=== PATIENT | male | born 1980 | race Caucasian/White ===

== ENCOUNTER 2017-05-31 12:15 | Observation (INO) | payer MEDICAID, SELFPAY ==
[2017-05-31] VITALS (11 sets, daily range): BP systolic 122–151; BP diastolic 74–100; PULSE 81–121; RESP 16–18; TEMP 36.4–37.7; O2SAT 95–100; BMI 31.6; BMI 29.9
--- NOTE | 2017-05-31 12:37 | ED.VISSUMM ---
- ER Visit Summary Date of Service: 05/31/17 Chief Complaint: Right long finger pain and swelling History of Present Illness: The patient is a 36 M right hand dominant. States about 2 weeks ago he dropped a metal on his right long finger injured it since it was better the next day. Has any fever. States since Monday he is right long finger has been swollen red and increasing pain. It hurts to extend the finger. No prior history. No prior surgery to the right hand. Physical Examination: Male no acute distress. Vital signs are stable afebrile. HEENT exam normal. Neck nontender. Lungs good auscultation bilaterally. Heart regular rhythm no murmur. Tachycardia 110-120. Abdomen soft nontender. Extremities he moves all 4. Neurovascularly intact. Specifically his right long finger is a sausage digit. It is warm to touch. Is extremely tender. He has it somewhat flexed for comfort. If you extend his right long finger he has severe pain. Consistent with a flexor tenosynovitis. The pulmonary hand is nontender. The wrist and forearm is unremarkable. There is no epitrochlear or axillary lymphadenopathy. There is no lymphangitic streaking. Right hand is neurovascularly intact. There is a small healed wound on the backside. There is no bony deformity. Test Results: Right hand x-ray right long finger shows soft tissue swelling but no acute abnormality. No fracture or foreign body. Read by the radiologist reviewed by me. CBC normal. White count of 9. BMP normal. Emergency Department Course and Treatment: Repeat exam unchanged at 1344. Patient has a right long finger flexor tenosynovitis. Treatment Plan: I spoke with Dr. ananya Sheppard he will come down to the ER to evaluate the patient for possible surgical intervention. Disposition: [] Impression: Acute right long finger pain secondary to a flexor tenosynovitis This note was generated with [employer] dictation software. It may contain incorrect words, spelling, and punctuation that were not noted in review of the chart prior to signing ED Disposition - Plan for ED Patient: Chief Complaint: Upper Extremity Injury Referrals: Sofia Armstrong MD [Primary Care Provider] -
--- NOTE | 2017-05-31 12:55 | RAD_ITS ---
STUDY: X-RAY - RIGHT HAND REASON FOR EXAM: Male, 36 years old. Swelling of the third digit. History of puncture. TECHNIQUE: 3 view(s) of the hand. COMPARISON: None. FINDINGS: Normal radiocarpal articulation. Normal distal radioulnar joint. Normal visualized carpal bones. Normal carpal articulations Normal carpometacarpal articulation of the thumb. Normal second through fifth carpometacarpal joints. Normal metacarpi. Normal metacarpophalangeal joint of the thumb. Normal interphalangeal joint of the thumb. Normal proximal and distal phalanges of the thumb. Normal metacarpophalangeal joints of the second through fifth fingers. Normal proximal and distal interphalangeal joints of the second through fifth fingers. Normal phalanges of the second through fifth fingers. Soft tissue swelling. No radiopaque foreign body is seen. RAD/Hand Min 3 Views IMPRESSION: Soft tissue swelling. Electronically Signed: Shai Berg MD at 13:30 EDT Tel [phone], Service support ,
[2017-05-31 13:00] LABS: Absolute Lymphocyte Count 2.77 X10^3/ul (0.83-4.51); Basophil# 0.02 X10^3/uL; Basophil% 0.2 % (0-1); Eosinophil# 0.24 X10^3/uL; Eosinophils% 2.4 % (0-5); Hematocrit 46.3 % (40-54); Hemoglobin 16.8 g/dl (13.0-16.5); Lymphocyte # 2.77 X10^3/ul (4.0); Lymphocyte % 27.9 % (19-41); Mean Corp Hgb Conc 36.3 g/gl (32-36); Mean Corpuscular Hgb 31.7 pg (27.0-32.0); Mean Corpuscular Volume 87.4 fL (80-94); Mean Platelet Vol. 10.7 fl (6.2-12.0); Monocyte# 0.95 X10^3/uL; Monocyte% 9.6 % (0-10); Neutrophil # 5.95 X10^3/uL (2.7-7.7); Neutrophil % 59.9 % (47-70); POSITIVE COUNT NO; POSITIVE DIFFERENTIAL NO; POSITIVE MORPHOLOGY NO; Platelet Count 219 K/mm3 (150-450); RBC Distribution Width CV 12.7 % (11.6-14.6); RBC Distribution Width SD 40.5 fl (35.1-43.9); White Blood Count 9.9 K/mm3 (4.4-11.0)
[2017-05-31 13:09] LABS: Anion Gap 7 (5-15); BUN 15 mg/dL (7-18); BUN/Creat Ratio 14.2 RATIO (10-20); Calcium,Total 8.8 mg/dL (8.5-10.1); Chloride 110 mmol/L (98-107); Creatinine, Serum 1.06 mg/dL (0.70-1.30); EST Glomerular Filtration Rate 84 mL/min (>60); Est Glom Filt Rate - Afr Amer 101 mL/min (>60); Estimated Creatinine Clearance 108.88 ml/min; Glucose 106 mg/dL (74-106); Potassium 4.3 mmol/L (3.5-5.1); Sodium Level 142 mmol/L (136-145)
--- NOTE | 2017-05-31 17:48 | PCM.HP.STD ---
History of Present Illness Date of Admission: 05/31/17 Chief Complaint: Painful right long finger with flexor tenosynovitis. The patient is a 36 year old M who is right hand dominant and presented to the ED today with a 2 week history of an injury to his right long finger. He states he dropped a piece of metal on his right long finger. He still continued to work over the ensuing days. However over the last couple of days, he noted increasing redness and pain and swelling. Denies any fever. He states it hurts to extend his right long finger. No prior surgery to the right hand. I saw the patient in the ED and his right long finger symptomatology is consistent with flexor tenosynovitis. It was recommended to the patient that urgent operative intervention was necessary. Vancomycin IV was started. His WBC was 9.9. Past Medical History Past Medical History (Chronic Problems): Chronic Problems (Last Updated 03/03/17 @ 13:55 by Licha Salazar) Hypertension (Chronic) Tobacco dependence (Chronic) Tachycardia (Chronic) Chronic radicular low back pain (Chronic) Allergies amoxicillin [Amoxicillin] Allergy (Verified 09/15/13 15:50) Rash Penicillins Allergy (Verified 09/15/13 15:50) Rash PAST MEDICAL HISTORY Hypertension. Low back pain. History of heroin abuse for which he has been clean for 8 years. Smoker. Home Medications: Ambulatory Orders Medication Instructions Recorded gabapentin 400 mg capsule 800 mg PO BID #120 cap 04/12/17 amlodipine 5 mg tablet 5 mg PO QDAY #30 tab 05/26/17 Surgical History: no surgical history Psychiatric History: No pertinent psych hx Lives: With Family Smoking Status: Current every day smoker Tobacco Use: Cigarettes Alcohol: None Drugs: Heroin - had history of heroin abuse. Has been clean for 8 years. He goes to [employer] meetings three times per week. - *Family History Maternal History Items: Diabetes, Hypertension, - - thyroid disease. Paternal History Items: Heart Disease, - - thyroid disease, alcoholism, anxiety. Review of Systems Constitutional: Denies: Fever, Weight Change, Fatigue Eyes: Denies: Cataracts, Pain HEENT: Denies: Nasal Congestion, Sore Throat Cardiovascular: Denies: Chest Pain Respiratory: Reports: - - patient is a smoker.. Denies: Cough, Shortness of Breath Gastrointestinal: Denies: Constipation, Diarrhea, Nausea, Vomiting Genitourinary: Denies: Frequency, Hematuria Musculoskeletal: Reports: Back Pain, Hand Pain - right long finger pain with clinical suspicion for flexor tenosynovitis.. Denies: Arm Pain, Leg Pain, Neck Pain, Shoulder Pain Skin: Reports: - - increased swelling right long finger. Neurological: Denies: Headaches Psychiatric: Denies: Anxiety, Depression Endocrine: Reports: Hx of Thyroiditis. Denies: Polydipsia, Polyuria Hematologic/ Lymphatic: Denies: Easy Bruising, Hx of blood clot VTE Information - Inpt Only VTE Present on Admission: No VTE Mechan Device Prophylaxis: SCD's VTE Pharm Prophylaxis ordered?: No Patient Problems: Active and Suspected Problems (Last Updated 03/03/17 @ 13:55 by Licha Salazar) Facial mass (Acute) 1.2 cm infected cystic lesion left supramedial cheek Cellulitis, face (Acute) 1.2 cm infected cystic lesion left supramedial cheek Heroin use disorder, moderate, in sustained remission (Acute) Suppurative tenosynovitis of flexor tendon of right hand (Acute) suppurative flexor tenosynovitis right long finger Abscess of right hand including fingers (Acute) right long finger at volar aspect DIP joint crease - Physical Exam General: Alert, Oriented x3 HEENT: PERRLA, EOMI Neck: Supple Lungs: Clear to auscultation Cardiovascular: Regular rate, Regular Rhythm Abdomen: Soft, Non-Distended Extremities: No clubbing, No cyanosis, Edema - there is edema in the right long finger., Peripheral Pulses Normal, Tenderness - tenderness to palpation right long finger. Finger is flexed with swelling. There is extreme tenderness with passive extension. Clinically consistent with flexor tenosynovitis., - - no axillary adenopathy. Fingers are warm with good capillary refill. Some decreased sensation right long finger tip probably from swelling. Skin: - - has painful swollen right long finger consistent with flexor tenosynovitis. On the volar aspect of the right long finger at the DIP joint crease is an area of fluctuance indicative of an abscess. Tender to palpation. No purulent drainage. Patient states this is where the metal entered his skin. On the left supramedial cheek is an infected cystic lesion that measures 1.2 cm. Raised in configuration. Some tenderness to palpation. No purulent drainage. No fluctuance. Lymphatic: - - no axillary adenopathy. Neurological: Cranial nerves II-XII grossly intact Psych/Mental Status: Normal Affect, Appropriate Vital Signs Temp Pulse Resp BP Pulse Ox 97.9 F 98 16 151/74 H 95 05/31/17 15:44 05/31/17 15:20 05/31/17 15:44 05/31/17 15:44 05/31/17 15:44 Oxygen Delivery Method Room Air Weight: 240 lb Body Mass Index (BMI) 29.9 Laboratory Tests Past 24 Hrs 05/31/17 05/31/17 12:47 12:47 WBC 9.9 RBC 5.30 Hgb 16.8 H Hct 46.3 MCV 87.4 MCH 31.7 MCHC 36.3 H RDW 12.7 RDW Differential 40.5 Plt Count 219 MPV 10.7 Immature Gran % (Auto) 0.000 Neut % (Auto) 59.9 Lymph % (Auto) 27.9 [place] % (Auto) 9.6 Eos % (Auto) 2.4 Baso % (Auto) 0.2 Absolute Neuts (auto) 6.0 Absolute Lymphs (auto) 2.77 Total Counted Not Reportable Sodium 142 Potassium 4.3 Chloride 110 H Carbon Dioxide 25.0 Anion Gap 7 BUN 15 Creatinine 1.06 Estim Creat Clear Calc 108.88 Est GFR (MDRD) Af Amer 101 Est GFR (MDRD) Non-Af 84 BUN/Creatinine Ratio 14.2 Glucose 106 Calcium 8.8 Diagnostic Data Hand X-Ray 05/31/17 12:55 IMPRESSION: Soft tissue swelling. Electronically Signed: Shai Berg MD at 13:30 EDT Tel [phone], Service support , Assessment/Plan Active and Suspected Problems (Last Updated 03/03/17 @ 13:55 by Licha Salazar) Facial mass (Acute) 1.2 cm infected cystic lesion left supramedial cheek Cellulitis, face (Acute) 1.2 cm infected cystic lesion left supramedial cheek Heroin use disorder, moderate, in sustained remission (Acute) Suppurative tenosynovitis of flexor tendon of right hand (Acute) suppurative flexor tenosynovitis right long finger Abscess of right hand including fingers (Acute) right long finger at volar aspect DIP joint crease 1. Flexor tenosynovitis right long finger. 2. Abscess right long finger at volar aspect DIP joint crease. 3. Smoker. 4. History of heroin abuse. 5. 1.2 cm infected cystic lesion left supramedial cheek. Xray reviewed. Swelling noted. No bony abnormalities seen. No foreign bodies seen. Patient has the classic signs of flexor tenosynovitis (finger is flexed, pain in the finger, swelling in finger, and pain with passive extension). He states he may have gotten a piece of metal in the skin. 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 IV antibiotics with Vancomycin will be started in preparation to going to the OR. He needs operative intervention for incision and drainage and excisional debridement of an abscess with probable incision tendon sheath for flexor tenosynovitis. Operative cultures will be obtained. A positive culture may necessitate antibiotic modification. Based on the severity of the infection, a PICC line may be necessary for IV antibiotics. With his history of heroin use in the past, I cannot discharge him with the PICC line. And the patient has no desire to go to an ECF for the IV antibiotics. I will take him to the OR today. Surgery will be under anesthesia with tourniquet control. The wounds will be left open and will begin daily dressing changes with Aquacel Silver. I will be able to send him home once he is tolerating the wound care with po analgesics. Will set up Home Health to assist with the Silver dressing changes after discharge. Also as an outpatient, patient will need OT for range of motion exercises, strengthening, and edema management. 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 I anticipate being off work for about 2 months (tentative). Patient was informed of the risks and complications of the procedure including alternatives to surgery. These were discussed with him personally. He voices understanding and wishes to proceed. Some of the risks that were discussed included but were not inclusive of failure to diagnose including symptom relief, pain, infection, numbness, stiffness, loss of digit, RSD, need for further surgery, contracture and wound healing problems. He voices understanding and wishes to proceed. Encouraged the patient to stop smoking as it may have deleterious effects on wound healing. Even though he thinks this happened at work, he states he is not going through [facility]. I told him if he did, he would need to be transferred since I don't take [facility] anymore. He voices understanding, and he states he will go through his regular medical insurance. He has an infected cystic lesion left supramedial cheek that will be addressed after his surgery on his right long finger. In the meantime, he will apply warm compresses to allow spontaneous drainage. He will already be on antibiotics for his finger. If I open it today, I will have to leave the wound open and proceed with daily dressing changes with Silver dressings. Ideally I would like to wait for the redness and swelling to subside in order to excise the cystic lesion electively with wound closure at the same time. Code Visit Charges CPT - 32849-12 ICD-10 - L02.511, M65.141, F11.21, L03.211, R22.0, F17.200
--- NOTE | 2017-05-31 17:51 | HP.PCM_ITS ---
History of Present Illness Date of Admission: 05/31/17 Chief Complaint: Painful right long finger with flexor tenosynovitis. The patient is a 36 year old M who is right hand dominant and presented to the ED today with a 2 week history of an injury to his right long finger. He states he dropped a piece of metal on his right long finger. He still continued to work over the ensuing days. However over the last couple of days, he noted increasing redness and pain and swelling. Denies any fever. He states it hurts to extend his right long finger. No prior surgery to the right hand. I saw the patient in the ED and his right long finger symptomatology is consistent with flexor tenosynovitis. It was recommended to the patient that urgent operative intervention was necessary. Vancomycin IV was started. His WBC was 9.9. Past Medical History Past Medical History (Chronic Problems): Chronic Problems (Last Updated 03/03/17 @ 13:55 by Licha Salazar) Hypertension (Chronic) Tobacco dependence (Chronic) Tachycardia (Chronic) Chronic radicular low back pain (Chronic) Allergies amoxicillin [Amoxicillin] Allergy (Verified 09/15/13 15:50) Rash Penicillins Allergy (Verified 09/15/13 15:50) Rash PAST MEDICAL HISTORY Hypertension. Low back pain. History of heroin abuse for which he has been clean for 8 years. Smoker. Home Medications: Ambulatory Orders Medication Instructions Recorded gabapentin 400 mg capsule 800 mg PO BID #120 cap 04/12/17 amlodipine 5 mg tablet 5 mg PO QDAY #30 tab 05/26/17 Surgical History: no surgical history Psychiatric History: No pertinent psych hx Lives: With Family Smoking Status: Current every day smoker Tobacco Use: Cigarettes Alcohol: None Drugs: Heroin - had history of heroin abuse. Has been clean for 8 years. He goes to [employer] meetings three times per week. - *Family History Maternal History Items: Diabetes, Hypertension, - - thyroid disease. Paternal History Items: Heart Disease, - - thyroid disease, alcoholism, anxiety. Review of Systems Constitutional: Denies: Fever, Weight Change, Fatigue Eyes: Denies: Cataracts, Pain HEENT: Denies: Nasal Congestion, Sore Throat Cardiovascular: Denies: Chest Pain Respiratory: Reports: - - patient is a smoker.. Denies: Cough, Shortness of Breath Gastrointestinal: Denies: Constipation, Diarrhea, Nausea, Vomiting Genitourinary: Denies: Frequency, Hematuria Musculoskeletal: Reports: Back Pain, Hand Pain - right long finger pain with clinical suspicion for flexor tenosynovitis.. Denies: Arm Pain, Leg Pain, Neck Pain, Shoulder Pain Skin: Reports: - - increased swelling right long finger. Neurological: Denies: Headaches Psychiatric: Denies: Anxiety, Depression Endocrine: Reports: Hx of Thyroiditis. Denies: Polydipsia, Polyuria Hematologic/ Lymphatic: Denies: Easy Bruising, Hx of blood clot VTE Information - Inpt Only VTE Present on Admission: No VTE Mechan Device Prophylaxis: SCD's VTE Pharm Prophylaxis ordered?: No Patient Problems: Active and Suspected Problems (Last Updated 03/03/17 @ 13:55 by Licha Salazar) Facial mass (Acute) 1.2 cm infected cystic lesion left supramedial cheek Cellulitis, face (Acute) 1.2 cm infected cystic lesion left supramedial cheek Heroin use disorder, moderate, in sustained remission (Acute) Suppurative tenosynovitis of flexor tendon of right hand (Acute) suppurative flexor tenosynovitis right long finger Abscess of right hand including fingers (Acute) right long finger at volar aspect DIP joint crease - Physical Exam General: Alert, Oriented x3 HEENT: PERRLA, EOMI Neck: Supple Lungs: Clear to auscultation Cardiovascular: Regular rate, Regular Rhythm Abdomen: Soft, Non-Distended Extremities: No clubbing, No cyanosis, Edema - there is edema in the right long finger., Peripheral Pulses Normal, Tenderness - tenderness to palpation right long finger. Finger is flexed with swelling. There is extreme tenderness with passive extension. Clinically consistent with flexor tenosynovitis., - - no axillary adenopathy. Fingers are warm with good capillary refill. Some decreased sensation right long finger tip probably from swelling. Skin: - - has painful swollen right long finger consistent with flexor tenosynovitis. On the volar aspect of the right long finger at the DIP joint crease is an area of fluctuance indicative of an abscess. Tender to palpation. No purulent drainage. Patient states this is where the metal entered his skin. On the left supramedial cheek is an infected cystic lesion that measures 1.2 cm. Raised in configuration. Some tenderness to palpation. No purulent drainage. No fluctuance. Lymphatic: - - no axillary adenopathy. Neurological: Cranial nerves II-XII grossly intact Psych/Mental Status: Normal Affect, Appropriate Vital Signs Temp Pulse Resp BP Pulse Ox 97.9 F 98 16 151/74 H 95 05/31/17 15:44 05/31/17 15:20 05/31/17 15:44 05/31/17 15:44 05/31/17 15:44 Oxygen Delivery Method Room Air Weight: 240 lb Body Mass Index (BMI) 29.9 Laboratory Tests Past 24 Hrs 05/31/17 05/31/17 12:47 12:47 WBC 9.9 RBC 5.30 Hgb 16.8 H Hct 46.3 MCV 87.4 MCH 31.7 MCHC 36.3 H RDW 12.7 RDW Differential 40.5 Plt Count 219 MPV 10.7 Immature Gran % (Auto) 0.000 Neut % (Auto) 59.9 Lymph % (Auto) 27.9 [place] % (Auto) 9.6 Eos % (Auto) 2.4 Baso % (Auto) 0.2 Absolute Neuts (auto) 6.0 Absolute Lymphs (auto) 2.77 Total Counted Not Reportable Sodium 142 Potassium 4.3 Chloride 110 H Carbon Dioxide 25.0 Anion Gap 7 BUN 15 Creatinine 1.06 Estim Creat Clear Calc 108.88 Est GFR (MDRD) Af Amer 101 Est GFR (MDRD) Non-Af 84 BUN/Creatinine Ratio 14.2 Glucose 106 Calcium 8.8 Diagnostic Data Hand X-Ray 05/31/17 12:55 IMPRESSION: Soft tissue swelling. Electronically Signed: Shai Berg MD at 13:30 EDT Tel [phone], Service support , Assessment/Plan Active and Suspected Problems (Last Updated 03/03/17 @ 13:55 by Licha Salazar) Facial mass (Acute) 1.2 cm infected cystic lesion left supramedial cheek Cellulitis, face (Acute) 1.2 cm infected cystic lesion left supramedial cheek Heroin use disorder, moderate, in sustained remission (Acute) Suppurative tenosynovitis of flexor tendon of right hand (Acute) suppurative flexor tenosynovitis right long finger Abscess of right hand including fingers (Acute) right long finger at volar aspect DIP joint crease 1. Flexor tenosynovitis right long finger. 2. Abscess right long finger at volar aspect DIP joint crease. 3. Smoker. 4. History of heroin abuse. 5. 1.2 cm infected cystic lesion left supramedial cheek. Xray reviewed. Swelling noted. No bony abnormalities seen. No foreign bodies seen. Patient has the classic signs of flexor tenosynovitis (finger is flexed, pain in the finger, swelling in finger, and pain with passive extension). He states he may have gotten a piece of metal in the skin. 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 IV antibiotics with Vancomycin will be started in preparation to going to the OR. He needs operative intervention for incision and drainage and excisional debridement of an abscess with probable incision tendon sheath for flexor tenosynovitis. Operative cultures will be obtained. A positive culture may necessitate antibiotic modification. Based on the severity of the infection, a PICC line may be necessary for IV antibiotics. With his history of heroin use in the past, I cannot discharge him with the PICC line. And the patient has no desire to go to an ECF for the IV antibiotics. I will take him to the OR today. Surgery will be under anesthesia with tourniquet control. The wounds will be left open and will begin daily dressing changes with Aquacel Silver. I will be able to send him home once he is tolerating the wound care with po analgesics. Will set up Home Health to assist with the Silver dressing changes after discharge. Also as an outpatient, patient will need OT for range of motion exercises, strengthening, and edema management. 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 I anticipate being off work for about 2 months (tentative). Patient was informed of the risks and complications of the procedure including alternatives to surgery. These were discussed with him personally. He voices understanding and wishes to proceed. Some of the risks that were discussed included but were not inclusive of failure to diagnose including symptom relief, pain, infection, numbness, stiffness, loss of digit, RSD, need for further surgery, contracture and wound healing problems. He voices understanding and wishes to proceed. Encouraged the patient to stop smoking as it may have deleterious effects on wound healing. Even though he thinks this happened at work, he states he is not going through [facility]. I told him if he did, he would need to be transferred since I don't take [facility] anymore. He voices understanding, and he states he will go through his regular medical insurance. He has an infected cystic lesion left supramedial cheek that will be addressed after his surgery on his right long finger. In the meantime, he will apply warm compresses to allow spontaneous drainage. He will already be on antibiotics for his finger. If I open it today, I will have to leave the wound open and proceed with daily dressing changes with Silver dressings. Ideally I would like to wait for the redness and swelling to subside in order to excise the cystic lesion electively with wound closure at the same time. Code Visit Charges CPT - 10237-91 ICD-10 - L02.511, M65.141, F11.21, L03.211, R22.0, F17.200
--- NOTE | 2017-05-31 18:05 | PCM.IMDPSTOP ---
Immediate Post-Op Note Date of Procedure: 05/31/17 Primary Surgeon/Physician: Anant Castro manager athletics: None Pre-Operative Diagnosis: 1. Flexor tenosynovitis right long finger. 2. Abscess right long finger at volar aspect DIP joint crease. 3. Smoker. 4. History of heroin abuse. Post-Operative Diagnosis: 1. Suppurative flexor tenosynovitis right long finger. 2. Abscess right long finger at volar aspect DIP joint crease. 3. Smoker. 4. History of heroin abuse. Surgery/Procedure Performed:: 1. Surgical preparation right long finger with incision and drainage and excisional debridement abscess at DIP joint crease. 2. Incision tendon sheath right long finger for suppurative flexor tenosynovitis. Description of Surgical Findings:: The patient is a 36 year old M who is right hand dominant and presented to the ED today with a 2 week history of an injury to his right long finger. He states he dropped a piece of metal on his right long finger. He still continued to work over the ensuing days. However over the last couple of days, he noted increasing redness and pain and swelling. Denies any fever. He states it hurts to extend his right long finger. No prior surgery to the right hand. I saw the patient in the ED and his right long finger symptomatology is consistent with flexor tenosynovitis. It was recommended to the patient that urgent operative intervention was necessary. Vancomycin IV was started. His WBC was 9.9. Today the patient underwent surgical preparation right long finger with incision and drainage and excisional debridement abscess at DIP joint crease and incision tendon sheath right long finger for suppurative flexor tenosynovitis. Total tourniquet time - 74 minutes. Length of zig zag wound right long finger - 13 cm. Estimated Blood Loss: 5 ml. Specimen's removed: 1. Flexor tenosynovitis tissue right long finger to Pathology and Microbiology. 2. MRSA by DNA PCR swab culture right long finger. Drains: None. Type of Anesthesia:: Block,[place] - Admit VTE Documentation VTE Present on Admission: No VTE Mechan Device Prophylaxis: SCD's VTE Pharm Prophylaxis ordered?: No
--- NOTE | 2017-05-31 18:09 | OP.PN_ITS ---
Immediate Post-Op Note Date of Procedure: 05/31/17 Primary Surgeon/Physician: Anant Castro latexer: None Pre-Operative Diagnosis: 1. Flexor tenosynovitis right long finger. 2. Abscess right long finger at volar aspect DIP joint crease. 3. Smoker. 4. History of heroin abuse. Post-Operative Diagnosis: 1. Suppurative flexor tenosynovitis right long finger. 2. Abscess right long finger at volar aspect DIP joint crease. 3. Smoker. 4. History of heroin abuse. Surgery/Procedure Performed:: 1. Surgical preparation right long finger with incision and drainage and excisional debridement abscess at DIP joint crease. 2. Incision tendon sheath right long finger for suppurative flexor tenosynovitis. Description of Surgical Findings:: The patient is a 36 year old M who is right hand dominant and presented to the ED today with a 2 week history of an injury to his right long finger. He states he dropped a piece of metal on his right long finger. He still continued to work over the ensuing days. However over the last couple of days, he noted increasing redness and pain and swelling. Denies any fever. He states it hurts to extend his right long finger. No prior surgery to the right hand. I saw the patient in the ED and his right long finger symptomatology is consistent with flexor tenosynovitis. It was recommended to the patient that urgent operative intervention was necessary. Vancomycin IV was started. His WBC was 9.9. Today the patient underwent surgical preparation right long finger with incision and drainage and excisional debridement abscess at DIP joint crease and incision tendon sheath right long finger for suppurative flexor tenosynovitis. Total tourniquet time - 74 minutes. Length of zig zag wound right long finger - 13 cm. Estimated Blood Loss: 5 ml. Specimen's removed: 1. Flexor tenosynovitis tissue right long finger to Pathology and Microbiology. 2. MRSA by DNA PCR swab culture right long finger. Drains: None. Type of Anesthesia:: Block,[place] - Admit VTE Documentation VTE Present on Admission: No VTE Mechan Device Prophylaxis: SCD's VTE Pharm Prophylaxis ordered?: No
[2017-05-31] MEDS: 0.9% NaCl Peripheral Flush Adult/Peds IV ×2 (19:36→23:29)
[2017-05-31] MEDS: HYDROmorphone 1 MG/ML Syringe IV ×3 (19:36→23:29)
[2017-05-31] MEDS: amLODIPine 5 MG Tablet PO (19:41)
[2017-05-31 20:08] LABS: M R Staph aureus DNA By PCR Negative (Negative); Probe Check PASS; Specimen Processing Control PASS; Staph aureus DNA By PCR NEGATIVE (Negative)
--- NOTE | 2017-05-31 20:20 | PCM.RX.CS ---
Consult Pharmacy has been consulted to manage selected antiobiotic: Vancomycin Type of Consult: New start Suspected Infection: Skin/Soft tissue Prior Doses of Antibiotics Received/Current Regimen: VANCOMYCIN 1G IV X1 (PRE-OP) 05/31 @1526 Labs: Sodium 142 mmol/L (136-145) 05/31/17 12:47 Potassium 4.3 mmol/L (3.5-5.1) 05/31/17 12:47 Chloride 110 mmol/L (98-107) H 05/31/17 12:47 Carbon Dioxide 25.0 mmol/L (21.0-32.0) 05/31/17 12:47 Anion Gap 7 (5-15) 05/31/17 12:47 BUN 15 mg/dL (7-18) 05/31/17 12:47 Creatinine 1.06 mg/dL (0.70-1.30) 05/31/17 12:47 Est GFR (MDRD) Af Amer 101 mL/min (>60) 05/31/17 12:47 Est GFR (MDRD) Non-Af 84 mL/min (>60) 05/31/17 12:47 BUN/Creatinine Ratio 14.2 RATIO (10-20) 05/31/17 12:47 Glucose 106 mg/dL (74-106) 05/31/17 12:47 Microbiology: COLLECTED, PENDING RESULTS Weight used for dosin.9 kg Estimated Creatinine Clearance: 109ML/MIN Goal Trough: 10-15 mcg/mL Pharmacy Plan for Drug Dosing: Pharmacy Service will continue to monitor and adjust dosing as required. Pharmacy to manage suspected skin/soft tissue infection per H/P and surgical note. The pt got a pre-op dose prior to dosing consult. Since pt is young, and has good renal function, will place on q8hr dosing and target a trough of 10-15 PLAN/RECOMMENDATIONS 1. Vancomycin 1250mg IV Q8hrs to start 05/31 @2300 (11.4mg/kg based on TBW of 108.9kg) 2. Trough scheduled 06/02 @0630 (Prior to 5th dose of regimen) 3. Pharmacy will continue to monitor micro data, renal function, and troughs. Will make changes as appropriate
[2017-05-31] MEDS: diazePAM 5 MG Tablet PO (20:35)
[2017-05-31] MEDS: oxyCODONE 5 MG Tablet 10 MG PO (21:32)
[2017-05-31] MEDS: Zolpidem Tartrate 5 MG Tablet PO (21:32)
[2017-05-31] MEDS: Docusate Sodium 100 MG Capsule PO (21:32)
--- NOTE | 2017-05-31 22:35 | PCM.OPRPT ---
Report of Operation Date of Procedure: 05/31/17 Pre-Operative Diagnosis: 1. Flexor tenosynovitis right long finger. 2. Abscess right long finger at volar aspect DIP joint crease. 3. Smoker. 4. History of heroin abuse. Post-Operative Diagnosis: 1. Suppurative flexor tenosynovitis right long finger. 2. Abscess right long finger at volar aspect DIP joint crease. 3. Smoker. 4. History of heroin abuse. Surgery/Procedure Performed:: 1. Surgical preparation right long finger with incision and drainage and excisional debridement abscess at DIP joint crease. 2. Incision tendon sheath right long finger for suppurative flexor tenosynovitis. Description of Surgical Findings:: The patient is a 36 year old M who is right hand dominant and presented to the ED today with a 2 week history of an injury to his right long finger. He states he dropped a piece of metal on his right long finger. He still continued to work over the ensuing days. However over the last couple of days, he noted increasing redness and pain and swelling. Denies any fever. He states it hurts to extend his right long finger. No prior surgery to the right hand. I saw the patient in the ED and his right long finger symptomatology is consistent with flexor tenosynovitis. It was recommended to the patient that urgent operative intervention was necessary. Vancomycin IV was started. His WBC was 9.9. Patient was informed of the risks and complications of the procedure including alternatives to surgery. These were discussed with him personally. He voices understanding and wishes to proceed. Some of the risks that were discussed included but were not inclusive of failure to diagnose including symptom relief, pain, infection, numbness, stiffness, loss of digit, RSD, need for further surgery, contracture and wound healing problems. He voices understanding and wishes to proceed. Encouraged the patient to stop smoking as it may have deleterious effects on wound healing. Total tourniquet time - 74 minutes. Length of zig zag wound right long finger - 13 cm. 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 Flexor tenosynovitis tissue right long finger to Pathology and Microbiology. 2. MRSA by DNA PCR swab culture right long finger. Drains: None. Estimated Blood Loss (mL): 5 ml. Description of Procedure: Patient was taken to OR in supine position and a [place] Block was administered by anesthesia. The tourniquet was elevated to 250 mmHg. After the medicine was delivered intravenously, the right arm was prepped and draped in the usual fashion. Using loupe magnification, the procedure started. I supplemented the block with xylocaine with epinephrine digital metacarpal block. SCD's were placed for DVT prophylaxis. Perioperative antibiotics were given intravenously. I made an incision in the DIP joint crease where the injury occurred. Some pus was expressed under pressure. There was surrounding fat necrosis. Pus extended to the tendon sheath distally. I then made zig zag incisions distally to expose the distal end of the tendon sheath and proximally to the distal palmar crease to expose the proximal end of the tendon sheath. Dissection was carried down to the tendon sheath. Both the radial and ulnar digital nerves were seen and dissected and preserved. I went ahead and made a longitudinal incision in the A1 theresa to minimize the worry of a triggering of the finger after healing has occurred. When I made the incision in the A1 theresa, more pus was seen in the tendon sheath. I then pressed the proximal mid palm and more pus was expressed around the proximal tendon. Further zig zag incisions were made proximally into the midpalmar space. The tendon in the sheath appeared tense and swollen. I placed an 18 gauge catheter into the proximal end of the tendon sheath and irrigated distally with saline and then placed the catheter into the distal end of the tendon sheath and irrigated proximally with saline, about 600 ml. There was syrupy pus initially seen in the soft tissue and the tendon sheath. After extensive irrigation, the fluid expressed from the tendon sheath was clear with no further evidence of pus. I swabbed the pus to check for MRSA by DNA PCR. The tissue that was debrided from the DIP joint crease as well as some of the fat necrosis that was debrided with a curette was sent to Pathology for analysis to rule out carcinoma and to Microbiology for culture. A positive culture may necessitate antibiotic modification. I anticipate the need for IV antibiotics for a few days. Will place a PICC line for that purpose. I anticipate that the culture will be sensitive to oral antibiotics. I don't want to send him home with the PICC line because of his history of heroin abuse for which he has been clean for about 8 years. I then closed the zigs and the zags with 5-0 Prolene simple interrupted sutures and vertical mattress interrupted sutures. The intervening lengths of the zigs and the zags measured about 13 cm. I then placed Aquacel Silver into the various lengths of the zigs and zags. The tourniquet was released after 74 minutes. Bleeding easily controlled with light electrocautery and gentle pressure and elevation. The right hand was then dressed with 2x2 gauze followed by 2 inch reuben wrap and a Kerlix gauze and a 4 inch plaster splint followed by a compression lalo wrap. The plastic splint put the hand in a position of function namely wrist dorsiflexed, the MP joints flexed and the IP joints extended. He tolerated the procedure well and was sent to PACU in satisfactory condition. He will be sent upstairs for continued postop care. He will be able to go home when tolerating minimal narcotics with the dressing change. He will keep his right arm elevated during the initial postop period. The Silver dressing changes will begin in the next 1-2 days. Home Health will be available to assist with the dressing changes. After discharge will make arrangements for him to be seen at OT for range of motion exercises, strengthening, and edema management as well as the formation of a silastic splint. Silver dressing changes will be daily. Sutures will be removed in 3-4 weeks. Due to the amount of pus that was found, will treat him with IV antibiotics for a little while and then po antibiotics for the next month. Grafts/Implants Used: None. - Complications None. - Admit VTE Documentation VTE Present on Admission: No VTE Mechan Device Prophylaxis: SCD's VTE Pharm Prophylaxis ordered?: No Code Visit Surgery Charges CPT - 27722 ICD-10 - M65.141, F11.21, F17.200 02130 L02.511, S61.401A, F11.21, F17.200
[2017-05-31] MEDS: Gabapentin 400 MG Capsule 800 MG PO (23:28)
--- NOTE | 2017-06-01 | TESH_PTH ---
PATIENT: SOBIA HENDRICKSON Jr. LOC: MS2 U#:[id number] AGE/SX: 36/M ROOM: [facility] [place] RE05/31/[address]: Dr. Anant Castro MD : [id number] BED: 1 DIS: 06/04/2017 SPEC #: [id number] RECD: 06/01/17 08:30 STATUS: AMANDEEP REGray #: [id number] TODD: 06/01/17 00:[address]: Anant Castro DEPT: SURGICAL PATHOLOGY RECD BY: Wilfredo Evans ENTERED: 06/01/17 09:09 SP TYPE: TENDON OTHR DR: Dr. Sofia Armstrong MD Tissues: Tendon and tendon sheath, NOS Procedures: Special Stain Group I Surgery Specimen Level IV AFB Stain (control) GMS Stain (control) HEADER OPERATION: Incision and drainage of right long finger PRE-OP DIAGNOSIS: Flexor tenosynovitis right long finger TISSUE SUBMITTED: Right long finger flexor tenosynovitis MICROSCOPIC DIAGNOSIS Skin and soft tissue of right long finger, excision: Focal cutaneous ulceration with fibrinopurulent material. Acanthosis, hyperkeratosis. Dermis with fibrinopurulent material, associated fibrosis and reactive change. Negative for acid-fast bacilli and fungal organisms. AM:camelia 06/02/17 COMMENT AFB and GMS stains with matched controls were used in the evaluation of this case. MICROSCOPIC DESCRIPTION Slides are reviewed. GROSS DESCRIPTION Received in fixative is one container labeled with the patient's name and designated right long finger flexor tenosynovitis. The specimen consists of a piece of [place]-white skin ellipse measuring 1.5 x 0.6 cm and up to 0.4 cm in thickness. The specimen is inked, bisected and submitted entirely in one cassette which will be serially sectioned at the time of embedding. / SJ:camelia 06/01/17 TC:2 CPT: 23416, 00794 x2
[2017-06-01 01:50] VITALS: BP 127/76; PULSE 99; RESP 16; TEMP 36.9; O2SAT 96
[2017-06-01] MEDS: oxyCODONE 5 MG Tablet 10 MG PO ×5 (01:59→20:32)
[2017-06-01 06:11] LABS: Hematocrit 44.3 % (40-54); Hemoglobin 15.1 g/dl (13.0-16.5); Mean Corp Hgb Conc 34.1 g/gl (32-36); Mean Corpuscular Hgb 30.8 pg (27.0-32.0); Mean Corpuscular Volume 90.4 fL (80-94); Mean Platelet Vol. 10.5 fl (6.2-12.0); Platelet Count 167 K/mm3 (150-450); RBC Distribution Width CV 12.7 % (11.6-14.6); RBC Distribution Width SD 41.9 fl (35.1-43.9); White Blood Count 8.8 K/mm3 (4.4-11.0)
[2017-06-01 06:26] LABS: Scan Indicated on CBC? Y/N NO
[2017-06-01] MEDS: HYDROmorphone 1 MG/ML Syringe IV ×5 (06:43→22:30)
[2017-06-01 06:47] LABS: Anion Gap 8 (5-15); BUN 13 mg/dL (7-18); BUN/Creat Ratio 12.9 RATIO (10-20); Calcium,Total 8.2 mg/dL (8.5-10.1); Chloride 109 mmol/L (98-107); Creatinine, Serum 1.01 mg/dL (0.70-1.30); EST Glomerular Filtration Rate 88 mL/min (>60); Est Glom Filt Rate - Afr Amer 107 mL/min (>60); Estimated Creatinine Clearance 120.85 ml/min; Glucose 103 mg/dL (74-106); Potassium 3.9 mmol/L (3.5-5.1); Sodium Level 140 mmol/L (136-145)
[2017-06-01] MEDS: Docusate Sodium 100 MG Capsule PO ×2 (09:20→21:46)
[2017-06-01] MEDS: amLODIPine 5 MG Tablet PO (09:20)
[2017-06-01] MEDS: Gabapentin 400 MG Capsule 800 MG PO ×2 (09:20→16:30)
[2017-06-01 09:45] VITALS: BP 131/99; PULSE 93; RESP 18; TEMP 36.8; O2SAT 97
--- NOTE | 2017-06-01 11:04 | CASEMGMT ---
See RN CM Assessment Link. Plan is to return home on discharge. Pt has PCP, prescription coverage. No needs identified. Omero VALENCIAN RN ACM
[2017-06-01] MEDS: Lactated Ringers 1,000 ML 60 ML IV (12:26)
[2017-06-01] MEDS: diazePAM 5 MG Tablet PO ×2 (15:15→21:46)
[2017-06-01 15:45] VITALS: BP 134/92; PULSE 94; RESP 18; TEMP 37; O2SAT 96
[2017-06-01 19:59] VITALS: BP 121/65; PULSE 82; RESP 16; TEMP 36.8; O2SAT 96
--- NOTE | 2017-06-01 20:56 | PCM.PN.SRG ---
Subjective: Postop #1 Patient had a lot of pain with the dressing change. Needed IV analgesia. - Physical Exam General: Alert HEENT: PERRLA, EOMI Neck: Supple Lungs: Clear to auscultation Cardiovascular: Regular rate, Regular Rhythm Abdomen: Soft, Non-Distended Skin: Ulcer/ Wound - right long finger wound is stable. Mild swelling present but finger little softer. Slight bleeding in the wounds with the Silver dressing change. Some surrounding skin maceration. Redressed the wounds with Silver which was painful. Needed IV analgesia. No further evidence of purulent drainage or infection., - - Infected cystic lesion left supramedial cheek is stable. Less red. Little softer. Continue warm compreses to promote drainage. Lymphatic: - - no axillary adenopathy. Neurological: Cranial nerves II-XII grossly intact Psych/Mental Status: Normal Affect, Appropriate Vital Signs Temp Pulse Resp BP Pulse Ox 98.2 F 82 16 121/65 H 96 06/01/17 19:59 06/01/17 19:59 06/01/17 19:59 06/01/17 19:59 06/01/17 19:59 Oxygen Delivery Method Room Air Weight: 240 lb 1.616 oz Body Mass Index (BMI) 29.9 Intake and Output for Last 24 Hours 05/30/17 05/31/17 06/01/17 23:59 23:59 23:59 Intake Total 2871 / 2871 1403 / 1403 Balance 2871 / 2871 1403 / 1403 Microbiology Past 72 Hours 05/31/17 18:00 Gram Stain - Final Tissue - Finger Wound Culture - Preliminary No growth-Final to follow Laboratory Tests Past 24 Hrs 06/01/17 06/01/17 05:54 05:54 WBC 8.8 RBC 4.90 Hgb 15.1 Hct 44.3 MCV 90.4 MCH 30.8 MCHC 34.1 RDW 12.7 RDW Differential 41.9 Plt Count 167 MPV 10.5 Sodium 140 Potassium 3.9 Chloride 109 H Carbon Dioxide 23.0 Anion Gap 8 BUN 13 Creatinine 1.01 Estim Creat Clear Calc 120.85 Est GFR (MDRD) Af Amer 107 Est GFR (MDRD) Non-Af 88 BUN/Creatinine Ratio 12.9 Glucose 103 Calcium 8.2 L Prealbumin 22.0 Medical Necessity - Tobacco Use Smoking Status: Current every day smoker Tobacco Use: Cigarettes Assessment/Plan 1. Suppurative flexor tenosynovitis right long finger. 2. Abscess right long finger at volar aspect DIP joint crease. 3. Smoker. 4. History of heroin abuse. 5. s/p surgical preparation right long finger with incision and drainage and excisional debridement abscess at DIP joint crease and incision tendon sheath right long finger for suppurative flexor tenosynovitis. 6. 1.2 cm infected cystic lesion left supramedial cheek. Because of the presence of pus in the tendon sheath, anticipate the need for IV antibiotics. Will place a PICC line today. A positive culture may necessitate antibiotic modification. However with his history of heroin use in the past, I cannot discharge him with the PICC line. And the patient has no desire to go to an ECF for the IV antibiotics. So when he is ready to go home, hopefully we can send him home on po antibiotics base on the cultures. Continue Vancomycin for now until the cultures are available. Silver dressing change was painful today. Needed IV analgesia. When tolerating po analgesia for the dressing change, will be able to send him home. Encourage range of motion exercises to minimize stiffness. Will need OT after discharge for range of motion exercises, strengthening, and edema management. His Prealbumin was 22.0. Encourage nutritional supplementation with protein to help the healing process. 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 I anticipate being off work for about 2 months (tentative). Encouraged the patient to stop smoking as it may have deleterious effects on wound healing. He has an infected cystic lesion left supramedial cheek that will be addressed after his surgery on his right long finger. In the meantime, he will apply warm compresses to allow spontaneous drainage. He is already on antibiotics for his finger. If I open it today, I will have to leave the wound open and proceed with daily dressing changes with Silver dressings. Ideally I would like to wait for the redness and swelling to subside in order to excise the cystic lesion electively with wound closure at the same time.
[2017-06-01] MEDS: Zolpidem Tartrate 5 MG Tablet PO (21:46)
[2017-06-02 02:40] VITALS: BP 122/74; PULSE 62; RESP 16; TEMP 36.8; O2SAT 96
[2017-06-02] MEDS: Lactated Ringers 1,000 ML 60 ML IV (06:43)
[2017-06-02] MEDS: HYDROmorphone 1 MG/ML Syringe IV ×6 (06:44→23:20)
[2017-06-02 07:06] LABS: Vancomycin, Trough Level 11.2 ug/mL (5.0-15.0)
[2017-06-02 08:40] VITALS: BP 150/106; PULSE 103; RESP 16; TEMP 36.1; O2SAT 95
[2017-06-02] MEDS: oxyCODONE 5 MG Tablet 10 MG PO ×3 (08:41→21:36)
[2017-06-02] MEDS: amLODIPine 5 MG Tablet PO (08:41)
[2017-06-02] MEDS: Docusate Sodium 100 MG Capsule PO ×2 (08:42→21:35)
[2017-06-02] MEDS: Gabapentin 400 MG Capsule 800 MG PO ×2 (08:42→16:19)
--- NOTE | 2017-06-02 09:13 | PCM.RX.CS ---
Consult Pharmacy has been consulted to manage selected antiobiotic: Vancomycin Type of Consult: Follow-up Suspected Infection: Skin/Soft tissue Prior Doses of Antibiotics Received/Current Regimen: Vancomycin 1250mg IV Q8h Labs: Sodium 140 mmol/L (136-145) 06/01/17 05:54 Potassium 3.9 mmol/L (3.5-5.1) 06/01/17 05:54 Chloride 109 mmol/L (98-107) H 06/01/17 05:54 Carbon Dioxide 23.0 mmol/L (21.0-32.0) 06/01/17 05:54 Anion Gap 8 (5-15) 06/01/17 05:54 BUN 13 mg/dL (7-18) 06/01/17 05:54 Creatinine 1.01 mg/dL (0.70-1.30) 06/01/17 05:54 Est GFR (MDRD) Af Amer 107 mL/min (>60) 06/01/17 05:54 Est GFR (MDRD) Non-Af 88 mL/min (>60) 06/01/17 05:54 BUN/Creatinine Ratio 12.9 RATIO (10-20) 06/01/17 05:54 Glucose 103 mg/dL (74-106) 06/01/17 05:54 Vancomycin Trough 11.2 ug/mL (5.0-15.0) 06/02/17 06:25 Microbiology: Microbiology 05/31/17 18:00 Tissue - Finger Gram Stain - Final 05/31/17 18:00 Tissue - Finger Wound Culture - Preliminary No growth-Final to follow 05/31/17 18:00 Tissue - Finger Anaerobic Culture - Preliminary No growth in 48 hours. Weight used for dosin.9 kg Estimated Creatinine Clearance: 109mL/min Goal Trough: 10-15 mcg/mL Pharmacy Plan for Drug Dosing: The patient had a trough drawn which resulted in a value of 11.2 (drawn 7hrs from last dose administered). Given that the target trough for this patient is 10-15, will continue current management. PLAN/RECOMMENDATIONS 1. Continue vancomycin 1250mg IV Q8hr 2. Will not schedule an additional trough at this time. If patient is still on vanco on 06/05/17, will schedule another level to assess patient 3. Pharmacy will continue to monitor renal function, culture data, and troughs. Will make changes as appropriate.
[2017-06-02] MEDS: diazePAM 5 MG Tablet PO ×2 (10:08→15:20)
--- NOTE | 2017-06-02 11:52 | PCM.PN.SRG ---
Subjective: Postop #2 Patient tolerated the dressing change a little easier today. Still needed IV analgesia. - Physical Exam General: Alert, Oriented x3 HEENT: PERRLA, EOMI Neck: Supple Lungs: Clear to auscultation Cardiovascular: Regular rate, Regular Rhythm Abdomen: Soft, Non-Distended Skin: Ulcer/ Wound - right long finger wound is stable. Mild swelling present but finger little softer. Slight bleeding in the wounds with the Silver dressing change. Some surrounding skin maceration. Redressed the wounds with Silver which was painful. Needed IV analgesia. No further evidence of purulent drainage or infection., - - Infected cystic lesion left supramedial cheek is stable. Less red. Little softer. Continue warm compresses to promote drainage. Lymphatic: - - no axillary adenopathy. Neurological: Cranial nerves II-XII grossly intact Psych/Mental Status: Normal Affect, Appropriate Vital Signs Temp Pulse Resp BP Pulse Ox 96.9 F L 103 H 16 150/106 H 95 06/02/17 08:40 06/02/17 08:40 06/02/17 08:40 06/02/17 08:40 06/02/17 08:40 Oxygen Delivery Method Room Air Weight: 240 lb 1.616 oz Body Mass Index (BMI) 29.9 Intake and Output for Last 24 Hours 05/31/17 06/01/17 06/02/17 23:59 23:59 23:59 Intake Total 2871 / 2871 1403 / 1403 Balance 2871 / 2871 1403 / 1403 Microbiology Past 72 Hours 05/31/17 18:00 Gram Stain - Final Tissue - Finger Wound Culture - Preliminary No growth-Final to follow Anaerobic Culture - Preliminary No growth in 48 hours. Laboratory Tests Past 24 Hrs 06/02/17 06:25 Vancomycin Trough 11.2 Medical Necessity - Tobacco Use Smoking Status: Current every day smoker Tobacco Use: Cigarettes Assessment/Plan 1. Suppurative flexor tenosynovitis right long finger. 2. Abscess right long finger at volar aspect DIP joint crease. 3. Smoker. 4. History of heroin abuse. 5. s/p surgical preparation right long finger with incision and drainage and excisional debridement abscess at DIP joint crease and incision tendon sheath right long finger for suppurative flexor tenosynovitis. 6. 1.2 cm infected cystic lesion left supramedial cheek. Because of the presence of pus in the tendon sheath, will continue IV antibiotics. PICC line in place. A positive culture may necessitate antibiotic modification. However with his history of heroin use in the past, I cannot discharge him with the PICC line. And the patient has no desire to go to an ECF for the IV antibiotics. So when he is ready to go home, hopefully we can send him home on po antibiotics base on the cultures. Continue Vancomycin for now until the cultures are available. Silver dressing change was painful today. Needed IV analgesia. When tolerating po analgesia for the dressing change, will be able to send him home. Encourage range of motion exercises to minimize stiffness. Will need OT after discharge for range of motion exercises, strengthening, and edema management. His Prealbumin was 22.0. Encourage nutritional supplementation with protein to help the healing process. 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 I anticipate being off work for about 2 months (tentative). Encouraged the patient to stop smoking as it may have deleterious effects on wound healing. He has an infected cystic lesion left supramedial cheek that will be addressed after his surgery on his right long finger. In the meantime, he will apply warm compresses to allow spontaneous drainage. He is already on antibiotics for his finger. If I open it today, I will have to leave the wound open and proceed with daily dressing changes with Silver dressings. Ideally I would like to wait for the redness and swelling to subside in order to excise the cystic lesion electively with wound closure at the same time.
[2017-06-02] MEDS: HYDROmorphone 0.5 MG/0.5 ML SYRINGE IV (12:24)
[2017-06-02 14:55] VITALS: BP 138/95; PULSE 93; RESP 18; TEMP 36.5; O2SAT 93
--- NOTE | 2017-06-02 15:12 | CASEMGMT ---
DC Plan is home on oral antibiotics when stable per Dr. castro. F/U with Dr. Castro on discharge. Omero VALENCIAN RN ACM
[2017-06-02] MEDS: 0.9% NaCl Peripheral Flush Adult/Peds IV (19:48)
[2017-06-02 19:50] VITALS: BP 151/110; PULSE 102; RESP 20; TEMP 36.8; O2SAT 98
[2017-06-02] MEDS: Zolpidem Tartrate 5 MG Tablet PO (21:35)
[2017-06-02 21:39] VITALS: BP 114/82; PULSE 110; RESP 18; TEMP 36.8; O2SAT 98
[2017-06-03] MEDS: oxyCODONE 5 MG Tablet 10 MG PO ×4 (05:10→20:19)
[2017-06-03 05:12] VITALS: BP 111/63; PULSE 76; RESP 16; TEMP 37.2; O2SAT 98
[2017-06-03] MEDS: 0.9% NaCl Peripheral Flush Adult/Peds IV ×4 (06:35→18:18)
[2017-06-03] MEDS: Lactated Ringers 1,000 ML 60 ML IV (06:35)
[2017-06-03 07:19] LABS: Anion Gap 7 (5-15); BUN 15 mg/dL (7-18); BUN/Creat Ratio 16.5 RATIO (10-20); Calcium,Total 8.5 mg/dL (8.5-10.1); Chloride 107 mmol/L (98-107); Creatinine, Serum 0.91 mg/dL (0.70-1.30); EST Glomerular Filtration Rate 100 mL/min (>60); Est Glom Filt Rate - Afr Amer 121 mL/min (>60); Estimated Creatinine Clearance 134.13 ml/min; Glucose 130 mg/dL (74-106); Potassium 3.9 mmol/L (3.5-5.1); Sodium Level 140 mmol/L (136-145)
[2017-06-03 09:40] VITALS: BP 136/89; PULSE 103; RESP 16; TEMP 36.6; O2SAT 99
[2017-06-03] MEDS: Docusate Sodium 100 MG Capsule PO ×2 (09:48→22:37)
[2017-06-03] MEDS: amLODIPine 5 MG Tablet PO (09:48)
[2017-06-03] MEDS: Gabapentin 400 MG Capsule 800 MG PO ×2 (09:49→16:14)
[2017-06-03] MEDS: HYDROmorphone 1 MG/ML Syringe IV ×4 (12:01→22:45)
--- NOTE | 2017-06-03 12:26 | PN.SURG_ITS ---
Subjective: Postop #3 The dressing change was more tolerable today. Didn't need any IV analgesia after the dressing change. - Physical Exam General: Alert, Oriented x3 HEENT: PERRLA, EOMI Neck: Supple Lungs: Clear to auscultation Cardiovascular: Regular rate, Regular Rhythm Abdomen: Soft, Non-Distended Skin: Ulcer/ Wound - right long finger wound is stable. Mild swelling present but finger little softer. Slight bleeding in the wounds with the Silver dressing change. Some surrounding skin maceration. Redressed the wounds with Silver which was less painful today and more tolerable. Did not need IV analgesia after his dressing change. No further evidence of purulent drainage or infection., - - Infected cystic lesion left supramedial cheek is stable. Less red. Little softer. Continue warm compresses to promote drainage. Patient states there was some spontaneous drainage this morning. Lymphatic: - - no axillary adenopathy. Neurological: Cranial nerves II-XII grossly intact Psych/Mental Status: Normal Affect, Appropriate Vital Signs Temp Pulse Resp BP Pulse Ox 98 F 103 H 16 136/89 H 99 06/03/17 09:40 06/03/17 09:40 06/03/17 09:40 06/03/17 09:40 06/03/17 09:40 Oxygen Delivery Method Room Air Weight: 240 lb 1.616 oz Body Mass Index (BMI) 29.9 Intake and Output for Last 24 Hours 06/01/17 06/02/17 06/03/17 23:59 23:59 23:59 Intake Total 1403 / 1403 3083 / 3083 1157 / 1157 Balance 1403 / 1403 3083 / 3083 1157 / 1157 Microbiology Past 72 Hours 05/31/17 18:00 Gram Stain - Final Tissue - Finger Wound Culture - Preliminary No growth-Final to follow Anaerobic Culture - Preliminary No growth in 48 hours. Laboratory Tests Past 24 Hrs 06/03/17 06:40 Sodium 140 Potassium 3.9 Chloride 107 Carbon Dioxide 26.0 Anion Gap 7 BUN 15 Creatinine 0.91 Estim Creat Clear Calc 134.13 Est GFR (MDRD) Af Amer 121 Est GFR (MDRD) Non-Af 100 BUN/Creatinine Ratio 16.5 Glucose 130 H Calcium 8.5 Medical Necessity - Tobacco Use Smoking Status: Current every day smoker Tobacco Use: Cigarettes Assessment/Plan 1. Suppurative flexor tenosynovitis right long finger. 2. Abscess right long finger at volar aspect DIP joint crease. 3. Smoker. 4. History of heroin abuse. 5. s/p surgical preparation right long finger with incision and drainage and excisional debridement abscess at DIP joint crease and incision tendon sheath right long finger for suppurative flexor tenosynovitis. 6. 1.2 cm infected cystic lesion left supramedial cheek. Because of the presence of pus in the tendon sheath, will continue IV antibiotics. PICC line in place. A positive culture may necessitate antibiotic modification. However with his history of heroin use in the past, I cannot discharge him with the PICC line. And the patient has no desire to go to an ECF for the IV antibiotics. So when he is ready to go home, hopefully we can send him home on po antibiotics base on the cultures. Continue Vancomycin for now until the cultures are available. They are negative thus far. Silver dressing change was less painful today. Didn't need IV analgesia after the dressing change. When tolerating po analgesia for the dressing change, will be able to send him home. Encourage range of motion exercises to minimize stiffness. Will need OT after discharge for range of motion exercises, strengthening, and edema management. His Prealbumin was 22.0. Encourage nutritional supplementation with protein to help the healing process. 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 I anticipate being off work for about 2 months (tentative). Encouraged the patient to stop smoking as it may have deleterious effects on wound healing. He has an infected cystic lesion left supramedial cheek that will be addressed after his surgery on his right long finger. In the meantime, he will apply warm compresses to allow spontaneous drainage. He is already on antibiotics for his finger. Ideally I would like to wait for the redness and swelling to subside in order to excise the cystic lesion electively with wound closure at the same time.
[2017-06-03] MEDS: diazePAM 5 MG Tablet PO ×2 (14:51→20:19)
[2017-06-03 15:40] VITALS: BP 151/89; PULSE 108; RESP 14; TEMP 36.9; O2SAT 98
[2017-06-03 20:01] VITALS: BP 120/84; PULSE 100; RESP 16; TEMP 37; O2SAT 100
[2017-06-03] MEDS: Zolpidem Tartrate 5 MG Tablet PO (22:39)
[2017-06-04] MEDS: oxyCODONE 5 MG Tablet 10 MG PO ×4 (00:38→12:53)
[2017-06-04] MEDS: Lactated Ringers 1,000 ML 60 ML IV (03:24)
[2017-06-04 04:48] VITALS: BP 109/69; PULSE 88; RESP 16; TEMP 36.8; O2SAT 95
[2017-06-04 06:57] LABS: Anion Gap 9 (5-15); BUN 16 mg/dL (7-18); BUN/Creat Ratio 17.1 RATIO (10-20); Calcium,Total 8.7 mg/dL (8.5-10.1); Chloride 107 mmol/L (98-107); Creatinine, Serum 0.93 mg/dL (0.70-1.30); EST Glomerular Filtration Rate 97 mL/min (>60); Est Glom Filt Rate - Afr Amer 117 mL/min (>60); Estimated Creatinine Clearance 131.24 ml/min; Glucose 117 mg/dL (74-106); Potassium 3.7 mmol/L (3.5-5.1); Sodium Level 142 mmol/L (136-145)
[2017-06-04 08:57] VITALS: BP 105/65; PULSE 98; RESP 14; TEMP 36.7; O2SAT 98
[2017-06-04] MEDS: Docusate Sodium 100 MG Capsule PO (09:03)
[2017-06-04] MEDS: Gabapentin 400 MG Capsule 800 MG PO (09:03)
[2017-06-04] MEDS: amLODIPine 5 MG Tablet PO (09:03)
[2017-06-04] MEDS: diazePAM 5 MG Tablet PO (09:06)
--- NOTE | 2017-06-04 11:47 | PCM.PN.SRG ---
Subjective: Postop #4 Patient is resting comfortably. He is anxious to go home. He states a lot of his pain is burning nerve pain. Will increase his Neurontin. - Physical Exam General: Alert, Oriented x3 HEENT: PERRLA, EOMI Neck: Supple Lungs: Clear to auscultation Cardiovascular: Regular rate, Regular Rhythm Abdomen: Soft, Non-Distended Skin: Ulcer/ Wound - right long finger wound is stable. Mild swelling present but finger little softer. Slight bleeding in the wounds with the Silver dressing change. Some surrounding skin maceration. Redressed the wounds with Silver which was less painful today and more tolerable. Tolerated the dressing change with po analgesia. No further evidence of purulent drainage or infection., - - Infected cystic lesion left supramedial cheek is stable. Less red. Little softer. Continue warm compresses to promote drainage. Neurological: Cranial nerves II-XII grossly intact Psych/Mental Status: Normal Affect, Appropriate Vital Signs Temp Pulse Resp BP Pulse Ox 98.1 F 98 14 105/65 98 06/04/17 08:57 06/04/17 08:57 06/04/17 08:57 06/04/17 08:57 06/04/17 08:57 Oxygen Delivery Method Room Air Weight: 240 lb 1.616 oz Body Mass Index (BMI) 29.9 Intake and Output for Last 24 Hours 06/02/17 06/03/17 06/04/17 23:59 23:59 23:59 Intake Total 3083 / 3083 3623 / 3623 1403 / 1403 Balance 3083 / 3083 3623 / 3623 1403 / 1403 Microbiology Past 72 Hours 05/31/17 18:00 Gram Stain - Final Tissue - Finger Wound Culture - Final No growth aerobically. Anaerobic Culture - Preliminary No growth in 48 hours. Laboratory Tests Past 24 Hrs 06/04/17 05:20 Sodium 142 Potassium 3.7 Chloride 107 Carbon Dioxide 26.0 Anion Gap 9 BUN 16 Creatinine 0.93 Estim Creat Clear Calc 131.24 Est GFR (MDRD) Af Amer 117 Est GFR (MDRD) Non-Af 97 BUN/Creatinine Ratio 17.1 Glucose 117 H Calcium 8.7 Medical Necessity - Tobacco Use Smoking Status: Current every day smoker Tobacco Use: Cigarettes Assessment/Plan 1. Suppurative flexor tenosynovitis right long finger. 2. Abscess right long finger at volar aspect DIP joint crease. 3. Smoker. 4. History of heroin abuse. 5. s/p surgical preparation right long finger with incision and drainage and excisional debridement abscess at DIP joint crease and incision tendon sheath right long finger for suppurative flexor tenosynovitis. 6. 1.2 cm infected cystic lesion left supramedial cheek. He is tolerating the dressing changes with po analgesia. Silver dressing change was less painful today. He states the increased Neurontin is helpful. Operative culture was negative. Will stop the Vancomycin and pull the PICC line. Will send home on Doxycycline. Encourage range of motion exercises to minimize stiffness. Will need OT after discharge for range of motion exercises, strengthening, and edema management. His Prealbumin was 22.0. Encourage nutritional supplementation with protein to help the healing process. 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 I anticipate being off work for about 2 months (tentative). Encouraged the patient to stop smoking as it may have deleterious effects on wound healing. He has an infected cystic lesion left supramedial cheek that will be addressed after his surgery on his right long finger. In the meantime, he will apply warm compresses to allow spontaneous drainage. He is already on antibiotics for his finger. Ideally I would like to wait for the redness and swelling to subside in order to excise the cystic lesion electively with wound closure at the same time. Discharge home today. Followup office tomorrow for a Silver dressing change. Will schedule OT for next week. Wrote script for Doxycycline (28 tabs) and 2 refills. Wrote scripts for Percocet for pain, one tab (30 tabs) and for Neurontin, 800mg tid, (90 tabs) and a refill. Wrote scripts for Phenergan for nausea (30 tabs) and a refill and for Colace for constipation (60 tabs). Wrote script for Ambien for sleep (15 tabs).
[2017-06-04] MEDS: Gabapentin 800 MG Tablet PO (12:00)
--- NOTE | 2017-06-04 12:27 | DCINST_ITS ---
- Discharge Diagnoses Current Active Problems: Current Active and Chronic Problems (Last Updated 03/03/17 @ 13:55 by Licha Salazar) Facial mass (Acute) 1.2 cm infected cystic lesion left supramedial cheek Cellulitis, face (Acute) 1.2 cm infected cystic lesion left supramedial cheek Heroin use disorder, moderate, in sustained remission (Acute) Suppurative tenosynovitis of flexor tendon of right hand (Acute) suppurative flexor tenosynovitis right long finger Abscess of right hand including fingers (Acute) right long finger at volar aspect DIP joint crease You will use the following diet at home:: No restrictions, Other - encourage nutritional supplementation with protein to help the healing process. Discharge Activity: May not drive while taking narcotic pain medications. May shower in (days): 1 - wear plastic bag over right hand when showering. May resume sexual activity in: No Restrictions Weight Bearing Status: Weight bearing as tolerated Lifting Restrictions: no lifting with right hand. Keep extremity elevated above heart level: Right Arm Additional Activity Instructions:: encourage range of motion exercises to minimize stiffness. Mostly flexing the MP joints. Can do actively or passively. Call your doctor if your incision/area has: Continuous Slow Oozing, Sudden Increased Bleeding, Increased Pain/ Swelling, Increased Redness, Foul Smelling Discharge, Swelling at the incision site Call your doctor if you observe: Fever of 101 or Higher, Coldness, Increased Pain, Shortness of breath, Chest pain, Calf discomfort, Uncontrolled pain Suture Line Care: - - daily dressing changes with Aquacel Silver. Change Dressing in (Days):: 1 - will change dressing in office tomorrow 06/05/17. Cleanse incision/area with: - - wear plastic bag over right hand when showering. Additional Instructions: Patient will continue to apply warm compresses to left supramedial cheek infected cystic lesion to promote drainage. Will evaluate in office for surgical timing for excision. Allergies/Adverse Reactions: Allergies amoxicillin [Amoxicillin] Allergy (Verified 09/15/13 15:50) Rash Penicillins Allergy (Verified 09/15/13 15:50) Rash Medications to take at Discharge amlodipine 5 mg tablet 5 mg PO QDAY #30 tab 05/26/17 Docusate Sodium [Colace] 100 mg PO BID #60 cap 06/04/17 Doxycycline [Vibramycin] 100 mg PO BID #28 cap 06/04/17 Gabapentin [Neurontin] 800 mg PO TIDCM #90 tab 06/04/17 Oxycodone HCl/Acetaminophen [Percocet 5/325] 1 tab PO 4X/DAY PRN PRN 7 Days #30 tab 06/04/17 Zolpidem Tartrate [Ambien] 5 mg PO QHS PRN PRN #15 tab 06/04/17 proMETHazine tablet [Phenergan tablet] 25 mg PO 4X/DAY PRN PRN #30 tab 06/04/17 The following prescriptions were given: Oxycodone HCl/Acetaminophen [Percocet 5/325] 1 tab PO 4X/DAY PRN PRN 7 Days #30 tab PRN Reason: Pain proMETHazine tablet [Phenergan tablet] 25 mg PO 4X/DAY PRN PRN #30 tab PRN Reason: NAUSEA/VOMITING Zolpidem Tartrate [Ambien] 5 mg PO QHS PRN PRN #15 tab PRN Reason: SLEEP Docusate Sodium [Colace] 100 mg PO BID #60 cap Doxycycline [Vibramycin] 100 mg PO BID #28 cap Gabapentin [Neurontin] 800 mg PO TIDCM #90 tab Orders to be completed after discharge: Occupational Therapy Eval Time Frame: 1 Week, Facility: [facility], Location: [facility], [facility] Primary Care Physician: Sofia Armstrong MD [Primary Care Provider] - Please Follow Up With: Anant Castro MD When: Monday06/05/17. Call [phone] for appt. Please Follow Up With: occupational therapy When: one week. Will call to make appt at [facility]. Proposed Discharge Date: 06/04/17
--- NOTE | 2017-06-04 12:28 | DS.PCM_ITS ---
Discharge Date and Diagnosis Date of Admission: 05/31/17 Date of Discharge: 06/04/17 - Primary Discharge Diagnosis suppurative flexor tenosynovitis right long finger Abscess right long finger at volar aspect DIP joint crease infected cystic lesion left supramedial cheek with cellulitis - Secondary Discharge Diagnosis Hypertension. Low back pain. History of heroin abuse for which he has been clean for 8 years. Smoker. Hospital Course and Treatment Imaging Results: Diagnostic Data Hand X-Ray 05/31/17 12:55 IMPRESSION: Soft tissue swelling. Electronically Signed: Shai Berg MD at 13:30 EDT Tel [phone], Service support , CONSULTATIONS None. Operations: - - 05/31/17 - 1. Surgical preparation right long finger with incision and drainage and excisional debridement abscess at DIP joint crease. 2. Incision tendon sheath right long finger for suppurative flexor tenosynovitis. Procedures: PICC line placement - removed at discharge. Summary of Care Provided: The patient is a 36 year old M who is right hand dominant and presented to the ED on 05/31/17 with a 2 week history of an injury to his right long finger. He states he dropped a piece of metal on his right long finger. He still continued to work over the ensuing days. However over the last couple of days, he noted increasing redness and pain and swelling. Denies any fever. He states it hurts to extend his right long finger. No prior surgery to the right hand. I saw the patient in the ED and his right long finger symptomatology is consistent with flexor tenosynovitis. It was recommended to the patient that urgent operative intervention was necessary. Vancomycin IV was started. His WBC was 9.9. Today on 05/31/17 the patient underwent surgical preparation right long finger with incision and drainage and excisional debridement abscess at DIP joint crease and incision tendon sheath right long finger for suppurative flexor tenosynovitis. Patient tolerated the procedure well. Pus was found in the tendon sheath and IV Vancomycin was continued postop. A PICC line was placed. The Silver dressing changes were painful and the patient needed IV analgesia. By the fourth postop day, he was able to tolerate the Silver dressing change with po analgesia as well as increasing his Neurontin and was discharged home in satisfactory condition. The operative culture was negative and the PICC line was pulled at discharge. He was sent home on Doxycycline. Wrote scripts for Percocet for pain, one tab (30 tabs) and for Neurontin for burning nerve pain, 800mg tid, (90 tabs) and a refill. He will need OT evaluation after discharge for range of motion exercises and strengthening and edema management. 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 He will keep his right hand elevated and range of motion exercises were encouraged to minimize stiffness. He will followup in my office tomorrow 06/05/17 for a Silver dressing change and will continue them in my office three times per week. His condition upon discharge was good. Encouraged the patient to stop smoking as it may have deleterious effects on wound healing. He has an infected cystic lesion left supramedial cheek that will be addressed after his surgery on his right long finger. In the meantime, he will apply warm compresses to allow spontaneous drainage. He is already on antibiotics for his finger. Ideally I would like to wait for the redness and swelling to subside in order to excise the cystic lesion electively with wound closure at the same time. Will reassess in the office and decide surgical timing at that point. Discharge Diet: No Restrictions, - - encourage nutritional supplementation with protein to help the healing process. Discharge Activity: May not drive while taking narcotic pain medications. May shower in (days): 1 - wear plastic bag over right hand when showering. May resume sexual activity in: No Restrictions Weight Bearing Status: Weight bearing as tolerated Keep extremity elevated above heart level: Right Arm Additional Activity Instructions:: encourage range of motion exercises to minimize stiffness. Mostly flexing the MP joints. Can do actively or passively. Call your doctor if your incision/area has: Continuous Slow Oozing, Sudden Increased Bleeding, Increased Pain/ Swelling, Increased Redness, Foul Smelling Discharge, Swelling at the incision site Call your doctor if you observe: Fever of 101 or Higher, Coldness, Increased Pain, Shortness of breath, Chest pain, Calf discomfort, Uncontrolled pain Suture Line Care: - - daily dressing changes with Aquacel Silver. Change Dressing in (Days):: 1 - will change dressing in office tomorrow 06/05/17. Cleanse incision/area with: - - wear plastic bag over right hand when showering. Home Medications: Medications to take at Discharge amlodipine 5 mg tablet 5 mg PO QDAY #30 tab 05/26/17 Docusate Sodium [Colace] 100 mg PO BID #60 cap 06/04/17 Doxycycline [Vibramycin] 100 mg PO BID #28 cap 06/04/17 Gabapentin [Neurontin] 800 mg PO TIDCM #90 tab 06/04/17 Oxycodone HCl/Acetaminophen [Percocet 5/325] 1 tab PO 4X/DAY PRN PRN 7 Days #30 tab 06/04/17 Zolpidem Tartrate [Ambien] 5 mg PO QHS PRN PRN #15 tab 06/04/17 proMETHazine tablet [Phenergan tablet] 25 mg PO 4X/DAY PRN PRN #30 tab 06/04/17 Following Prescrptions Were Given to Patient: Oxycodone HCl/Acetaminophen [Percocet 5/325] 1 tab PO 4X/DAY PRN PRN 7 Days #30 tab PRN Reason: Pain proMETHazine tablet [Phenergan tablet] 25 mg PO 4X/DAY PRN PRN #30 tab PRN Reason: NAUSEA/VOMITING Zolpidem Tartrate [Ambien] 5 mg PO QHS PRN PRN #15 tab PRN Reason: SLEEP Docusate Sodium [Colace] 100 mg PO BID #60 cap Doxycycline [Vibramycin] 100 mg PO BID #28 cap Gabapentin [Neurontin] 800 mg PO TIDCM #90 tab Other Amb Orders: Occupational Therapy Eval Time Frame: 1 Week, Facility: [facility], Location: [facility], [facility] Primary Care Physician: Sofia Armstrong MD [Primary Care Provider] - Please Follow Up With: Anant Castro MD When: Monday06/05/17. Call [phone] for appt. Please Follow Up With: occupational therapy When: one week. Will call to make appt at [facility]. Disposition: Home Minutes spent on discharge:: 35 Patient Condition:: Stable Medical Necessity - Tobacco Use Smoking Status: Current every day smoker Tobacco Use: Cigarettes Meaningful Use Info Meaningful Use Diagnoses (Choose all that apply): None applicable
--- NOTE | 2017-06-04 13:00 | NURSING ---
This nurse took PICC line out. Mask worn by this nurse and Mr. Dennis did not but had his face facing the right side (opposite side of PICC line). This nurse then pulled PICC out while pt layed flat on the bed and coughed while this nurse pulled. Mr. Dennis is aware that he needs to stay flat in bed for 30min. Female Vistor is aware as well.
== END 2017-06-04 13:30 | disposition home or self-care (01) | DRG 228 ==
LOC: ED 15:16 → SDC 15:28 → AC 15:29 → SDC 18:10 → MS2 06-01 07:27
PROVIDERS: Admitting Provider Surgery; Emergency Provider Emergency Medicine; Family Provider Internal Medicine; PCP Internal Medicine; Visit Provider Surgery
PROC: (CPT 26455; principal; 2017-05-31 15:25)
DX: M65.841 Other synovitis and tenosynovitis, right hand (principal); L03.211 Cellulitis of face; F11.11 Opioid abuse, in remission; L02.511 Cutaneous abscess of right hand; F17.210 Nicotine dependence, cigarettes, uncomplicated; I10 Essential (primary) hypertension; M54.5 Low back pain; T14.90XA Injury, unspecified, initial encounter; W22.8XXA Striking against or struck by other objects, initial encounter; L98.8 Other specified disorders of the skin and subcutaneous tissue; K21.9 Gastro-esophageal reflux disease without esophagitis
CPT/HCPCS: 26455; 36569; 36415; 73130; 80048; 80202; 84134; 85025; 85027; 87070; 87075; 87102; 87205; 87206; 87640; 88304; 88305; 88312; 97802; 99218; 99282; J7050; J7120; A4216; G0378; J2405

== ENCOUNTER 2017-06-29 01:57 | Inpatient (IN) | payer MEDICAID, SELFPAY ==
[2017-06-29] VITALS (14 sets, daily range): BP systolic 107–159; BP diastolic 60–107; PULSE 87–105; RESP 16–20; TEMP 36.3–37.5; O2SAT 93–98; BMI 29.3; BMI 28.2
--- NOTE | 2017-06-29 02:27 | RAD_ITS ---
STUDY: X-RAY - LEFT HAND REASON FOR EXAM: Male, 37 years old. Pain and swelling of the left middle finger. TECHNIQUE: 3 view(s) of the hand. COMPARISON: None. FINDINGS: Normal radiocarpal articulation. Normal distal radioulnar joint. Normal visualized carpal bones. Normal carpal articulations Normal carpometacarpal articulation of the thumb. Normal second through fifth carpometacarpal joints. There is deformity of the first and fifth metacarpophalangeal consistent with old fractures. There is no demonstrated acute fracture. Normal metacarpophalangeal joint of the thumb. Normal interphalangeal joint of the thumb. Normal proximal and distal phalanges of the thumb. Normal metacarpophalangeal joints of the second through fifth fingers. Normal proximal and distal interphalangeal joints of the second through fifth fingers. Normal phalanges of the second through fifth fingers. Soft tissue swelling of the third finger. RAD/Hand Min 3 Views IMPRESSION: Soft tissue swelling. No demonstrated acute osseous changes. Electronically Signed: Wallace Greer MD at 3:19 EDT Tel , Service support ,
[2017-06-29] MEDS: Ondansetron 4 MG/2 ML Vial IV ×2 (02:41→06:07)
[2017-06-29] MEDS: Morphine 4 MG/ML Syringe IV (02:41)
[2017-06-29 03:06] LABS: Erythrocyte Sedimentation Rate 5 mm/hr (0-15)
[2017-06-29 03:09] LABS: Absolute Lymphocyte Count 3.43 X10^3/ul (0.83-4.51); Absolute Neutrophil Count 6.4 X10^3/uL (2.0-7.7); Basophil# 0.03 X10^3/uL; Basophil% 0.3 % (0-1); Eosinophil# 0.33 X10^3/uL; Eosinophils% 2.9 % (0-5); Hematocrit 45.1 % (40-54); Hemoglobin 15.6 g/dl (13.0-16.5); Lymphocyte # 3.43 X10^3/ul (4.0); Lymphocyte % 30.4 % (19-41); Mean Corp Hgb Conc 34.6 g/gl (32-36); Mean Corpuscular Volume 89.7 fL (80-94); Mean Platelet Vol. 10.4 fl (6.2-12.0); Monocyte# 1.12 X10^3/uL; Monocyte% 9.9 % (0-10); Neutrophil # 6.36 X10^3/uL (2.7-7.7); Neutrophil % 56.4 % (47-70); Platelet Count 187 K/mm3 (150-450); RBC Distribution Width CV 13.2 % (11.6-14.6); RBC Distribution Width SD 42.6 fl (35.1-43.9); Red Blood Count 5.03 M/mm3 (4.6-6.2); White Blood Count 11.3 K/mm3 (4.4-11.0)
[2017-06-29 03:11] LABS: POSITIVE COUNT NO; POSITIVE DIFFERENTIAL NO; POSITIVE MORPHOLOGY NO
[2017-06-29] MEDS: Ketorolac 30 MG/ML Syringe IV (03:12)
[2017-06-29 03:25] LABS: Anion Gap 9 (5-15); BUN 14 mg/dL (7-18); BUN/Creat Ratio 13.9 RATIO (10-20); CRP < 2.90 mg/L (0.0-3.0); Calcium,Total 8.6 mg/dL (8.5-10.1); Chloride 111 mmol/L (98-107); Creatinine, Serum 1.01 mg/dL (0.70-1.30); EST Glomerular Filtration Rate 88 mL/min (>60); Est Glom Filt Rate - Afr Amer 107 mL/min (>60); Estimated Creatinine Clearance 119.69 ml/min; Glucose 94 mg/dL (74-106); Potassium 4.1 mmol/L (3.5-5.1); Sodium Level 143 mmol/L (136-145)
--- NOTE | 2017-06-29 04:28 | ED.DCSUM_ITS ---
- ER Visit Summary Date of Service: 06/29/17 Chief Complaint: Right hand long finger pain History of Present Illness: The patient is a 37 M with recent flexor tenosynovitis he underwent surgery 3 weeks ago. He was noncompliant with his antibiotics. Today he has developed increased pain redness warmth and swelling of the right long finger. He states this feels very similar to when he initially presented before surgery but that his pain is much worse. Physical Examination: Afebrile hypertensive vitals otherwise unremarkable Moist mucous membranes Heart regular Lungs clear Abdomen soft There is fusiform swelling of the right long finger is held in slight flexion he has tenderness along the flexor tendon and pain with passive extension he does have sensation intact to light touch and brisk capillary refill Test Results: Laboratory studies notable for white blood cell count 11.3. Hand x-ray shows soft tissue swelling third digit. Emergency Department Course and Treatment: Patient does have signs of recurrent flexor tenosynovitis. He was treated with morphine and Zofran here and continued to complain of pain and was given Toradol. He was treated with IV vancomycin and discussed with plastic surgery and will be admitted. Treatment Plan: [] Disposition: Admit Impression: Flexor tenosynovitis This note was generated with [employer] dictation software. It may contain incorrect words, spelling, and punctuation that were not noted in review of the chart prior to signing ED Disposition - Plan for ED Patient: Chief Complaint: Upper Extremity Injury Referrals: Sofia Armstrong MD [Primary Care Provider] -
[2017-06-29] MEDS: HYDROmorphone 1 MG/ML Syringe IV ×8 (04:54→23:26)
--- NOTE | 2017-06-29 05:35 | CT_ITS ---
STUDY: CT SCAN OF HAND RIGHT REASON FOR EXAM: Male, 37 years old. Soft tissue swelling and elevated white blood cells. History of recent surgery involving the flexor tendon of the third digit. RADIATION DOSAGE (If Supplied By Facility): CTDIvol = ( 19.67 ) mGy, DLP = ( 578.22 ) mGycm. Individualized dose optimization techniques were used for this CT.? TECHNIQUE: Multiple axial tomographic images were obtained without intravenous contrast administration. Coronal and sagittal reconstructions were obtained as well. COMPARISON: Comparison is made with prior radiograph of the right hand done earlier in the day. FINDINGS: Soft tissue swelling worse along the palmar surface. There is evidence of fluid surrounding the flexor tendon along the palmar aspect of the third digit. There is evidence of overlying soft tissue swelling and skin thickening. This is suggestive of tendinitis. No definite abscess is seen. CT/Extremity Upper without Contra IMPRESSION: Findings suggestive of a tenosynovitis of the flexor tendon of the third digit with overlying soft tissue swelling and skin thickening. No radiopaque foreign body is seen. Electronically Signed: Shai Berg MD at 9:28 EDT Tel [phone], Service support ,
--- NOTE | 2017-06-29 05:56 | PCM.RX.CS ---
Consult Pharmacy has been consulted to manage selected antiobiotic: Vancomycin Type of Consult: New start Suspected Infection: Skin/Soft tissue Prior Doses of Antibiotics Received/Current Regimen: Medications Vancomycin HCl (Vancomycin) 1,000 mg in 200 mls @ 200 mls/hr IV Q8H LAURA Discontinued Medications Vancomycin HCl 1,500 mg/ (Dextrose) 530 mls @ 250 mls/hr IV X1 THEN RX TO DOSE ONE Stop: 06/29/17 04:37 Last Admin: 06/29/17 03:12 Dose: 250 mls/hr Labs: Sodium 143 mmol/L (136-145) 06/29/17 02:45 Potassium 4.1 mmol/L (3.5-5.1) 06/29/17 02:45 Chloride 111 mmol/L (98-107) H 06/29/17 02:45 Carbon Dioxide 23.0 mmol/L (21.0-32.0) 06/29/17 02:45 Anion Gap 9 (5-15) 06/29/17 02:45 BUN 14 mg/dL (7-18) 06/29/17 02:45 Creatinine 1.01 mg/dL (0.70-1.30) 06/29/17 02:45 Est GFR (MDRD) Af Amer 107 mL/min (>60) 06/29/17 02:45 Est GFR (MDRD) Non-Af 88 mL/min (>60) 06/29/17 02:45 BUN/Creatinine Ratio 13.9 RATIO (10-20) 06/29/17 02:45 Glucose 94 mg/dL (74-106) 06/29/17 02:45 Weight used for dosin.1 kg Estimated Creatinine Clearance: 147 Goal Trough: 10-15 mcg/mL Pharmacy Plan for Drug Dosing: Pharmacy Service will continue to monitor and adjust dosing as required. Follow-Up Labs: Trough Vancomycin Labs to be done on [date and time ordered]: 06/30/17 @1030
[2017-06-29] MEDS: oxyCODONE 5 MG Tablet 10 MG PO ×3 (06:06→22:38)
[2017-06-29] MEDS: levoFLOXacin IV 500 MG/100 ML BAG 100 MG IV (06:17)
[2017-06-29] MEDS: Lactated Ringers 1,000 ML 60 ML IV ×2 (06:17→21:22)
[2017-06-29] MEDS: 0.9% NaCl Peripheral Flush Adult/Peds IV ×3 (06:29→18:54)
--- NOTE | 2017-06-29 08:29 | PCM.PN.BLA ---
Progress Note DATE OF PREVIOUS HISTORY AND PHYSICAL - May 31, 2017. DATE OF PREVIOUS SURGERY - May 31, 2017. Patient had surgery on 05/31/17 where she underwent surgical preparation right long finger with incision and drainage and excisional debridement abscess at DIP joint crease and incision tendon sheath right long finger for suppurative flexor tenosynovitis. Perioperatively he was treated with Vancomycin. The operative culture was negative. I initially wanted to treat him with IV antibiotics for 6 weeks. However I could not send him home with a PICC line because of his history of IV drug use. He states he has been clean for several years. He did not want to go to a half-way, and he couldn't come to the hospital every day for the antibiotics because the Vancomycin was more than once per day. Because the operative culture was negative and because the wounds were left open after surgical debridement and drainage, I decided to treat him with po antibiotics with Doxycycline for the remaining time course up to 6 weeks of antibiotics. He was doing great at home for the first 3 weeks. The wounds healed and he had very good range of motion at his last appointment on 06/19/17. He states since then he stopped taking his antibiotics. Yesterday he started noticing increasing redness and swelling and pain in his right long finger. When it continued to worsen he came to the ED for evaluation. His WBC was 11.3. He was started on Vancomycin and admitted. On exam, he has increased swelling and tenderness in his distal right palm by the long finger and extending onto the proximal aspect of the long finger. The finger is flexed and swollen with pain with passive extension. Clinically he has recurrent flexor tenosynovitis and he states the pain is worse this time than when he was hospitalized back in May before his initial surgery on 05/31/17. Will order a CT scan preop. Operative intervention was recommended to the patient. Will open up the previous incision and drain the tendon sheath again and look for additional areas of pus. If present, then extending the incision more proximally will be done. Tissue will be sent to Pathology and Microbiology. Once again will leave the wound open and proceed with wound care with Silver dressing changes daily. Because of the amount of scarring present, he is at increased risk for nerve injury during the surgery and possible skin vascularity issues. Also additional operative dissection from scarring can weaken the tendon and lead to possible tendon rupture in the future that would necessitate a two stage complex tendon reconstruction process. Patient is amenable to the possibility of coming to the hospital every day for IV antibiotics if it is done once a day. Will see what the culture shows for that decision. Because of the recurrent nature of his suppurative flexor tenosynovitis, will consult Infectious Diseases to assist with antibiotic management especially with recommendations for after discharge that can be done at the hospital daily. Also after discharge, the patient will need OT for range of motion exercises, strengthening, and edema management because there is increased risk of stiffness in his right hand from the severity of the infection and its quick recurrence. Patient was informed of the risks and complications of the procedure including alternatives to surgery. These were discussed with him personally. He voices understanding and wishes to proceed. Some of the risks that were discussed included but were not inclusive of failure to diagnose including symptom relief, pain, infection, numbness, stiffness, loss of digit, RSD, need for further surgery, contracture and wound healing problems. He voices understanding and wishes to proceed. Encouraged the patient to stop smoking as it may have deleterious effects on wound healing. Surgery will be done urgently today because of his worsening symptomatology and because pus was found in the tendon sheath at his last operation on 05/31/17. Surgery will be done under general anesthesia and tourniquet control.
--- NOTE | 2017-06-29 09:35 | ABS_PTH ---
PATIENT: SOBIA HENDRICKSON Jr. LOC: MS2 U#:[id number] AGE/SX: 37/M ROOM: [facility] [id number] RE06/29/[address]: Dr. Anant Castro MD : 1980 BED: 1 DIS: 07/03/2017 SPEC #: [id number] RECD: 06/29/17 18:02 STATUS: AMANDEEP DAVIDSON #: [id number] TODD: 06/29/17 09:[address]: Anant Castro DEPT: SURGICAL PATHOLOGY RECD BY: Wilfredo Evans ENTERED: 06/30/17 12:41 SP TYPE: Abscess OTHR DR: MD Dr. Manjinder Hart MD Tissues: Finger, NOS Procedures: Special Stain Group I Surgery Specimen Level IV AFB Stain (control) GMS Stain (control) HEADER OPERATION: Incision and drainage abscess, hand PRE-OP DIAGNOSIS: Right long finger tenosynovitis and infected right palm TISSUE SUBMITTED: Right long finger and palm tissue MICROSCOPIC DIAGNOSIS Right long finger and palm tissue: Fibrous tissue with chronic inflammation and focal acute inflammation. Focal foreign body giant cell reaction to nonpolarizable maternal. Negative for acid-fast bacilli and fungal organisms. AM:camelia 07/03/17 COMMENT AFB and GMS stains with matched controls were used in the evaluation of this case. MICROSCOPIC DESCRIPTION Slides are reviewed. GROSS DESCRIPTION Received in fixative is one container labeled with the patient's name and designated left finger and palm tissue. The specimen consists of three irregular fragments of tomlinson tissue that in aggregate measure 1.5 x 1 x 0.2 cm. The specimen is totally submitted in one cassette. / AM:camelia 06/30/17 TC:2 CPT: 51255, 57703 x2
--- NOTE | 2017-06-29 14:33 | PCM.IMDPSTOP ---
Immediate Post-Op Note Date of Procedure: 06/29/17 Primary Surgeon/Physician: Anant Castro corn husker: None Pre-Operative Diagnosis: 1. 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 2. Smoker. 3. History of heroin abuse. Post-Operative Diagnosis: 1. 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 2. Smoker. 3. History of heroin abuse. 4. Radial digital nerve laceration right long finger. Surgery/Procedure Performed:: 1. Drainage tendon sheath right long finger for recurrent suppurative flexor tenosynovitis. 2. Radical tenosynovectomy tendon sheath FDS tendon right palm by long finger. 3. Radical tenosynovectomy tendon sheath FDP tendon right palm by long finger. 4. Epineural repair radial digital nerve laceration right long finger. Description of Surgical Findings:: Patient had surgery on 05/31/17 where she underwent surgical preparation right long finger with incision and drainage and excisional debridement abscess at DIP joint crease and incision tendon sheath right long finger for suppurative flexor tenosynovitis. Perioperatively he was treated with Vancomycin. The operative culture was negative. I initially wanted to treat him with IV antibiotics for 6 weeks. However I could not send him home with a PICC line because of his history of IV drug use. He states he has been clean for several years. He did not want to go to a senior living, and he couldn't come to the hospital every day for the antibiotics because the Vancomycin was more than once per day. Because the operative culture was negative and because the wounds were left open after surgical debridement and drainage, I decided to treat him with po antibiotics with Doxycycline for the remaining time course up to 6 weeks of antibiotics. He was doing great at home for the first 3 weeks. The wounds healed and he had very good range of motion at his last appointment on 06/19/17. He states since then he stopped taking his antibiotics. Yesterday he started noticing increasing redness and swelling and pain in his right long finger. When it continued to worsen he came to the ED for evaluation. His WBC was 11.3. He was started on Vancomycin and admitted. CT scan was done which showed soft tissue swelling worse along the palmar surface and evidence of fluid surrounding the flexor tendon along the palmar aspect of the third digit suggestive of a tenosynovitis of the flexor tendon of the third digit with overlying soft tissue swelling and skin thickening. No radiopaque foreign body is seen. No definite abscess is seen. Surgery was recommended to be done urgently today because of his worsening symptomatology and because pus was found in the tendon sheath at his last operation on 05/31/17. Today the patient underwent drainage tendon sheath right long finger for recurrent suppurative flexor tenosynovitis and radical tenosynovectomy tendon sheath FDS tendon right palm by long finger and radical tenosynovectomy tendon sheath FDP tendon right palm by long finger and epineural repair radial digital nerve laceration right long finger. Total tourniquet time - 73 minutes. Length of zig zag wound right long finger and distal palm - 14.5 cm. Estimated Blood Loss: 20 ml. Specimen's removed: 1. Flexor tenosynovitis tissue right palm and long finger to Pathology and Microbiology. 2. Flexor tenosynovitis right palm and long finger MRSA DNA PCR swab. Drains: None. Type of Anesthesia:: General - Admit VTE Documentation VTE Present on Admission: No VTE Mechan Device Prophylaxis: SCD's VTE Pharm Prophylaxis ordered?: No
--- NOTE | 2017-06-29 16:39 | CHAPLAIN ---
Type of Pastoral Visit _x__ Initial Visit ___ Follow-up Visit ___ On-call Visit ___ General Patient Visit ___ Spiritual Assessment ___ Family Conference ___ Bereavement ___ Rapid Response ___ Code Blue ___ Other (describe below) Pastoral Care Referral From _x__ Patient ___ Family ___ Nurse ___ Physician ___ Brim Shaper ___ Videotape Operator _x__ Other (describe below) Sacrament/Intervention _x__ Active listening ___ Anointing ___ Mandaen ___ Bereavement ___ Communion ___ Wendie exploration ___ ___ Life review _x__ Prayer ___ Reconciliation ___ Sacrament of Sick _x__ Supportive presence ___ Wedding ___ Other (describe below) Pastoral Comments patient describes himself as very spiritual and tells me that prayer is his main resource for life; pt admits to past addiction issues but participates in AA; pt is post surgery and very hungry; pt is open to future visits and prayer
[2017-06-29] MEDS: Gabapentin 300 MG Capsule PO (17:09)
[2017-06-29] MEDS: diazePAM 5 MG Tablet PO ×2 (17:09→21:09)
[2017-06-29 17:33] LABS: M R Staph aureus DNA By PCR Negative (Negative); Probe Check PASS; Staph aureus DNA By PCR NEGATIVE (Negative)
[2017-06-29] MEDS: Gabapentin 800 MG Tablet PO (19:48)
[2017-06-29] MEDS: proMETHazine 25 MG Tablet PO (21:09)
[2017-06-30] MEDS: HYDROmorphone 1 MG/ML Syringe IV ×7 (02:49→15:23)
[2017-06-30 02:53] VITALS: BP 135/88; PULSE 98; RESP 18; TEMP 37.4; O2SAT 98
[2017-06-30] MEDS: diazePAM 5 MG Tablet PO ×2 (03:06→08:06)
[2017-06-30] MEDS: oxyCODONE 5 MG Tablet 10 MG PO ×4 (03:48→21:39)
[2017-06-30] MEDS: Gabapentin 800 MG Tablet PO ×3 (07:55→17:50)
[2017-06-30 08:50] VITALS: BP 148/104; PULSE 91; RESP 16; TEMP 37.1; O2SAT 97
[2017-06-30] MEDS: levoFLOXacin IV 500 MG/100 ML BAG 100 MG IV (09:25)
[2017-06-30 10:20] LABS: Hemoglobin 14.7 g/dl (13.0-16.5); Mean Corpuscular Hgb 31.9 pg (27.0-32.0); Mean Corpuscular Volume 91.1 fL (80-94); Mean Platelet Vol. 10.5 fl (6.2-12.0); Platelet Count 153 K/mm3 (150-450); RBC Distribution Width CV 13.1 % (11.6-14.6); RBC Distribution Width SD 43.2 fl (35.1-43.9); Red Blood Count 4.61 M/mm3 (4.6-6.2); White Blood Count 8.1 K/mm3 (4.4-11.0)
[2017-06-30 10:23] LABS: Scan Indicated on CBC? Y/N NO
[2017-06-30 10:57] LABS: Vancomycin, Trough Level 10.8 ug/mL (5.0-15.0)
[2017-06-30 11:05] LABS: Anion Gap 10 (5-15); BUN 11 mg/dL (7-18); Calcium,Total 8.3 mg/dL (8.5-10.1); Chloride 111 mmol/L (98-107); EST Glomerular Filtration Rate 80 mL/min (>60); Est Glom Filt Rate - Afr Amer 97 mL/min (>60); Estimated Creatinine Clearance 109.89 ml/min; Glucose 153 mg/dL (74-106); Potassium 4.3 mmol/L (3.5-5.1); Prealbumin 27.5 mg/dL (20.0-40.0); Sodium Level 143 mmol/L (136-145)
--- NOTE | 2017-06-30 12:51 | PCM.HP.ID ---
Problem List (1) Suppurative tenosynovitis of flexor tendon of right hand Status: Acute Comment: suppurative flexor tenosynovitis right long finger Reason for Consult: finger abscess Consulted by: Dr. 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 No drainage, no fever, no redness going up arm. Sx started almost 2 months ago when some metal went into his finger. Had progressive sx, admitted to [facility], taken to OR 05/[address] Castro. No prior abx before admission. Pus drained, cxs neg, sent home on po doxy. Finger was doing well but he stopped his doxy early about a week ago. After a few days, sx returned. Now back to OR 06/29, c/o severe pain. On vanc, levaquin, flagyl. Reports neg testing for hiv and hep C when he was in skilled nursing a year ago. No h/o MRSA. He is right handed. Reports rash/throat swelling with amox and PCN in past, but tolerated keflex for strep throat about 1.5 years ago with no issue. Full ROS Performed and neg except as noted above. - Medical History Past Medical History (Chronic Problems): Chronic Problems (Last Updated 03/03/17 @ 13:55 by Licha Salazar) Hypertension (Chronic) Tobacco dependence (Chronic) Tachycardia (Chronic) Chronic radicular low back pain (Chronic) Allergies/Adverse Reactions: Allergies amoxicillin [Amoxicillin] Allergy (Verified 06/29/17 01:58) Rash Penicillins Allergy (Verified 06/29/17 01:58) Rash Home Medications: Ambulatory Orders Medication Instructions Recorded Gabapentin [Neurontin] 800 mg PO TIDCM #90 tab 06/04/17 Tramadol HCl [Ultram] 50 mg PO PRN PRN 06/29/17 - Social History Tobacco Use: cigarettes Drug Use: heroin Vital Signs Temp Pulse Resp BP Pulse Ox 98.8 F 91 16 148/104 H 97 06/30/17 08:50 06/30/17 08:50 06/30/17 08:50 06/30/17 08:50 06/30/17 08:50 Oxygen Delivery Method Room Air Weight: 104.1 kg Body Mass Index (BMI) 28.2 Microbiology Past 72 Hours 06/29/17 13:28 Gram Stain - Final Biopsy - Hand Laboratory Tests Past 24 Hrs 06/29/17 06/30/17 06/30/17 13:28 10:04 10:04 WBC 8.1 RBC 4.61 Hgb 14.7 Hct 42.0 MCV 91.1 MCH 31.9 MCHC 35.0 RDW 13.1 RDW Differential 43.2 Plt Count 153 MPV 10.5 Sodium Potassium Chloride Carbon Dioxide Anion Gap BUN Creatinine Estim Creat Clear Calc Est GFR (MDRD) Af Amer Est GFR (MDRD) Non-Af BUN/Creatinine Ratio Glucose Calcium Prealbumin Vancomycin Trough 10.8 S.aureus Protein A PCR NEGATIVE MRSA (PCR) Negative 06/30/17 10:04 WBC RBC Hgb Hct MCV MCH MCHC RDW RDW Differential Plt Count MPV Sodium 143 Potassium 4.3 Chloride 111 H Carbon Dioxide 22.0 Anion Gap 10 BUN 11 Creatinine 1.10 Estim Creat Clear Calc 109.89 Est GFR (MDRD) Af Amer 97 Est GFR (MDRD) Non-Af 80 BUN/Creatinine Ratio 10.0 Glucose 153 H Calcium 8.3 L Prealbumin 27.5 Vancomycin Trough S.aureus Protein A PCR MRSA (PCR) - Other Studies Radiology: [] reviewed Other Studies: [] Route of nutrition/ use of supplements: [] Nutritional Intake: [] IV Site: [] Martinez Catheter: [] - Physical Exam General: Alert, Oriented x3, Cooperative, No apparent distress HEENT: Atraumatic, PERRLA, EOMI Neck: Supple, No Nodes Lungs: Clear to auscultation, Normal air movement Cardiovascular: Regular rate, Regular Rhythm, No murmurs Abdomen: Bowel Sounds Present, Soft, Non Tender, Non-Distended Extremities: No edema Skin: Incision - R hand wrapped IV Site: Peripheral, without redness Musculoskeletal: No Muscle Wasting Neurological: Cranial nerves II-XII grossly intact - Assessment/Plan Antibiotics: [] Assessment/Plan: [] R 3rd finger recurrent abscess and synovitis - Taken to OR 05/31 and 06/[address] Castro. Cxs neg from original surgery but seemed to be improving on po doxy. At risk for nosocomial infection this time around, surg cx pending. He reports throat swelling with PCN but has tolerated keflex in past. Antibiotic plan at discharge will depend on further cx results. He is resistant to idea of fci placement for iv abx. Has h/o iv heroin abuse, now in remission. Oral abx could be an option. Would like to avoid home picc placement. If he is discharged this weekend on po abx, please call me so I can help pick regimen; otherwise will make final plan on 07/03 based on cxs. Cont vanc/levaquin/flagyl for now. Thank you, will follow, d/w casework manager.
--- NOTE | 2017-06-30 13:01 | CON.PCM_ITS ---
Problem List (1) Suppurative tenosynovitis of flexor tendon of right hand Status: Acute Comment: suppurative flexor tenosynovitis right long finger Reason for Consult: finger abscess Consulted by: Dr. 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 No drainage, no fever, no redness going up arm. Sx started almost 2 months ago when some metal went into his finger. Had progressive sx, admitted to [facility], taken to OR 05/[address] Castro. No prior abx before admission. Pus drained, cxs neg, sent home on po doxy. Finger was doing well but he stopped his doxy early about a week ago. After a few days, sx returned. Now back to OR 06/29, c/ o severe pain. On vanc, levaquin, flagyl. Reports neg testing for hiv and hep C when he was in group home a year ago. No h/o MRSA. He is right handed. Reports rash/throat swelling with amox and PCN in past, but tolerated keflex for strep throat about 1.5 years ago with no issue. Full ROS Performed and neg except as noted above. - Medical History Past Medical History (Chronic Problems): Chronic Problems (Last Updated 03/03/17 @ 13:55 by Licha Salazar) Hypertension (Chronic) Tobacco dependence (Chronic) Tachycardia (Chronic) Chronic radicular low back pain (Chronic) Allergies/Adverse Reactions: Allergies amoxicillin [Amoxicillin] Allergy (Verified 06/29/17 01:58) Rash Penicillins Allergy (Verified 06/29/17 01:58) Rash Home Medications: Ambulatory Orders Medication Instructions Recorded Gabapentin [Neurontin] 800 mg PO TIDCM #90 tab 06/04/17 Tramadol HCl [Ultram] 50 mg PO PRN PRN 06/29/17 - Social History Tobacco Use: cigarettes Drug Use: heroin Vital Signs Temp Pulse Resp BP Pulse Ox 98.8 F 91 16 148/104 H 97 06/30/17 08:50 06/30/17 08:50 06/30/17 08:50 06/30/17 08:50 06/30/17 08:50 Oxygen Delivery Method Room Air Weight: 104.1 kg Body Mass Index (BMI) 28.2 Microbiology Past 72 Hours 06/29/17 13:28 Gram Stain - Final Biopsy - Hand Laboratory Tests Past 24 Hrs 06/29/17 06/30/17 06/30/17 13:28 10:04 10:04 WBC 8.1 RBC 4.61 Hgb 14.7 Hct 42.0 MCV 91.1 MCH 31.9 MCHC 35.0 RDW 13.1 RDW Differential 43.2 Plt Count 153 MPV 10.5 Sodium Potassium Chloride Carbon Dioxide Anion Gap BUN Creatinine Estim Creat Clear Calc Est GFR (MDRD) Af Amer Est GFR (MDRD) Non-Af BUN/Creatinine Ratio Glucose Calcium Prealbumin Vancomycin Trough 10.8 S.aureus Protein A PCR NEGATIVE MRSA (PCR) Negative 06/30/17 10:04 WBC RBC Hgb Hct MCV MCH MCHC RDW RDW Differential Plt Count MPV Sodium 143 Potassium 4.3 Chloride 111 H Carbon Dioxide 22.0 Anion Gap 10 BUN 11 Creatinine 1.10 Estim Creat Clear Calc 109.89 Est GFR (MDRD) Af Amer 97 Est GFR (MDRD) Non-Af 80 BUN/Creatinine Ratio 10.0 Glucose 153 H Calcium 8.3 L Prealbumin 27.5 Vancomycin Trough S.aureus Protein A PCR MRSA (PCR) - Other Studies Radiology: [] reviewed Other Studies: [] Route of nutrition/ use of supplements: [] Nutritional Intake: [] IV Site: [] Martinez Catheter: [] - Physical Exam General: Alert, Oriented x3, Cooperative, No apparent distress HEENT: Atraumatic, PERRLA, EOMI Neck: Supple, No Nodes Lungs: Clear to auscultation, Normal air movement Cardiovascular: Regular rate, Regular Rhythm, No murmurs Abdomen: Bowel Sounds Present, Soft, Non Tender, Non-Distended Extremities: No edema Skin: Incision - R hand wrapped IV Site: Peripheral, without redness Musculoskeletal: No Muscle Wasting Neurological: Cranial nerves II-XII grossly intact - Assessment/Plan Antibiotics: [] Assessment/Plan: [] R 3rd finger recurrent abscess and synovitis - Taken to OR 05/31 and 06/[address] Castro. Cxs neg from original surgery but seemed to be improving on po doxy. At risk for nosocomial infection this time around, surg cx pending. He reports throat swelling with PCN but has tolerated keflex in past. Antibiotic plan at discharge will depend on further cx results. He is resistant to idea of retirement placement for iv abx. Has h/o iv heroin abuse, now in remission. Oral abx could be an option. Would like to avoid home picc placement. If he is discharged this weekend on po abx, please call me so I can help pick regimen ; otherwise will make final plan on 07/03 based on cxs. Cont vanc/levaquin/ flagyl for now. Thank you, will follow, d/w correctional casework specialist.
--- NOTE | 2017-06-30 13:30 | CASEMGMT ---
See RN CM Assessment. DC PLAN: Home. ID consultation- cultures pending. Will need to await determination of po vs IV antibiotic therapy on dc. Spoke with pt who is open to either therapy. If IV therapy is suggested, pt will need to remain in hospital until Monday for Home Health and IV therapy set up. Joey JHONSON RN ACM
--- NOTE | 2017-06-30 14:34 | NURSING ---
wound photo: right hand
[2017-06-30 14:50] VITALS: BP 145/79; PULSE 103; RESP 16; TEMP 36.9; O2SAT 99
--- NOTE | 2017-06-30 14:53 | PCM.RX.CS ---
Consult Pharmacy has been consulted to manage selected antiobiotic: Vancomycin Type of Consult: Follow-up Suspected Infection: Skin/Soft tissue Prior Doses of Antibiotics Received/Current Regimen: Vancomycin 1500mg IV x1 given in ER on 06/29/17 at 0312, then pt was started on Vancomycin 1000mg IV q8h on 06/29/17 at 1100. Labs: Sodium 143 mmol/L (136-145) 06/30/17 10:04 Potassium 4.3 mmol/L (3.5-5.1) 06/30/17 10:04 Chloride 111 mmol/L (98-107) H 06/30/17 10:04 Carbon Dioxide 22.0 mmol/L (21.0-32.0) 06/30/17 10:04 Anion Gap 10 (5-15) 06/30/17 10:04 BUN 11 mg/dL (7-18) 06/30/17 10:04 Creatinine 1.10 mg/dL (0.70-1.30) 06/30/17 10:04 Est GFR (MDRD) Af Amer 97 mL/min (>60) 06/30/17 10:04 Est GFR (MDRD) Non-Af 80 mL/min (>60) 06/30/17 10:04 BUN/Creatinine Ratio 10.0 RATIO (10-20) 06/30/17 10:04 Glucose 153 mg/dL (74-106) H 06/30/17 10:04 Vancomycin Trough 10.8 ug/mL (5.0-15.0) 06/30/17 10:04 Microbiology: Microbiology 06/29/17 13:28 Biopsy - Hand Gram Stain - Final 06/29/17 13:28 Biopsy - Hand Wound Culture - Preliminary Gram Positive Cocci Weight used for dosin.6 kg Estimated Creatinine Clearance: 1.1mg/dl Goal Trough: 10-15 mcg/mL Pharmacy Plan for Drug Dosing: Pt's goal trough is 10-15. Pt's initial trough level came back 10.8 on 06/30/17. Continue current dose of 1000mg q8h and get another trough level on 07/02/17 at 1030. Pharmacy Service will continue to monitor and adjust dosing as required. Follow-Up Labs: Trough Vancomycin Labs to be done on [date and time ordered]: 07/02/17 at 1030
--- NOTE | 2017-06-30 14:59 | PHA.PHARE_ITS ---
Consult Pharmacy has been consulted to manage selected antiobiotic: Vancomycin Type of Consult: Follow-up Suspected Infection: Skin/Soft tissue Prior Doses of Antibiotics Received/Current Regimen: Vancomycin 1500mg IV x1 given in ER on 06/29/17 at 0312, then pt was started on Vancomycin 1000mg IV q8h on 06/29/17 at 1100. Labs: Sodium 143 mmol/L (136-145) 06/30/17 10:04 Potassium 4.3 mmol/L (3.5-5.1) 06/30/17 10:04 Chloride 111 mmol/L (98-107) H 06/30/17 10:04 Carbon Dioxide 22.0 mmol/L (21.0-32.0) 06/30/17 10:04 Anion Gap 10 (5-15) 06/30/17 10:04 BUN 11 mg/dL (7-18) 06/30/17 10:04 Creatinine 1.10 mg/dL (0.70-1.30) 06/30/17 10:04 Est GFR (MDRD) Af Amer 97 mL/min (>60) 06/30/17 10:04 Est GFR (MDRD) Non-Af 80 mL/min (>60) 06/30/17 10:04 BUN/Creatinine Ratio 10.0 RATIO (10-20) 06/30/17 10:04 Glucose 153 mg/dL (74-106) H 06/30/17 10:04 Vancomycin Trough 10.8 ug/mL (5.0-15.0) 06/30/17 10:04 Microbiology: Microbiology 06/29/17 13:28 Biopsy - Hand Gram Stain - Final 06/29/17 13:28 Biopsy - Hand Wound Culture - Preliminary Gram Positive Cocci Weight used for dosin.6 kg Estimated Creatinine Clearance: 1.1mg/dl Goal Trough: 10-15 mcg/mL Pharmacy Plan for Drug Dosing: Pt's goal trough is 10-15. Pt's initial trough level came back 10.8 on . Continue current dose of 1000mg q8h and get another trough level on at 1030. Pharmacy Service will continue to monitor and adjust dosing as required. Follow-Up Labs: Trough Vancomycin Labs to be done on [date and time ordered]: 07/02/17 at 1030
--- NOTE | 2017-06-30 18:28 | OP.PCM_ITS ---
Report of Operation Date of Procedure: 06/29/17 Pre-Operative Diagnosis: 1. 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 2. Smoker. 3. History of heroin abuse. Post-Operative Diagnosis: 1. 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 2. Smoker. 3. History of heroin abuse. 4. Radial digital nerve laceration right long finger. Surgery/Procedure Performed:: 1. Drainage tendon sheath right long finger for recurrent suppurative flexor tenosynovitis. 2. Radical tenosynovectomy tendon sheath FDS tendon right palm by long finger. 3. Radical tenosynovectomy tendon sheath FDP tendon right palm by long finger. 4. Epineural repair radial digital nerve laceration right long finger. Description of Surgical Findings:: Patient had surgery on 05/31/17 where she underwent surgical preparation right long finger with incision and drainage and excisional debridement abscess at DIP joint crease and incision tendon sheath right long finger for suppurative flexor tenosynovitis. Perioperatively he was treated with Vancomycin. The operative culture was negative. I initially wanted to treat him with IV antibiotics for 6 weeks. However I could not send him home with a PICC line because of his history of IV drug use. He states he has been clean for several years. He did not want to go to a senior living, and he couldn't come to the hospital every day for the antibiotics because the Vancomycin was more than once per day. Because the operative culture was negative and because the wounds were left open after surgical debridement and drainage, I decided to treat him with po antibiotics with Doxycycline for the remaining time course up to 6 weeks of antibiotics. He was doing great at home for the first 3 weeks. The wounds healed and he had very good range of motion at his last appointment on 06/19/17. He states since then he stopped taking his antibiotics. Yesterday he started noticing increasing redness and swelling and pain in his right long finger. When it continued to worsen he came to the ED for evaluation. His WBC was 11.3. He was started on Vancomycin and admitted. CT scan was done which showed soft tissue swelling worse along the palmar surface and evidence of fluid surrounding the flexor tendon along the palmar aspect of the third digit suggestive of a tenosynovitis of the flexor tendon of the third digit with overlying soft tissue swelling and skin thickening. No radiopaque foreign body is seen. No definite abscess is seen. Surgery was recommended to be done urgently today because of his worsening symptomatology and because pus was found in the tendon sheath at his last operation on 05/31/17. Patient was informed of the risks and complications of the procedure including alternatives to surgery. These were discussed with him personally. He voices understanding and wishes to proceed. Some of the risks that were discussed included but were not inclusive of failure to diagnose including symptom relief, pain, infection, numbness, stiffness, loss of digit, RSD, need for further surgery, contracture and wound healing problems. He voices understanding and wishes to proceed. Encouraged the patient to stop smoking as it may have deleterious effects on wound healing. Total tourniquet time - 73 minutes. Length of zig zag wound right long finger and distal palm - 14.5 cm. insurance operations rep: None Type of Anesthesia:: General Specimen's removed: 1. Flexor tenosynovitis tissue right palm and long finger to Pathology and Microbiology. 2. Flexor tenosynovitis right palm and long finger MRSA DNA PCR swab. Drains: None. Estimated Blood Loss (mL): 20 ml. Description of Procedure: Patient was taken to OR in supine position and he was placed under general anesthesia. mmHg. The right arm was prepped and draped in the usual fashion. I elevated the right arm and squeezed the hand as the tourniquet was elevated to 250 mmHg. I did not want to use the Esmarch bandage because of the infection. Using loupe magnification, the procedure started. I supplemented the block with xylocaine with epinephrine digital metacarpal block for postop pain relief. SCD's were placed for DVT prophylaxis. Perioperative antibiotics were given intravenously. I went through the previous zig zag incisions. Dissection was carried down to the tendon sheath. Some pus was seen in the distal palm. Extensive synovitis was seen involving both the FDS and FDP tendons in the palm. I extended the incision a couple of mm proximally in the palm. No other pus was seen proximally. I pressed on the carpal tunnel area and squeezed from a proximal to distal direction and no further pus was seen in the proximal palm. In addition to the pus, there was surrounding fat necrosis. Pus was also seen in the tendon sheath distally. The scar tissue from the previous surgery and infection was thick and dense. During the dissection which was tedious, laceration was seen in the radial digital nerve. The ulnar digital nerve was seen during the tedious dissection and was preserved. The extensive synovitis was secondary to the purulent infection, and radical tenosynovectomy was performed of the tendon sheath of the FDS and FDP tendons right palm. I placed an 18 gauge catheter into the proximal end of the tendon sheath and irrigated distally with saline and then placed the catheter into the distal end of the tendon sheath and irrigated proximally with saline, about 300 ml. There was syrupy pus initially seen in the soft tissue and the tendon sheath. After extensive irrigation, the fluid expressed from the tendon sheath was clear with no further evidence of pus. I swabbed the pus to check for MRSA by DNA PCR. The tissue that was debrided from the tenosynovectomies and from the fat necrosis was sent to Pathology for analysis to rule out carcinoma and to Microbiology for culture. A positive culture may necessitate antibiotic modification. Will obtain Infectious Diseases consult after surgery to help with antibiotic management since this is a recurrent infection. I then repaired the radial digital nerve laceration with 8-0 Nylon simple interrupted sutures as an epineural repair. I used 6 sutures for the repair. I then closed the zigs and the zags with 3-0 Nylon simple interrupted sutures and vertical mattress interrupted sutures. The intervening lengths of the zigs and the zags measured about 14.5 cm. I then placed Aquacel Silver into the various lengths of the zigs and zags. The tourniquet was released after 73 minutes. Bleeding easily controlled with light electrocautery and gentle pressure and elevation. The right hand was then dressed with 2x2 gauze followed by 2 inch reuben wrap followed by a compression lalo wrap. He tolerated the procedure well and was sent to PACU in satisfactory condition. He will be sent upstairs for continued postop care. He will be able to go home when tolerating po analgesia with the dressing change. He will keep his right arm elevated during the initial postop period. The Silver dressing changes will be done daily. Home Health will be available to assist with the dressing changes. After discharge will make arrangements for him to be seen at OT for range of motion exercises, strengthening, and edema management as well as the formation of a silastic splint. Silver dressing changes will be daily. Sutures will be removed in 3-4 weeks. Grafts/Implants Used: None. - Complications None. - Admit VTE Documentation VTE Present on Admission: No VTE Mechan Device Prophylaxis: SCD's VTE Pharm Prophylaxis ordered?: No Code Visit Surgery Charges CPT - 76902-63 ICD-10 - M65.141, S61.401A, F11.21, F17.200 97437 M65.141, S61.401A, F11.21, F17.200 52627 M65.141, S61.401A, F11.21, F17.200 [id number] S64.492A, M65.141, F11.21, F17.200
--- NOTE | 2017-06-30 18:29 | PCM.PN.SRG ---
Subjective: Postop #1 Patient had a painful Silver dressing change. - Physical Exam General: Alert, Oriented x3 HEENT: PERRLA, EOMI Neck: Supple Lungs: Clear to auscultation Cardiovascular: Regular rate, Regular Rhythm Abdomen: Soft, Non-Distended Skin: Ulcer/ Wound - wounds look clean. Some bleeding noted. No further evidence of infection or purulent drainage. Mild swelling noted. Silver dressing change done which was painful. Neurological: Cranial nerves II-XII grossly intact Psych/Mental Status: Normal Affect, Appropriate Vital Signs Temp Pulse Resp BP Pulse Ox 98.5 F 103 H 16 145/79 H 99 06/30/17 14:50 06/30/17 14:50 06/30/17 14:50 06/30/17 14:50 06/30/17 14:50 Oxygen Delivery Method Room Air Weight: 229 lb 8.019 oz Body Mass Index (BMI) 28.2 Intake and Output for Last 24 Hours 06/28/17 06/29/17 06/30/17 23:59 23:59 23:59 Intake Total 1867.5 / 1867.5 977 / 977 Balance 1867.5 / 1867.5 977 / 977 Microbiology Past 72 Hours 06/29/17 13:28 Gram Stain - Final Biopsy - Hand Wound Culture - Preliminary Gram Positive Cocci Laboratory Tests Past 24 Hrs 06/30/17 06/30/17 06/30/17 10:04 10:04 10:04 WBC 8.1 RBC 4.61 Hgb 14.7 Hct 42.0 MCV 91.1 MCH 31.9 MCHC 35.0 RDW 13.1 RDW Differential 43.2 Plt Count 153 MPV 10.5 Sodium 143 Potassium 4.3 Chloride 111 H Carbon Dioxide 22.0 Anion Gap 10 BUN 11 Creatinine 1.10 Estim Creat Clear Calc 109.89 Est GFR (MDRD) Af Amer 97 Est GFR (MDRD) Non-Af 80 BUN/Creatinine Ratio 10.0 Glucose 153 H Calcium 8.3 L Prealbumin 27.5 Vancomycin Trough 10.8 Medical Necessity - Tobacco Use Smoking Status: Current every day smoker Assessment/Plan 1. 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 2. Smoker. 3. History of heroin abuse. 4. Radial digital nerve laceration right long finger. 5. s/p drainage tendon sheath right long finger for recurrent suppurative flexor tenosynovitis and radical tenosynovectomy tendon sheath FDS tendon right palm by long finger and radical tenosynovectomy tendon sheath FDP tendon right palm by long finger and epineural repair radial digital nerve laceration right long finger. Wounds look clean. No further evidence of infection. No more purulent drainage seen. Surrounding skin is viable. Silver dressing change done today and was painful. Needed IV analgesia. Continue IV Vancomycin, Levaquin, and Flagyl. Operative culture shows Gram positive cocci. Appreciate Infectious Diseases input. Prealbumin was 27.5. Encourage nutritional supplementation with protein to help the healing process.
[2017-06-30] MEDS: Lactated Ringers 1,000 ML 60 ML IV (19:48)
[2017-06-30] MEDS: HYDROmorphone 1 MG/ML Syringe 2 MG IV ×2 (19:49→22:54)
[2017-06-30] MEDS: 0.9% NaCl Peripheral Flush Adult/Peds IV ×2 (19:50→22:54)
[2017-06-30 20:00] VITALS: O2SAT 97
[2017-06-30 20:03] VITALS: BP 154/98; PULSE 73; RESP 14; TEMP 37.6; O2SAT 97
[2017-07-01] MEDS: 0.9% NaCl Peripheral Flush Adult/Peds IV ×6 (01:02→16:12)
[2017-07-01] MEDS: HYDROmorphone 1 MG/ML Syringe 2 MG IV ×7 (01:02→23:06)
[2017-07-01] MEDS: diazePAM 5 MG Tablet PO ×2 (01:36→21:15)
[2017-07-01] MEDS: oxyCODONE 5 MG Tablet 10 MG PO ×4 (02:20→20:01)
[2017-07-01 02:27] VITALS: BP 144/80; PULSE 94; RESP 12; TEMP 37.6; O2SAT 97
[2017-07-01 07:26] VITALS: BP 124/81; PULSE 81; RESP 16; TEMP 36.7; O2SAT 95
[2017-07-01] MEDS: Gabapentin 800 MG Tablet PO ×3 (07:45→16:13)
[2017-07-01] MEDS: levoFLOXacin IV 500 MG/100 ML BAG 100 MG IV (09:19)
[2017-07-01 13:37] VITALS: BP 139/95; PULSE 96; RESP 16; TEMP 36.7; O2SAT 97
[2017-07-01] MEDS: Ondansetron 4 MG/2 ML Vial IV (13:50)
--- NOTE | 2017-07-01 18:39 | PCM.PN.SRG ---
Subjective: Postop #2 Patient is having intermittent wound pain. The Silver dressing change was painful. Will increase the Dilaudid for the dressing changes. - Physical Exam General: Alert, Oriented x3 HEENT: PERRLA, EOMI Neck: Supple Lungs: Clear to auscultation Cardiovascular: Regular rate, Regular Rhythm Abdomen: Soft, Non-Distended Skin: Ulcer/ Wound - wounds are clean. Mild swelling seen. No evidence further infection. Silver dressing change was painful. Neurological: Cranial nerves II-XII grossly intact Psych/Mental Status: Normal Affect, Appropriate Vital Signs Temp Pulse Resp BP Pulse Ox 98.1 F 96 16 139/95 H 97 07/01/17 13:37 07/01/17 13:37 07/01/17 13:37 07/01/17 13:37 07/01/17 13:37 Oxygen Delivery Method Room Air Weight: 229 lb 8.019 oz Body Mass Index (BMI) 28.2 Intake and Output for Last 24 Hours 06/29/17 06/30/17 07/01/17 23:59 23:59 23:59 Intake Total 1867.5 / 1867.5 977 / 977 1857 / 1857 Balance 1867.5 / 1867.5 977 / 977 1857 / 1857 Microbiology Past 72 Hours 06/29/17 13:28 Gram Stain - Final Biopsy - Hand Wound Culture - Final Staphylococcus epidermidis Anaerobic Culture - Preliminary Checking for anaerobes, further studies to follow. Medical Necessity - Tobacco Use Smoking Status: Current every day smoker Assessment/Plan 1. 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 2. Smoker. 3. History of heroin abuse. 4. Radial digital nerve laceration right long finger. 5. s/p drainage tendon sheath right long finger for recurrent suppurative flexor tenosynovitis and radical tenosynovectomy tendon sheath FDS tendon right palm by long finger and radical tenosynovectomy tendon sheath FDP tendon right palm by long finger and epineural repair radial digital nerve laceration right long finger. Wounds look clean. No further evidence of infection. No more purulent drainage seen. Surrounding skin is viable. Silver dressing change done today and was painful. Needed IV analgesia. Will increase the Dilaudid for the dressing changes. Continue IV Vancomycin, Levaquin, and Flagyl. Operative culture shows MRSE. Resistant to the Doxycycline. Appreciate Infectious Diseases input. Prealbumin was 27.5. Encourage nutritional supplementation with protein to help the healing process. Encourage the patient to stop smoking as it may have deleterious effects on wound healing.
[2017-07-01 20:03] VITALS: BP 145/102; PULSE 99; RESP 16; TEMP 36.8; O2SAT 97
--- NOTE | 2017-07-01 20:25 | NURSING ---
mult staff have attempted to restart iv, unable nursing supv notified
[2017-07-02] MEDS: oxyCODONE 5 MG Tablet 10 MG PO ×4 (00:15→22:11)
[2017-07-02] MEDS: 0.9% NaCl Peripheral Flush Adult/Peds IV ×4 (02:00→13:21)
[2017-07-02] MEDS: Lactated Ringers 1,000 ML 60 ML IV (02:00)
[2017-07-02] MEDS: HYDROmorphone 1 MG/ML Syringe 2 MG IV ×8 (02:00→23:23)
[2017-07-02 02:08] VITALS: BP 117/69; PULSE 100; RESP 16; TEMP 36.2; O2SAT 100
[2017-07-02 06:13] LABS: Hematocrit 44.1 % (40-54); Mean Corpuscular Hgb 30.9 pg (27.0-32.0); Mean Corpuscular Volume 90.7 fL (80-94); Mean Platelet Vol. 10.2 fl (6.2-12.0); Platelet Count 169 K/mm3 (150-450); RBC Distribution Width CV 12.8 % (11.6-14.6); RBC Distribution Width SD 42.1 fl (35.1-43.9); Red Blood Count 4.86 M/mm3 (4.6-6.2)
[2017-07-02 06:15] LABS: Scan Indicated on CBC? Y/N NO
[2017-07-02 06:42] LABS: Anion Gap 7 (5-15); BUN 15 mg/dL (7-18); BUN/Creat Ratio 15.5 RATIO (10-20); Calcium,Total 8.6 mg/dL (8.5-10.1); Chloride 107 mmol/L (98-107); Creatinine, Serum 0.97 mg/dL (0.70-1.30); EST Glomerular Filtration Rate 93 mL/min (>60); Est Glom Filt Rate - Afr Amer 113 mL/min (>60); Estimated Creatinine Clearance 124.62 ml/min; Glucose 98 mg/dL (74-106); Potassium 4.2 mmol/L (3.5-5.1); Sodium Level 141 mmol/L (136-145)
[2017-07-02 08:34] VITALS: BP 104/62; PULSE 83; RESP 16; TEMP 36.6; O2SAT 98
[2017-07-02] MEDS: Gabapentin 800 MG Tablet PO ×3 (08:42→17:03)
[2017-07-02] MEDS: levoFLOXacin IV 500 MG/100 ML BAG 100 MG IV (10:25)
[2017-07-02 11:02] LABS: Vancomycin, Trough Level 12.3 ug/mL (5.0-15.0)
--- NOTE | 2017-07-02 11:58 | PCM.RX.CS ---
Consult Pharmacy has been consulted to manage selected antiobiotic: Vancomycin Type of Consult: Follow-up Suspected Infection: Skin/Soft tissue Prior Doses of Antibiotics Received/Current Regimen: 11 Labs: Sodium 141 mmol/L (136-145) 07/02/17 05:47 Potassium 4.2 mmol/L (3.5-5.1) 07/02/17 05:47 Chloride 107 mmol/L (98-107) 07/02/17 05:47 Carbon Dioxide 27.0 mmol/L (21.0-32.0) 07/02/17 05:47 Anion Gap 7 (5-15) 07/02/17 05:47 BUN 15 mg/dL (7-18) 07/02/17 05:47 Creatinine 0.97 mg/dL (0.70-1.30) 07/02/17 05:47 Est GFR (MDRD) Af Amer 113 mL/min (>60) 07/02/17 05:47 Est GFR (MDRD) Non-Af 93 mL/min (>60) 07/02/17 05:47 BUN/Creatinine Ratio 15.5 RATIO (10-20) 07/02/17 05:47 Glucose 98 mg/dL (74-106) 07/02/17 05:47 Vancomycin Trough 12.3 ug/mL (5.0-15.0) 07/02/17 10:30 Microbiology: Microbiology 06/29/17 13:28 Biopsy - Hand Gram Stain - Final 06/29/17 13:28 Biopsy - Hand Wound Culture - Final Staphylococcus epidermidis 06/29/17 13:28 Biopsy - Hand Anaerobic Culture - Preliminary Checking for anaerobes, further studies to follow. Weight used for dosin.1 kg Estimated Creatinine Clearance: 147 Goal Trough: 10-15 mcg/mL Pharmacy Plan for Drug Dosing: Pharmacy Service will continue to monitor and adjust dosing as required. INCREASE DOSE TO 1250MG Q8H FOR TRUE TROUGH OF 8 Follow-Up Labs: Trough Vancomycin - PRIOR TO 4TH NEW DOSE Labs to be done on [date and time ordered]: 07/03/17 @ 1930
[2017-07-02 13:53] VITALS: BP 130/84; PULSE 96; RESP 16; TEMP 36.6; O2SAT 97
[2017-07-02] MEDS: diazePAM 5 MG Tablet PO ×2 (14:02→21:17)
[2017-07-02 19:24] VITALS: BP 134/86; PULSE 100; RESP 16; TEMP 36.5; O2SAT 98
[2017-07-02] MEDS: Ondansetron 4 MG/2 ML Vial IV (19:44)
--- NOTE | 2017-07-02 21:52 | PCM.PN.SRG ---
Subjective: Postop #3 Patient states his pain is better controlled with the increased Dilaudid, but still has difficulty with pain during the dressing change. - Physical Exam General: Alert, Oriented x3 HEENT: PERRLA, EOMI Neck: Supple Lungs: Clear to auscultation Cardiovascular: Regular rate, Regular Rhythm Abdomen: Soft, Non-Distended Skin: Ulcer/ Wound - wounds are clean. Mild swelling seen. No evidence further infection. Silver dressing change was painful. Neurological: Cranial nerves II-XII grossly intact Psych/Mental Status: Normal Affect, Appropriate Vital Signs Temp Pulse Resp BP Pulse Ox 97.7 F L 100 16 134/86 H 98 07/02/17 19:24 07/02/17 19:24 07/02/17 19:24 07/02/17 19:24 07/02/17 19:24 Oxygen Delivery Method Room Air Weight: 229 lb 8.019 oz Body Mass Index (BMI) 28.2 Intake and Output for Last 24 Hours 06/30/17 07/01/17 07/02/17 23:59 23:59 23:59 Intake Total 977 / 977 1857 / 1857 2424 / 2424 Balance 977 / 977 1857 / 1857 2424 / 2424 Microbiology Past 72 Hours 06/29/17 13:28 Gram Stain - Final Biopsy - Hand Wound Culture - Final Staphylococcus epidermidis Anaerobic Culture - Preliminary Checking for anaerobes, further studies to follow. Laboratory Tests Past 24 Hrs 07/02/17 07/02/17 07/02/17 05:47 05:47 10:30 WBC 7.0 RBC 4.86 Hgb 15.0 Hct 44.1 MCV 90.7 MCH 30.9 MCHC 34.0 RDW 12.8 RDW Differential 42.1 Plt Count 169 MPV 10.2 Sodium 141 Potassium 4.2 Chloride 107 Carbon Dioxide 27.0 Anion Gap 7 BUN 15 Creatinine 0.97 Estim Creat Clear Calc 124.62 Est GFR (MDRD) Af Amer 113 Est GFR (MDRD) Non-Af 93 BUN/Creatinine Ratio 15.5 Glucose 98 Calcium 8.6 Vancomycin Trough 12.3 Medical Necessity - Tobacco Use Smoking Status: Current every day smoker Assessment/Plan 1. 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 2. Smoker. 3. History of heroin abuse. 4. Radial digital nerve laceration right long finger. 5. s/p drainage tendon sheath right long finger for recurrent suppurative flexor tenosynovitis and radical tenosynovectomy tendon sheath FDS tendon right palm by long finger and radical tenosynovectomy tendon sheath FDP tendon right palm by long finger and epineural repair radial digital nerve laceration right long finger. Wounds look clean. No further evidence of infection. No more purulent drainage seen. Surrounding skin is viable. Silver dressing change done today and was less painful with the additional Dilaudid. Continue IV Vancomycin, Levaquin, and Flagyl. Operative culture shows MRSE. Resistant to the Doxycycline. Appreciate Infectious Diseases input. Prealbumin was 27.5. Encourage nutritional supplementation with protein to help the healing process. Encourage the patient to stop smoking as it may have deleterious effects on wound healing.
[2017-07-03] MEDS: Lactated Ringers 1,000 ML 60 ML IV (00:44)
[2017-07-03 01:26] VITALS: BP 115/74; PULSE 82; RESP 18; TEMP 36.5; O2SAT 98
[2017-07-03] MEDS: HYDROmorphone 1 MG/ML Syringe 2 MG IV ×3 (01:34→09:21)
[2017-07-03] MEDS: oxyCODONE 5 MG Tablet 10 MG PO ×3 (05:53→15:05)
[2017-07-03 09:00] VITALS: BP 131/77; PULSE 64; RESP 16; TEMP 36.5; O2SAT 94
[2017-07-03] MEDS: Gabapentin 800 MG Tablet PO ×2 (09:12→11:41)
[2017-07-03] MEDS: levoFLOXacin IV 500 MG/100 ML BAG 100 MG IV (09:12)
[2017-07-03] MEDS: HYDROmorphone 1 MG/ML Syringe IV ×2 (11:38→13:48)
--- NOTE | 2017-07-03 12:26 | PN.ID_ITS ---
Subjective: Still hand pain, but swelling improved. No fever, no n/v/d. - Physical Exam General: Alert, Cooperative Lungs: Clear to auscultation, Normal air movement Cardiovascular: Regular rate, Regular Rhythm Abdomen: Soft, Non Tender, Non-Distended Skin: Incision - R hand incision with less redness and swelling, no drainage Vital Signs Temp Pulse Resp BP Pulse Ox 97.7 F L 64 16 131/77 H 94 07/03/17 09:00 07/03/17 09:00 07/03/17 09:00 07/03/17 09:00 07/03/17 09:00 Oxygen Delivery Method Room Air Weight: 104.1 kg Body Mass Index (BMI) 28.2 Intake and Output for Last 24 Hours 07/01/17 07/02/17 07/03/17 23:59 23:59 23:59 Intake Total 1856 / 1856 3864 / 3864 1013 / 1013 Balance 185 / 1856 3864 / 3864 1013 / 1013 Microbiology Past 72 Hours 06/29/17 13:28 Gram Stain - Final Biopsy - Hand Wound Culture - Final Staphylococcus epidermidis Anaerobic Culture - Final No anaerobic bacteria isolated. Medical Necessity - Tobacco Use Smoking Status: Current every day smoker Route of nutrition/ use of supplements: [] Nutritional Intake: [] IV Site: [] Martinez Catheter: [] - Assessment/Plan Antibiotics: [] Assessment/Plan: [] R 3rd finger recurrent abscess and synovitis - Taken to OR 05/31 and 06/[address] Castro. Cxs neg from original surgery but now growing MRSE which is R to doxycycline. Spoke with micro lab and released bactrim susceptibilities. Ok for him to go home on 24 more days of po bactrim DS bid. CBC, bmp, and esr in one week. Rx written for labs and abx. will follow, d/w immigration case worker and Dr. Castro.
--- NOTE | 2017-07-03 12:31 | NURSING ---
wound photo: right hand
[2017-07-03] MEDS: diazePAM 5 MG Tablet PO (13:47)
[2017-07-03] MEDS: Smz/Tmp Ds Tablet 1 TABLET PO (13:48)
--- NOTE | 2017-07-03 14:19 | PN.SURG_ITS ---
Subjective: Postop #4 Patient states his pain is better controlled with the increased Dilaudid. Will decrease to po analgesia in preparation for discharge. - Physical Exam General: Alert, Oriented x3 HEENT: PERRLA, EOMI Neck: Supple Lungs: Clear to auscultation Cardiovascular: Regular rate, Regular Rhythm Abdomen: Soft, Non-Distended Skin: Ulcer/ Wound - wounds are clean. Mild swelling seen. No evidence further infection. Silver dressing change was painful. Neurological: Cranial nerves II-XII grossly intact Psych/Mental Status: Normal Affect, Appropriate Vital Signs Temp Pulse Resp BP Pulse Ox 97.7 F L 64 16 131/77 H 94 07/03/17 09:00 07/03/17 09:00 07/03/17 09:00 07/03/17 09:00 07/03/17 09:00 Oxygen Delivery Method Room Air Weight: 229 lb 8.019 oz Body Mass Index (BMI) 28.2 Intake and Output for Last 24 Hours 07/01/17 07/02/17 07/03/17 23:59 23:59 23:59 Intake Total 1856 / 1856 3864 / 3864 1013 / 1013 Balance 1856 / 1856 3864 / 3864 1013 / 1013 Microbiology Past 72 Hours 06/29/17 13:28 Gram Stain - Final Biopsy - Hand Wound Culture - Final Staphylococcus epidermidis Anaerobic Culture - Final No anaerobic bacteria isolated. Medical Necessity - Tobacco Use Smoking Status: Current every day smoker Assessment/Plan 1. 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 2. Smoker. 3. History of heroin abuse. 4. Radial digital nerve laceration right long finger. 5. s/p drainage tendon sheath right long finger for recurrent suppurative flexor tenosynovitis and radical tenosynovectomy tendon sheath FDS tendon right palm by long finger and radical tenosynovectomy tendon sheath FDP tendon right palm by long finger and epineural repair radial digital nerve laceration right long finger. Wounds look clean. No further evidence of infection. No more purulent drainage seen. Surrounding skin is viable. Silver dressing change done today and was tolerated with po analgesia. Continue IV Vancomycin, Levaquin, and Flagyl. Operative culture shows MRSE. Resistant to the Doxycycline. One option was to have the patient come to the hospital every day for IV antibiotics with placement of a regular IV. After the antibiotics are given, remove the IV and repeat the process daily for 6 weeks. The other option is po antibiotics. Infectious Diseases felt that po antibiotics could be given after discharge since it is felt the recurrence was due to the Doxycycline that the patient had been on became resistant. The wounds look clean with no further evidence of infection so will send home on Bactrim DS. Prealbumin was 27.5. Encourage nutritional supplementation with protein to help the healing process. Encourage the patient to stop smoking as it may have deleterious effects on wound healing. Patient states he has a friend that will do the daily Silver dressing changes. Discharge home today. Followup one week. Will have him followup with OT in 1-2 weeks. Wrote script for Bactrim DS for 24 days. Will reassess in the office to determine if additional antibiotics are needed. Wrote scripts for Dilaudid for pain (60 tabs) and for Valium for spasm (30 tabs) . Wrote script for Phenergan for nausea (30 tabs) and a refill. Wrote script for Neurontin 800mg three times per day (90 tabs) and a refill.
--- NOTE | 2017-07-03 14:28 | PCM.DC ---
You will use the following diet at home:: No restrictions, Other - encourage nutritional supplementation with protein to help the healing process. Discharge Activity: May Not Drive, - - elevate right hand. Return to work on:: 08/11/17 - tentative May shower in (days): 1 - wear plastic bag over right hand when shwoering. May resume sexual activity in: No Restrictions Weight Bearing Status: Weight bearing as tolerated Lifting Restrictions: no lifting with right hand. Keep extremity elevated above heart level: Right Arm Call your doctor if your incision/area has: Continuous Slow Oozing, Sudden Increased Bleeding, Increased Pain/ Swelling, Increased Redness, Foul Smelling Discharge, Swelling at the incision site Call your doctor if you observe: Fever of 101 or Higher, Coldness, Increased Pain, Shortness of breath, Chest pain, Calf discomfort, Uncontrolled pain Suture Line Care: - - daily dressing changes with aquacel silver. Change Dressing in (Days):: 1 - silver dressing changes daily. Cleanse incision/area with: - - wear plastic bag over right hand when showering. Allergies/Adverse Reactions: Allergies amoxicillin [Amoxicillin] Allergy (Verified 06/29/17 01:58) Rash Penicillins Allergy (Verified 06/29/17 01:58) Rash Medications to take at Discharge Gabapentin [Neurontin] 800 mg PO TIDCM #90 tab 06/04/17 Tramadol HCl [Ultram] 50 mg PO PRN PRN 06/29/17 Diazepam [Valium] 5 mg PO 4X/DAY PRN PRN #30 tab 07/03/17 Gabapentin [Neurontin] 800 mg PO TIDCM #90 tab 07/03/17 HYDROmorphone tablet [Dilaudid] 2 - 4 mg PO 4X/DAY PRN PRN 7 Days #60 tab 07/03/17 Smz/Tmp Ds [Bactrim Ds] 1 tab PO BID 24 Days #48 tab 07/03/17 proMETHazine tablet [Phenergan tablet] 25 mg PO 4X/DAY PRN PRN #30 tab 07/03/17 The following prescriptions were given: Diazepam [Valium] 5 mg PO 4X/DAY PRN PRN #30 tab PRN Reason: Spasms HYDROmorphone tablet [Dilaudid] 2 - 4 mg PO 4X/DAY PRN PRN 7 Days #60 tab PRN Reason: Severe Pain (6-12/20) proMETHazine tablet [Phenergan tablet] 25 mg PO 4X/DAY PRN PRN #30 tab PRN Reason: NAUSEA/VOMITING Smz/Tmp Ds [Bactrim Ds] 1 tab PO BID 24 Days #48 tab Gabapentin [Neurontin] 800 mg PO TIDCM #90 tab Primary Care Physician: Sofia Armstrong MD [Primary Care Provider] - Please Follow Up With: Anant Castro MD When: one week. call [phone] for appt. Please Follow Up With: occupational therapy When: 1-2 weeks. will make appt. Proposed Discharge Date: 07/03/17
--- NOTE | 2017-07-03 14:32 | DCINST_ITS ---
You will use the following diet at home:: No restrictions, Other - encourage nutritional supplementation with protein to help the healing process. Discharge Activity: May Not Drive, - - elevate right hand. Return to work on:: 08/11/17 - tentative May shower in (days): 1 - wear plastic bag over right hand when shwoering. May resume sexual activity in: No Restrictions Weight Bearing Status: Weight bearing as tolerated Lifting Restrictions: no lifting with right hand. Keep extremity elevated above heart level: Right Arm Call your doctor if your incision/area has: Continuous Slow Oozing, Sudden Increased Bleeding, Increased Pain/ Swelling, Increased Redness, Foul Smelling Discharge, Swelling at the incision site Call your doctor if you observe: Fever of 101 or Higher, Coldness, Increased Pain, Shortness of breath, Chest pain, Calf discomfort, Uncontrolled pain Suture Line Care: - - daily dressing changes with aquacel silver. Change Dressing in (Days):: 1 - silver dressing changes daily. Cleanse incision/area with: - - wear plastic bag over right hand when showering. Allergies/Adverse Reactions: Allergies amoxicillin [Amoxicillin] Allergy (Verified 06/29/17 01:58) Rash Penicillins Allergy (Verified 06/29/17 01:58) Rash Medications to take at Discharge Gabapentin [Neurontin] 800 mg PO TIDCM #90 tab 06/04/17 Tramadol HCl [Ultram] 50 mg PO PRN PRN 06/29/17 Diazepam [Valium] 5 mg PO 4X/DAY PRN PRN #30 tab 07/03/17 Gabapentin [Neurontin] 800 mg PO TIDCM #90 tab 07/03/17 HYDROmorphone tablet [Dilaudid] 2 - 4 mg PO 4X/DAY PRN PRN 7 Days #60 tab Smz/Tmp Ds [Bactrim Ds] 1 tab PO BID 24 Days #48 tab 07/03/17 proMETHazine tablet [Phenergan tablet] 25 mg PO 4X/DAY PRN PRN #30 tab 07/03/17 The following prescriptions were given: Diazepam [Valium] 5 mg PO 4X/DAY PRN PRN #30 tab PRN Reason: Spasms HYDROmorphone tablet [Dilaudid] 2 - 4 mg PO 4X/DAY PRN PRN 7 Days #60 tab PRN Reason: Severe Pain (6-12/20) proMETHazine tablet [Phenergan tablet] 25 mg PO 4X/DAY PRN PRN #30 tab PRN Reason: NAUSEA/VOMITING Smz/Tmp Ds [Bactrim Ds] 1 tab PO BID 24 Days #48 tab Gabapentin [Neurontin] 800 mg PO TIDCM #90 tab Primary Care Physician: Sofia Armstrong MD [Primary Care Provider] - Please Follow Up With: Anant Castro MD When: one week. call [phone] for appt. Please Follow Up With: occupational therapy When: 1-2 weeks. will make appt. Proposed Discharge Date: 07/03/17
--- NOTE | 2017-07-03 14:32 | PCM.DC.SUM ---
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 Radial digital nerve laceration right long finger. - Secondary Discharge Diagnosis Hypertension. Low back pain. History of heroin abuse for which he has been clean for 8 years. Smoker. Hospital Course and Treatment Imaging Results: Hand X-Ray 06/29/17 02:27 IMPRESSION: Soft tissue swelling. No demonstrated acute osseous changes. Electronically Signed: Wallace Greer MD at 3:19 EDT Tel , Service support , ADDENDUM: 06/29/[address] 06/29/17 05:35 IMPRESSION: Findings suggestive of a tenosynovitis of the flexor tendon of the third digit with overlying soft tissue swelling and skin thickening. No radiopaque foreign body is seen. Electronically Signed: Shai Berg MD at 9:28 EDT Tel [phone], Service support , CONSULTATIONS Wound Care/Ostomy Nurse. Infectious Diseases - Dr. Keys. Operations: - - 06/29/17 - 1. Drainage tendon sheath right long finger for recurrent suppurative flexor tenosynovitis. 2. Radical tenosynovectomy tendon sheath FDS tendon right palm by long finger. 3. Radical tenosynovectomy tendon sheath FDP tendon right palm by long finger. 4. Epineural repair radial digital nerve laceration right long finger. Procedures: None Summary of Care Provided: The patient is a 37 year old M who had surgery on 05/31/17 where he underwent surgical preparation right long finger with incision and drainage and excisional debridement abscess at DIP joint crease and incision tendon sheath right long finger for suppurative flexor tenosynovitis. Perioperatively he was treated with Vancomycin. The operative culture was negative. I initially wanted to treat him with IV antibiotics for 6 weeks. However I could not send him home with a PICC line because of his history of IV drug use. He states he has been clean for several years. He did not want to go to a detention, and he couldn't come to the hospital every day for the antibiotics because the Vancomycin was more than once per day. Because the operative culture was negative and because the wounds were left open after surgical debridement and drainage, I decided to treat him with po antibiotics with Doxycycline for the remaining time course up to 6 weeks of antibiotics. He was doing great at home for the first 3 weeks. The wounds healed and he had very good range of motion at his last appointment on 06/19/17. He states since then he stopped taking his antibiotics. On 06/28/17, he started noticing increasing redness and swelling and pain in his right long finger. When it continued to worsen he came to the ED for evaluation. His WBC was 11.3. He was started on Vancomycin and admitted. CT scan was done which showed soft tissue swelling worse along the palmar surface and evidence of fluid surrounding the flexor tendon along the palmar aspect of the third digit suggestive of a tenosynovitis of the flexor tendon of the third digit with overlying soft tissue swelling and skin thickening. No radiopaque foreign body is seen. No definite abscess is seen. Surgery was recommended to be done urgently today because of his worsening symptomatology and because pus was found in the tendon sheath at his last operation on 05/31/17. Later in the day on 06/29/17, the patient underwent drainage tendon sheath right long finger for recurrent suppurative flexor tenosynovitis and radical tenosynovectomy tendon sheath FDS tendon right palm by long finger and radical tenosynovectomy tendon sheath FDP tendon right palm by long finger and epineural repair radial digital nerve laceration right long finger. He tolerated the procedure well and was sent to PACU in satisfactory condition. His wounds were stable during the postop period. Swelling improved slowly. No further evidence of infection was noted. He was treated perioperatively with Vancomycin, Levaquin, and Flagyl. Infectious Diseases consultation was obtained to help with antibiotic management. The pain with the dressing changes was more severe as compared to his previous surgery in May. He needed additional Dilaudid with some relief with the dressing changes. The operative culture showed MRSE that was resistant to Doxycycline which could explain his recurrence of the infection. One option was to have the patient come to the hospital every day for IV antibiotics with placement of a regular IV. After the antibiotics are given, remove the IV and repeat the process daily for 6 weeks. The other option is po antibiotics. Infectious Diseases felt that po antibiotics could be given after discharge since it is felt the recurrence was due to the Doxycycline that the patient had been on became resistant. The wounds look clean with no further evidence of infection so will send home on Bactrim DS. Prealbumin was 27.5. Encourage nutritional supplementation with protein to help the healing process. Encourage the patient to stop smoking as it may have deleterious effects on wound healing. Patient states he has a friend that will do the daily Silver dressing changes. On the fourth postop day, he was tolerating the dressing change with po antibiotics and was discharged home. He will followup in one week. Will have him followup with OT in 1-2 weeks. Wrote script for Bactrim DS for 24 days. Will reassess in the office to determine if additional antibiotics are needed. Wrote scripts for Dilaudid for pain (60 tabs) and for Valium for spasm (30 tabs). Wrote script for Phenergan for nausea (30 tabs) and a refill. Wrote script for Neurontin 800mg three times per day (90 tabs) and a refill. Condition upon discharge was stable. Discharge Diet: No Restrictions, - - encourage nutritional supplementation with protein to help the healing process. Discharge Activity: May Not Drive, - - elevate right hand. Return to work on:: 08/11/17 - tentative May shower in (days): 1 - wear plastic bag over right hand when shwoering. May resume sexual activity in: No Restrictions Weight Bearing Status: Weight bearing as tolerated Keep extremity elevated above heart level: Right Arm Additional Activity Instructions:: Encourage range of motion exercises to minimize stiffness. Mostly flex MP joints. Call your doctor if your incision/area has: Continuous Slow Oozing, Sudden Increased Bleeding, Increased Pain/ Swelling, Increased Redness, Foul Smelling Discharge, Swelling at the incision site Call your doctor if you observe: Fever of 101 or Higher, Coldness, Increased Pain, Shortness of breath, Chest pain, Calf discomfort, Uncontrolled pain Suture Line Care: - - daily dressing changes with aquacel silver. Change Dressing in (Days):: 1 - silver dressing changes daily. Cleanse incision/area with: - - wear plastic bag over right hand when showering. Home Medications: Medications to take at Discharge Gabapentin [Neurontin] 800 mg PO TIDCM #90 tab 06/04/17 Tramadol HCl [Ultram] 50 mg PO PRN PRN 06/29/17 Diazepam [Valium] 5 mg PO 4X/DAY PRN PRN #30 tab 07/03/17 Gabapentin [Neurontin] 800 mg PO TIDCM #90 tab 07/03/17 HYDROmorphone tablet [Dilaudid] 2 - 4 mg PO 4X/DAY PRN PRN 7 Days #60 tab 07/03/17 Smz/Tmp Ds [Bactrim Ds] 1 tab PO BID 24 Days #48 tab 07/03/17 proMETHazine tablet [Phenergan tablet] 25 mg PO 4X/DAY PRN PRN #30 tab 07/03/17 Following Prescrptions Were Given to Patient: Diazepam [Valium] 5 mg PO 4X/DAY PRN PRN #30 tab PRN Reason: Spasms HYDROmorphone tablet [Dilaudid] 2 - 4 mg PO 4X/DAY PRN PRN 7 Days #60 tab PRN Reason: Severe Pain (6-10) proMETHazine tablet [Phenergan tablet] 25 mg PO 4X/DAY PRN PRN #30 tab PRN Reason: NAUSEA/VOMITING Smz/Tmp Ds [Bactrim Ds] 1 tab PO BID 24 Days #48 tab Gabapentin [Neurontin] 800 mg PO TIDCM #90 tab Primary Care Physician: Sofia Armstrong MD [Primary Care Provider] - Please Follow Up With: Anant Castro MD When: one week. call [phone] for appt. Please Follow Up With: occupational therapy When: 1-2 weeks. will make appt. Disposition: Home Minutes spent on discharge:: 35 Patient Condition:: Stable Medical Necessity - Tobacco Use Smoking Status: Current every day smoker Meaningful Use Info Meaningful Use Diagnoses (Choose all that apply): None applicable
[2017-07-03 15:15] VITALS: BP 136/82; PULSE 93; RESP 16; TEMP 36.7; O2SAT 100
== END 2017-07-03 15:40 | disposition home or self-care (01) | DRG 229 ==
LOC: ED 03:12 → ICU 04:52 → MS2 13:25
PROVIDERS: Admitting Provider Surgery; Emergency Provider Emergency Medicine; Family Provider Internal Medicine; PCP Internal Medicine; Visit Provider Surgery
PROC: 0LB70ZZ Excision of Right Hand Tendon, Open Approach (ICD-10-PCS; principal; 2017-06-29 09:25)
DX: M65.141 Other infective (teno)synovitis, right hand (principal); L02.511 Cutaneous abscess of right hand; S64.492A Injury of digital nerve of right middle finger, initial encounter; I10 Essential (primary) hypertension; M54.5 Low back pain; G89.29 Other chronic pain; F41.9 Anxiety disorder, unspecified; F11.11 Opioid abuse, in remission; F17.210 Nicotine dependence, cigarettes, uncomplicated; Z91.14 Patient's other noncompliance with medication regimen; Z79.899 Other long term (current) drug therapy
CPT/HCPCS: 36415; 73130; 73200; 80048; 80202; 84134; 85025; 85027; 85652; 86140; 87015; 87040; 87070; 87075; 87077; 87102; 87116; 87186; 87205; 87206; 87640; 88304; 88305; 88312; 99285; 99406; J7030; J7050; J7120; A4216; J2405

== ENCOUNTER 2017-10-12 20:34 | Emergency (ER) | payer MEDICAID, SELFPAY ==
[2017-10-12 20:35] VITALS: BP 139/87; PULSE 108; RESP 17; TEMP 37.1; O2SAT 97; BMI 25.8
--- NOTE | 2017-10-12 21:17 | ED.DCSUM_ITS ---
- ER Visit Summary Date of Service: 10/12/17 Chief Complaint: Sore throat History of Present Illness: The patient is a 37 M presents to the emergency department sore throat for the past 5 days. Patient states symptoms began on Monday. He states he had a mild pain in his throat. Since then, he feels like he has had fever and chills. He denies any trouble speaking or swallowing. He does admit to pain with swallowing but is still able to drink. He does not think he has ever had strep before. He has tried ibuprofen with little relief Physical Examination: Exam is relatively unremarkable. Posterior oropharynx is widely patent. There is exudate on both tonsils. Uvula midline. No trismus. No evidence of retropharyngeal peritonsillar abscess. There is anterior adenopathy. Heart regular. Lungs clear. Test Results: [] Emergency Department Course and Treatment: Patient has evidence of exudative pharyngitis. He will be treated for strep. Is given Decadron here. Given drug allergy, he will be started on azithromycin. He is also given his first dose here. The patient will be discharged home, counseled on concerning symptoms and reasons to return. He has no evidence of abscess. Treatment Plan: [] Disposition: Discharge Impression: Strep pharyngitis This note was generated with [employer] dictation software. It may contain incorrect words, spelling, and punctuation that were not noted in review of the chart prior to signing ED Disposition - Plan for ED Patient: Chief Complaint: Sore Throat Instructions: ED Strep Pharyngitis Conf Prescriptions: Azithromycin [Zithromax] 250 mg PO DAILY #4 tab Naproxen [Naprosyn] 500 mg PO BID #14 tab Referrals: Sofia Armstrong MD [Primary Care Provider] -
[2017-10-12] MEDS: Azithromycin 250 MG Tablet 500 MG PO (21:19)
[2017-10-12] MEDS: HYDROcodone Bitartrate/Apap 5/325 Tablet PO (21:19)
[2017-10-12 21:34] VITALS: BP 143/93; PULSE 99; RESP 18; O2SAT 99
== END 2017-10-12 21:34 | disposition home or self-care (01) ==
LOC: ED 21:25
PROVIDERS: Emergency Provider Emergency Medicine; Family Provider Internal Medicine; PCP Internal Medicine
DX: J02.0 Streptococcal pharyngitis (principal)
CPT/HCPCS: 99283

== ENCOUNTER → 2018-06-08 11:48 | Outpatient (CLI) | payer MEDICAID, SELFPAY ==
[2018-06-08 11:21] VITALS: BMI 25.8
[2018-06-08 13:14] LABS: T4 Free Direct 1.56 ng/dL (0.76-1.46); Thyroid Stim Hormone (TSH) 0.99 uIU/mL (0.358-3.74)
== END ==
PROVIDERS: Family Provider Internal Medicine; PCP Internal Medicine; Visit Provider Internal Medicine
DX: I10 Essential (primary) hypertension (principal); R00.0 Tachycardia, unspecified
CPT/HCPCS: 36415; 84439; 84443

== ENCOUNTER 2018-08-28 21:42 | Inpatient (IN) | payer MEDICAID, SELFPAY ==
[2018-06-08 11:21] VITALS: BMI 25.8
[2018-08-28 21:43] VITALS: BP 100/74; PULSE 131; RESP 20; TEMP 37.1; O2SAT 98; BMI 24.1
--- NOTE | 2018-08-28 22:09 | RAD_ITS ---
STUDY: X-RAY - RIGHT KNEE REASON FOR EXAM: Male, 38 years old. Redness and swelling. Pain. TECHNIQUE: 2 view(s) of the knee. COMPARISON: None. FINDINGS: Normal visualized distal femur. Normal visualized proximal tibia and fibula. Normal proximal tibiofibular articulation. There is no demonstrated fracture. Normal medial femorotibial compartment. Normal lateral femorotibial compartment. Normal patellofemoral articulation. There is anterior soft tissue swelling. RAD/Knee 1 or 2 Views IMPRESSION: Soft tissue swelling. Electronically Signed: Robert Morgan MD at 23:33 EDT , Service support ,
[2018-08-28] MEDS: Morphine 4 MG/ML Syringe IV (22:49)
[2018-08-28 22:52] VITALS: PULSE 121
[2018-08-28 22:55] LABS: Absolute Lymphocyte Count 2.25 X10^3/ul (0.83-4.51); Absolute Neutrophil Count 10.4 X10^3/uL (2.0-7.7); Basophil# 0.04 X10^3/uL; Basophil% 0.3 % (0-1); Eosinophil# 0.05 X10^3/uL; Eosinophils% 0.4 % (0-5); Erythrocyte Sedimentation Rate 30 mm/hr (0-15); Hematocrit 39.5 % (40-54); Lymphocyte # 2.25 X10^3/ul (4.0); Lymphocyte % 16.1 % (19-41); Mean Corp Hgb Conc 35.4 g/gl (32-36); Mean Corpuscular Volume 87.4 fL (80-94); Mean Platelet Vol. 9.5 fl (6.2-12.0); Monocyte# 1.24 X10^3/uL; Monocyte% 8.9 % (0-10); Neutrophil # 10.38 X10^3/uL (2.7-7.7); Neutrophil % 74.1 % (47-70); POSITIVE COUNT NO; POSITIVE DIFFERENTIAL NO; POSITIVE MORPHOLOGY NO; Platelet Count 319 K/mm3 (150-450); Red Blood Count 4.52 M/mm3 (4.6-6.2)
--- NOTE | 2018-08-28 22:58 | ED.VISSUMM ---
- ER Visit Summary Date of Service: 08/28/18 Chief Complaint: Redness and swelling to the right knee History of Present Illness: The patient is a 38 M who presents with pain, redness, and swelling to his right knee that has gotten worse since yesterday. Patient describes the pain as throbbing and burning. Patient states the pain is worse with any movement. Patient admits to some numbness and tingling down his right lower leg past his knee. Patient denies any weakness. Patient thinks he was bitten by something on his knee a couple weeks ago. Patient denies any fevers or chills. Patient denies any discharge or drainage. Patient denies any nausea or vomiting. Patient denies any chest pain or shortness of breath. Physical Examination: Vital signs are stable except for tachycardia of 131. Patient is afebrile. Patient is in no acute distress. Muscular skeletal exam reveals edema, erythema, warmth, and tenderness over the prepatellar bursa. There is also some erythema and warmth around the knee itself and over the lateral aspect of the right distal thigh. There is some fluctuance over the prepatellar bursa. Range of motion was limited all motions of the right knee secondary to pain. Sensation was intact to light touch bilaterally in the lower extremities. Pedal pulses are equal bilaterally. Test Results: CBC shows a leukocytosis of 14.0. Basic metabolic profile was normal. Sed rate was elevated at 30. CRP was elevated at 81.8. Lactate was elevated at 3.0. X-rays of the right knee were obtained. There is soft tissue swelling. Emergency Department Course and Treatment: Patient was given a dose of morphine initially. And had minimal improvement of his pain with this. Patient was given a dose of Dilaudid prior to aspiration of the knee and prepatellar bursa. The right knee and prepatellar bursa were cleaned with Betadine. 1% plain lidocaine was injected at the aspiration sites. The right knee joint and prepatellar bursa were attempted to be aspirated with 18-gauge needle under sterile conditions. Bloody drainage was aspirated. Patient was unable to tolerate the procedure any further. Cultures were sent. Patient was started on clindamycin. Case was discussed with Franklin from Dr. Orourke's office he agreed with attempted aspiration and antibiotics. He recommended that the patient be admitted to the hospitalist. Case was discussed with the hospitalist. He recommended ceftriaxone and vancomycin instead of clindamycin. This was changed. Patient will be admitted to the hospital. Disposition: Admit to hospital Impression: 1. Septic bursitis right knee 2. Septic arthritis right knee This note was generated with [employer] dictation software. It may contain incorrect words, spelling, and punctuation that were not noted in review of the chart prior to signing ED Disposition - Plan for ED Patient: Disposition: Acute Care Hospital [facility] Diagnosis: Septic prepatellar bursitis of right knee, Septic arthritis of knee, right Referrals: Sofia Armstrong MD [Primary Care Provider] -
[2018-08-28 23:08] VITALS: BP 120/87; PULSE 113; RESP 19; O2SAT 98
[2018-08-28 23:18] LABS: Anion Gap 9 (5-15); BUN 10 mg/dL (7-18); BUN/Creat Ratio 8.1 RATIO (10-20); Calcium,Total 8.5 mg/dL (8.5-10.1); Chloride 104 mmol/L (98-107); Creatinine, Serum 1.24 mg/dL (0.70-1.30); EST Glomerular Filtration Rate 69 mL/min (>60); Est Glom Filt Rate - Afr Amer 84 mL/min (>60); Estimated Creatinine Clearance 96.54 ml/min; Glucose 121 mg/dL (74-106); Potassium 3.5 mmol/L (3.5-5.1); Sodium Level 138 mmol/L (136-145)
--- NOTE | 2018-08-28 23:32 | ED.RN ---
LACTIC 3.0, NOTIFIED
[2018-08-28] MEDS: 0.9% Normal Saline 1,000 ML 1000 ML IV (23:55)
[2018-08-28] MEDS: HYDROmorphone 0.5 MG/0.5 ML SYRINGE IV (23:55)
[2018-08-29] VITALS (19 sets, daily range): BP systolic 99–149; BP diastolic 74–88; PULSE 90–125; RESP 16–20; TEMP 36.6–37; O2SAT 95–100; BMI 23.9
--- NOTE | 2018-08-29 00:22 | HP.PCM_ITS ---
Problem List (1) Septic prepatellar bursitis of right knee Status: Acute (2) Septic arthritis of knee, right Status: Acute (3) Smoker Status: Chronic History of Present Illness Date of Admission: 08/29/18 Chief Complaint: right knee pain. The patient is a 38 year old M with a significant history of hypertension; hypothyroidism; and neuropathy who presented with 3-week history of right knee pain. His symptoms started as a red spot on his anterior knee after cleaning [place]. Thereafter, he developed pain; swelling and erythema of the right knee that waxed and waned with Benadryl and Tylenol. However his symptoms got progressively worse and unbearable in the last 2 days. He denied actually seeing a bite from any organism. At the ED aspiration of his right knee and his pre-patellar bursa showed blood. The bloody specimen was sent to lab for culture. He had elevated lactic acid; tachycardia and tachypnea. His ESR and CRP was elevated. Emergency Department doctor talked to Dr. Orourke, Past Medical History Past Medical History (Chronic Problems): Chronic Problems (Last Reviewed 08/29/18 @ 02:25 by Sergei Thibodeaux MD) Right hand pain (Chronic) Smoker (Chronic) Hypertension (Chronic) Tobacco dependence (Chronic) Tachycardia (Chronic) Chronic radicular low back pain (Chronic) Medical History: Medical History (Last Reviewed 08/29/18 @ 02:25 by Sergei Thibodeaux MD) Tobacco dependence (Chronic) F17.200 Back pain M54.9 Seasonal allergies J30.2 Allergies amoxicillin [Amoxicillin] Allergy (Verified 06/08/18 11:19) Rash Penicillins Allergy (Verified 06/08/18 11:19) Rash Home Medications: Ambulatory Orders Medication Instructions Recorded gabapentin 800 mg tablet 800 mg PO .QID #120 tab 08/14/18 Surgical History: Surgical History (Last Reviewed 08/29/18 @ 02:25 by Sergei Thibodeaux MD) none Surgical History: - - Hand surgery Psychiatric History: No pertinent psych hx Smoking Status: Current every day smoker Tobacco Use: Cigarettes Alcohol: Rare - *Family History Maternal Family History: Family History (Last Reviewed 08/29/18 @ 01:28 by Sergei Thibodeaux MD) Brother Cystic fibrosis Sister Thyroid disorder Mother Hypertension Thyroid disorder Diabetes Father Anxiety Thyroid disorder Heart disease Alcoholism Grandmother Breast cancer Heart disease Grandfather Cancer History Items: Diabetes, Hypertension, - - thyroid disease. Paternal Family History: Family History (Last Reviewed 08/29/18 @ 01:28 by Sergei Thibodeaux MD) Brother Cystic fibrosis Sister Thyroid disorder Mother Hypertension Thyroid disorder Diabetes Father Anxiety Thyroid disorder Heart disease Alcoholism Grandmother Breast cancer Heart disease Grandfather Cancer History Items: Heart Disease, - - thyroid disease, alcoholism, anxiety. Review of Systems Constitutional: Denies: Chills, Fever, Weight Change HEENT: Denies: Head Aches, Sinus Congestion, Sinus Drainage Cardiovascular: Denies: Chest Pain, Palpitations Respiratory: Denies: Cough, Shortness of breath at rest, Sputum production Gastrointestinal: Denies: Abdominal Pain, Nausea, Vomiting Genitourinary: Denies: Dysuria Musculoskeletal: Reports: Joint Pain - Right knee, Joint Tenderness - Right knee Skin: Reports: - - Erythema and swelling of the right knee Neurological: Denies: Numbness, Tingling, Focal weakness Psychiatric: Denies: Anxiety, Depression, Homicidal Ideations, Suicidal Ideations Hematologic/ Lymphatic: Denies: Easy Bruising, Easy Bleeding VTE Information - Inpt Only VTE Present on Admission: No VTE Mechan Device Prophylaxis: SCD's, None VTE Pharm Prophylaxis ordered?: No Patient Problems: Active and Suspected Problems (Last Reviewed 08/29/18 @ 02:25 by Sergei Thibodeaux MD) Septic prepatellar bursitis of right knee (Acute) Septic arthritis of knee, right (Acute) - Physical Exam General: Alert, Oriented x3, Cooperative HEENT: Atraumatic, PERRLA, EOMI, Normocephalic Neck: Supple, No JVD, Negative Carotid Bruits Lungs: Clear to auscultation, Normal air movement, Tachypneic Cardiovascular: Normal S1, Normal S2, No murmurs, Tachycardic Abdomen: Bowel Sounds Present, Soft, Non Tender Extremities: Capillary Refill Less than 3 Seconds, Tenderness - Severe right knee tenderness Skin: - - Right knee swelling; erythema and increased warmth. Musculoskeletal: No Tenderness to Palpation of Joints or Extremities Neurological: Neuro grossly intact Psych/Mental Status: Normal Affect, Appropriate Vital Signs Temp Pulse Resp BP Pulse Ox 98.7 F 113 H 19 H 120/87 H 98 08/28/18 21:43 08/28/18 23:08 08/28/18 23:08 08/28/18 23:08 08/28/18 23:08 Oxygen Delivery Method Room Air Weight: 87.6 kg Body Mass Index (BMI) 24.1 Laboratory Tests Past 24 Hrs 08/28/18 08/28/18 08/28/18 20:45 20:45 20:45 WBC 14.0 H RBC 4.52 L Hgb 14.0 Hct 39.5 L MCV 87.4 MCH 31.0 MCHC 35.4 RDW 13.0 RDW Differential 42.0 Plt Count 319 MPV 9.5 Immature Gran % (Auto) 0.200 Neut % (Auto) 74.1 H Lymph % (Auto) 16.1 L [place] % (Auto) 8.9 Eos % (Auto) 0.4 Baso % (Auto) 0.3 Absolute Neuts (auto) 10.4 H Absolute Lymphs (auto) 2.25 Total Counted Not Reportable ESR 30 H Sodium 138 Potassium 3.5 Chloride 104 Carbon Dioxide 25.0 Anion Gap 9 BUN 10 Creatinine 1.24 Estim Creat Clear Calc 96.54 Est GFR (MDRD) Af Amer 84 Est GFR (MDRD) Non-Af 69 BUN/Creatinine Ratio 8.1 L Glucose 121 H Lactic Acid 3.0 H Calcium 8.5 C-React Prot Ext Range 81.80 H Assessment/Plan All Active Problems (Last Reviewed 08/29/18 @ 02:25 by Sergei Thibodeaux MD) Septic prepatellar bursitis of right knee (Acute) Septic arthritis of knee, right (Acute) Paresthesias in right hand (Acute) Injury of digital nerve of right middle finger (Acute) Open wound of right hand with tendon involvement (Acute) Facial mass (Acute) Cellulitis, face (Acute) Heroin use disorder, moderate, in sustained remission (Acute) Suppurative tenosynovitis of flexor tendon of right hand (Acute) Abscess of right hand including fingers (Acute) Tendinitis of right rotator cuff (Acute) The patient is a 38 year old M with a significant history of hypertension; hyp othyroidism; and neuropathy who presented with 3-week history of right knee pain; swelling; erythema and tenderness as well as with cardiac; tachypnea elevated ESR and elevated CRP consistent with severe sepsis secondary to septic arthritis of the right knee. Severe sepsis second septic arthritis of the right knee SIRS criteria: Tachycardia with consistent and highest heart rate of 131; tachypnea with respiratory rate of 20; neutrophilic leukocytosis of white count of 14. Source of infection: Right knee Severe sepsis because of lactic acid of more than 2. X-ray of the right knee showed soft tissue swelling. X-ray was independently reviewed. I agree with radiologist interpretation. Patient was originally started on clindamycin. Discussed with emergency department doctor and made recommendation of vancomycin and ceftriaxone. Clindamycin was subsequently stopped at the ED. Vancomycin and ceftriaxone was started. Continue vancomycin and ceftriaxone for now. ceftriaxone 1 g was ordered emergency department. We will give additional 1 g and then 2 g daily. Of note patient has allergic reaction to penicillins; rash. We will add Doxycycline p.o. We will consult infectious disease Pain control with PRN oxycodone p.o. and PRN IV morphine. Antiemetics and bowel protocol in the setting of initiating narcotics. We will get lyme studies. Trend CBC and BMP Trend lactic acid Blood cultures are pending; follow. Gram stain and fluid culture from right knee and prepatellar bursa. Consult orthopedic surgeon for consideration of right knee washout. Hypertension Reportedly he is on some home medication that he has not refilled. Trend blood pressure for now. Neuropathy Gabapentin continued Tobacco abuse Counseled Nicotine patch ordered. DVT prophylaxis SCD Code Visit Inpatient E&M: 39776 Init Hosp L3
[2018-08-29] MEDS: Ceftriaxone 1 GM/50 ML BAG IV ×2 (00:43→02:23)
[2018-08-29] MEDS: 0.9% NaCl Peripheral Flush Adult/Peds IV ×3 (01:46→06:40)
[2018-08-29] MEDS: Morphine 2 MG/ML Syringe IV ×3 (01:46→11:14)
[2018-08-29] MEDS: Gabapentin 800 MG Tablet PO ×3 (02:23→20:28)
[2018-08-29] MEDS: Doxycycline 100 MG CAPSULE PO ×2 (02:23→22:18)
[2018-08-29] MEDS: 0.9% NaCl IVPB Med Flush (250 mL) 15 ML IV (02:23)
--- NOTE | 2018-08-29 02:40 | PCM.RX.CS ---
Consult Pharmacy has been consulted to manage selected antiobiotic: Vancomycin Type of Consult: New start Suspected Infection: Sepsis Prior Doses of Antibiotics Received/Current Regimen: Medications Vancomycin HCl 1,750 mg/ (Sodium Chloride) 535 mls @ 250 mls/hr IV Q12H LAURA Discontinued Medications Vancomycin HCl 1,250 mg/ (Sodium Chloride) 275 mls @ 167 mls/hr IV X1 ONE Stop: 08/29/18 02:06 Last Admin: 08/29/18 01:30 Dose: 167 mls/hr Documented by: Labs: Sodium 138 mmol/L (136-145) 08/28/18 20:45 Potassium 3.5 mmol/L (3.5-5.1) 08/28/18 20:45 Chloride 104 mmol/L (98-107) 08/28/18 20:45 Carbon Dioxide 25.0 mmol/L (21.0-32.0) 08/28/18 20:45 9 (5-15) 08/28/18 20:45 BUN 10 mg/dL (7-18) 08/28/18 20:45 1.24 mg/dL (0.70-1.30) 08/28/18 20:45 Est GFR (MDRD) Af Amer 84 mL/min (>60) 08/28/18 20:45 Est GFR (MDRD) Non-Af 69 mL/min (>60) 08/28/18 20:45 8.1 RATIO (10-20) L 08/28/18 20:45 Glucose 121 mg/dL (74-106) H 08/28/18 20:45 Weight used for dosin.8 kg Estimated Creatinine Clearance: 96.5 Goal Trough: 15-20 mcg/mL Pharmacy Plan for Drug Dosing: Pharmacy Service will continue to monitor and adjust dosing as required. Follow-Up Labs: Trough Vancomycin Labs to be done on [date and time ordered]: 08/30/18 @1300
[2018-08-29 02:49] LABS: Reflex Lactate? Y
[2018-08-29 03:40] LABS: Absolute Lymphocyte Count 3.28 X10^3/ul (0.83-4.51); Absolute Neutrophil Count 7.3 X10^3/uL (2.0-7.7); Basophil# 0.03 X10^3/uL; Basophil% 0.2 % (0-1); Eosinophils% 0.8 % (0-5); Hematocrit 35.5 % (40-54); Hemoglobin 12.4 g/dl (13.0-16.5); Lymphocyte # 3.28 X10^3/ul (4.0); Lymphocyte % 27.2 % (19-41); Mean Corp Hgb Conc 34.9 g/gl (32-36); Mean Corpuscular Hgb 30.7 pg (27.0-32.0); Mean Corpuscular Volume 87.9 fL (80-94); Mean Platelet Vol. 9.3 fl (6.2-12.0); Monocyte# 1.35 X10^3/uL; Monocyte% 11.2 % (0-10); Neutrophil # 7.25 X10^3/uL (2.7-7.7); Neutrophil % 60.4 % (47-70); POSITIVE COUNT NO; POSITIVE DIFFERENTIAL NO; POSITIVE MORPHOLOGY NO; Platelet Count 279 K/mm3 (150-450); RBC Distribution Width CV 13.1 % (11.6-14.6); RBC Distribution Width SD 42.4 fl (35.1-43.9); Red Blood Count 4.04 M/mm3 (4.6-6.2)
[2018-08-29 03:44] LABS: Anion Gap 10 (5-15); BUN 10 mg/dL (7-18); Calcium,Total 7.9 mg/dL (8.5-10.1); Chloride 107 mmol/L (98-107); EST Glomerular Filtration Rate 89 mL/min (>60); Est Glom Filt Rate - Afr Amer 108 mL/min (>60); Estimated Creatinine Clearance 119.71 ml/min; Glucose 139 mg/dL (74-106); Potassium 3.7 mmol/L (3.5-5.1); Sodium Level 141 mmol/L (136-145)
[2018-08-29 03:48] LABS: Lactic Acid 1.5 mmol/L (0.4-2.0)
[2018-08-29] MEDS: oxyCODONE 5 MG Tablet PO ×2 (04:00→08:17)
[2018-08-29] MEDS: 0.9% Normal Saline 1,000 ML 100 ML IV (06:25)
--- NOTE | 2018-08-29 09:17 | CCHN_ITS ---
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 This is started with right small pimple-like spot in the anterior knee which got worse. Patient is not able to move his knee joint. Right leg is painful and tender from groin to calf. On exam Erythema, tenderness and swelling of right knee mainly anteriorly. No movement is possible at knee joint. There was some bloody aspiration into the knee. Assessment and plan Labs reviewed. Significant for leukocytosis with left shift, elevated CRP, ESR and lactic acid 3.0. Patient asking for pain and pain medications addressed with oxycodone, Dilaudid and Toradol Orthopedic surgery consult. On IV antibiotics ceftriaxone and vancomycin. On p.o. doxycycline. ID consult. Patient also has history of substance abuse mainly opioids but has quit in 2014. States he feels feeling off similar drug withdrawal with morphine and does not want to take it. Laboratory Results 08/28/18 20:45: WBC 14.0 H, RBC 4.52 L, Hgb 14.0, Hct 39.5 L, MCV 87.4, MCH 31.0, MCHC 35.4, RDW 13.0, RDW Differential 42.0, Plt Count 319, MPV 9.5, Immature Gran % (Auto) 0.200, Neut % (Auto) 74.1 H, Lymph % (Auto) 16.1 L, [place] % (Auto) 8.9, Eos % (Auto) 0.4, Baso % (Auto) 0.3, Absolute Neuts (auto) 10.4 H, Absolute Lymphs (auto) 2.25, Total Counted Not Reportable, ESR 30 H 08/28/18 20:45: Sodium 138, Potassium 3.5, Chloride 104, Carbon Dioxide 25.0, Anion Gap 9, BUN 10, Creatinine 1.24, Estim Creat Clear Calc 96.54, Est GFR (MDRD) Af Amer 84, Est GFR (MDRD) Non-Af 69, BUN/Creatinine Ratio 8.1 L, Glucose 121 H, Calcium 8.5, C-React Prot Ext Range 81.80 H 08/28/18 20:45: Lactic Acid 3.0 H 08/29/18 03:16: WBC 12.0 H, RBC 4.04 L, Hgb 12.4 L, Hct 35.5 L, MCV 87.9, MCH 30.7, MCHC 34.9, RDW 13.1, RDW Differential 42.4, Plt Count 279, MPV 9.3, Immature Gran % (Auto) 0.200, Neut % (Auto) 60.4, Lymph % (Auto) 27.2, [place] % (Auto) 11.2 H, Eos % (Auto) 0.8, Baso % (Auto) 0.2, Absolute Neuts (auto) 7.3, Absolute Lymphs (auto) 3.28, Total Counted Not Reportable 08/29/18 03:16: Sodium 141, Potassium 3.7, Chloride 107, Carbon Dioxide 24.0, Anion Gap 10, BUN 10, Creatinine 1.00, Estim Creat Clear Calc 119.71, Est GFR (MDRD) Af Amer 108, Est GFR (MDRD) Non-Af 89, BUN/Creatinine Ratio 10.0, Glucose 139 H, Calcium 7.9 L 08/29/18 03:16: Lactic Acid 1.5 Clinical Impression(s) from Imaging Studies Knee X-Ray 08/28/18 22:09 IMPRESSION: Soft tissue swelling. Active Medications Acetaminophen (Tylenol) 650 mg PO Q6H PRN PRN PRN Reason: Mild Pain (1-3)/Temp > 100.7 F Doxycycline Monohydrate (Doxycycline) 100 mg PO DAILY@2200 [facility] Last Admin: 08/29/18 02:23 Dose: 100 mg Documented by: Gabapentin (Neurontin) 800 mg PO Q6 [facility] Last Admin: 08/29/18 06:25 Dose: 800 mg Documented by: Glucagon () 1 mg IM .X1 PRN PRN Reason: Hypoglycemia Hydromorphone HCl (Dilaudid Inj) 1 mg IV Q3H PRN PRN PRN Reason: SEVERE PAIN (6-10/10) Sodium Chloride () 1,000 mls @ 100 mls/hr IV .Q10H [facility] Stop: 08/29/18 11:21 Last Admin: 08/29/18 06:25 Dose: 100 mls/hr Documented by: Vancomycin IV Pharmacy to Dose (1,250 ea/ Sodium Chloride) 500 mls @ 250 mls/hr IV PRN PRN; Protocol Ceftriaxone Sodium 2 gm/ (Sodium Chloride) 50 mls @ 100 mls/hr IV Q24@2200 [facility] Sodium Chloride () 250 mls @ 15 mls/hr IV .[id number] PRN PRN Reason: SALINE FLUSH Last Admin: 08/29/18 02:23 Dose: 15 mls/hr Documented by: Vancomycin HCl 1,750 mg/ (Sodium Chloride) 535 mls @ 250 mls/hr IV Q12H [facility] Ketorolac Tromethamine (Toradol) 30 mg IV Q8 [facility] Stop: 08/31/18 09:16 Morphine Sulfate () 2 mg IV Q3H PRN PRN PRN Reason: Severe pain (7-10/10) Last Admin: 08/29/18 06:40 Dose: 2 mg Documented by: Nicotine (Nicoderm Cq (Pbkc)) 21 mg TRANSDERM. DAILY [facility] Last Admin: 08/29/18 08:23 Dose: 21 mg Documented by: Nutritional Formula (Lactose Free) (Ensure Enlive) 120 ml PO 4X/DAY [facility] Last Admin: 08/29/18 08:23 Dose: 120 ml Documented by: Ondansetron HCl (Zofran) 4 mg IV Q8H PRN PRN PRN Reason: NAUSEA/VOMITING Oxycodone HCl (Oxyir) 10 mg PO Q4H PRN PRN PRN Reason: Moderate Pain (4-6/10) Senna/Docusate Sodium (Senokot-S, Britney-Colace) 1 tablet PO BID [facility] Last Admin: 08/29/18 08:22 Dose: Not Given Documented by: Sodium Chloride () 5 - 15 ml IV UD PRN PRN Reason: SALINE FLUSH Last Admin: 08/29/18 06:40 Dose: 10 ml Documented by:
[2018-08-29] MEDS: Ketorolac 30 MG/ML Syringe IV (10:12)
[2018-08-29 10:19] LABS: Lyme Ab Screen Interpretation REF LAB
--- NOTE | 2018-08-29 11:13 | PCM.CONS.GEN ---
Reason for Consult Date of Consultation: 08/29/18 Reason for Consultation: right knee septic bursitis History of Present Illness: The patient is a 38 year old M with increased swelling left knee after questionable spider bite, got better than bumped knee on table and worsened, with increasing erythema, and more painful on top of the knee. can bend knee with pain but localized to front of knee not inside.[] Past Medical History Past Medical History (Chronic Problems): Chronic Problems (Last Reviewed 08/29/18 @ 02:25 by Sergei Thibodeaux MD) Right hand pain (Chronic) Smoker (Chronic) Hypertension (Chronic) Tobacco dependence (Chronic) Tachycardia (Chronic) Chronic radicular low back pain (Chronic) Medical History: Medical History (Last Reviewed 08/29/18 @ 02:25 by Sergei Thibodeaux MD) Tobacco dependence (Chronic) F17.200 Back pain M54.9 Seasonal allergies J30.2 Allergies amoxicillin [Amoxicillin] Allergy (Verified 06/08/18 11:19) Rash Penicillins Allergy (Verified 06/08/18 11:19) Rash Home Medications: Ambulatory Orders Medication Instructions Recorded gabapentin 800 mg tablet 800 mg PO .QID #120 tab 08/14/18 DiphenhydrAMINE [Benadryl] 50 mg PO QHS PRN PRN 08/29/18 Surgical History: Surgical History (Last Reviewed 08/29/18 @ 02:25 by Sergei Thibodeaux MD) none Surgical History: - - Hand surgery Psychiatric History: No pertinent psych hx Smoking Status: Current every day smoker Tobacco Use: Cigarettes Alcohol: Rare - *Family History Maternal Family History: Family History (Last Reviewed 08/29/18 @ 01:28 by Sergei Thibodeaux MD) Brother Cystic fibrosis Sister Thyroid disorder Mother Hypertension Thyroid disorder Diabetes Father Anxiety Thyroid disorder Heart disease Alcoholism Grandmother Breast cancer Heart disease Grandfather Cancer History Items: Diabetes, Hypertension, - - thyroid disease. Paternal Family History: Family History (Last Reviewed 08/29/18 @ 01:28 by Sergei Thibodeaux MD) Brother Cystic fibrosis Sister Thyroid disorder Mother Hypertension Thyroid disorder Diabetes Father Anxiety Thyroid disorder Heart disease Alcoholism Grandmother Breast cancer Heart disease Grandfather Cancer History Items: Heart Disease, - - thyroid disease, alcoholism, anxiety. Review of Systems Constitutional: Denies: Chills, Fever, Weight Change HEENT: Denies: Head Aches, Sinus Congestion, Sinus Drainage Cardiovascular: Denies: Chest Pain, Palpitations Respiratory: Denies: Cough, Shortness of breath at rest, Sputum production Gastrointestinal: Denies: Abdominal Pain, Nausea, Vomiting Genitourinary: Denies: Dysuria Musculoskeletal: Reports: Leg Pain. Denies: Joint Pain, Joint Tenderness Skin: Denies: Rash, Wounds Neurological: Denies: Numbness, Tingling, Focal weakness Psychiatric: Denies: Anxiety, Depression, Homicidal Ideations, Suicidal Ideations Hematologic/ Lymphatic: Denies: Easy Bruising, Easy Bleeding Patient Problems: Active and Suspected Problems (Last Reviewed 08/29/18 @ 02:25 by Sergei Thibodeaux MD) Septic prepatellar bursitis of right knee (Acute) Septic arthritis of knee, right (Acute) - Physical Exam General: Alert, Oriented x3, Cooperative HEENT: Atraumatic, PERRLA, EOMI, Normocephalic Neck: Supple, No JVD, Negative Carotid Bruits Lungs: Clear to auscultation, Normal air movement Cardiovascular: Regular rate, No murmurs Abdomen: Bowel Sounds Present, Soft, Non Tender Extremities: No edema, Capillary Refill Less than 3 Seconds Skin: No rashes, No breakdown Musculoskeletal: Tenderness - to right anterior knee, fluctuant, erythema around prepatella bursae, no effusion of intraarticular knee, pain localized to knee only, arom prom ankle intact, compts soft, sgi b/l le Neurological: Cranial nerves II-XII grossly intact Psych/Mental Status: Normal Affect, Appropriate Vital Signs Temp Pulse Resp BP Pulse Ox 98.3 F 99 16 137/81 H 100 08/29/18 08:15 08/29/18 08:15 08/29/18 08:15 08/29/18 08:15 08/29/18 08:15 Oxygen Delivery Method Room Air Weight: 191 lb 5.78 oz Body Mass Index (BMI) 23.9 Intake and Output for Last 24 Hours 08/27/18 08/28/18 08/29/18 23:59 23:59 23:59 Intake Total 1649 / 1649 Balance 1649 / 1649 Laboratory Tests Past 24 Hrs 08/28/18 08/28/18 08/28/18 20:45 20:45 20:45 WBC 14.0 H RBC 4.52 L Hgb 14.0 Hct 39.5 L MCV 87.4 MCH 31.0 MCHC 35.4 RDW 13.0 RDW Differential 42.0 Plt Count 319 MPV 9.5 Immature Gran % (Auto) 0.200 Neut % (Auto) 74.1 H Lymph % (Auto) 16.1 L [place] % (Auto) 8.9 Eos % (Auto) 0.4 Baso % (Auto) 0.3 Absolute Neuts (auto) 10.4 H Absolute Lymphs (auto) 2.25 Total Counted Not Reportable ESR 30 H Sodium 138 Potassium 3.5 Chloride 104 Carbon Dioxide 25.0 Anion Gap 9 BUN 10 Creatinine 1.24 Estim Creat Clear Calc 96.54 Est GFR (MDRD) Af Amer 84 Est GFR (MDRD) Non-Af 69 BUN/Creatinine Ratio 8.1 L Glucose 121 H Lactic Acid 3.0 H Calcium 8.5 C-React Prot Ext Range 81.80 H Lyme Total Antibody Lyme Disease Interpret 08/29/18 08/29/18 08/29/18 03:16 03:16 03:16 WBC 12.0 H RBC 4.04 L Hgb 12.4 L Hct 35.5 L MCV 87.9 MCH 30.7 MCHC 34.9 RDW 13.1 RDW Differential 42.4 Plt Count 279 MPV 9.3 Immature Gran % (Auto) 0.200 Neut % (Auto) 60.4 Lymph % (Auto) 27.2 [place] % (Auto) 11.2 H Eos % (Auto) 0.8 Baso % (Auto) 0.2 Absolute Neuts (auto) 7.3 Absolute Lymphs (auto) 3.28 Total Counted Not Reportable ESR Sodium 141 Potassium 3.7 Chloride 107 Carbon Dioxide 24.0 Anion Gap 10 BUN 10 Creatinine 1.00 Estim Creat Clear Calc 119.71 Est GFR (MDRD) Af Amer 108 Est GFR (MDRD) Non-Af 89 BUN/Creatinine Ratio 10.0 Glucose 139 H Lactic Acid 1.5 Calcium 7.9 L C-React Prot Ext Range Lyme Total Antibody Lyme Disease Interpret 08/29/18 10:10 WBC RBC Hgb Hct MCV MCH MCHC RDW RDW Differential Plt Count MPV Immature Gran % (Auto) Neut % (Auto) Lymph % (Auto) [place] % (Auto) Eos % (Auto) Baso % (Auto) Absolute Neuts (auto) Absolute Lymphs (auto) Total Counted ESR Sodium Potassium Chloride Carbon Dioxide Anion Gap BUN Creatinine Estim Creat Clear Calc Est GFR (MDRD) Af Amer Est GFR (MDRD) Non-Af BUN/Creatinine Ratio Glucose Lactic Acid Calcium C-React Prot Ext Range Lyme Total Antibody Pending Lyme Disease Interpret Pending Assessment/Plan All Active Problems (Last Reviewed 08/29/18 @ 02:25 by Sergei Thibodeaux MD) Septic prepatellar bursitis of right knee (Acute) Septic arthritis of knee, right (Acute) Paresthesias in right hand (Acute) Injury of digital nerve of right middle finger (Acute) Open wound of right hand with tendon involvement (Acute) Facial mass (Acute) Cellulitis, face (Acute) Heroin use disorder, moderate, in sustained remission (Acute) Suppurative tenosynovitis of flexor tendon of right hand (Acute) Abscess of right hand including fingers (Acute) Tendinitis of right rotator cuff (Acute) right knee prepatella septic bursitis antibiotics-vanc, cef, doxy questionable lyme, following labs fluctuent right prepatella knee with potential to seed joint decision to take patient to OR urgently now Reviewed the pre-operative plans with the patient. Risks and benefits of the procedure were fully explained, including but not limited to infection, neurovascular injury, continued pain, arthritis, stiffness, need for further surgery, re-injury, DVT, PE, general risks of anesthesia, and loss of limb or life. The patient understands all the risks and does wish to proceed with written consent for I&D right prepatella bursae hospitalist and nurse aware
[2018-08-29 12:01] LABS: Thyroid Stim Hormone (TSH) 0.24 uIU/mL (0.358-3.74)
[2018-08-29] MEDS: HYDROmorphone 1 MG/ML Syringe IV ×2 (12:33→22:16)
--- NOTE | 2018-08-29 12:49 | CON.PCM_ITS ---
Problem List (1) Septic prepatellar bursitis of right knee Status: Acute Reason for Consult: R knee infection Consulted by: Dr. Rodriguez History of Present Illness: The patient is a 38 year old M who presented with 3 weeks of R knee pain, swelling, redness. Mild night sweats and fatigue. Sx started when he was cleaning out his camper. Noticed central spot on his R knee, thought it was a spider bite. Had bullseye rash around that knee with waxing/waning pain, redness, and swelling since then. No drainage. No vision changes, no other joint pain. Had aspiration done, plan for OR today. On vanc/ceftriaxone/doxy. Pain is stabbing/throbbing, worse with movement. Full ROS performed and neg except as noted above. - Medical History Past Medical History (Chronic Problems): Chronic Problems (Last Reviewed 08/29/18 @ 02:25 by Sergei Thibodeaux MD) Right hand pain (Chronic) Smoker (Chronic) Hypertension (Chronic) Tobacco dependence (Chronic) Tachycardia (Chronic) Chronic radicular low back pain (Chronic) Allergies/Adverse Reactions: Allergies amoxicillin [Amoxicillin] Allergy (Verified 06/08/18 11:19) Rash Penicillins Allergy (Verified 06/08/18 11:19) Rash Home Medications: Ambulatory Orders Medication Instructions Recorded gabapentin 800 mg tablet 800 mg PO .QID #120 tab 08/14/18 DiphenhydrAMINE [Benadryl] 50 mg PO QHS PRN PRN 08/29/18 - Social History Tobacco Use: cigarettes Vital Signs Temp Pulse Resp BP Pulse Ox 97.8 F 104 H 16 130/88 H 100 08/29/18 11:18 08/29/18 11:18 08/29/18 11:18 08/29/18 11:18 08/29/18 11:18 Oxygen Delivery Method Room Air Weight: 86.8 kg Body Mass Index (BMI) 23.9 Microbiology Past 72 Hours 08/29/18 00:10 Gram Stain - Final Fluid - Synovial (joint) 08/29/18 00:10 Gram Stain - Final Fluid - Bursa Laboratory Tests Past 24 Hrs 08/28/18 08/28/18 08/28/18 20:45 20:45 20:45 WBC 14.0 H RBC 4.52 L Hgb 14.0 Hct 39.5 L MCV 87.4 MCH 31.0 MCHC 35.4 RDW 13.0 RDW Differential 42.0 Plt Count 319 MPV 9.5 Immature Gran % (Auto) 0.200 Neut % (Auto) 74.1 H Lymph % (Auto) 16.1 L Gooding % (Auto) 8.9 Eos % (Auto) 0.4 Baso % (Auto) 0.3 Absolute Neuts (auto) 10.4 H Absolute Lymphs (auto) 2.25 Total Counted Not Reportable ESR 30 H Sodium 138 Potassium 3.5 Chloride 104 Carbon Dioxide 25.0 Anion Gap 9 BUN 10 Creatinine 1.24 Estim Creat Clear Calc 96.54 Est GFR (MDRD) Af Amer 84 Est GFR (MDRD) Non-Af 69 BUN/Creatinine Ratio 8.1 L Glucose 121 H Lactic Acid 3.0 H Calcium 8.5 C-React Prot Ext Range 81.80 H TSH Lyme Total Antibody Lyme Disease Interpret 08/29/18 08/29/18 08/29/18 03:16 03:16 03:16 WBC 12.0 H RBC 4.04 L Hgb 12.4 L Hct 35.5 L MCV 87.9 MCH 30.7 MCHC 34.9 RDW 13.1 RDW Differential 42.4 Plt Count 279 MPV 9.3 Immature Gran % (Auto) 0.200 Neut % (Auto) 60.4 Lymph % (Auto) 27.2 Gooding % (Auto) 11.2 H Eos % (Auto) 0.8 Baso % (Auto) 0.2 Absolute Neuts (auto) 7.3 Absolute Lymphs (auto) 3.28 Total Counted Not Reportable ESR Sodium 141 Potassium 3.7 Chloride 107 Carbon Dioxide 24.0 Anion Gap 10 BUN 10 Creatinine 1.00 Estim Creat Clear Calc 119.71 Est GFR (MDRD) Af Amer 108 Est GFR (MDRD) Non-Af 89 BUN/Creatinine Ratio 10.0 Glucose 139 H Lactic Acid 1.5 Calcium 7.9 L C-React Prot Ext Range TSH Lyme Total Antibody Lyme Disease Interpret 08/29/18 08/29/18 10:10 10:10 WBC RBC Hgb Hct MCV MCH MCHC RDW RDW Differential Plt Count MPV Immature Gran % (Auto) Neut % (Auto) Lymph % (Auto) Gooding % (Auto) Eos % (Auto) Baso % (Auto) Absolute Neuts (auto) Absolute Lymphs (auto) Total Counted ESR Sodium Potassium Chloride Carbon Dioxide Anion Gap BUN Creatinine Estim Creat Clear Calc Est GFR (MDRD) Af Amer Est GFR (MDRD) Non-Af BUN/Creatinine Ratio Glucose Lactic Acid Calcium C-React Prot Ext Range TSH 0.24 L Lyme Total Antibody Pending Lyme Disease Interpret Pending - Other Studies Radiology: [] reviewed Other Studies: [] Route of nutrition/ use of supplements: [] Nutritional Intake: [] IV Site: [] Martinez Catheter: [] - Physical Exam General: Alert, Oriented x3, Cooperative, No apparent distress HEENT: Atraumatic, PERRLA, EOMI Neck: Supple, No Nodes Lungs: Clear to auscultation, Normal air movement Cardiovascular: Regular rate, Regular Rhythm Abdomen: Soft, Non Tender, Non-Distended Extremities: No edema, - - R inguinal lymphadenopathy Skin: - - R knee with pain, swelling, redness, tenderness IV Site: Peripheral, without redness Musculoskeletal: No Tenderness to Palpation of Joints or Extremities - no other joint involvement Neurological: Cranial nerves II-XII grossly intact - Assessment/Plan Antibiotics: [] Assessment/Plan: [] Active and Suspected Problems (Last Reviewed 08/29/18 @ 02:25 by Sergei Thibodeaux MD) Septic prepatellar bursitis of right knee (Acute) Septic arthritis of knee, right (Acute) OR today with Dr. Orourke. Pt's photos show bulls-eye rash around his knee. Lyme pending. Cont vanc, ceftriaxone, doxy. Will follow, thank you.
--- NOTE | 2018-08-29 13:07 | NURSING ---
report called to Ayah in AC. pt to be transported off unit via bed at 1315 with Vancomycin running
--- NOTE | 2018-08-29 14:15 | BUR_PTH ---
PATIENT: SOBIA HENDRICKSON Jr. LOC: MS2 U#:[id number] AGE/SX: 38/M ROOM: MS211 RE08/29/[address]: Dr. Mauricio Rodriguez MD : 1980 BED: 1 DIS: 08/31/2018 SPEC #: [id number] RECD: 08/30/18 08:09 STATUS: AMANDEEP REGray #: [id number] TODD: 08/29/18 14:[address]: Lacy Orourke DEPT: SURGICAL PATHOLOGY RECD BY: Lucas Dubose ENTERED: 08/30/18 09:46 SP TYPE: BURSA OTHR DR: MD Dr. Sergei Hart MD Dr. Prakash Chand, MD Dr. Robert Leininger, MD Tissues: Bursa, NOS Procedures: Surgery Specimen Level III HEADER OPERATION: Incision, drainage and wash out of prepatellar bursa PRE-OP DIAGNOSIS: Septic bursitis of right knee TISSUE SUBMITTED: Right knee bursa MICROSCOPIC DIAGNOSIS Right knee bursa, excision: Fibroadipose tissue with marked chronic inflammation, scattered eosinophils, reactive synovial changes and fibroplasia. CE:camelia 08/31/18 MICROSCOPIC DESCRIPTION Slides are reviewed. GROSS DESCRIPTION Received in fixative is one container labeled with the patient's name and designated right knee bursa. The specimen consists of several tomlinson-brown irregularly shaped fragments of moderately firm tissue that in aggregate measure 5 x 5 x 2 cm. Vending Machine Technician sections are submitted in one cassette. / CE:camelia 08/30/18 TC:3 CPT: 38537
--- NOTE | 2018-08-29 17:09 | PCM.OPRPT ---
Report of Operation Date of Procedure: 08/29/18 Pre-Operative Diagnosis: right knee prepatella septic bursitis Post-Operative Diagnosis: same Surgery/Procedure Performed:: right knee parapatella bursectomy/irrigation/debridement/incision/drainage pharmacy informatics manager: Alex Boudreaux Type of Anesthesia:: General Anesthesiologist: Quinton Carrero Drains: riky drain superolateral Estimated Blood Loss (mL): 30cc Fluids Replaced: 500cc Description of Procedure: Preop note 38-year-old male who states 3 weeks ago he claims he got bit by a spider he believes increasing pain however resolved then he bumped his knee again on the table and then had worsening redness and pain went to the emergency room noted to have a questionable prepatellar versus septic joint ER attempted to tap bursa sent for evaluation. Ortho consulted. Patient was seen on the floors with increasing pain and fluctuance and despite being on IV antibiotics overnight. Decision was made to taken emergently to the emergency to the OR as the risk for tracking intensity in the joint due to the extent of the infection was concerning. Wrist benefits and alternatives were discussed with patient. Risks include but not limited to blood loss, blood clot, infection, neurovascular, failure procedure, loss of life and loss of limb. Patient is aware and would like proceed with right knee parapatellar bursectomy repair is indicated. Operative note Patient seen and examined preoperative holding area. Right knee was marked. Patient brought to the operating placed supine on the operating table. Sign, anesthesia, antibiotics were administered on the floor did not need to be given Intra-Op. The right leg was prepped and draped usual sterile fashion with a tourniquet around his upper thigh. We marked out our incision over the middle of the patella timeout was performed. We then elevated the leg tourniquet was raised her pressure to 50 torr. We then used a 15 blade to cut through the skin dissected down to the second bursa out the second that we were able to enter the bursa nishant gross pus came out of the bursa. We then debrided the thickened bursa this appeared to be acute on chronic bursitis as the bursa was quite thickened. 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 There did not appear to be tracking into the knee joint and patient did not have knee effusion so decision was made not to tap the knee as to possibly seed the joint from extensive cellulitis from prepatella septic bursitis. We again sent cultures and bursa for further evaluation it debrided back is much versus we could reasonably coagulated and let the tourniquet down coagulated all bleeders and we did irrigate the knee with about 3 L. Tourniquet was deflated for total working time 35 minutes. Sterile dressings were applied. Patient subcuticular layer was closed with Prolene and the skin was closed with rah and a drain was placed. patient tolerated procedure well no comp occasions transferred recovery room in stable condition. Postoperative note Next Weight-bear as tolerated right leg next Continue all antibiotics until final cultures Elevate ice ankle pumps Leave dressing on postop day 1 possible drain pulled versus postop day 2 Call with increased pain numbness tingling further issues arise Dragon disclaimer this note was generated with Panna dictation software. It may contain incorrect words, spelling, and punctuation that were not noted in checking the note before signing.
[2018-08-29] MEDS: Mupirocin Ointment 22gm Tube 1 APPLIC (17:14)
[2018-08-29] MEDS: oxyCODONE 5 MG Tablet 10 MG PO (18:43)
[2018-08-29] MEDS: Ketorolac 15 MG/ML Vial 30 MG IV (18:49)
[2018-08-29 19:05] LABS: Probe Check PASS; Staph aureus DNA By PCR POSITIVE (Negative)
[2018-08-29 19:06] LABS: M R Staph aureus DNA By PCR POSITIVE (Negative)
[2018-08-29] MEDS: Acetaminophen 325 MG Tablet 650 MG PO (22:16)
[2018-08-29] MEDS: Senna/Docusate Sodium 1 Tablet PO (22:18)
[2018-08-30 00:51] VITALS: BP 126/74; PULSE 89; RESP 16; TEMP 37.1; O2SAT 99
[2018-08-30] MEDS: Gabapentin 800 MG Tablet PO ×5 (01:09→22:59)
[2018-08-30] MEDS: Ketorolac 15 MG/ML Vial 30 MG IV ×3 (01:10→18:36)
[2018-08-30 02:51] VITALS: BP 120/56; PULSE 68; RESP 16; TEMP 36.7; O2SAT 99
[2018-08-30 10:00] VITALS: BP 131/80; PULSE 87; RESP 18; TEMP 36.7; O2SAT 100
--- NOTE | 2018-08-30 10:03 | PCM.PN.ID ---
Patient Problems: Active and Suspected Problems (Last Reviewed 08/29/18 @ 02:25 by Sergei Thibodeaux MD) Septic prepatellar bursitis of right knee (Acute) Septic arthritis of knee, right (Acute) Subjective: R knee pain this AM, no fever, no n/v/d - Physical Exam General: Alert, Cooperative, No apparent distress Lungs: Clear to auscultation, Normal air movement Cardiovascular: Regular rate, Regular Rhythm Abdomen: Soft, Non Tender, Non-Distended Skin: Incision - R knee wrapped Vital Signs Temp Pulse Resp BP Pulse Ox 98.1 F 68 16 120/56 L 99 08/30/18 02:51 08/30/18 02:51 08/30/18 02:51 08/30/18 02:51 08/30/18 02:51 Oxygen Delivery Method Room Air Weight: 86.8 kg Body Mass Index (BMI) 23.9 Intake and Output for Last 24 Hours 08/28/18 08/29/18 08/30/18 23:59 23:59 23:59 Intake Total 3337 / 3875 888 / 888 Output Total 815 / 815 Balance 2522 / 3060 888 / 888 Microbiology Past 72 Hours 08/29/18 00:10 Gram Stain - Final Fluid - Synovial (joint) 08/29/18 00:10 Gram Stain - Final Fluid - Bursa Laboratory Tests Past 24 Hrs 08/29/18 08/29/18 08/29/18 10:10 10:10 Unknown TSH 0.24 L Lyme Total Antibody Pending Lyme Disease Interpret Pending S.aureus Protein A PCR POSITIVE H MRSA (PCR) POSITIVE H Medical Necessity - Tobacco Use Smoking Status: Current every day smoker Tobacco Use: Cigarettes Route of nutrition/ use of supplements: [] Nutritional Intake: [] IV Site: [] Martinez Catheter: [] - Assessment/Plan Antibiotics: [] Assessment/Plan: [] Active and Suspected Problems (Last Reviewed 08/29/18 @ 02:25 by Sergei Thibodeaux MD) Septic prepatellar bursitis of right knee (Acute) Septic arthritis of knee, right (Acute) OR 08/[address] Orourke. Pt's photos show bulls-eye rash around his knee. Lyme pending. Surg cx pending; pcr (+) MRSA. Cont vanc, ceftriaxone, doxy. Will follow
--- NOTE | 2018-08-30 10:05 | PCM.PN.HOSP ---
Patient Problems: Active and Suspected Problems (Last Reviewed 08/29/18 @ 02:25 by Sergei Thibodeaux MD) Septic prepatellar bursitis of right knee (Acute) Septic arthritis of knee, right (Acute) Vitals/I&O's: Vital Signs Temp Pulse Resp BP Pulse Ox 98.1 F 68 16 120/56 L 99 08/30/18 02:51 08/30/18 02:51 08/30/18 02:51 08/30/18 02:51 08/30/18 02:51 Oxygen Delivery Method Room Air Weight: 191 lb 5.78 oz Body Mass Index (BMI) 23.9 Intake and Output for Last 24 Hours 08/28/18 08/29/18 08/30/18 23:59 23:59 23:59 Intake Total 3337 / 3875 888 / 888 Output Total 815 / 815 Balance 2522 / 3060 888 / 888 General: Alert, Oriented x3, Cooperative HEENT: Atraumatic, PERRLA, EOMI, Normocephalic Neck: Supple, No JVD, Negative Carotid Bruits Lungs: Clear to auscultation, Normal air movement, No rhonchi, No wheeze Cardiovascular: Regular rate, Regular Rhythm, Normal S1, Normal S2, No murmurs Abdomen: Bowel Sounds Present, Soft, Non Tender Extremities: Capillary Refill Less than 3 Seconds, Tenderness - Right knee is tender. Under Girma wrap bandage. Knee movement oil process stillman, - Skin: No rashes, No breakdown Musculoskeletal: No Tenderness to Palpation of Joints or Extremities Neurological: Cranial nerves II-XII grossly intact Psych/Mental Status: Normal Affect, Appropriate Microbiology Past 72 Hours 08/29/18 00:10 Fluid - Synovial (joint) Gram Stain - Final 08/29/18 00:10 Fluid - Bursa Gram Stain - Final Laboratory Results 08/29/18 10:10: Lyme Total Antibody Pending, Lyme Disease Interpret Pending 08/29/18 10:10: TSH 0.24 L 08/29/18 : S.aureus Protein A PCR POSITIVE H, MRSA (PCR) POSITIVE H Current Medications Acetaminophen (Tylenol) 650 mg PO Q6H PRN PRN PRN Reason: Mild Pain (1-3)/Temp > 100.7 F Last Admin: 08/29/18 22:16 Dose: 650 mg Documented by: Doxycycline Monohydrate (Doxycycline) 100 mg PO DAILY@2200 [facility] Last Admin: 08/29/18 22:18 Dose: 100 mg Documented by: Gabapentin (Neurontin) 800 mg PO Q6 [facility] Last Admin: 08/30/18 06:03 Dose: 800 mg Documented by: Glucagon () 1 mg IM .X1 PRN PRN Reason: Hypoglycemia Hydromorphone HCl (Dilaudid Inj) 1 mg IV Q3H PRN PRN PRN Reason: SEVERE PAIN (7-10/10) Last Admin: 08/29/18 22:16 Dose: 1 mg Documented by: Vancomycin IV Pharmacy to Dose (1,250 ea/ Sodium Chloride) 500 mls @ 250 mls/hr IV PRN PRN; Protocol Ceftriaxone Sodium 2 gm/ (Sodium Chloride) 50 mls @ 100 mls/hr IV Q24@2200 [facility] Last Admin: 08/29/18 22:16 Dose: 100 mls/hr Documented by: Sodium Chloride () 250 mls @ 15 mls/hr IV .[id number] PRN PRN Reason: SALINE FLUSH Last Admin: 08/29/18 02:23 Dose: 15 mls/hr Documented by: Vancomycin HCl 1,750 mg/ (Sodium Chloride) 535 mls @ 250 mls/hr IV Q12H [facility] Last Admin: 08/30/18 01:09 Dose: 250 mls/hr Documented by: Ketorolac Tromethamine (Toradol) 30 mg IV Q8H [facility] Stop: 08/31/18 09:16 Last Admin: 08/30/18 01:10 Dose: 30 mg Documented by: Nicotine (Nicoderm Cq (Pbkc)) 21 mg TRANSDERM. DAILY [facility] Last Admin: 08/29/18 08:23 Dose: 21 mg Documented by: Nutritional Formula (Lactose Free) (Ensure Enlive) 120 ml PO 4X/DAY [facility] Last Admin: 08/29/18 22:21 Dose: 120 ml Documented by: Ondansetron HCl (Zofran) 4 mg IV Q8H PRN PRN PRN Reason: NAUSEA/VOMITING Oxycodone HCl (Oxyir) 10 mg PO Q4H PRN PRN PRN Reason: Moderate Pain (4-6/10) Last Admin: 08/29/18 18:43 Dose: 10 mg Documented by: Senna/Docusate Sodium (Senokot-S, Britney-Colace) 1 tablet PO BID [facility] Last Admin: 08/29/18 22:18 Dose: 1 tablet Documented by: Sodium Chloride () 5 - 15 ml IV UD PRN PRN Reason: SALINE FLUSH Last Admin: 08/29/18 06:40 Dose: 10 ml Documented by: Medical Necessity - Tobacco Use Smoking Status: Current every day smoker Tobacco Use: Cigarettes Assessment/Plan All Active Problems (Last Reviewed 08/29/18 @ 02:25 by Sergei Thibodeaux MD) Septic prepatellar bursitis of right knee (Acute) Septic arthritis of knee, right (Acute) Paresthesias in right hand (Acute) Injury of digital nerve of right middle finger (Acute) Open wound of right hand with tendon involvement (Acute) Facial mass (Acute) Cellulitis, face (Acute) Heroin use disorder, moderate, in sustained remission (Acute) Suppurative tenosynovitis of flexor tendon of right hand (Acute) Abscess of right hand including fingers (Acute) Tendinitis of right rotator cuff (Acute) The patient is a 38 year old M with a significant history of hypertension; hypothyroidism; and neuropathy was admitted generalist today for 3-week history of progressively worsening right knee pain. This is started with right small pimple-like spot in the anterior knee which got worse. Patient is not able to move his knee joint. Right leg is painful and tender from groin to calf. 1. Sepsis secondary to right knee prepatellar septic bursitis: Labs Significant for leukocytosis with left shift, elevated CRP, ESR and lactic acid 3.0. pain medications addressed with oxycodone, Dilaudid and Toradol Orthopedic surgery consult appreciated. Patient had right knee parapatellar bursectomy with debridement/incision and drainage on 05/29. Continue ceftriaxone and vancomycin. On p.o. doxycycline. Preliminary wound culture is showing staph aureus and PCR is positive of MRSA. 2. Hypertension: Blood pressure is controlled 3. Peripheral neuropathy: On gabapentin 4. Cigarette smoking/tobacco abuse with history of substance abuse mainly opioids but quit in 2014. States he feels feeling off similar drug withdrawal with morphine and does not want to take it. DVT prophylaxis: Heparin 5000 units subcutaneous twice daily Microbiology Past 72 Hours 08/29/18 Unknown Wound Abcess - Knee Gram Stain - Final 08/29/18 Unknown Wound Abcess - Knee Wound Culture - Preliminary Staphylococcus aureus 08/29/18 00:10 Fluid - Synovial (joint) Gram Stain - Final 08/29/18 00:10 Fluid - Synovial (joint) Body Fluid Culture - Preliminary No growth-Final to follow 08/29/18 00:10 Fluid - Bursa Gram Stain - Final 08/29/18 00:10 Fluid - Bursa Body Fluid Culture - Preliminary Staphylococcus aureus Laboratory Results 08/29/18 : S.aureus Protein A PCR POSITIVE H, MRSA (PCR) POSITIVE H 08/30/18 13:01: Vancomycin Trough 8.5 Active Medications Acetaminophen (Tylenol) 650 mg PO Q6H PRN PRN PRN Reason: Mild Pain (1-3)/Temp > 100.7 F Last Admin: 08/29/18 22:16 Dose: 650 mg Documented by: Doxycycline Monohydrate (Doxycycline) 100 mg PO DAILY@2200 [facility] Last Admin: 08/29/18 22:18 Dose: 100 mg Documented by: Gabapentin (Neurontin) 800 mg PO Q6 [facility] Last Admin: 08/30/18 11:57 Dose: 800 mg Documented by: Glucagon () 1 mg IM .X1 PRN PRN Reason: Hypoglycemia Heparin Sodium (Porcine) (Heparin Na) 5,000 unit SC BID [facility] Hydromorphone HCl (Dilaudid Inj) 1 mg IV Q3H PRN PRN PRN Reason: SEVERE PAIN (7-10/10) Last Admin: 08/30/18 10:57 Dose: 1 mg Documented by: Vancomycin IV Pharmacy to Dose (1,250 ea/ Sodium Chloride) 500 mls @ 250 mls/hr IV PRN PRN; Protocol Ceftriaxone Sodium 2 gm/ (Sodium Chloride) 50 mls @ 100 mls/hr IV Q24@2200 [facility] Last Admin: 08/29/18 22:16 Dose: 100 mls/hr Documented by: Sodium Chloride () 250 mls @ 15 mls/hr IV .[id number] PRN PRN Reason: SALINE FLUSH Last Admin: 08/29/18 02:23 Dose: 15 mls/hr Documented by: Vancomycin HCl 1,250 mg/ (Sodium Chloride) 275 mls @ 167 mls/hr IV Q8H [facility] Ketorolac Tromethamine (Toradol) 30 mg IV Q8H [facility] Stop: 08/31/18 09:16 Last Admin: 08/30/18 10:05 Dose: 30 mg Documented by: Nicotine (Nicoderm Cq (Pbkc)) 21 mg TRANSDERM. DAILY [facility] Last Admin: 08/30/18 10:14 Dose: 21 mg Documented by: Nutritional Formula (Lactose Free) (Ensure Enlive) 120 ml PO 4X/DAY [facility] Last Admin: 08/30/18 13:05 Dose: 120 ml Documented by: Ondansetron HCl (Zofran) 4 mg IV Q8H PRN PRN PRN Reason: NAUSEA/VOMITING Oxycodone HCl (Oxyir) 10 mg PO Q4H PRN PRN PRN Reason: Moderate Pain (4-6/10) Last Admin: 08/30/18 10:20 Dose: 10 mg Documented by: Senna/Docusate Sodium (Senokot-S, Britney-Colace) 1 tablet PO BID [facility] Last Admin: 08/30/18 10:17 Dose: Not Given Documented by: Sodium Chloride () 5 - 15 ml IV UD PRN PRN Reason: SALINE FLUSH Last Admin: 08/30/18 13:06 Dose: 10 ml Documented by: Code Visit Inpatient E&M: [id number] Subs Hosp L3
[2018-08-30] MEDS: oxyCODONE 5 MG Tablet 10 MG PO ×3 (10:20→22:59)
[2018-08-30] MEDS: HYDROmorphone 1 MG/ML Syringe IV ×3 (10:57→21:21)
--- NOTE | 2018-08-30 11:00 | CASEMGMT ---
RN CM Assessment Presentation: Septic prepatellar bursitis of R knee Intro role of CM and purpose of RN CM assessment to patient. Pt is awake, alert and able to participate in assessment. Pt voiced frustration with severity of the infection. Demographics, PCP and Pharmacy verified. Pt states if he needs assistance at home, his mother would be able to assist.. Pt has Mother's address listed, but says he only uses this for mailing address. Pt lives in [facility] in [place]. States it's a nice camper and has everything I need. -if dressing changes or IV antibiotics would be needed on dc, no preference for infusion company or Home Health. Pt states his mother would be able to assist. InNetwork providers for infusion: [facility] [phone], [facility] [phone] Home Health: [facility] [place] [phone], ([facility] listed, but they do not have nurse that services area) PCP: Dr. Armstrong Specialists: Preferred Pharmacy: [facility] Insurance: [employer] [facility] Prescription Benefit: yes LNOK: MotherYuki Living Arrangements: Lives independently in [facility]. No care assistance needed prior to admission. Transportation: States he drives, but his truck is not useable @ this time. Discussed with patient he may have driving restrictions due to R knee being affected. Pt states he has family, friends who can assist with driving. DME: none. May need crutches on dc.PT/OT evaluations pending. HHC: none Patient DC goals: Home DC PLAN: Home. DC needs undetermined- possible need for dressing changes, antibiotic therapy.
[2018-08-30] MEDS: 0.9% NaCl Peripheral Flush Adult/Peds IV ×5 (11:01→21:21)
[2018-08-30 13:24] LABS: Vancomycin, Trough Level 8.5 ug/mL (5.0-15.0)
--- NOTE | 2018-08-30 14:15 | PCM.RX.CS ---
Consult Pharmacy has been consulted to manage selected antiobiotic: Vancomycin Type of Consult: Follow-up Suspected Infection: Sepsis Prior Doses of Antibiotics Received/Current Regimen: Vancomycin 1250mg IV x1 on 08/29/18, then Vancomycin 1750mg IV q12h x3 doses Labs: Sodium 141 mmol/L (136-145) 08/29/18 03:16 Potassium 3.7 mmol/L (3.5-5.1) 08/29/18 03:16 Chloride 107 mmol/L (98-107) 08/29/18 03:16 Carbon Dioxide 24.0 mmol/L (21.0-32.0) 08/29/18 03:16 10 (5-15) 08/29/18 03:16 BUN 10 mg/dL (7-18) 08/29/18 03:16 1.00 mg/dL (0.70-1.30) 08/29/18 03:16 Est GFR (MDRD) Af Amer 108 mL/min (>60) 08/29/18 03:16 Est GFR (MDRD) Non-Af 89 mL/min (>60) 08/29/18 03:16 10.0 RATIO (10-20) 08/29/18 03:16 Glucose 139 mg/dL (74-106) H 08/29/18 03:16 Vancomycin Trough 8.5 ug/mL (5.0-15.0) 08/30/18 13:01 Microbiology: Microbiology 08/29/18 Unknown Wound Abcess - Knee Gram Stain - Final 08/29/18 Unknown Wound Abcess - Knee Wound Culture - Preliminary Staphylococcus aureus 08/29/18 00:10 Fluid - Synovial (joint) Gram Stain - Final 08/29/18 00:10 Fluid - Synovial (joint) Body Fluid Culture - Preliminary No growth-Final to follow 08/29/18 00:10 Fluid - Bursa Gram Stain - Final 08/29/18 00:10 Fluid - Bursa Body Fluid Culture - Preliminary Staphylococcus aureus Weight used for dosin kg Estimated Creatinine Clearance: 119ml/min Goal Trough: 15-20 mcg/mL Pharmacy Plan for Drug Dosin38 year old male admitted for septic arthritis. Ordered goal trough of 15-20. Pts trough results were 8.5. Recommend changing to Vancomycin 1250mg IV q8h (est trough of 17). Will re check trough before the 4th dose Pharmacy Service will continue to monitor and adjust dosing as required. Follow-Up Labs: Trough Vancomycin - 08/31/18 at 2100
[2018-08-30 15:54] VITALS: BP 149/101; PULSE 115; RESP 18; TEMP 37.1; O2SAT 100
[2018-08-30] MEDS: Heparin Injection (Vial) 5,000 UNIT/ML VIAL 5000 UNIT SC (16:06)
--- NOTE | 2018-08-30 16:08 | PCM.PN.ORT ---
Subjective: Patient seen and examined at bedside with his friend present. Patient no issues overnight. Patient awaiting discharge when cultures are finalized. Patient states no numbness tingling fevers chills shortness of breath constipation. He is tolerating p.o.'s and is advancing his diet without issue. - Physical Exam General: Alert - neg homans sign, no calf pain, sgi, arom/prom knee with minimal pain, compts soft, Oriented x3, Cooperative HEENT: Atraumatic, PERRLA, EOMI, Normocephalic Neck: Supple, No JVD, Negative Carotid Bruits Lungs: Clear to auscultation, Normal air movement Cardiovascular: Regular rate, No murmurs Abdomen: Bowel Sounds Present, Soft, Non Tender Extremities: No edema, Capillary Refill Less than 3 Seconds Skin: No rashes, No breakdown Musculoskeletal: No Tenderness to Palpation of Joints or Extremities Neurological: Cranial nerves II-XII grossly intact Psych/Mental Status: Normal Affect, Appropriate Vital Signs Temp Pulse Resp BP Pulse Ox 98.8 F 115 H 18 149/101 H 100 08/30/18 15:54 08/30/18 15:54 08/30/18 15:54 08/30/18 15:54 08/30/18 15:54 Oxygen Delivery Method Room Air Weight: 191 lb 5.78 oz Body Mass Index (BMI) 23.9 Intake and Output for Last 24 Hours 08/28/18 08/29/18 08/30/18 23:59 23:59 23:59 Intake Total 3337 / 3875 1188 / 1188 Output Total 815 / 815 Balance 2522 / 3060 1173 / 1173 Microbiology Past 72 Hours 08/29/18 Unknown Gram Stain - Final Wound Abcess - Knee Wound Culture - Preliminary Staphylococcus aureus 08/29/18 00:10 Gram Stain - Final Fluid - Synovial (joint) Body Fluid Culture - Preliminary No growth-Final to follow 08/29/18 00:10 Gram Stain - Final Fluid - Bursa Body Fluid Culture - Preliminary Staphylococcus aureus Laboratory Tests Past 24 Hrs 08/29/18 08/30/18 Unknown 13:01 Vancomycin Trough 8.5 S.aureus Protein A PCR POSITIVE H MRSA (PCR) POSITIVE H Medical Necessity - Tobacco Use Smoking Status: Current every day smoker Tobacco Use: Cigarettes Assessment/Plan All Active Problems (Last Reviewed 08/29/18 @ 02:25 by Sergei Thibodeaux MD) Septic prepatellar bursitis of right knee (Acute) Septic arthritis of knee, right (Acute) Paresthesias in right hand (Acute) Injury of digital nerve of right middle finger (Acute) Open wound of right hand with tendon involvement (Acute) Facial mass (Acute) Cellulitis, face (Acute) Heroin use disorder, moderate, in sustained remission (Acute) Suppurative tenosynovitis of flexor tendon of right hand (Acute) Abscess of right hand including fingers (Acute) Tendinitis of right rotator cuff (Acute) right knee prepatella septic bursitis, does not affect joint antibiotics-vanc, cef, doxy pod 1 s/p right parapatella bursectomy/irrigation/debridement/incision/drainage questionable lyme, following labs wbat/PT/PT MRSA
[2018-08-30 16:35] LABS: Lyme Scn Total Ab w/Rflx <0.91 ISR (0.00-0.90)
[2018-08-30 21:15] VITALS: BP 143/92; PULSE 99; RESP 16; TEMP 36.8; O2SAT 99
[2018-08-30] MEDS: Doxycycline 100 MG CAPSULE PO (21:21)
[2018-08-30] MEDS: Acetaminophen 325 MG Tablet 650 MG PO (22:59)
--- NOTE | 2018-08-30 23:02 | NURSING ---
At this time patient rated pain as a 9, stated it was burning and throbbing. Patient seems to be resting comfortably in bed on cell phone, no other symptoms present. PRN pain medication given at this time. See EMAR. IV dilaudid given earlier in shift.
[2018-08-31] MEDS: Ketorolac 15 MG/ML Vial 30 MG IV (00:44)
[2018-08-31] MEDS: HYDROmorphone 1 MG/ML Syringe IV ×3 (00:45→09:09)
[2018-08-31] MEDS: 0.9% NaCl Peripheral Flush Adult/Peds IV ×3 (00:45→09:09)
[2018-08-31] MEDS: oxyCODONE 5 MG Tablet 10 MG PO ×2 (03:32→11:35)
[2018-08-31 03:36] VITALS: BP 145/100; PULSE 80; RESP 16; TEMP 37.1; O2SAT 100
[2018-08-31 05:45] LABS: Absolute Lymphocyte Count 2.62 X10^3/ul (0.83-4.51); Absolute Neutrophil Count 3.5 X10^3/uL (2.0-7.7); Basophil# 0.02 X10^3/uL; Basophil% 0.3 % (0-1); Eosinophil# 0.17 X10^3/uL; Eosinophils% 2.5 % (0-5); Hematocrit 34.3 % (40-54); Hemoglobin 11.5 g/dl (13.0-16.5); Lymphocyte # 2.62 X10^3/ul (4.0); Lymphocyte % 38.4 % (19-41); Mean Corp Hgb Conc 33.5 g/gl (32-36); Mean Corpuscular Hgb 29.7 pg (27.0-32.0); Mean Corpuscular Volume 88.6 fL (80-94); Mean Platelet Vol. 9.6 fl (6.2-12.0); Monocyte# 0.53 X10^3/uL; Monocyte% 7.8 % (0-10); Neutrophil # 3.47 X10^3/uL (2.7-7.7); Neutrophil % 50.9 % (47-70); Platelet Count 268 K/mm3 (150-450); RBC Distribution Width CV 12.9 % (11.6-14.6); RBC Distribution Width SD 41.3 fl (35.1-43.9); Red Blood Count 3.87 M/mm3 (4.6-6.2); White Blood Count 6.8 K/mm3 (4.4-11.0)
[2018-08-31 05:51] LABS: POSITIVE COUNT NO; POSITIVE DIFFERENTIAL NO; POSITIVE MORPHOLOGY NO
[2018-08-31] MEDS: Gabapentin 800 MG Tablet PO ×2 (05:53→11:36)
[2018-08-31 05:56] LABS: Anion Gap 8 (5-15); BUN 16 mg/dL (7-18); Calcium,Total 8.3 mg/dL (8.5-10.1); Chloride 111 mmol/L (98-107); Creatinine, Serum 0.94 mg/dL (0.70-1.30); EST Glomerular Filtration Rate 95 mL/min (>60); Est Glom Filt Rate - Afr Amer 115 mL/min (>60); Estimated Creatinine Clearance 127.35 ml/min; Glucose 156 mg/dL (74-106); Potassium 3.5 mmol/L (3.5-5.1); Sodium Level 145 mmol/L (136-145)
[2018-08-31 09:26] VITALS: BP 149/98; PULSE 77; RESP 18; TEMP 36.8; O2SAT 100
--- NOTE | 2018-08-31 09:29 | CASEMGMT ---
RN CM Note: attempted to see pt for assessment. Working with therapy. Omero VALENCIAN RN ACM
--- NOTE | 2018-08-31 09:40 | PCM.DC ---
- Discharge Diagnoses Current Active Problems: Current Active and Chronic Problems (Last Reviewed 08/29/18 @ 02:25 by Sergei Thibodeaux MD) Septic prepatellar bursitis of right knee (Acute) Septic arthritis of knee, right (Acute) You will use the following diet at home:: Regular Your food should be the consistency of: Regular Discharge Activity: May Not Drive Call your doctor if you observe: Fever of 101 or Higher, Numbness or Tingling, Inability to urinate, Inability to have a bowel movement, Shortness of breath, Dizziness, Fainting spells, Swelling in the ankles, Chest pain, Increased palpitations (irregular heartbeat), Calf discomfort, Uncontrolled pain Allergies/Adverse Reactions: Allergies amoxicillin [Amoxicillin] Allergy (Verified 06/08/18 11:19) Rash Penicillins Allergy (Verified 06/08/18 11:) Rash Medications to take at Discharge gabapentin 800 mg tablet 800 mg PO .QID #120 tab 08/14/18 Amlodipine [Norvasc] 5 mg PO DAILY 08/31/18 DiphenhydrAMINE [Benadryl] 25 mg PO QHS PRN PRN #0 08/31/18 Doxycycline 100 mg PO DAILY@2200 #28 cap 08/31/18 Oxycodone [Oxyir] 5 mg PO Q4H PRN PRN 3 Days #10 tablet 08/31/18 The following prescriptions were given: Doxycycline 100 mg PO DAILY@2200 #28 cap Transmission Status: Received by [email or web address] #[email or web address] Oxycodone [Oxyir] 5 mg PO Q4H PRN PRN 3 Days #10 tablet PRN Reason: Severe Pain (-12/20) Transmission Status: Sent to [facility] Primary Care Physician: Sofia Armstrong MD [Primary Care Provider] - Please follow up with your Primary Care Physician in: in 2 week Test Results: Test results from this visit will be discussed in further detail at your follow-up appointment, if applicable. Please Follow Up With: Manjinder Keys MD When: in 2 week Please Follow Up With: Lacy Orourke DO When: in 1-2 week
--- NOTE | 2018-08-31 10:24 | CASEMGMT ---
RN HARDY Note: Pt will need wheeled walker on dc. Script faxed to [facility]. Call to Wendie @ [employer] to update. Pt updated. -RN HARDY spoke with Rhett, wound nurse- pt will be able to return home with DSD changes he can do. -Home Health not ordered, pt is not homebound, was taught to do dressing changes, and can f/u with physician on dc. Omero VALENCIAN RN ACM
--- NOTE | 2018-08-31 10:37 | NURSING ---
wound photo: right knee
--- NOTE | 2018-08-31 13:04 | PN.ID_ITS ---
Patient Problems: Active and Suspected Problems (Last Reviewed 08/29/18 @ 02:25 by Sergei Thibodeaux MD) Septic prepatellar bursitis of right knee (Acute) Septic arthritis of knee, right (Acute) Subjective: Feeling ok, knee sore, no fever - Physical Exam General: Alert, Cooperative, No apparent distress Lungs: Clear to auscultation, Normal air movement Cardiovascular: Regular rate, Regular Rhythm Abdomen: Soft, Non Tender, Non-Distended Skin: Ulcer/ Wound - L knee wrapped Vital Signs Temp Pulse Resp BP Pulse Ox 98.3 F 77 18 149/98 H 100 08/31/18 09:26 08/31/18 09:26 08/31/18 09:26 08/31/18 09:26 08/31/18 09:26 Oxygen Delivery Method Room Air Weight: 86.8 kg Body Mass Index (BMI) 23.9 Intake and Output for Last 24 Hours 08/29/18 08/30/18 08/31/18 23:59 23:59 23:59 Intake Total 3337 / 3875 2028 1200 / 1200 Output Total 815 / 815 25 Balance 2522 / 3060 2003 1200 / 1200 Microbiology Past 72 Hours 08/28/18 23:15 Blood Culture - Preliminary Blood Culture (Wb) - Right Wrist No growth in 48 hours. 08/28/18 20:45 Blood Culture - Preliminary Blood Culture (Wb) - Anticubital Left No growth in 48 hours. 08/29/18 00:10 Gram Stain - Final Fluid - Synovial (joint) Body Fluid Culture - Preliminary No growth-Final to follow Anaerobic Culture - Preliminary No growth in 48 hours. 08/29/18 00:10 Gram Stain - Final Fluid - Bursa Body Fluid Culture - Final Meth. resistant Staph. aureus Anaerobic Culture - Final No anaerobic bacteria isolated. 08/29/18 Unknown Gram Stain - Final Wound Abcess - Knee Wound Culture - Final Meth. resistant Staph. aureus Laboratory Tests Past 24 Hrs 08/29/18 08/30/18 08/31/18 10:10 13:01 05:15 WBC 6.8 RBC 3.87 L Hgb 11.5 L Hct 34.3 L MCV 88.6 MCH 29.7 MCHC 33.5 RDW 12.9 RDW Differential 41.3 Plt Count 268 MPV 9.6 Immature Gran % (Auto) 0.100 Neut % (Auto) 50.9 Lymph % (Auto) 38.4 [place] % (Auto) 7.8 Eos % (Auto) 2.5 Baso % (Auto) 0.3 Absolute Neuts (auto) 3.5 Absolute Lymphs (auto) 2.62 Total Counted Not Reportable Sodium Potassium Chloride Carbon Dioxide Anion Gap BUN Creatinine Estim Creat Clear Calc Est GFR (MDRD) Af Amer Est GFR (MDRD) Non-Af BUN/Creatinine Ratio Glucose Calcium Vancomycin Trough 8.5 Lyme Total Antibody <0.91 Lyme Disease Interpret REF LAB 08/31/18 05:15 WBC RBC Hgb Hct MCV MCH MCHC RDW RDW Differential Plt Count MPV Immature Gran % (Auto) Neut % (Auto) Lymph % (Auto) [place] % (Auto) Eos % (Auto) Baso % (Auto) Absolute Neuts (auto) Absolute Lymphs (auto) Total Counted Sodium 145 Potassium 3.5 Chloride 111 H Carbon Dioxide 26.0 Anion Gap 8 BUN 16 Creatinine 0.94 Estim Creat Clear Calc 127.35 Est GFR (MDRD) Af Amer 115 Est GFR (MDRD) Non-Af 95 BUN/Creatinine Ratio 17.0 Glucose 156 H Calcium 8.3 L Vancomycin Trough Lyme Total Antibody Lyme Disease Interpret Medical Necessity - Tobacco Use Smoking Status: Current every day smoker Tobacco Use: Cigarettes Route of nutrition/ use of supplements: [] Nutritional Intake: [] IV Site: [] Martinez Catheter: [] - Assessment/Plan Antibiotics: [] Assessment/Plan: [] Active and Suspected Problems (Last Reviewed 08/29/18 @ 02:25 by Sergei Thibodeaux MD) Septic prepatellar bursitis of right knee (Acute) Septic arthritis of knee, right (Acute) OR 08/[address] Orourke. Pt's photos show bulls-eye rash around his knee. Lyme neg. Surg cx with MRSA pcr (+) MRSA. Has been on vanc, ceftriaxone, doxy. With no joint involvement and good surgical source control, ok for d/c home on 2 weeks po doxy. Wrote rx. Will follow
--- NOTE | 2018-08-31 13:15 | DS.PCM_ITS ---
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 Drainage tendon sheath right long finger for recurrent suppurative flexor tenosynovitis. 2. Radical tenosynovectomy tendon sheath FDS tendon right palm by long finger. 3. Radical tenosynovectomy tendon sheath FDP tendon right palm by long finger. 4. Epineural repair radial digital nerve laceration right long finger. 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 This is started with right small pimple-like spot in the anterior knee which got worse. Patient is not able to move his knee joint. Right leg is painful and tender from groin to calf. 1. Sepsis secondary to right knee prepatellar/ septic bursitis: Labs Significant for leukocytosis with left shift, elevated CRP, ESR and lactic acid 3.0. pain medications addressed with oxycodone, Dilaudid and Toradol Orthopedic surgery consult appreciated. Patient had right knee parapatellar bursectomy with debridement/incision and drainage on 05/29. Continue ceftriaxone and vancomycin. On p.o. doxycycline. Right knee fluid bursa and wound abscess culture shows MRSA. Blood culture was negative for more than 48 hours. Patient discharged on doxycycline p.o.; prescription given by ID. 2. Hypertension: Blood pressure is controlled 3. Peripheral neuropathy: On gabapentin 4. Cigarette smoking/tobacco abuse with history of substance abuse mainly opioids but quit in 2015. States he feels feeling off similar drug withdrawal with morphine and does not want to take it. DVT prophylaxis: Heparin 5000 units subcutaneous twice daily Discharge medication reconciliation done. Discharge follow-up instructions completed. Discharge process discussed with the patient and all questions were answered to patient's satisfaction. Prescription given for oxycodone 5 mg every 4 hourly as needed for severe pain total 10 tablets. Follow with PCP and orthopedic surgeon. Follow-up ID in 1 to 2 weeks. Total time spent, exact 35 minutes on discharge meds reconciliation, examination, review of imaging and blood test and discussion with the patient on follow-up instructions. Subjective: Seen and examined. The patient right knee pain is much better. Swelling has improved. nO Fever or chills. Objective: General: Alert, Oriented x3, Cooperative HEENT: Atraumatic, PERRLA, EOMI, Normocephalic Neck: Supple, No JVD, Negative Carotid Bruits Lungs: Clear to auscultation, Normal air movement, No rhonchi, No wheeze Cardiovascular: Regular rate, Regular Rhythm, Normal S1, Normal S2, No murmurs Abdomen: Bowel Sounds Present, Soft, Non Tender Extremities: Capillary Refill Less than 3 Seconds, Under Girma wrap bandage. Tenderness of the knees has much improved. OPAL drain was removed. Patient was walked with assistance of physical therapy Skin: No rashes, No breakdown Musculoskeletal: No Tenderness to Palpation of Joints or Extremities Neurological: Cranial nerves II-XII grossly intact Psych/Mental Status: Normal Affect, Appropriate - Physical Exam Vital Signs Temp Pulse Resp BP Pulse Ox 98.7 F 80 16 145/100 H 100 08/31/18 03:36 08/31/18 03:36 08/31/18 03:36 08/31/18 03:36 08/31/18 03:36 Oxygen Delivery Method Room Air Weight: 191 lb 5.78 oz Body Mass Index (BMI) 23.9 Intake and Output for Last 24 Hours 08/29/18 08/30/18 08/31/18 23:59 23:59 23:59 Intake Total 3337 / 3875 2028 250 / 250 Output Total 815 / 815 25 / 25 Balance 2522 / 3060 2003 250 / 250 Microbiology Past 72 Hours 08/29/18 00:10 Gram Stain - Final Fluid - Synovial (joint) Body Fluid Culture - Preliminary No growth-Final to follow Anaerobic Culture - Preliminary No growth in 48 hours. 08/29/18 00:10 Gram Stain - Final Fluid - Bursa Body Fluid Culture - Final Meth. resistant Staph. aureus Anaerobic Culture - Final No anaerobic bacteria isolated. 08/29/18 Unknown Gram Stain - Final Wound Abcess - Knee Wound Culture - Final Meth. resistant Staph. aureus Laboratory Tests Past 24 Hrs 08/29/18 08/30/18 08/31/18 10:10 13:01 05:15 WBC 6.8 RBC 3.87 L Hgb 11.5 L Hct 34.3 L MCV 88.6 MCH 29.7 MCHC 33.5 RDW 12.9 RDW Differential 41.3 Plt Count 268 MPV 9.6 Immature Gran % (Auto) 0.100 Neut % (Auto) 50.9 Lymph % (Auto) 38.4 [place] % (Auto) 7.8 Eos % (Auto) 2.5 Baso % (Auto) 0.3 Absolute Neuts (auto) 3.5 Absolute Lymphs (auto) 2.62 Total Counted Not Reportable Sodium Potassium Chloride Carbon Dioxide Anion Gap BUN Creatinine Estim Creat Clear Calc Est GFR (MDRD) Af Amer Est GFR (MDRD) Non-Af BUN/Creatinine Ratio Glucose Calcium Vancomycin Trough 8.5 Lyme Total Antibody <0.91 Lyme Disease Interpret REF LAB 08/31/18 05:15 WBC RBC Hgb Hct MCV MCH MCHC RDW RDW Differential Plt Count MPV Immature Gran % (Auto) Neut % (Auto) Lymph % (Auto) [place] % (Auto) Eos % (Auto) Baso % (Auto) Absolute Neuts (auto) Absolute Lymphs (auto) Total Counted Sodium 145 Potassium 3.5 Chloride 111 H Carbon Dioxide 26.0 Anion Gap 8 BUN 16 Creatinine 0.94 Estim Creat Clear Calc 127.35 Est GFR (MDRD) Af Amer 115 Est GFR (MDRD) Non-Af 95 BUN/Creatinine Ratio 17.0 Glucose 156 H Calcium 8.3 L Vancomycin Trough Lyme Total Antibody Lyme Disease Interpret Discharge Activity: May Not Drive Call your doctor if you observe: Fever of 101 or Higher, Numbness or Tingling, Inability to urinate, Inability to have a bowel movement, Shortness of breath, Dizziness, Fainting spells, Swelling in the ankles, Chest pain, Increased palpitations (irregular heartbeat), Calf discomfort, Uncontrolled pain Home Medications: Medications to take at Discharge gabapentin 800 mg tablet 800 mg PO .QID #120 tab 08/14/18 Amlodipine [Norvasc] 5 mg PO DAILY 08/31/18 DiphenhydrAMINE [Benadryl] 25 mg PO QHS PRN PRN #0 08/31/18 Doxycycline 100 mg PO DAILY@2200 #28 cap 08/31/18 Oxycodone [Oxyir] 5 mg PO Q4H PRN PRN 3 Days #10 tab 08/31/18 Following Prescrptions Were Given to Patient: Doxycycline 100 mg PO DAILY@2200 #28 cap Transmission Status: Received by [facility] #69 Oxycodone [Oxyir] 5 mg PO Q4H PRN PRN 3 Days #10 tab PRN Reason: Severe Pain (-12/20) Transmission Status: Received by [facility] Primary Care Physician: Sofia Armstrong MD [Primary Care Provider] - Please follow up with your Primary Care Physician in: in 2 week Medical Necessity - Tobacco Use Smoking Status: Current every day smoker Tobacco Use: Cigarettes Meaningful Use Info Meaningful Use Diagnoses (Choose all that apply): None applicable Code Visit Inpatient E&M: 81494 Disch Hosp
[2018-08-31 13:41] VITALS: BP 154/83; PULSE 64; RESP 18; TEMP 36.9; O2SAT 97
== END 2018-08-31 13:41 | disposition home or self-care (01) | DRG 710 ==
LOC: ED 08-29 00:30 → MS2 08-29 00:54
PROVIDERS: Anesthesiology; Orthopaedic Surgery; Admitting Provider Hospitalist; Emergency Provider Emergency Medicine; Family Provider Internal Medicine; PCP Internal Medicine; Visit Provider Internal Medicine
PROC: 0MBN0ZZ Excision of Right Knee Bursa and Ligament, Open Approach (ICD-10-PCS; principal; 2018-08-29 14:05)
DX: A41.9 Sepsis, unspecified organism (principal); M71.161 Other infective bursitis, right knee; I10 Essential (primary) hypertension; E03.9 Hypothyroidism, unspecified; F17.210 Nicotine dependence, cigarettes, uncomplicated; G62.9 Polyneuropathy, unspecified; B95.62 Methicillin resistant Staphylococcus aureus infection as the cause of diseases classified elsewhere
CPT/HCPCS: 36415; 73560; 80048; 80202; 83605; 84443; 85025; 85652; 86140; 86618; 87015; 87040; 87070; 87075; 87077; 87102; 87116; 87186; 87205; 87206; 87640; 88304; 93005; 97161; 97166; 97530; 97802; 99285; 99406; J7030; J7040; J7050; J7120; A4216; J0696; J2405

== ENCOUNTER 2018-10-21 18:10 | Inpatient (IN) | payer MEDICAID, SELFPAY ==
[2018-08-29 13:46] VITALS: BMI 23.9
[2018-10-21] VITALS (7 sets, daily range): BP systolic 104–130; BP diastolic 60–78; PULSE 101–151; RESP 16–18; TEMP 36.6–37.2; O2SAT 95–99; BMI 25.0; BMI 22.9; BMI 23.0
--- NOTE | 2018-10-21 18:29 | ED.VISSUMM ---
- ER Visit Summary Date of Service: 10/21/18 Chief Complaint: Right lower leg cellulitis History of Present Illness: The patient is a 38 M history of prior right knee septic arthritis. Patient states gradual onset today of worsening right lower leg cellulitis. With now pain in his groin. Subjective fever.. He denies any nausea vomiting diarrhea. He denies any IV drug abuse. He is not diabetic. Physical Examination: Male vital signs are stable he is tachycardic to 151. Afebrile currently. HEENT exam unremarkable. Neck nontender no lymphadenopathy. Lungs clear to auscultation bilaterally. Heart tachycardic no murmur. Abdomen soft nontender normal bowel sounds no peritoneal signs. Extremities he is moving all 4. Neurovascular intact. Dorsi plantarflexion intact. Right foot normal DP pulse. Normal strength and sensation. His right lateral leg calf area there is an obvious cellulitis is tender to touch. He also has right inguinal lymphadenopathy and tenderness. He has well-healed abrasions and sores on his right knee but the knee is not infected at this time. He has no septic joint. Left lower extremity both upper extremities are unremarkable. Back is nontender. Neurologically is awake and alert. Test Results: CBC shows BMP shows Blood cultures x2. Lactic acid Emergency Department Course and Treatment: Patient will be treated with IV fluids and IV clindamycin. He has a penicillin allergy and his last cellulitis was MRSA that was sensitive to clindamycin. 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 He is going to take a leave of absence from the emergency department runny those to the shop and then return to be admitted. Treatment Plan: [] Disposition: admission Impression: Right lower extremity cellulitis mitis with lymphangitic streaking This note was generated with [employer] dictation software. It may contain incorrect words, spelling, and punctuation that were not noted in review of the chart prior to signing ED Disposition - Plan for ED Patient: Referrals: Sofia Armstrong MD [Primary Care Provider] -
--- NOTE | 2018-10-21 18:52 | ED.RN ---
PER DR ANDREWS RN TO DRAW LABS ON PATIENT AND THEN PATIENT WAS GOING TO LEAVE ER TO RETURN KEYS TO EMPLOYER. PT INSTRUCTED TO RETURN TO ED FOR CONTINUED PLAN ON CARE.
[2018-10-21 19:02] LABS: Absolute Lymphocyte Count 2.77 X10^3/uL (0.83-4.51); Absolute Neutrophil Count 8.1 X10^3/uL (2.0-7.7); Basophil# 0.04 X10^3/uL; Basophil% 0.3 % (0-1); Eosinophil# 0.02 X10^3/uL; Eosinophils% 0.2 % (0-5); Hematocrit 45.8 % (40-54); Hemoglobin 15.6 g/dL (13.0-16.5); Lymphocyte # 2.77 X10^3/ul (4.0); Lymphocyte % 22.8 % (19-41); Mean Corp Hgb Conc 34.1 g/dL (32-36); Mean Corpuscular Hgb 30.3 pg (27.0-32.0); Mean Corpuscular Volume 88.9 fL (80-94); Mean Platelet Vol. 9.5 fl (6.2-12.0); Monocyte# 1.17 X10^3/uL; Monocyte% 9.6 % (0-10); NRBC Flagged by Analyzer 0 % (0-5); Neutrophil # 8.13 X10^3/uL (2.7-7.7); Neutrophil % 66.8 % (47-70); Platelet Count 198 K/mm3 (150-450); RBC Distribution Width CV 12.5 % (11.6-14.6); RBC Distribution Width SD 40.7 fl (35.1-43.9); Red Blood Count 5.15 M/mm3 (4.6-6.2); White Blood Count 12.2 K/mm3 (4.4-11.0)
[2018-10-21 19:13] LABS: Anion Gap 7 (5-15); BUN 16 mg/dL (7-18); BUN/Creat Ratio 9.8 RATIO (10-20); Chloride 103 mmol/L (98-107); Creatinine, Serum 1.64 mg/dL (0.70-1.30); EST Glomerular Filtration Rate 50 mL/min (>60); Est Glom Filt Rate - Afr Amer 61 mL/min (>60); Estimated Creatinine Clearance 72.99 ml/min; Glucose 108 mg/dL (74-106); Potassium 3.6 mmol/L (3.5-5.1); Sodium Level 135 mmol/L (136-145)
[2018-10-21 19:28] LABS: Lactic Acid 1.2 mmol/L (0.4-2.0)
--- NOTE | 2018-10-21 21:36 | HP.PCM_ITS ---
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 Comment: radial digital nerve (8) Open wound of right hand with tendon involvement Status: Inactive (9) Facial mass Status: Inactive Comment: 1.2 cm infected cystic lesion left supramedial cheek (10) Cellulitis, face Status: Inactive Comment: 1.2 cm infected cystic lesion left supramedial cheek (11) Heroin use disorder, moderate, in sustained remission Status: Resolved (12) Suppurative tenosynovitis of flexor tendon of right hand Status: Chronic Comment: suppurative flexor tenosynovitis right long finger (13) Abscess of right hand including fingers Status: Inactive Comment: right long finger at volar aspect DIP joint crease (14) Hypertension Status: Chronic (15) Tendinitis of right rotator cuff Status: Inactive (16) Tobacco dependence Status: Chronic (17) Tachycardia Status: Inactive (18) Chronic radicular low back pain Status: Chronic History of Present Illness Date of Admission: 10/21/18 Chief Complaint: right leg pain The patient is a 38 year old M with a significant history of septic prepatellar bursitis of the right knee and septic arthritis of the knee; heroin use; hypertension and tobacco abuse who presented to emergency department with excruciating pain and swelling of his right leg. Associated with his symptoms is swelling of the right inguinal lymph nodes. Further he has nausea; subjective chills fever and mild chills. At the emergency department patient had leukocytosis of white count 12.2; and tachycardia. Blood cultures were obtained and patient was started on antibiotics. His lactic acid was unremarkable. In the past patient had knee surgery and is followed up with Dr. Orourke for septic prepatellar bursitis of the right knee and septic arthritis of the knee. Also he follows up with Dr. Keys infectious disease for septic prepatellar bursitis of the right knee and septic arthritis of the knee. On his previous admission on 08/29/2018 his wound culture and body fluid culture from his right bursa grew MRSA that was sensitive to clindamycin. Patient was last admitted on 08/29/2018 and discharged on 08/31/2018 for septic prepatellar bursitis of the right knee and septic arthritis of the knee as stated above. Reportedly he had rah placed in the same knee about 3 weeks ago. Past Medical History Past Medical History (Chronic Problems): Chronic Problems (Last Reviewed 10/21/18 @ 22:34 by Sergei Thibodeaux MD) Right hand pain (Chronic) Paresthesias in right hand (Chronic) radial aspect right long finger in area of digital nerve repair Smoker (Chronic) Injury of digital nerve of right middle finger (Chronic) radial digital nerve Suppurative tenosynovitis of flexor tendon of right hand (Chronic) suppurative flexor tenosynovitis right long finger Hypertension (Chronic) Tobacco dependence (Chronic) Chronic radicular low back pain (Chronic) Medical History: Medical History (Last Reviewed 10/21/18 @ 22:34 by Sergei Thibodeaux MD) Tobacco dependence (Chronic) F17.200 Back pain M54.9 Seasonal allergies J30.2 Allergies amoxicillin [Amoxicillin] Allergy (Verified 06/08/18 11:19) Rash Penicillins Allergy (Verified 06/08/18 11:19) Rash Home Medications: Ambulatory Orders Medication Instructions Recorded Gabapentin 800 mg PO TID 10/21/18 Surgical History: Surgical History (Last Reviewed 10/22/18 @ 00:01 by Sergei Thibodeaux MD) none Surgical History: - - Hand surgery Psychiatric History: No pertinent psych hx Lives: Spouse/ Significant Other Smoking Status: Current every day smoker Tobacco Use: Cigarettes Drugs: Marijuana - *Family History Maternal Family History: Family History (Last Reviewed 10/22/18 @ 00:01 by Sergei Thibodeaux MD) Brother Cystic fibrosis Sister Thyroid disorder Mother Hypertension Thyroid disorder Diabetes Father Anxiety Thyroid disorder Heart disease Alcoholism Grandmother Breast cancer Heart disease Grandfather Cancer History Items: Diabetes, Hypertension, - - thyroid disease. Paternal Family History: Family History (Last Reviewed 10/22/18 @ 00:01 by Sergei Thibodeaux MD) Brother Cystic fibrosis Sister Thyroid disorder Mother Hypertension Thyroid disorder Diabetes Father Anxiety Thyroid disorder Heart disease Alcoholism Grandmother Breast cancer Heart disease Grandfather Cancer History Items: Heart Disease, - - thyroid disease, alcoholism, anxiety. Review of Systems Constitutional: Reports: Chills, Fever - Subjective. Denies: Weight Change HEENT: Denies: Head Aches, Sinus Congestion, Sinus Drainage Cardiovascular: Denies: Chest Pain, Palpitations Respiratory: Denies: Cough, Shortness of breath at rest, Sputum production Gastrointestinal: Reports: Nausea. Denies: Abdominal Pain, Vomiting Genitourinary: Denies: Dysuria Musculoskeletal: Reports: Joint swelling - Right, Joint Tenderness - Right, Leg Pain - Right. Denies: Joint Pain Skin: Denies: Rash, Wounds Neurological: Denies: Numbness, Tingling, Focal weakness Psychiatric: Denies: Anxiety, Depression, Homicidal Ideations, Suicidal Ideations Hematologic/ Lymphatic: Denies: Easy Bruising, Easy Bleeding VTE Information - Inpt Only VTE Present on Admission: No VTE Mechan Device Prophylaxis: SCD's VTE Pharm Prophylaxis ordered?: No Patient Problems: Active and Suspected Problems (Last Reviewed 10/21/18 @ 22:34 by Sergei Thibodeaux MD) KAYLIN (acute kidney injury) (Acute) - Physical Exam General: Alert, Oriented x3, Cooperative HEENT: Atraumatic, PERRLA, EOMI, Normocephalic Neck: Supple, No JVD, Negative Carotid Bruits Lungs: Clear to auscultation, Normal air movement Cardiovascular: No murmurs, Tachycardic Abdomen: Bowel Sounds Present, Soft, Non Tender Extremities: No edema, Capillary Refill Less than 3 Seconds, Tenderness - Right knee Skin: - - Erythema of the right knee; rah in the right knee. Musculoskeletal: Tenderness - Right knee Lymphatic: Inguinal Adenopathy - Right Neurological: Cranial nerves II-XII grossly intact Psych/Mental Status: Normal Affect, Appropriate Vital Signs Temp Pulse Resp BP Pulse Ox 98 F 151 H 18 126/74 H 99 10/21/18 18:11 10/21/18 18:11 10/21/18 18:11 10/21/18 18:11 10/21/18 18:11 Oxygen Delivery Method Room Air Weight: 90.718 kg Body Mass Index (BMI) 25.0 Laboratory Tests Past 24 Hrs 10/21/18 10/21/18 10/21/18 18:40 18:40 18:40 WBC 12.2 H RBC 5.15 Hgb 15.6 Hct 45.8 MCV 88.9 MCH 30.3 MCHC 34.1 RDW Std Deviation 40.7 RDW Coeff of Toshia 12.5 Plt Count 198 MPV 9.5 Immature Gran % (Auto) 0.300 Neut % (Auto) 66.8 Lymph % (Auto) 22.8 [place] % (Auto) 9.6 Eos % (Auto) 0.2 Baso % (Auto) 0.3 Absolute Neuts (auto) 8.1 H Absolute Lymphs (auto) 2.77 Nucleated RBC % 0 Sodium 135 L Potassium 3.6 Chloride 103 Carbon Dioxide 25.0 Anion Gap 7 BUN 16 Creatinine 1.64 H Estim Creat Clear Calc 72.99 Est GFR (MDRD) Af Amer 61 Est GFR (MDRD) Non-Af 50 L BUN/Creatinine Ratio 9.8 L Glucose 108 H Lactic Acid 1.2 Calcium 9.0 Assessment/Plan All Active Problems (Last Reviewed 10/21/18 @ 22:34 by Sergei Thibodeaux MD) Septic prepatellar bursitis of right knee (Acute) Septic arthritis of knee, right (Acute) KAYLIN (acute kidney injury) (Acute) Heroin use disorder, moderate, in sustained remission (Resolved) The patient is a 38 year old M with a significant history of septic prepatellar bursitis of the right knee and septic arthritis of the knee; hypertension and tobacco abuse who presented to emergency department with excruciating pain and swelling of his right leg; subjective fever; chills; nausea; tachycardia and leukocytosis consistent with sepsis secondary to probable recurrence of septic prepatellar bursitis of the right knee and septic arthritis of the knee. Sepsis secondary to probable recurrence of septic prepatellar bursitis of the right knee and septic arthritis of the knee. Patient meets sirs criteria with tachycardia of 12.2; and tachycardia with heart rate from 113-140. His lactic acid was unremarkable. His last tissue culture and fluid culture of his right knee grew MRSA sensitive to clindamycin among other antibiotics. At the emergency department patient was started on clindam ycin IV. We will continue clindamycin IV. Follow blood cultures obtained at the emergency department. We will keep patient n.p.o. after midnight and will consult orthopedic surgery. We will consult infectious disease. Pain control with oxycodone for moderate pain and morphine IV for severe pain. Antiemetics and bowel protocol in place. Tylenol for mild pain and for fever. Trend CBC and BMP. KAYLIN on CKD On presentation his creatinine was 1.64. Review of old records shows creatinine baseline of about 1. BUN is 16. BUN over creatinine is 9.8 which is actually low. Likely ATN from toxic effect of sepsis. However, rule out prerenal. IV hydration. Avoid nephrotoxic's. Trend BMP. Would hold gabapentin that the patient takes at home. Now placed on other pain medicine as above. Hypertension On previous admission patient was placed on blood pressure medication. However patient stated that his PCP did not continue his blood pressure medications. On presentation his blood pressure was mildly outside goal. Trend blood pressure for now. Tobacco abuse Counseled Nicotine patch prescribed Marijuana abuse Counselled History of heroin use. Patient denies any illicit drug except marijuana. . DVT prophylaxis SCD ordered. Code Visit Inpatient E&M: 93814 Init Hosp L3 Multi Select Codes - Visit Charges Visit Charges: 88872 Init Hosp L3
[2018-10-21] MEDS: 0.9% Normal Saline 1,000 ML 1000 ML IV (21:39)
--- NOTE | 2018-10-21 21:48 | ED.RN ---
THIS NURSE WAS UNABLE TO DRAW LABS OFF OF IV LINE TO RIGHT HAND, LAB CALLED AND ASKED TO OBTAIN 2ND SET OF BLOOD CULTURES. TECH WILL BE UP TO E.D.TO OBTAIN CULTURES, THEN CLINDAMYCIN WILL BE ADMINISTERED.
[2018-10-21] MEDS: Ketorolac 30 MG/ML Syringe IV (22:11)
[2018-10-21] MEDS: 0.9% Normal Saline 1,000 ML 100 ML IV (23:55)
[2018-10-21] MEDS: Morphine 2 MG/ML Syringe IV (23:55)
[2018-10-22 00:40] VITALS: PULSE 101; RESP 16; O2SAT 99
[2018-10-22] MEDS: oxyCODONE 5 MG Tablet PO ×5 (00:41→20:10)
[2018-10-22] MEDS: Acetaminophen 325 MG Tablet 650 MG PO (00:42)
[2018-10-22 04:51] VITALS: BP 96/47; PULSE 80; RESP 16; TEMP 36.4; O2SAT 99
[2018-10-22 05:48] LABS: Absolute Lymphocyte Count 2.49 X10^3/uL (0.83-4.51); Absolute Neutrophil Count 5.4 X10^3/uL (2.0-7.7); Basophil# 0.04 X10^3/uL; Basophil% 0.4 % (0-1); Eosinophil# 0.16 X10^3/uL; Eosinophils% 1.7 % (0-5); Hematocrit 37.9 % (40-54); Hemoglobin 12.9 g/dL (13.0-16.5); Lymphocyte # 2.49 X10^3/ul (4.0); Lymphocyte % 26.9 % (19-41); Mean Corpuscular Volume 88.1 fL (80-94); Mean Platelet Vol. 9.9 fl (6.2-12.0); Monocyte# 1.14 X10^3/uL; Monocyte% 12.3 % (0-10); NRBC Flagged by Analyzer 0 % (0-5); Neutrophil # 5.42 X10^3/uL (2.7-7.7); Neutrophil % 58.5 % (47-70); Platelet Count 164 K/mm3 (150-450); White Blood Count 9.3 K/mm3 (4.4-11.0)
[2018-10-22 06:08] LABS: Anion Gap 9 (5-15); BUN 24 mg/dL (7-18); BUN/Creat Ratio 22.9 RATIO (10-20); Chloride 108 mmol/L (98-107); Creatinine, Serum 1.05 mg/dL (0.70-1.30); EST Glomerular Filtration Rate 84 mL/min (>60); Est Glom Filt Rate - Afr Amer 102 mL/min (>60); Estimated Creatinine Clearance 115.49 ml/min; Glucose 125 mg/dL (74-106); Potassium 3.4 mmol/L (3.5-5.1); Sodium Level 139 mmol/L (136-145)
[2018-10-22 07:13] VITALS: O2SAT 95
--- NOTE | 2018-10-22 08:49 | VDLE_ITS ---
Reason For Study: Swelling RIGHT GSV is normal. CFV is compressible, spontaneous, phasic, competent and demonstrates normal augmentation. FV is compressible, spontaneous, phasic, competent and demonstrates normal augmentation. POP V is compressible, spontaneous, phasic, competent and demonstrates normal augmentation. T/P Trunk is compressible. PTV is compressible. RT PerV is compressible. Procedure Exam performed portable in patient room. A preliminary report was called and/or faxed to [facility] Nurse. Interpretation Summary Deep veins of the right lower extremity are patent and compressible segmentally. There is no evidence of right lower extremity deep vein thrombosis. Valvular competence appears intact within the proximal deep venous system on the right . The right greater saphenous vein appears patent and compressible segmentally. Ordering Physician: Sergei Grossman Referring Physician: Sofia Armstrong Performed By: Serenity Gurrola RVT
--- NOTE | 2018-10-22 08:59 | PCM.CONS.GEN ---
Reason for Consult Date of Consultation: 10/22/18 Reason for Consultation: Right knee septic arthritis History of Present Illness: The patient is a 38 year old M patient of Dr. Enamorado's in the past for septic arthritis septic prepatellar bursitis of right knee. Need of surgery 08/29/2018 did have cultures positive for MRSA sensitive to clindamycin after washout was placed on doxycycline 100 mg daily for 30 days patient has failed to follow-up for staple removal and still has them in. He denies any knee pain today however beginning October 20 and worsening October 21 started having pain and erythema on the lateral side of the leg and calf pain. He denies any other recent infection denies using IV drug use since 2015. He was feeling feverish yesterday. He does not have any increased pain with knee range of motion or ankle range of motion in the ankle. Past Medical History Past Medical History (Chronic Problems): Chronic Problems (Last Reviewed 10/21/18 @ 22:34 by Sergei Thibodeaux MD) Chronic radicular low back pain (Chronic) Hypertension (Chronic) Suppurative tenosynovitis of flexor tendon of right hand (Chronic) suppurative flexor tenosynovitis right long finger Injury of digital nerve of right middle finger (Chronic) radial digital nerve Smoker (Chronic) Paresthesias in right hand (Chronic) radial aspect right long finger in area of digital nerve repair Right hand pain (Chronic) Tobacco dependence (Chronic) Medical History: Medical History (Last Reviewed 10/22/18 @ 09:25 by Sergei Grossman DO) Tobacco dependence (Chronic) F17.200 Back pain M54.9 Seasonal allergies J30.2 Allergies amoxicillin [Amoxicillin] Allergy (Verified 06/08/18 11:19) Rash Penicillins Allergy (Verified 06/08/18 11:) Rash morphine Adverse Reaction (Verified 10/22/18 00:50) Other Home Medications: Ambulatory Orders Medication Instructions Recorded Gabapentin 800 mg PO TID 10/21/18 Surgical History: Surgical History (Last Updated 10/22/18 @ 09:25 by Sergei Grossman DO) H/O right knee surgery (Acute) Z98.890 I&D for septic bursitis/arthritis 08/29/18 Surgical History: - - Hand surgery I&D right knee 08/29/18 septic arthritis/bursitis MRSA + Psychiatric History: No pertinent psych hx Lives: Spouse/ Significant Other Smoking Status: Current every day smoker Tobacco Use: Cigarettes - 1 ppd Alcohol: None Drugs: Marijuana, - - history of IV drug use 2016 - *Family History Maternal Family History: Family History (Last Reviewed 10/22/18 @ 00:01 by Sergei Thibodeaux MD) Brother Cystic fibrosis Sister Thyroid disorder Mother Hypertension Thyroid disorder Diabetes Father Anxiety Thyroid disorder Heart disease Alcoholism Grandmother Breast cancer Heart disease Grandfather Cancer History Items: Diabetes, Hypertension, - - thyroid disease. Paternal Family History: Family History (Last Reviewed 10/22/18 @ 00:01 by Sergei Thibodeaux MD) Brother Cystic fibrosis Sister Thyroid disorder Mother Hypertension Thyroid disorder Diabetes Father Anxiety Thyroid disorder Heart disease Alcoholism Grandmother Breast cancer Heart disease Grandfather Cancer History Items: Heart Disease, - - thyroid disease, alcoholism, anxiety. Patient Problems: Active and Suspected Problems (Last Reviewed 10/21/18 @ 22:34 by Sergei Thibodeaux MD) KAYLIN (acute kidney injury) (Acute) - Physical Exam General: Alert, Oriented x3, Cooperative, No apparent distress Extremities: - - No joint effusion around knee no erythema around knee. No pain with knee range of motion in the knee. There is scabbing from anterior knee prior surgery with 4 rah still present that were never removed as patient failed to follow-up. There is no sign of septic arthritis or septic bursitis. He does have pain in his calf and a rash on the lateral side of the right leg ankle range of motion does cause pain in the calf but not the ankle there is no fluctuance is no weeping and the compartments are soft. He is neurovascularly intact. Vital Signs Temp Pulse Resp BP Pulse Ox 97.5 F L 80 16 96/47 L 99 10/22/18 04:51 10/22/18 04:51 10/22/18 04:51 10/22/18 04:51 10/22/18 04:51 Oxygen Delivery Method Room Air Weight: 188 lb 11.451 oz Body Mass Index (BMI) 22.9 Intake and Output for Last 24 Hours 10/20/18 10/21/18 10/22/18 23:59 23:59 23:59 Intake Total 833 / 833 Balance 833 / 833 Laboratory Tests Past 24 Hrs 10/21/18 10/21/18 10/21/18 18:40 18:40 18:40 WBC 12.2 H RBC 5.15 Hgb 15.6 Hct 45.8 MCV 88.9 MCH 30.3 MCHC 34.1 RDW Std Deviation 40.7 RDW Coeff of Toshia 12.5 Plt Count 198 MPV 9.5 Immature Gran % (Auto) 0.300 Neut % (Auto) 66.8 Lymph % (Auto) 22.8 [place] % (Auto) 9.6 Eos % (Auto) 0.2 Baso % (Auto) 0.3 Absolute Neuts (auto) 8.1 H Absolute Lymphs (auto) 2.77 Nucleated RBC % 0 Sodium 135 L Potassium 3.6 Chloride 103 Carbon Dioxide 25.0 Anion Gap 7 BUN 16 Creatinine 1.64 H Estim Creat Clear Calc 72.99 Est GFR (MDRD) Af Amer 61 Est GFR (MDRD) Non-Af 50 L BUN/Creatinine Ratio 9.8 L Glucose 108 H Lactic Acid 1.2 Calcium 9.0 10/22/18 10/22/18 05:26 05:26 WBC 9.3 RBC 4.30 L Hgb 12.9 L Hct 37.9 L MCV 88.1 MCH 30.0 MCHC 34.0 RDW Std Deviation 42.0 RDW Coeff of Toshia 13.0 Plt Count 164 MPV 9.9 Immature Gran % (Auto) 0.200 Neut % (Auto) 58.5 Lymph % (Auto) 26.9 [place] % (Auto) 12.3 H Eos % (Auto) 1.7 Baso % (Auto) 0.4 Absolute Neuts (auto) 5.4 Absolute Lymphs (auto) 2.49 Nucleated RBC % 0 Sodium 139 Potassium 3.4 L Chloride 108 H Carbon Dioxide 22.0 Anion Gap 9 BUN 24 H Creatinine 1.05 Estim Creat Clear Calc 115.49 Est GFR (MDRD) Af Amer 102 Est GFR (MDRD) Non-Af 84 BUN/Creatinine Ratio 22.9 H Glucose 125 H Lactic Acid Calcium 8.0 L Assessment/Plan All Active Problems (Last Reviewed 10/22/18 @ 00:25 by Sergei Thibodeaux MD) Heroin use disorder, moderate, in sustained remission (Resolved) Septic prepatellar bursitis of right knee (Acute) Septic arthritis of knee, right (Acute) KAYLIN (acute kidney injury) (Acute) none (Acute) No sign of recurrent septic arthritis or bursitis Cellulitis right lower extremity Due to significant calf pain postoperatively we will check Doppler ultrasound right lower extremity Antibiotics per infectious disease for cellulitis Follow-up as read regularly scheduled with Dr. Orourke
--- NOTE | 2018-10-22 09:47 | PN_ITS ---
Patient Problems: Active and Suspected Problems (Last Reviewed 10/22/18 @ 09:25 by Sergei Grossman DO) Cellulitis of right leg without foot (Acute) Subjective: Denies any right knee pain. States the pain is in his left calf. Developed a rash on the lateral aspect of his left Foot and lower leg but denies any injury, abrasions, accidents of any kind. Vitals/I&O's: Vital Signs Temp Pulse Resp BP Pulse Ox 36.4 C L 80 16 96/47 L 99 10/22/18 04:51 10/22/18 04:51 10/22/18 04:51 10/22/18 04:51 10/22/18 04:51 Oxygen Delivery Method Room Air Weight: 85.6 kg Body Mass Index (BMI) 22.9 Intake and Output for Last 24 Hours 10/20/18 10/21/18 10/22/18 23:59 23:59 23:59 Intake Total 833 / 833 Balance 833 / 833 General: Alert, No apparent distress HEENT: Atraumatic, Normocephalic Oral: Moist Mucosa, No Gingival or Mucosal Lesions/ Ulcerations Neck: No Nodes, Thyroid Normal Size and Texture Lungs: Clear to auscultation, Normal air movement, No rhonchi, No wheeze, No rales Cardiovascular: Regular rate, Regular Rhythm, Normal S1, Normal S2, No murmurs Abdomen: Bowel Sounds Present, Soft, Non Tender, Non-Distended, No Hepato- splenomegaly Extremities: No edema, - - Posterior right calf tenderness Skin: - - Maroon-colored rash on the lateral aspect of the right calf that is not completely confluent Musculoskeletal: - - No right knee pain nor effusion. Psych/Mental Status: Normal Affect, Appropriate Laboratory Results 10/21/18 18:40: WBC 12.2 H, RBC 5.15, Hgb 15.6, Hct 45.8, MCV 88.9, MCH 30.3, MCHC 34.1, RDW Std Deviation 40.7, RDW Coeff of Tsohia 12.5, Plt Count 198, MPV 9.5, Immature Gran % (Auto) 0.300, Neut % (Auto) 66.8, Lymph % (Auto) 22.8, [place] % (Auto) 9.6, Eos % (Auto) 0.2, Baso % (Auto) 0.3, Absolute Neuts (auto) 8.1 H, Absolute Lymphs (auto) 2.77, Nucleated RBC % 0 10/21/18 18:40: Sodium 135 L, Potassium 3.6, Chloride 103, Carbon Dioxide 25.0, Anion Gap 7, BUN 16, Creatinine 1.64 H, Estim Creat Clear Calc 72.99, Est GFR (MDRD) Af Amer 61, Est GFR (MDRD) Non-Af 50 L, BUN/Creatinine Ratio 9.8 L, Glucose 108 H, Calcium 9.0 10/21/18 18:40: Lactic Acid 1.2 10/22/18 05:26: WBC 9.3, RBC 4.30 L, Hgb 12.9 L, Hct 37.9 L, MCV 88.1, MCH 30.0, MCHC 34.0, RDW Std Deviation 42.0, RDW Coeff of Toshia 13.0, Plt Count 164, MPV 9.9, Immature Gran % (Auto) 0.200, Neut % (Auto) 58.5, Lymph % (Auto) 26.9, [place] % (Auto) 12.3 H, Eos % (Auto) 1.7, Baso % (Auto) 0.4, Absolute Neuts (auto) 5.4, Absolute Lymphs (auto) 2.49, Nucleated RBC % 0 10/22/18 05:26: Sodium 139, Potassium 3.4 L, Chloride 108 H, Carbon Dioxide 22.0, Anion Gap 9, BUN 24 H, Creatinine 1.05, Estim Creat Clear Calc 115.49, Est GFR (MDRD) Af Amer 102, Est GFR (MDRD) Non-Af 84, BUN/Creatinine Ratio 22.9 H, Glucose 125 H, Calcium 8.0 L Current Medications Acetaminophen (Tylenol) 650 mg PO Q6H PRN PRN PRN Reason: Mild Pain (1-3)/Temp > 100.7 F Last Admin: 10/22/18 00:42 Dose: 650 mg Documented by: Dextrose (D50w Syringe) 0 gm IV X1 PRN; Protocol PRN Reason: Hypoglycemia Gabapentin (Neurontin) 800 mg PO TIDCM LAURA Glucagon () 1 mg IM .X1 PRN PRN Reason: Hypoglycemia Sodium Chloride () 1,000 mls @ 100 mls/hr IV .Q10H LAURA Stop: 10/22/18 19:04 Last Admin: 10/21/18 23:55 Dose: 100 mls/hr Documented by: Clindamycin Phosphate 600 mg/ (Dextrose) 54 mls @ 100 mls/hr IV Q8 LAURA Last Admin: 10/22/18 05:31 Dose: 100 mls/hr Documented by: Sodium Chloride () 250 mls @ 15 mls/hr IV .[id number] PRN PRN Reason: SALINE FLUSH Nutritional Formula (Lactose Free) (Ensure Enlive) 120 ml PO 4X/DAY LAURA Ondansetron HCl (Zofran) 4 mg IV Q8H PRN PRN PRN Reason: NAUSEA/VOMITING Oxycodone HCl (Oxyir) 5 mg PO Q4H PRN PRN PRN Reason: Moderate Pain (4-6/10) Last Admin: 10/22/18 04:59 Dose: 5 mg Documented by: Senna/Docusate Sodium (Senokot-S, Britney-Colace) 1 tablet PO BID LAURA Sodium Chloride () 10 - 40 ml IV UD PRN PRN Reason: SALINE FLUSH Medical Necessity - Tobacco Use Smoking Status: Current every day smoker Tobacco Use: Cigarettes - 1 ppd Assessment/Plan All Active Problems (Last Reviewed 10/22/18 @ 09:25 by Sergei Grossman DO) Heroin use disorder, moderate, in sustained remission (Resolved) KAYLIN (acute kidney injury) (Resolved) Cellulitis of right leg without foot (Acute) Septic arthritis of knee, right (Resolved) Septic prepatellar bursitis of right knee (Resolved) 1. Right lower extremity cellulitis * Continue with clindamycin as it appears to be improving at this time * Would have a low threshold to escalate therapy if symptoms do worsen. * Patient does have some calf pain is well and will be undergoing a duplex of the right leg to evaluate for DVT 2. Sepsis * Present on admission * currently resolved 3. History of septic arthritis * Not active at this time so an acute pitcher is ruled out 4. VTE prophylaxis: Moderate risk. SCDs have been ordered Code Visit Inpatient E&M: 78710 Subs Hosp L2
[2018-10-22 09:52] VITALS: BP 115/63; PULSE 87; RESP 16; TEMP 36.9; O2SAT 99
[2018-10-22] MEDS: Senna/Docusate Sodium 1 Tablet PO (10:12)
--- NOTE | 2018-10-22 11:05 | CASEMGMT ---
RN HARDY Face to Face with patient for initial transition planning/care coordination assessment. RN CM introduced self and role at [facility]. Patient lying in bed, alert and oriented. Patient willing to participate in assessment and is able to answer all questions appropriately. Care providers, pharmacy, and demographics verified. Patient wishes to discharge home, denies need for home health at this time. Patient states he has no further needs or concerns at this time. CM to follow for discharge planning needs that may arise. PCP: Patti Specialists: none [facility]acy[facility] Insurance: [place] Prescription Benefit: yes Living Will/HPOA: Patient states he has a Living will, no HPOA LNOK: Mother Living Arrangements: Patient lives with roommates in house, patient states he is independent at home. Transportation: self DME/HHC: Patient denies any DME or previous HHC. Disposition Plan: Patient to discharge home with family support and follow-up plans in place. Serenity JOHNSON, RN, CM
[2018-10-22] MEDS: 0.9% Normal Saline 1,000 ML 100 ML IV (11:13)
[2018-10-22] MEDS: Gabapentin 800 MG Tablet PO ×2 (11:14→18:06)
--- NOTE | 2018-10-22 13:15 | PCM.HP.ID ---
Reason for Consult: Right leg infection Consulted by: Dr. Thibodeaux History of Present Illness: The patient is a 38 year old M [] This is a 38-year-old white male with a history of IV drug use in the remote past as per patient who was recently hospitalized in August and had a septic prepatellar bursitis with community-acquired MRSA at that time, patient was treated with prolonged course of oral antibiotics. Patient is presented with acute right leg erythema and pain. States a subjective fever at home. His symptomatology started roughly 24 hours prior to his presentation. Denies any trauma to his right leg. Patient is able to move his right knee without any pain. Patient was placed on parenteral clindamycin upon admission. Laboratory studies reviewed. Patient tolerating parenteral clindamycin well. 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 Smoker (Chronic) Paresthesias in right hand (Chronic) radial aspect right long finger in area of digital nerve repair Right hand pain (Chronic) H/O right knee surgery (Chronic) I&D for septic bursitis/arthritis 08/29/18 Tobacco dependence (Chronic) Allergies/Adverse Reactions: Allergies amoxicillin [Amoxicillin] Allergy (Verified 06/08/18 11:19) Rash Penicillins Allergy (Verified 06/08/18 11:19) Rash morphine Adverse Reaction (Verified 10/22/18 00:50) Other Home Medications: Ambulatory Orders Medication Instructions Recorded Gabapentin 800 mg PO TID 10/21/18 Vital Signs Temp Pulse Resp BP Pulse Ox 98.5 F 87 16 115/63 99 10/22/18 09:52 10/22/18 09:52 10/22/18 09:52 10/22/18 09:52 10/22/18 09:52 Oxygen Delivery Method Room Air Weight: 85.6 kg Body Mass Index (BMI) 22.9 Patient is alert and conversive in no acute distress head and neck exams unremarkable lungs are clear heart exam S1-S2 no murmurs appreciated abdomen soft nontender right leg there is nonsuppurative erythema along the right leg. No signs of deep infection Laboratory Tests Past 24 Hrs 10/21/18 10/21/18 10/21/18 18:40 18:40 18:40 WBC 12.2 H RBC 5.15 Hgb 15.6 Hct 45.8 MCV 88.9 MCH 30.3 MCHC 34.1 RDW Std Deviation 40.7 RDW Coeff of Toshia 12.5 Plt Count 198 MPV 9.5 Immature Gran % (Auto) 0.300 Neut % (Auto) 66.8 Lymph % (Auto) 22.8 [place] % (Auto) 9.6 Eos % (Auto) 0.2 Baso % (Auto) 0.3 Absolute Neuts (auto) 8.1 H Absolute Lymphs (auto) 2.77 Nucleated RBC % 0 Sodium 135 L Potassium 3.6 Chloride 103 Carbon Dioxide 25.0 Anion Gap 7 BUN 16 Creatinine 1.64 H Estim Creat Clear Calc 72.99 Est GFR (MDRD) Af Amer 61 Est GFR (MDRD) Non-Af 50 L BUN/Creatinine Ratio 9.8 L Glucose 108 H Lactic Acid 1.2 Calcium 9.0 10/22/18 10/22/18 05:26 05:26 WBC 9.3 RBC 4.30 L Hgb 12.9 L Hct 37.9 L MCV 88.1 MCH 30.0 MCHC 34.0 RDW Std Deviation 42.0 RDW Coeff of Toshia 13.0 Plt Count 164 MPV 9.9 Immature Gran % (Auto) 0.200 Neut % (Auto) 58.5 Lymph % (Auto) 26.9 [place] % (Auto) 12.3 H Eos % (Auto) 1.7 Baso % (Auto) 0.4 Absolute Neuts (auto) 5.4 Absolute Lymphs (auto) 2.49 Nucleated RBC % 0 Sodium 139 Potassium 3.4 L Chloride 108 H Carbon Dioxide 22.0 Anion Gap 9 BUN 24 H Creatinine 1.05 Estim Creat Clear Calc 115.49 Est GFR (MDRD) Af Amer 102 Est GFR (MDRD) Non-Af 84 BUN/Creatinine Ratio 22.9 H Glucose 125 H Lactic Acid Calcium 8.0 L - Other Studies Radiology: [] Other Studies: [] Route of nutrition/ use of supplements: [] Nutritional Intake: [] IV Site: [] Martinez Catheter: [] - Assessment/Plan Antibiotics: [] Assessment/Plan: [] Active and Suspected Problems (Last Reviewed 10/22/18 @ 09:25 by Sergei Grossman DO) Cellulitis of right leg without foot (Acute) Acute right leg cellulitis at this point we will continue clindamycin parenterally. No signs of infection in the prepatellar space or knee.
[2018-10-22] MEDS: Acetaminophen 500 MG Tablet 1000 MG PO ×2 (14:38→23:05)
[2018-10-22] MEDS: 0.9% NaCl Peripheral Flush Adult/Peds IV ×2 (20:10→23:05)
[2018-10-22 20:14] VITALS: BP 113/73; PULSE 82; RESP 18; TEMP 36.2; O2SAT 100
[2018-10-22] MEDS: MELATONIN 3 MG TABLET PO (23:05)
[2018-10-22] MEDS: Ketorolac 30 MG/ML Syringe IV (23:05)
[2018-10-23 05:18] VITALS: BP 115/82; PULSE 79; RESP 18; TEMP 36.4; O2SAT 100
[2018-10-23] MEDS: Acetaminophen 500 MG Tablet 1000 MG PO (05:23)
[2018-10-23] MEDS: oxyCODONE 5 MG Tablet PO (05:23)
[2018-10-23 06:28] LABS: Anion Gap 8 (5-15); BUN 22 mg/dL (7-18); BUN/Creat Ratio 24.4 RATIO (10-20); Calcium,Total 8.4 mg/dL (8.5-10.1); Chloride 113 mmol/L (98-107); EST Glomerular Filtration Rate 100 mL/min (>60); Est Glom Filt Rate - Afr Amer 121 mL/min (>60); Estimated Creatinine Clearance 134.74 ml/min; Glucose 122 mg/dL (74-106); Magnesium 2.2 mg/dL (1.6-2.6); Potassium 4.1 mmol/L (3.5-5.1); Sodium Level 142 mmol/L (136-145)
[2018-10-23 06:44] VITALS: O2SAT 96
--- NOTE | 2018-10-23 09:34 | DCINST_ITS ---
- Discharge Diagnoses Current Active Problems: Current Active and Chronic Problems (Last Updated 10/22/18 @ 09:52 by Payam Caba DO) Cellulitis of right leg without foot (Acute) H/O right knee surgery (Chronic) I&D for septic bursitis/arthritis 08/29/18 You will use the following diet at home:: No restrictions Your food should be the consistency of: Regular Your liquids should be the consistency of: Regular/Thin Discharge Activity: Return to Normal Activity Return to work on:: 10/24/18 Weight Bearing Status: Weight bearing as tolerated Keep extremity elevated above heart level: Right Leg Call your doctor if your incision/area has: Continuous Slow Oozing, Sudden Increased Bleeding, Increased Pain/ Swelling, Increased Redness Call your doctor if you observe: Fever of 101 or Higher, Shortness of breath, Calf discomfort Allergies/Adverse Reactions: Allergies amoxicillin [Amoxicillin] Allergy (Verified 06/08/18 11:19) Rash Penicillins Allergy (Verified 06/08/18 11:19) Rash morphine Adverse Reaction (Verified 10/22/18 00:50) Other Medications to take at Discharge Gabapentin 800 mg PO TID 10/21/18 Acetaminophen [Tylenol] 1,000 mg PO Q8 tablet 10/23/18 Ibuprofen 800 mg PO TID PRN #15 tab 10/23/18 Omeprazole 20 mg PO DAILY #5 tab 10/23/18 Smz/Tmp Ds [Bactrim Ds] 1 tab PO BID #12 tab 10/23/18 The following prescriptions were given: Smz/Tmp Ds [Bactrim Ds] 1 tab PO BID #12 tab Transmission Status: Pending to [facility] Ibuprofen 800 mg PO TID PRN #15 tab PRN Reason: Pain Transmission Status: Pending to [facility] Omeprazole 20 mg PO DAILY #5 tab Transmission Status: Pending to [facility] Primary Care Physician: Sofia Armstrong MD [Primary Care Provider] - Within 2 Weeks Test Results: Test results from this visit will be discussed in further detail at your follow- up appointment, if applicable. Proposed Discharge Date: 10/23/18
--- NOTE | 2018-10-23 09:36 | DS.PCM_ITS ---
Discharge Date and Diagnosis - Problem List Patient Problems: Active and Suspected Problems (Last Reviewed 10/22/18 @ 09:25 by Sergei Grossman DO) Cellulitis of right leg without foot (Acute) Date of Admission: 10/21/18 Date of Discharge: 10/23/18 - Primary Discharge Diagnosis Active and Suspected Problems (Last Reviewed 10/22/18 @ 09:25 by Sergei Grossman DO) Cellulitis of right leg without foot (Acute) 1. Right lower extremity cellulitis * improved with clindamycin * previously had MRSA, that was sensitive to clindamycin, but with inducible resistance. Will change to Bactrim * Duplex negative for DVT. 2. Sepsis * Present on admission * 2/2 above * currently resolved 3. 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 Operations: None, - - 06/29/17 - 1. Drainage tendon sheath right long finger for recurrent suppurative flexor tenosynovitis. 2. Radical tenosynovectomy tendon sheath FDS tendon right palm by long finger. 3. Radical tenosynovectomy tendon sheath FDP tendon right palm by long finger. 4. Epineural repair radial digital nerve laceration right long finger. Procedures: None Summary of Care Provided: The patient is a 38 year old M resents with right leg pain. Patient was septic upon arrival and concern was for septic arthritis as patient has had that in the right knee previously requiring surgery. Patient's right knee was unremarkable other than the anterior as sure that he had. Patient was started on clindamycin and has had some subtle improvements. Patient appears to have MRSA septic arthritis and did have inducible clindamycin resistance. Unclear if patient had MRSA at this time antibiotics would be changed over to Bactrim to be completed f or 6 more days complete 7-day course of antibiotics. Patient was having some pain in his calf and he did undergo duplex which was negative for DVT. Patient did inquire about some medications for his pain. Explained to utilize acetaminophen as well as ibuprofen. He did request a prescription be sent for the ibuprofen to the pharmacy. I told him that I am not sure that that would actually covered but we can certainly send that but it is [id number]. I did advise omeprazole while taking high-dose of ibuprofen. Patient does wear work boots that do extend up approximately up his leg. 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 I did recommend that he loosen him up at the tops of the notes of tight and possibly causing abrasions to his leg. [] Patient Problems: Active and Suspected Problems (Last Reviewed 10/22/18 @ 09:25 by Sergei Grossman DO) Cellulitis of right leg without foot (Acute) - Physical Exam General: Alert, No apparent distress HEENT: Atraumatic, Normocephalic Oral: Moist Mucosa, No Gingival or Mucosal Lesions/ Ulcerations Skin: - - Decreased intensity of the rubor of the lateral left calf. Minimal tenderness. No fluctuance, no induration, no purulence. Musculoskeletal: No Muscle Wasting Psych/Mental Status: Normal Affect, Appropriate Vital Signs Temp Pulse Resp BP Pulse Ox 36.4 C L 79 18 115/82 H 96 10/23/18 05:18 10/23/18 05:18 10/23/18 05:18 10/23/18 05:18 10/23/18 06:44 Oxygen Delivery Method Room Air Weight: 85.6 kg Body Mass Index (BMI) 22.9 Intake and Output for Last 24 Hours 10/21/18 10/22/18 10/23/18 23:59 23:59 23:59 Intake Total 1600 / 1600 481 / 481 Balance 1600 / 1600 481 / 481 Laboratory Tests Past 24 Hrs 10/23/18 05:32 Sodium 142 Potassium 4.1 Chloride 113 H Carbon Dioxide 21.0 Anion Gap 8 BUN 22 H Creatinine 0.90 Estim Creat Clear Calc 134.74 Est GFR (MDRD) Af Amer 121 Est GFR (MDRD) Non-Af 100 BUN/Creatinine Ratio 24.4 H Glucose 122 H Calcium 8.4 L Magnesium 2.2 Discharge Diet: No Restrictions Discharge Activity: Return to Normal Activity Return to work on:: 10/24/18 Weight Bearing Status: Weight bearing as tolerated Keep extremity elevated above heart level: Right Leg Call your doctor if your incision/area has: Continuous Slow Oozing, Sudden Increased Bleeding, Increased Pain/ Swelling, Increased Redness Call your doctor if you observe: Fever of 101 or Higher, Shortness of breath, Calf discomfort Home Medications: Medications to take at Discharge Gabapentin 800 mg PO TID 10/21/18 Acetaminophen [Tylenol] 1,000 mg PO Q8 tablet 10/23/18 Ibuprofen 800 mg PO TID PRN #15 tab 10/23/18 Omeprazole 20 mg PO DAILY #5 tab. 10/23/18 Smz/Tmp Ds [Bactrim Ds] 1 tab PO BID #12 tab 10/23/18 Following Prescrptions Were Given to Patient: Smz/Tmp Ds [Bactrim Ds] 1 tab PO BID #12 tab Transmission Status: Pending to [facility] Ibuprofen 800 mg PO TID PRN #15 tab PRN Reason: Pain Transmission Status: Pending to [facility] Omeprazole 20 mg PO DAILY #5 tab. Transmission Status: Pending to [facility] Primary Care Physician: Sofia Armstrong MD [Primary Care Provider] - Within 2 Weeks Disposition: Home Minutes spent on discharge:: 32 Patient Condition:: Good Medical Necessity - Tobacco Use Smoking Status: Current every day smoker Tobacco Use: Cigarettes - 1 ppd Meaningful Use Info Meaningful Use Diagnoses (Choose all that apply): None applicable Code Visit Inpatient E&M: 48753 Disch Hosp
[2018-10-23] MEDS: Gabapentin 800 MG Tablet PO (10:08)
[2018-10-23 10:15] VITALS: PULSE 80
--- NOTE | 2018-10-23 10:32 | PCM.PN.ID ---
Patient Problems: Active and Suspected Problems (Last Reviewed 10/22/18 @ 09:25 by Sergei Grossman DO) Cellulitis of right leg without foot (Acute) Subjective: Patient had a uneventful night states a feeling better. No fevers. Tolerating parenteral clindamycin well. Objective: Alert does not appear toxic right leg erythema markedly improved compared to yesterday - Physical Exam Vital Signs Temp Pulse Resp BP Pulse Ox 97.5 F L 79 18 115/82 H 96 10/23/18 05:18 10/23/18 05:18 10/23/18 05:18 10/23/18 05:18 10/23/18 06:44 Oxygen Delivery Method Room Air Weight: 85.6 kg Body Mass Index (BMI) 22.9 Intake and Output for Last 24 Hours 10/21/18 10/22/18 10/23/18 23:59 23:59 23:59 Intake Total 1600 / 1600 481 / 481 Balance 1600 / 1600 481 / 481 Laboratory Tests Past 24 Hrs 10/23/18 05:32 Sodium 142 Potassium 4.1 Chloride 113 H Carbon Dioxide 21.0 Anion Gap 8 BUN 22 H Creatinine 0.90 Estim Creat Clear Calc 134.74 Est GFR (MDRD) Af Amer 121 Est GFR (MDRD) Non-Af 100 BUN/Creatinine Ratio 24.4 H Glucose 122 H Calcium 8.4 L Magnesium 2.2 Medical Necessity - Tobacco Use Smoking Status: Current every day smoker Tobacco Use: Cigarettes - 1 ppd Route of nutrition/ use of supplements: [] Nutritional Intake: [] IV Site: [] Martinez Catheter: [] - Assessment/Plan Right leg cellulitis clinically responded to IV clindamycin. Plan to go home today on oral antibiotic therapy
[2018-10-23 10:35] VITALS: BP 126/64; PULSE 76; RESP 16; TEMP 36.6; O2SAT 100
== END 2018-10-23 10:47 | disposition home or self-care (01) | DRG 720 ==
LOC: ED 21:29 → MS3 21:54
PROVIDERS: Admitting Provider Hospitalist; Emergency Provider Emergency Medicine; Family Provider Internal Medicine; PCP Internal Medicine; Referring Provider Hospitalist
DX: A41.9 Sepsis, unspecified organism (principal); L03.115 Cellulitis of right lower limb; Z86.14 Personal history of Methicillin resistant Staphylococcus aureus infection
CPT/HCPCS: 36415; 80048; 83605; 83735; 85025; 87040; 93971; 99284; 99406; J7030; J7050; A4216

== ENCOUNTER 2019-08-21 18:55 | Emergency (ER) | payer SELFPAY ==
[2018-10-21 23:12] VITALS: BMI 22.9
[2019-08-21 18:56] VITALS: BP 136/96; PULSE 118; RESP 11; TEMP 37.1; O2SAT 94; BMI 23.8
--- NOTE | 2019-08-21 19:10 | RAD_ITS ---
STUDY: X-RAY CHEST REASON FOR EXAM: Male, 39 years old. CHEST PAIN TECHNIQUE: Single frontal view of the chest. COMPARISON: None. FINDINGS: The lungs are clear and expanded. There is no demonstrated pleural abnormality. Normal size heart. Normal mediastinum and earl. Normal visualized pulmonary arteries. Normal visualized aortic arch and descending thoracic aorta. Normal visualized thoracic spine. Normal visualized ribs, clavicles, and shoulders. There is no demonstrated abnormality of the visualized soft tissue structures of the upper abdomen. RAD/Chest 1 View (Portable) IMPRESSION: No acute cardiopulmonary process. Electronically Signed: Abimbola Ventura MD at 19:27 EDT Tel , Service support ,
--- NOTE | 2019-08-21 19:10 | EKG12_ITS ---
Test Reason : SUB ABUSE Blood Pressure : / mmHG Vent. Rate : 084 BPM Atrial Rate : 084 BPM P-R Int : 144 ms QRS Dur : 090 ms QT Int : 348 ms P-R-T Axes : 048 064 051 degrees QTc Int : 411 ms Normal sinus rhythm Minimal voltage criteria for LVH, may be normal variant Borderline ECG Confirmed by CURTSI UNGER, JULIAN ([id number]), non linear editor OSIEL PENA ([id number]) on 08/26/2019 1:59:52 PM Referred By: CD Confirmed By:KAMILA ACEVEDO MD
[2019-08-21 19:13] VITALS: O2SAT 97
--- NOTE | 2019-08-21 19:28 | ED.DCSUM_ITS ---
- ER Visit Summary Date of Service: 08/21/19 Chief Complaint: Drug use History of Present Illness: The patient is a 39 M who was brought in by EMS. The patient has a history of cocaine use. He snorted what he thought was cocaine, but he was not sure if it was mixed with fentanyl or methamphetamines. He says he feels different, anxious, jittery. He is not suicidal or homicidal. He has palpitations but denies chest pain or any other complaints. Physical Examination: Afebrile and vital signs unremarkable except for heart rate of 118. Patient appears anxious and tearful. Alert and oriented. Head and neck atraumatic. Cranial nerves grossly intact. HEENT exam unremarkable. Heart tachycardic but regular. Lungs clear. Abdomen soft. Extremities nontender with no edema. Test Results: EKG shows sinus rhythm at a rate of 84. Basic labs and chest x-r ay ordered. Emergency Department Course and Treatment: Patient was placed on a monitor. Work-up as above. He was treated with Ativan and fluids while awaiting results. Basic labs and chest x-ray showed nothing acute. Patient is tolerating p.o. and doing better. He will be discharged for outpatient follow-up. Treatment Plan: As above Disposition: Discharge Impression: Cocaine abuse This note was generated with [employer] dictation software. It may contain incorrect words, spelling, and punctuation that were not noted in review of the chart prior to signing ED Disposition - Plan for ED Patient: Referrals: Sofia Armstrong MD [Primary Care Provider] -
[2019-08-21 19:29] LABS: Absolute Lymphocyte Count 1.94 X10^3/uL (0.83-4.51); Absolute Neutrophil Count 7.7 X10^3/uL (2.0-7.7); Basophil# 0.04 X10^3/uL; Basophil% 0.4 % (0-1); Eosinophil# 0.04 X10^3/uL; Eosinophils% 0.4 % (0-5); Hematocrit 44.2 % (40-54); Hemoglobin 14.7 g/dL (13.0-16.5); Lymphocyte # 1.94 X10^3/ul (4.0); Lymphocyte % 18.7 % (19-41); Mean Corp Hgb Conc 33.3 g/dL (32-36); Mean Corpuscular Hgb 29.1 pg (27.0-32.0); Mean Corpuscular Volume 87.5 fL (80-94); Monocyte% 5.8 % (0-10); NRBC Flagged by Analyzer 0 % (0-5); Neutrophil # 7.72 X10^3/uL (2.7-7.7); Neutrophil % 74.5 % (47-70); Platelet Count 277 K/mm3 (150-450); RBC Distribution Width CV 12.4 % (11.6-14.6); RBC Distribution Width SD 39.6 fl (35.1-43.9); Red Blood Count 5.05 M/mm3 (4.6-6.2); White Blood Count 10.4 K/mm3 (4.4-11.0)
[2019-08-21] MEDS: 0.9% Normal Saline 1,000 ML 1000 ML IV (19:32)
[2019-08-21] MEDS: LORazepam 2 MG/ML Syringe 1 MG IV (19:33)
[2019-08-21 19:52] LABS: Anion Gap 4 (5-15); BUN 14 mg/dL (7-18); BUN/Creat Ratio 13.2 RATIO (10-20); Calcium,Total 9.2 mg/dL (8.5-10.1); Chloride 111 mmol/L (98-107); Creatinine, Serum 1.06 mg/dL (0.70-1.30); EST Glomerular Filtration Rate 83 mL/min (>60); Est Glom Filt Rate - Afr Amer 100 mL/min (>60); Estimated Creatinine Clearance 114.87 ml/min; Glucose 155 mg/dL (74-106); Potassium 3.9 mmol/L (3.5-5.1); Sodium Level 142 mmol/L (136-145)
--- NOTE | 2019-08-21 20:36 | ED.DEP ---
ED Disposition - Plan for ED Patient: Instructions: Cocaine: Getting Help Referrals: [facility] [STAFF PHYSICIAN] -
[2019-08-21 20:53] VITALS: BP 133/89; PULSE 95; RESP 16; O2SAT 100
== END 2019-08-21 20:55 | disposition home or self-care (01) ==
LOC: ED 19:33
PROVIDERS: Emergency Provider Emergency Medicine; PCP Internal Medicine
DX: F14.10 Cocaine abuse, uncomplicated (principal); Z72.0 Tobacco use
CPT/HCPCS: 71045; 80048; 84484; 85025; 93005; 96361; 96374; 99285; J7030; A4216

== ENCOUNTER 2020-02-02 13:21 | Inpatient (IN) | payer SELFPAY ==
[2020-02-02] VITALS (7 sets, daily range): BP systolic 123–141; BP diastolic 66–88; PULSE 77–88; RESP 16–18; TEMP 35.6–36.9; O2SAT 96–99; BMI 24.7; BMI 23.8; BMI 23.9
--- NOTE | 2020-02-02 13:39 | ED.VISSUMM ---
- ER Visit Summary Date of Service: 02/02/20 Chief Complaint: Detox History of Present Illness: The patient is a 39 M who presents requesting detox from heroin and fentanyl. Patient states he has been using for the last 9 months. Patient states his last use was approximately 4 hours prior to arrival. Patient states he uses 1 to 1-1/2 g/day. Patient denies any prior history of detox. Patient denies any suicidal or homicidal ideations. Patient does admit to some intermittent chest pain but states this is typical for his anxiety. Patient denies any fevers or chills. Physical Examination: Vital signs are stable. Patient is afebrile. Patient is in no acute distress. Oral mucosa is pink and moist. Neck is supple. Trachea is midline. There is no JVD noted. Heart was regular rate and rhythm. Lungs are clear and equal bilaterally. Abdomen is soft. Bowel sounds are normal. There is no tenderness. There is no rebound or guarding noted. Skin is warm dry. There are sutures noted above the right eyebrow. Patient states he had these placed 2 days ago at [facility]. There is no erythema. There is no discharge or drainage. There is no tenderness. Cranial nerves II through XII are intact. There are no focal motor or sensory deficits noted. Extremities are intact. There is no calf tenderness or edema. Test Results: CBC and comprehensive metabolic profile were obtained and are pending. Serum alcohol level and urine tox screen were obtained and are pending. Emergency Department Course and Treatment: Case was discussed with the hospitalist. He will admit the patient to his service. Patient understood and was agreeable with the plan. All questions were answered. Disposition: Admit to hospital Impression: 1. Opiate dependence This note was generated with [employer] dictation software. It may contain incorrect words, spelling, and punctuation that were not noted in review of the chart prior to signing ED Disposition - Plan for ED Patient: Disposition: Home or Assisted Living Diagnosis: Opiate dependence Referrals: Sofia Armstrong MD [Primary Care Provider] -
[2020-02-02 14:36] LABS: Absolute Lymphocyte Count 2.69 X10^3/uL (0.83-4.51); Absolute Neutrophil Count 7.4 X10^3/uL (2.0-7.7); Basophil# 0.05 X10^3/uL; Basophil% 0.4 % (0-1); Eosinophils% 3.6 % (0-5); Hematocrit 41.1 % (40-54); Hemoglobin 13.5 g/dL (13.0-16.5); Lymphocyte # 2.69 X10^3/ul (4.0); Mean Corp Hgb Conc 32.8 g/dL (32-36); Mean Corpuscular Hgb 29.2 pg (27.0-32.0); Mean Platelet Vol. 9.8 fl (6.2-12.0); Monocyte# 0.67 X10^3/uL; NRBC Flagged by Analyzer 0 % (0-5); Neutrophil # 7.37 X10^3/uL (2.7-7.7); Neutrophil % 65.7 % (47-70); Platelet Count 257 K/mm3 (150-450); RBC Distribution Width CV 12.9 % (11.6-14.6); RBC Distribution Width SD 42.1 fl (35.1-43.9); Red Blood Count 4.62 M/mm3 (4.6-6.2); White Blood Count 11.2 K/mm3 (4.4-11.0)
[2020-02-02 14:55] LABS: ALB/GLOB Ratio 0.8 RATIO (0.9-2.4); AST(SGOT) 15 U/L (15-37); Alanine Aminotransfer ALT/SGPT 18 U/L (16-61); Albumin, Serum 3.5 g/dL (3.2-5.0); Alkaline Phosphatase 103 U/L (45-117); Anion Gap 5 (5-15); BUN 18 mg/dL (7-18); BUN/Creat Ratio 17.3 RATIO (10-20); Calcium,Total 9.1 mg/dL (8.5-10.1); Chloride 109 mmol/L (98-107); Creatinine, Serum 1.04 mg/dL (0.70-1.30); EST Glomerular Filtration Rate 84 mL/min (>60); Est Glom Filt Rate - Afr Amer 102 mL/min (>60); Estimated Creatinine Clearance 113.98 ml/min; Globulin 4.5 g/dL (2.2-4.2); Glucose 134 mg/dL (74-106); Potassium 4.5 mmol/L (3.5-5.1); Sodium Level 142 mmol/L (136-145)
[2020-02-02 14:58] LABS: Alcohol, Blood (Medical)-Serum < 3.0 mg/dL
[2020-02-02 15:08] LABS: Amphetamine Urine VISTA POSITIVE (<1000 ng/mL); Barbiturate Urine VISTA NEGATIVE (< 200 ng/mL); Benzodiazepine Urine VISTA NEGATIVE (< 200 ng/mL); Cocaine Urine VISTA NEGATIVE (< 300 ng/mL); Ecstacy Urine VISTA POSITIVE (< 500 ng/mL); Methadone Urine VISTA NEGATIVE (< 300 ng/mL); PCP Urine VISTA NEGATIVE (< 25 ng/mL); THC Urine VISTA POSITIVE (< 50 ng/mL); Vista UDS pH Range 5
--- NOTE | 2020-02-02 18:20 | HP.PCM_ITS ---
History of Present Illness Date of Admission: 02/02/20 Chief Complaint: Heroin detox The patient is a 39 year old M with a PMH as below who presents requesting detox for heroin and fentanyl he states that he has been using for about the last 9 months, he started his narcotic addiction after he had a back injury at work and he was on OxyContin. He eventually got off of those and was clean for about 11years when he detoxed himself. And then he started using about 9 months ago and is not sure why. His last use was 4 to 5 hours prior to arriving to the ER. He uses about 1 to 1.5 g/day. He is never gone through detox before. In the ER urine drug screen came back positive for amphetamines and methamphetamines as well as marijuana but was negative for anything else. Blood alcohol level was less than 3 and his other lab work was unremarkable. Past Medical History Past Medical History (Chronic Problems): Chronic Problems (Last Reviewed 10/22/18 @ 09:[address] 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 Sergei Grossman DO) Tobacco dependence (Chronic) F17.200 Back pain M54.9 Seasonal allergies J30.2 Allergies amoxicillin [Amoxicillin] Allergy (Verified 02/02/20 13:22) Rash Penicillins Allergy (Verified 02/02/20 13:22) Rash Home Medications: Ambulatory Orders Medication Instructions Recorded NK 08/21/19 Surgical History: Surgical History (Last Updated 10/22/18 @ 09:[address] Payam Caba DO) H/O right knee surgery (Chronic) Z98.890 I&D for septic bursitis/arthritis 08/29/18 Surgical History: - - Hand surgery I&D right knee 08/29/18 septic arthritis/bursitis MRSA + Psychiatric History: No pertinent psych hx Smoking Status: Current every day smoker Tobacco Use: Cigarettes Drugs: Heroin, Marijuana, - - Fentanyl - *Family History Maternal Family History: Family History (Last Reviewed 10/22/18 @ 00:[address] Sergei Thibodeaux MD) Brother Cystic fibrosis Sister Thyroid disorder Mother Hypertension Thyroid disorder Diabetes Father Anxiety Thyroid disorder Heart disease Alcoholism Grandmother Breast cancer Heart disease Grandfather Cancer History Items: Diabetes, Hypertension, - - thyroid disease. Paternal Family History: Family History (Last Reviewed 10/22/18 @ 00:[address] Sergei Thibodeaux MD) Brother Cystic fibrosis Sister Thyroid disorder Mother Hypertension Thyroid disorder Diabetes Father Anxiety Thyroid disorder Heart disease Alcoholism Grandmother Breast cancer Heart disease Grandfather Cancer History Items: Heart Disease, - - thyroid disease, alcoholism, anxiety. Review of Systems Constitutional: Denies: Chills, Fever, Weight Change HEENT: Denies: Head Aches, Sinus Congestion, Sinus Drainage Cardiovascular: Denies: Chest Pain, Palpitations Respiratory: Denies: Cough, Shortness of breath at rest, Sputum production Gastrointestinal: Reports: Abdominal Pain. Denies: Nausea, Vomiting Genitourinary: Denies: Dysuria Musculoskeletal: Denies: Joint Pain, Joint Tenderness Skin: Denies: Rash, Wounds Neurological: Denies: Numbness, Tingling, Focal weakness Psychiatric: Reports: Anxiety. Denies: Depression, Homicidal Ideations, Suicidal Ideations Hematologic/ Lymphatic: Denies: Easy Bruising, Easy Bleeding VTE Information - Inpt Only VTE Present on Admission: No Patient Problems: Active and Suspected Problems (Last Reviewed 10/22/18 @ 09:[address] Sergei Grossman DO) Opiate dependence (Acute) - Physical Exam Vitals/I&O's: Vital Signs Temp Pulse Resp BP Pulse Ox 97.7 F L 77 16 124/75 H 96 02/02/20 17:40 02/02/20 17:40 02/02/20 17:40 02/02/20 17:40 02/02/20 17:40 Oxygen Delivery Method Room Air Weight: 191 lb Body Mass Index (BMI) 23.8 General: Alert, Oriented x3, Cooperative, No apparent distress HEENT: Atraumatic, PERRLA, EOMI, Normocephalic Oral: Moist Mucosa Neck: Supple, No JVD Lungs: Clear to auscultation, Normal air movement, No rhonchi, No wheeze, No rales Cardiovascular: Regular rate, Regular Rhythm, Normal S1, Normal S2, No murmurs Abdomen: Soft, Non Tender, Non-Distended, No Hepato-splenomegaly Extremities: No edema, Capillary Refill Less than 3 Seconds Skin: No rashes, No breakdown Neurological: Neuro grossly intact, Sensory exam intact to light touch and pain Psych/Mental Status: Normal Affect, Restless Laboratory Results 02/02/20 14:25: WBC 11.2 H, RBC 4.62, Hgb 13.5, Hct 41.1, MCV 89.0, MCH 29.2, MCHC 32.8, RDW Std Deviation 42.1, RDW Coeff of Toshia 12.9, Plt Count 257, MPV 9.8, Immature Gran % (Auto) 0.300, Neut % (Auto) 65.7, Lymph % (Auto) 24.0, [place] % (Auto) 6.0, Eos % (Auto) 3.6, Baso % (Auto) 0.4, Absolute Neuts (auto) 7.4, Absolute Lymphs (auto) 2.69, Nucleated RBC % 0 02/02/20 14:25: Sodium 142, Potassium 4.5, Chloride 109 H, Carbon Dioxide 28.0, Anion Gap 5, BUN 18, Creatinine 1.04, Estim Creat Clear Calc 113.98, Est GFR (MDRD) Af Amer 102, Est GFR (MDRD) Non-Af 84, BUN/Creatinine Ratio 17.3, Glucose 134 H, Calcium 9.1, Total Bilirubin 0.20, AST 15, ALT 18, Alkaline Phosphatase 103, Total Protein 8.0, Albumin 3.5, Globulin 4.5 H, Albumin/Globulin Ratio 0.8 L 02/02/20 14:25: Ethyl Alcohol < 3.0 02/02/20 14:30: Urine Opiates Screen NEGATIVE, Urine Methadone Screen NEGATIVE, Ur Barbiturates Screen NEGATIVE, Ur Phencyclidine Scrn NEGATIVE, Ur Amphetamines Screen POSITIVE H, U Methamphetamin-MDMA POSITIVE H, U Benzodiazepines Scrn NEGATIVE, Urine Cocaine Screen NEGATIVE, U Cannabinoids Screen POSITIVE H, Ur Drug Screen Comment Current Medications Buprenorphine HCl (Buprenorphine Hcl 2 Mg Tab.Subl) 0 mg SL Q8H LAURA; Taper Stop: 02/05/20 14:44 Clonidine (Clonidine Hcl 0.1 Mg Tablet) 0.1 mg PO Q8H PRN PRN PRN Reason: RESTLESSNESS Dicyclomine HCl (Dicyclomine 10 Mg Capsule) 20 mg PO Q6H PRN PRN PRN Reason: Abdominal Discomfort Gabapentin (Gabapentin 300 Mg Capsule) 300 mg PO Q8H PRN PRN PRN Reason: moderate to severe anxiety Hydroxyzine Pamoate (Hydroxyzine Ashlie 25 Mg Capsule) 50 mg PO Q6H PRN PRN PRN Reason: mild anxiety Loperamide HCl (Loperamide 2 Mg Capsule) 2 mg PO Q4H PRN PRN PRN Reason: LOOSE STOOLS Methocarbamol (Methocarbamol 750 Mg Tablet) 1,500 mg PO Q6H PRN PRN PRN Reason: MUSCLE SPASM Ondansetron HCl (Ondansetron 8 Mg Tablet) 8 mg PO Q8H PRN PRN PRN Reason: NAUSEA Sodium Chloride (0.9% Saline Lock 10 Ml Syringe) 10 - 40 ml IV UD PRN PRN Reason: SALINE FLUSH Trazodone HCl (Trazodone 100 Mg Tablet) 100 mg PO QHS PRN PRN PRN Reason: INSOMNIA Assessment/Plan All Active Problems (Last Reviewed 10/22/18 @ 09:[address] Sergei Grossman, DO) Opiate dependence (Acute) Heroin use disorder, moderate, in sustained remission (Resolved) KAYLIN (acute kidney injury) (Resolved) Cellulitis of right leg without foot (Acute) Septic arthritis of knee, right (Resolved) Septic prepatellar bursitis of right knee (Resolved) 1. Heroin and fentanyl abuse here for detox -Continue with opiate withdrawal protocol -Follow-up outpatient 180 for rehab -He says he has been recently tested for HIV and hepatitis which were negative DVT: Ambulation Inpatient E&M: 95807 Init Hosp L2
[2020-02-02] MEDS: Dicyclomine 10 MG Capsule 20 MG PO (19:59)
[2020-02-02] MEDS: Methocarbamol 750 MG Tablet 1500 MG PO (19:59)
[2020-02-02] MEDS: Gabapentin 300 MG Capsule PO (20:00)
[2020-02-02] MEDS: Buprenorphine HCl 2 MG TAB.SUBL SL (20:00)
[2020-02-03] VITALS: BP 145/82; PULSE 77; RESP 16; TEMP 36.9; O2SAT 98
[2020-02-03] MEDS: cloNIDine HCl 0.1 MG Tablet PO ×2 (00:09→08:51)
[2020-02-03 04:32] VITALS: BP 149/91; PULSE 72; RESP 16; TEMP 36.8; O2SAT 99
[2020-02-03] MEDS: Methocarbamol 750 MG Tablet 1500 MG PO ×3 (04:39→19:54)
[2020-02-03] MEDS: Dicyclomine 10 MG Capsule 20 MG PO ×3 (04:40→19:54)
[2020-02-03] MEDS: Buprenorphine HCl 2 MG TAB.SUBL SL ×3 (04:40→19:54)
[2020-02-03] MEDS: Gabapentin 300 MG Capsule PO ×2 (04:40→19:54)
[2020-02-03 08:30] VITALS: BP 149/90; PULSE 94; RESP 18; TEMP 37.3; O2SAT 94
[2020-02-03] MEDS: hydrOXYzine PAM 25 MG Capsule 50 MG PO (08:52)
--- NOTE | 2020-02-03 10:58 | PN_ITS ---
Patient Problems: Active and Suspected Problems (Last Reviewed 10/22/18 @ 09:[address] Sergei Grossman, DO) Opiate dependence (Acute) Reason for Visit: opiate withdrawal Subjective: Feels well. Vitals/I&O's: Vital Signs Temp Pulse Resp BP Pulse Ox 37.3 C 94 18 149/90 H 94 02/03/20 08:30 02/03/20 08:30 02/03/20 08:30 02/03/20 08:30 02/03/20 08:30 Oxygen Delivery Method Room Air Weight: 86.636 kg Body Mass Index (BMI) 23.8 Intake and Output for Last 24 Hours 02/01/20 02/02/20 02/03/20 23:59 23:59 23:59 Intake Total 1000 / 1000 Balance 1000 / 1000 General: Alert, No apparent distress HEENT: Atraumatic, Normocephalic Oral: Moist Mucosa, No Gingival or Mucosal Lesions/ Ulcerations Neck: No Nodes, Thyroid Normal Size and Texture Lungs: Clear to auscultation, Normal air movement, No rhonchi, No wheeze, No rales Cardiovascular: Regular rate, Regular Rhythm, Normal S1, Normal S2 Abdomen: Bowel Sounds Present, Soft, Non Tender, Non-Distended, No Hepato- splenomegaly Extremities: No edema, No Calf Tenderness Laboratory Results 02/02/20 14:25: WBC 11.2 H, RBC 4.62, Hgb 13.5, Hct 41.1, MCV 89.0, MCH 29.2, MCHC 32.8, RDW Std Deviation 42.1, RDW Coeff of Toshia 12.9, Plt Count 257, MPV 9.8, Immature Gran % (Auto) 0.300, Neut % (Auto) 65.7, Lymph % (Auto) 24.0, [place] % (Auto) 6.0, Eos % (Auto) 3.6, Baso % (Auto) 0.4, Absolute Neuts (auto) 7.4, Absolute Lymphs (auto) 2.69, Nucleated RBC % 0 02/02/20 14:25: Sodium 142, Potassium 4.5, Chloride 109 H, Carbon Dioxide 28.0, Anion Gap 5, BUN 18, Creatinine 1.04, Estim Creat Clear Calc 113.98, Est GFR (MDRD) Af Amer 102, Est GFR (MDRD) Non-Af 84, BUN/Creatinine Ratio 17.3, Glucose 134 H, Calcium 9.1, Total Bilirubin 0.20, AST 15, ALT 18, Alkaline Phosphatase 103, Total Protein 8.0, Albumin 3.5, Globulin 4.5 H, Albumin/Globulin Ratio 0.8 L 02/02/20 14:25: Ethyl Alcohol < 3.0 02/02/20 14:30: Urine Opiates Screen NEGATIVE, Urine Methadone Screen NEGATIVE, Ur Barbiturates Screen NEGATIVE, Ur Phencyclidine Scrn NEGATIVE, Ur Amphetamines Screen POSITIVE H, U Methamphetamin-MDMA POSITIVE H, U Benzodiazepines Scrn NEGATIVE, Urine Cocaine Screen NEGATIVE, U Cannabinoids Screen POSITIVE H, Ur Drug Screen Comment Current Medications Buprenorphine HCl (Buprenorphine Hcl 2 Mg Tab.Subl) 4 mg SL Q8H LAURA; Taper Stop: 02/05/20 19:59 Last Admin: 02/03/20 04:40 Dose: 4 mg Documented by: Clonidine (Clonidine Hcl 0.1 Mg Tablet) 0.1 mg PO Q8H PRN PRN PRN Reason: RESTLESSNESS Last Admin: 02/03/20 08:51 Dose: 0.1 mg Documented by: Dicyclomine HCl (Dicyclomine 10 Mg Capsule) 20 mg PO Q6H PRN PRN PRN Reason: Abdominal Discomfort Last Admin: 02/03/20 04:40 Dose: 20 mg Documented by: Gabapentin (Gabapentin 300 Mg Capsule) 300 mg PO Q8H PRN PRN PRN Reason: moderate to severe anxiety Last Admin: 02/03/20 04:40 Dose: 300 mg Documented by: Hydroxyzine Pamoate (Hydroxyzine Ashlie 25 Mg Capsule) 50 mg PO Q6H PRN PRN PRN Reason: mild anxiety Last Admin: 02/03/20 08:52 Dose: 50 mg Documented by: Loperamide HCl (Loperamide 2 Mg Capsule) 2 mg PO Q4H PRN PRN PRN Reason: LOOSE STOOLS Methocarbamol (Methocarbamol 750 Mg Tablet) 1,500 mg PO Q6H PRN PRN PRN Reason: MUSCLE SPASM Last Admin: 02/03/20 04:39 Dose: 1,500 mg Documented by: Ondansetron HCl (Ondansetron 8 Mg Tablet) 8 mg PO Q8H PRN PRN PRN Reason: NAUSEA Sodium Chloride (0.9% Saline Lock 10 Ml Syringe) 10 - 40 ml IV UD PRN PRN Reason: SALINE FLUSH Trazodone HCl (Trazodone 100 Mg Tablet) 100 mg PO QHS PRN PRN PRN Reason: INSOMNIA STROKE Vital Signs/Narrative: Vital Signs Temp Pulse Resp BP Pulse Ox 02/03/20 08:30 37.3 C 94 18 149/90 H 94 Medical Necessity - Tobacco Use Smoking Status: Current every day smoker Tobacco Use: Cigarettes Assessment/Plan All Active Problems (Last Reviewed 10/22/18 @ 09:[address] Sergei Grossman, DO) Opiate dependence (Acute) Heroin use disorder, moderate, in sustained remission (Resolved) KAYLIN (acute kidney injury) (Resolved) Cellulitis of right leg without foot (Acute) Septic arthritis of knee, right (Resolved) Septic prepatellar bursitis of right knee (Resolved) 1. acute opiate withdrawal ongoing. feeling well. continue with buprenorphine taper Inpatient E&M: 58804 Subs Hosp L1
--- NOTE | 2020-02-03 11:26 | ADDICTION ---
This principal technical writer attempted to meet with patient in his room. He did not rouse with 3 attempts at verbal prompting. This principal technical writer will attempt to collaborate with patient tomorrow.
--- NOTE | 2020-02-03 12:45 | CASEMGMT ---
Social Work Note Pt is listed as self-pay. SW in to speak with pt. SW introduced self and role at [facility]. Pt is alert and orientated x3. Pt states he recently applied for Medicaid. SW encouraged pt to follow up with Medicaid at discharge because once pt's medicaid is active, it will bounce back and pay for [facility] hospitalization. Pt states understanding. SW provided pt with additional financial resources including [employer], [employer] to [employer], [employer], RX assistance programs, [employer] and [employer] application. Pt thanked this worker, denied additional needs or concerns at this time. Serenity Aguila AUTOMATIC SPOOLER OPERATOR, CASTING TECHNICIAN
--- NOTE | 2020-02-03 15:08 | NT.THERAPY_ITS ---
Nutrition Therapy Report - History Nutrition Services has been consulted to:: Manage nutrient details of diet order Current diet / nutrition support order:: Regular diet - Anthropometric Measurements Height:: 6 ft 3 in Weight:: 86.6 kg Body Mass Index (BMI):: 23.8 - Relevant Labs Relevant Labs:: WBC 11.2 K/mm3 (4.4-11.0) H 02/02/20 14:25 Chloride 109 mmol/L (98-107) H 02/02/20 14:25 Glucose 134 mg/dL (74-106) H 02/02/20 14:25 Globulin 4.5 g/dL (2.2-4.2) H 02/02/20 14:25 Albumin/Globulin Ratio 0.8 RATIO (0.9-2.4) L 02/02/20 14:25 - Assessment Food / Nutrition-Related History:: Pt reports improved intake today & taking~100% of meal trays since admit. Pt reports UBW~210 lbs and confirms recent wt loss ~20 lbs x past 3-4 months; calculated~8-10% wt loss which is significant for malnutrition especially given poor intake well logging captain mud analysis due to drug abuse. Pt does not show physical signs of malnutrition at this time. - Nutrition Diagnosis Problem / Etiology / Signs & Symptoms (PES):: Severe pro/jennifer malnutrition in the context of social/behavioral circumstance related to opiate dependence and inadequate diet nutrient-density as evidenced by 8-10% wt loss x past 3-4 months and inadequate oral intake prior to admission. Evidence of Malnutrition Exists:: Yes Severe PCM:: Social & Environmental circumstances - Nutrition Intervention Nutrition Prescription:: Estimated nutrition needs~0788-0513 kcal and ~85-105 gm protein per day for repletion. - Food / Nutrient Delivery Interventions Summary of nutrition intervention:: Continue regular diet w/ snacks and will add 240 ml lizett ensure enlive TID w/ meals for additional 1050 kcal and 60 gm protein per day. Nutrition support ordered as / adjusted to:: No nutrition support Nutrition education provided?: Yes - MNT Monitoring Further MNT monitoring and evaluation required?: Yes MNT Follow-up in:: 5-7 days
[2020-02-03 15:13] VITALS: BMI 23.8
[2020-02-03 19:44] VITALS: BP 155/71; PULSE 75; RESP 18; TEMP 36.8; O2SAT 97
[2020-02-04 02:44] VITALS: BP 135/85; PULSE 71; RESP 18; TEMP 36.5; O2SAT 98
[2020-02-04] MEDS: Buprenorphine HCl 2 MG TAB.SUBL SL ×2 (04:12→12:01)
[2020-02-04 08:14] VITALS: BP 138/90; PULSE 90; RESP 18; TEMP 36.6; O2SAT 98
[2020-02-04] MEDS: Methocarbamol 750 MG Tablet 1500 MG PO ×2 (08:20→14:14)
[2020-02-04] MEDS: Dicyclomine 10 MG Capsule 20 MG PO ×2 (08:21→14:14)
[2020-02-04] MEDS: Gabapentin 300 MG Capsule PO ×2 (08:21→17:11)
--- NOTE | 2020-02-04 08:53 | ADDICTION ---
This development writer met with patient in his room to complete ASAM, MSE and DUDIT assessments and to plan for d/c. Patient requested to admit into [facility]. This development writer has sent referral t [facility] for residential admission. He appears appropriate fr the [facility] at this time. He did not request assistance with transportation. This development writer will update [facility] social work instructor abut patient's admission status.
[2020-02-04 09:00] VITALS: PULSE 104
--- NOTE | 2020-02-04 12:28 | PN_ITS ---
Patient Problems: Active and Suspected Problems (Last Reviewed 10/22/18 @ 09:[address] Sergei Grossman, DO) Opiate dependence (Acute) Reason for Visit: opiate withdrawal Subjective: feeling worse today. He is homeless, but states that is mother can pick him up 02/05 and he could stay with her until the , when he could follow up with [facility]. Vitals/I&O's: Vital Signs Temp Pulse Resp BP Pulse Ox 36.6 C 104 H 18 138/90 H 98 02/04/20 08:14 02/04/20 09:00 02/04/20 08:14 02/04/20 08:14 02/04/20 08:14 Oxygen Delivery Method Room Air Weight: 86.6 kg Body Mass Index (BMI) 23.8 Intake and Output for Last 24 Hours 02/02/20 02/03/20 02/04/20 23:59 23:59 23:59 Intake Total 2200 / 2200 1600 / 1600 Balance 2200 / 2200 1600 / 1600 General: Alert, No apparent distress HEENT: Atraumatic, Normocephalic Oral: Moist Mucosa, No Gingival or Mucosal Lesions/ Ulcerations Neck: No Nodes, Thyroid Normal Size and Texture Lungs: Clear to auscultation, Normal air movement, No rhonchi, No wheeze Cardiovascular: Regular rate, Regular Rhythm, Normal S1, Normal S2, No murmurs Abdomen: Bowel Sounds Present, Soft, Non Tender, Non-Distended, No Hepato- splenomegaly Psych/Mental Status: Normal Affect, Appropriate Current Medications Buprenorphine HCl (Buprenorphine Hcl 2 Mg Tab.Subl) 2 mg SL Q8H LAURA; Taper Stop: 02/05/20 19:59 Last Admin: 02/04/20 12:01 Dose: 2 mg Documented by: Clonidine (Clonidine Hcl 0.1 Mg Tablet) 0.1 mg PO Q8H PRN PRN PRN Reason: RESTLESSNESS Last Admin: 02/03/20 08:51 Dose: 0.1 mg Documented by: Dicyclomine HCl (Dicyclomine 10 Mg Capsule) 20 mg PO Q6H PRN PRN PRN Reason: Abdominal Discomfort Last Admin: 02/04/20 08:21 Dose: 20 mg Documented by: Gabapentin (Gabapentin 300 Mg Capsule) 300 mg PO Q8H PRN PRN PRN Reason: moderate to severe anxiety Last Admin: 02/04/20 08:21 Dose: 300 mg Documented by: Hydroxyzine Pamoate (Hydroxyzine Ashlie 25 Mg Capsule) 50 mg PO Q6H PRN PRN PRN Reason: mild anxiety Last Admin: 02/03/20 08:52 Dose: 50 mg Documented by: Loperamide HCl (Loperamide 2 Mg Capsule) 2 mg PO Q4H PRN PRN PRN Reason: LOOSE STOOLS Methocarbamol (Methocarbamol 750 Mg Tablet) 1,500 mg PO Q6H PRN PRN PRN Reason: MUSCLE SPASM Last Admin: 02/04/20 08:20 Dose: 1,500 mg Documented by: Nicotine (Nicotine 21 Mg Patch) 21 mg TRANSDERM. DAILY LAURA Last Admin: 02/04/20 10:46 Dose: 21 mg Documented by: Ondansetron HCl (Ondansetron 8 Mg Tablet) 8 mg PO Q8H PRN PRN PRN Reason: NAUSEA Sodium Chloride (0.9% Saline Lock 10 Ml Syringe) 10 - 40 ml IV UD PRN PRN Reason: SALINE FLUSH Trazodone HCl (Trazodone 100 Mg Tablet) 100 mg PO QHS PRN PRN PRN Reason: INSOMNIA STROKE Vital Signs/Narrative: Vital Signs Pulse 02/04/20 09:00 104 H Medical Necessity - Tobacco Use Smoking Status: Current every day smoker Tobacco Use: Cigarettes Assessment/Plan All Active Problems (Last Reviewed 10/22/18 @ 09:[address] Sergei Grossman, DO) Opiate dependence (Acute) Heroin use disorder, moderate, in sustained remission (Resolved) KAYLIN (acute kidney injury) (Resolved) Cellulitis of right leg without foot (Acute) Septic arthritis of knee, right (Resolved) Septic prepatellar bursitis of right knee (Resolved) 1. acute opiate withdrawal ongoing. continue with buprenorphine taper Discussed with addiction medicine and they requested if the patient could remain here until the . Explained to addiction medicine as well as the patient that that would not be feasible given the current pandemic. However upon speaking with the patient he stated that his mother would be able to pick him up on Thanksgiving and that he would be able to stay with her. If you to be discharged tomorrow, after his taper, he would be homeless. Feel would be reasonable outside of a large influx of patients for him to remain here until the so that he may stay with his mother and then be enrolled in the [facility] residential program. Inpatient E&M: 35533 Subs Hosp L2
[2020-02-04 14:09] VITALS: BP 131/87; PULSE 84; RESP 18; TEMP 36.7; O2SAT 100
[2020-02-04] MEDS: cloNIDine HCl 0.1 MG Tablet PO (14:14)
--- NOTE | 2020-02-04 16:24 | CHAPLAIN ---
Type of Pastoral Visit _x__ Initial Visit ___ Follow-up Visit ___ On-call Visit ___ General Patient Visit ___ Spiritual Assessment ___ Family Conference ___ Bereavement ___ Rapid Response ___ Code Blue ___ Other (describe below) Pastoral Care Referral From ___ Patient _x__ Family ___ Nurse ___ Physician ___ Workforce Development Program Director ___ Automatic Pad Making Machine Operator ___ Other (describe below) Sacrament/Intervention _x__ Active listening ___ Anointing ___ Caodaism ___ Bereavement ___ Communion _x__ Wendie exploration ___ _x__ Life review _x__ Prayer ___ Reconciliation ___ Sacrament of Sick _x__ Supportive presence ___ Wedding ___ Other (describe below) Pastoral Comments patient is agreeable to spiritual care support; pt speaks of getting free from this stuff and praying daily for God's help; pt identifies reason is for self and secondly for his children; pt concerns include being several days before he can get into [facility] and knowing that I may not be able to make it clean until Monday and needing a place to stay now and how do I get to where I am supposed to go; offered pt another resource of [facility] that could take him to local sober house and even pick him up; pt was given phone number for such for follow up; pt requested that this package drier give this information to his mother; prayer and presence welcomed; pt would like follow up visit from package drier tomorrow
[2020-02-04] MEDS: Ondansetron 8 MG Tablet PO (17:11)
--- NOTE | 2020-02-04 17:55 | NURSING ---
REQUESTS TO LEAVE. AMA PAPER SIGNED & PLACED ON CHART, COPY TO PATIENT. NOTIFIED BY ROMA BENAVIDEZ RN.
== END 2020-02-04 17:56 | disposition left against medical advice (07) | DRG 894 ==
LOC: ED 13:51 → MS3 15:02
PROVIDERS: Admitting Provider Family Medicine; Emergency Provider Emergency Medicine; PCP Internal Medicine
DX: F11.23 Opioid dependence with withdrawal (principal); F17.210 Nicotine dependence, cigarettes, uncomplicated; Z59.0 Homelessness; Z53.29 Procedure and treatment not carried out because of patient's decision for other reasons
CPT/HCPCS: 80053; 80307; 80320; 85025; 97802; 99285; A4216; G0480

== ENCOUNTER → 2021-02-09 16:24 | Emergency (ER) | payer SELFPAY ==
[2021-02-09 16:25] VITALS: BP 151/86; PULSE 97; RESP 18; TEMP 36.2; O2SAT 120; BMI 29.9
== END ==
PROVIDERS: PCP Internal Medicine
DX: Z00.00 Encounter for general adult medical examination without abnormal findings (principal)

== ENCOUNTER 2021-04-30 09:08 | Inpatient (IN) | payer MEDICAID, SELFPAY ==
[2021-04-30 07:56] VITALS: BMI 24.5
[2021-04-30 08:00] VITALS: BP 126/76; PULSE 88; RESP 14; TEMP 36.7; O2SAT 96
--- NOTE | 2021-04-30 10:47 | CASEMGMT ---
Social Work Note Pt is RAMP pt. SW placed a call to Addiction Therapist, Janessa, and updated her. Serenity Aguila SEARCH ANALYST, PARAMEDIC
[2021-04-30] MEDS: Dicyclomine 10 MG Capsule 20 MG PO (11:45)
[2021-04-30] MEDS: cloNIDine HCl 0.1 MG Tablet PO (11:45)
[2021-04-30] MEDS: Gabapentin 300 MG Capsule PO ×2 (11:45→20:14)
[2021-04-30] MEDS: Buprenorphine HCl 2 MG TAB.SUBL SL ×2 (11:50→20:14)
--- NOTE | 2021-04-30 13:14 | HP.PCM.HOS_ITS ---
HPI - General General Date of Admission: 04/30/21 Date of Service: 04/30/21 Chief Complaint: Acute opiate withdrawal HPI Narrative SOBIA HENDRICKSON, is a 40 M who presented to emergency department in the system up near [place] after being found in his car unconscious. Patient has a history of heroin abuse and when he became more alert expressed a desire for detox. He was evidently given the option to go to [facility] or go to detox and chose to come for detox. Has gone through detox in the past but it has been quite a long time. His last heroin use was yesterday afternoon at approximately 3 PM. He admits to snorting 1/2 to 1 g a day at least however he does indicate that he uses more if it is available. He states that he does not use anything but heroin however he is unclear what is in the heroin at times. He also admits to tobacco abuse and intermittent marijuana use. He denies any alcohol abuse. He currently is having some anxiety and body aches with nausea as well as some diarrhea. He has a remote history of IV drug use but has tested negative for HIV since that point time. He reports he does have a history of hepatitis C. His overall work-up at the [facility] was unremarkable with regards to his labs. A chest x-ray was performed and showed no acute cardiopulmonary processes. They did a CT of his head given his mental status change upon presentation and there were no acute intracranial pathologies. An ABG was also performed and was found to be normal. He was transferred here for alcohol detox as he is from this area. [facility] Medical History (Updated 04/30/21 @ 13:[address] Noy Spaulding DO) Abscess of right hand including fingers Anxiety Back pain Cellulitis, face Chronic radicular low back pain Depression Hepatitis C Paresthesias in right hand Seasonal allergies Substance abuse Tobacco abuse Home Medications amitriptyline 150 mg PO BID 04/30/21 [History Last Taken 04/29/21] Allergy/AdvReac Type Severity Reaction Status Date / Time amoxicillin [Amoxicillin] Allergy Rash Verified 02/09/21 16:29 Penicillins Allergy Rash Verified 02/09/21 16:29 Family History Brother Cystic fibrosis Sister Thyroid disorder Mother Hypertension Thyroid disorder Diabetes Father Anxiety Thyroid disorder Heart disease Alcoholism Grandmother Breast cancer Heart disease Grandfather Cancer lung Surgical History H/O right knee surgery Social History Smoking Status: Current every day smoker tobacco type: cigarettes second hand exposure: No alcohol intake: never what type of physical activity do you participate in: other details: cardio frequency: 1-2 times per week duration: 30-45 minutes/day ROS Constitutional Constitutional: Reports malaise; Denies anorexia, change in weight, chills, fatigue, fever(s), night sweats, weakness or other Eyes Eyes: Denies blurry vision, change in eye color, change in vision, discharge from eye(s), double vision, erythema, eye pain, loss of vision or other ENT HEENT: Reports other Details: Rhinorhea Cardiovascular Cardiovascular: Denies chest pain, claudication, dyspnea on exertion, edema, lightheadedness, orthopnea, palpitations, paroxysmal nocturnal dyspnea, rapid heart rate, syncope or other Respiratory/Chest Respiratory/Chest: Denies cough, dyspnea, excessive phlegm production, hemoptysis, productive cough, shortness of breath at rest, shortness of breath with exertion, wheezing or other Gastrointestinal Gastrointestinal: Reports diarrhea and nausea; Denies abdominal pain, coffee johana und emesis, constipation, dyspepsia, hematemesis, hematochezia, loose stools, melena, vomiting or other Genitourinary Genitourinary: Denies burning urination, difficulty urinating, dysuria, hematuria, nocturia, urinary frequency, urinary hesitancy, urinary incontinence, urinary urgency or other Musculoskeletal Musculoskeletal: Reports myalgias; Denies arthralgias, back pain, joint pain, joint stiffness, joint swelling, neck pain or other Neurologic Neurologic: Denies abnormal gait, abnormal speech, confusion, disequilibrium, dizziness, focal weakness, headache(s), numbness, paresthesias, seizure-like activity, seizures, syncope, tingling, tremor(s) or other Psychiatric Psychiatric: Reports anxiety; Denies depression, homicidal ideation, suicidal ideation or other Endocrine Endocrinology: Denies change in body appearance, cold intolerance, excessive sweating, heat intolerance, polydipsia, polyuria or other Hematologic/Lymphatic Hematologic/Lymphatic: Denies anemia, easy bleeding, easy bruising, lymphadenopathy or other Allergic/Immunologic Allergic/Immunologic: Denies rhinitis, hives, eczemia, asthma or other Vital Signs Vital Signs Vital Signs: 04/30/21 08:00 04/30/21 08:25 Temperature 98.1 F Temperature Source Oral Pulse Rate 88 Pulse Strength Normal (2+) Respiratory Rate 14 Blood Pressure 126/76 H Blood Pressure Mean 92 Blood Pressure Source Monitor Blood Pressure Position Sitting Blood Pressure Location Left Arm Pulse Ox 96 Oxygen Delivery Method Room Air Weight Weight: 88.8 kg Body Mass Index (BMI) 24.5 Physical Exam Const alert, oriented x3, no apparent distress and average body habitus Constitutional Narrative: Middle-aged white male sitting up in bed eating breakfast, appears comfortable nontoxic, very pleasant General Appearance: cooperative HEENT normocephalic, head/scalp atraumatic, hearing grossly normal bilaterally and moist oral mucous membranes HEENT Narrative: Mallampati 2, dentition is fair, no thrush Resp normal respiratory effort, no retractions, no use of accessory muscles and clear to auscultation bilaterally Auscultation: Negative for crackles, rales, rhonchi or wheezes Cardio regular rate, regular rhythm, S1 normal heart sound, S2 normal heart sound, no murmurs, no rub, no gallops, no clicks and no JVD GI normal to inspection, nondistended, normoactive bowel sounds, soft to palpation, non-tender and non-distended; Negative for hepatosplenomegaly Extremity no clubbing, cyanosis or edema Peripheral Pulses: Yes pulses 2+ throughout Neuro oriented x3, CN's II-XII intact bilaterally, moves all extremities and no focal motor deficits Sensorium / Orientation: awake and alert Motor Exam: strength 5/5 throughout Psych affect normal Psych Narrative: Very pleasant and appropriately interactive Assessment & Plan Assessment/Plan (1) Opiate withdrawal: (2) Opiate abuse, continuous: PLAN: Acute opiate withdrawal -Last use was at 3 AM yesterday -We will start buprenorphine taper when appropriate--> will likely not be ready to initiate until tomorrow -Supportive medications as ordered -Addiction medicine consulted History of hepatitis C -Chronic infection -Recommend outpatient follow-up once patient able to maintain sobriety for consideration of treatment -Recommend GI follow-up after discharge Tobacco abuse -Recommend cessation -Nicotine patch Anxiety/depression -Continue amitriptyline DVT prophylaxis -Low risk -Early ambulation protocol CODE STATUS -Full code Charges/Coding Visit Charges Inpatient E&M: 99414 Init Hosp L2
--- NOTE | 2021-04-30 14:16 | ADDICTION ---
This senior technical writer met with PT to conduct ASAM, MSE, AUDIT assessments and to plan for d/c. PT A+Ox4 and participated actively. All assessments completed, faxed to [facility] and placed in PT's chart. PT plans to f/u with [facility] for residential and follow-up counseling services. PT indicated a need for transportation post d/c from [facility]. Kody will pick him up Monday at 10:30.
[2021-04-30 16:00] VITALS: BP 114/69; PULSE 72; RESP 14; TEMP 36.3; O2SAT 98
[2021-04-30 20:15] VITALS: BP 115/79; PULSE 72; RESP 16; TEMP 36.8; O2SAT 98
[2021-05-01 04:22] VITALS: BP 131/78; PULSE 79; RESP 16; TEMP 36.5; O2SAT 97
[2021-05-01] MEDS: Buprenorphine HCl 2 MG TAB.SUBL SL ×3 (04:25→20:01)
[2021-05-01] MEDS: Ondansetron 8 MG Tablet PO ×2 (04:25→17:22)
[2021-05-01] MEDS: Gabapentin 300 MG Capsule PO ×2 (04:25→17:22)
[2021-05-01 10:50] VITALS: BP 125/73; PULSE 91; RESP 16; TEMP 36.7; O2SAT 98
[2021-05-01] MEDS: Methocarbamol 750 MG Tablet 1500 MG PO ×2 (10:59→20:01)
[2021-05-01] MEDS: Dicyclomine 10 MG Capsule 20 MG PO ×2 (10:59→17:22)
[2021-05-01] MEDS: Loperamide 2 MG Capsule PO (10:59)
[2021-05-01] MEDS: hydrOXYzine PAM 25 MG Capsule 50 MG PO (10:59)
[2021-05-01] MEDS: cloNIDine HCl 0.1 MG Tablet PO (10:59)
--- NOTE | 2021-05-01 13:58 | PCM.PN.HOSP ---
Subjective Subjective Patient is having some withdrawal symptoms in the form of body aches, diarrhea and intermittent nausea. He denies any current needs at this time. Objective Data Objective Data Vital Signs: Vital Signs Temp Pulse Resp BP Pulse Ox 98.1 F 91 16 125/73 H 98 05/01/21 10:50 05/01/21 10:50 05/01/21 10:50 05/01/21 10:50 05/01/21 10:50 Oxygen Delivery Method Room Air Weight: 88.8 kg Body Mass Index (BMI) 24.5 Intake & Output: Intake and Output for Last 24 Hours 04/29/21 04/30/21 05/01/21 23:59 23:59 23:59 Intake Total 550 / 550 Balance 550 / 550 Physical Exam Const alert, oriented x3, no apparent distress and average body habitus Constitutional Narrative: Middle-aged white male lying in bed resting, appears comfortable nontoxic, very pleasant General Appearance: cooperative HEENT normocephalic, head/scalp atraumatic, hearing grossly normal bilaterally and moist oral mucous membranes Head and Scalp: normocephalic Resp normal respiratory effort, no retractions, no use of accessory muscles and clear to auscultation bilaterally Auscultation: Negative for crackles, rales, rhonchi or wheezes Cardio regular rate, regular rhythm, S1 normal heart sound, S2 normal heart sound, no murmurs, no rub, no gallops, no clicks and no JVD GI normal to inspection, nondistended, normoactive bowel sounds, soft to palpation, non-tender and non-distended; Negative for hepatosplenomegaly Extremity no clubbing, cyanosis or edema Peripheral Pulses: Yes pulses 2+ throughout Neuro oriented x3, moves all extremities and no focal motor deficits Sensorium / Orientation: awake and alert Assessment & Plan Assessment/Plan (1) Opiate withdrawal: (2) Opiate abuse, continuous: PLAN: Acute opiate withdrawal -Last use was at 3 AM 04/29/2021 -Continue buprenorphine taper--> last dose is scheduled for 221 at 11:59 AM -Supportive medications as ordered -Patient was seen by addiction medicine yesterday and the plan for discharge is [facility] with follow-up counseling services and he will be picked up on Monday at 10:30 AM History of hepatitis C -Chronic infection -Recommend outpatient follow-up once patient able to maintain sobriety for consideration of treatment -Recommend GI follow-up after discharge Tobacco abuse -Recommend cessation -Nicotine patch Anxiety/depression -Continue amitriptyline DVT prophylaxis -Low risk -Early ambulation protocol CODE STATUS -Full code Charges/Coding Visit Charges Inpatient E&M: 05440 Subs Hosp L2
[2021-05-01 16:45] VITALS: BP 122/79; PULSE 86; RESP 16; TEMP 36.8; O2SAT 97
[2021-05-01 20:15] VITALS: BP 109/74; PULSE 89; RESP 16; TEMP 36.9; O2SAT 100
[2021-05-02 04:02] VITALS: BP 116/80; PULSE 83; RESP 18; TEMP 36.8; O2SAT 97
[2021-05-02] MEDS: Buprenorphine HCl 2 MG TAB.SUBL SL ×3 (04:04→23:45)
[2021-05-02 09:05] VITALS: BP 118/72; PULSE 97; RESP 18; TEMP 36.6; O2SAT 97
[2021-05-02] MEDS: Gabapentin 300 MG Capsule PO ×2 (09:11→21:06)
[2021-05-02] MEDS: Dicyclomine 10 MG Capsule 20 MG PO ×2 (09:11→16:46)
[2021-05-02] MEDS: Ondansetron 8 MG Tablet PO (09:11)
[2021-05-02] MEDS: Loperamide 2 MG Capsule PO (09:11)
--- NOTE | 2021-05-02 11:11 | PCM.PN.HOSP ---
Subjective Subjective Still having some diarrhea but otherwise feeling better. No overnight issues. Objective Data Objective Data Vital Signs: Vital Signs Temp Pulse Resp BP Pulse Ox 98.2 F 83 18 116/80 97 05/02/21 04:02 05/02/21 04:02 05/02/21 04:02 05/02/21 04:02 05/02/21 04:02 Oxygen Delivery Method Room Air Weight: 88.8 kg Body Mass Index (BMI) 24.5 Intake & Output: Intake and Output for Last 24 Hours 04/30/21 05/01/21 05/02/21 23:59 23:59 23:59 Intake Total 900 / 900 Balance 900 / 900 Physical Exam Const alert, oriented x3, no apparent distress and average body habitus Constitutional Narrative: Middle-aged white male lying in bed resting, appears comfortable nontoxic, very pleasant General Appearance: cooperative HEENT normocephalic, head/scalp atraumatic, hearing grossly normal bilaterally and moist oral mucous membranes Head and Scalp: normocephalic Resp normal respiratory effort, no retractions, no use of accessory muscles and clear to auscultation bilaterally Auscultation: Negative for crackles, rales, rhonchi or wheezes Cardio regular rate, regular rhythm, S1 normal heart sound, S2 normal heart sound, no murmurs, no rub, no gallops, no clicks and no JVD GI normal to inspection, nondistended, normoactive bowel sounds, soft to palpation, non-tender and non-distended; Negative for hepatosplenomegaly Extremity no clubbing, cyanosis or edema Peripheral Pulses: Yes pulses 2+ throughout Neuro oriented x3, moves all extremities and no focal motor deficits Sensorium / Orientation: awake and alert Assessment & Plan Assessment/Plan (1) Opiate withdrawal: (2) Opiate abuse, continuous: PLAN: Acute opiate withdrawal -Last use was at 3 AM 04/29/2021 -Continue buprenorphine taper--> last dose is scheduled for 05/03 at 11:59 AM -Supportive medications as ordered -Patient was seen by addiction medicine yesterday and the plan for discharge is to [facility] with follow-up counseling services and he will be picked up on Monday morning at 10:30 AM History of hepatitis C -Chronic infection -Recommend outpatient follow-up once patient able to maintain sobriety for consideration of treatment -Recommend GI follow-up after discharge Tobacco abuse -Recommend cessation -Nicotine patch Anxiety/depression -Continue amitriptyline DVT prophylaxis -Low risk -Early ambulation protocol CODE STATUS -Full code Charges/Coding Visit Charges Inpatient E&M: 89547 Subs Hosp L2
[2021-05-02 16:45] VITALS: BP 121/80; PULSE 106; RESP 16; TEMP 36.7; O2SAT 96
[2021-05-02 20:56] VITALS: BP 124/82; PULSE 103; RESP 12; TEMP 37.1; O2SAT 98
--- NOTE | 2021-05-03 07:32 | PCM.DC ---
Discharge Instructions Diet Discharge Diet: No restrictions Activity Discharge Activity: May Not Drive Dressing / Incision Call your doctor if you observe: Fever of 101 or Higher, Coldness, Increased Pain, Numbness or Tingling, Change in Color, Inability to urinate, Inability to have a bowel movement, Shortness of breath, Dizziness, Fainting spells, Swelling in the ankles, Chest pain, Prolonged hiccupping, Increased palpitations (irregular heartbeat), Calf discomfort and Uncontrolled pain Follow Up Care Test Results: Test results from this visit will be discussed in further detail at your follow-up appointment, if applicable. Discharge Plan Admission Admit Date/Time: 04/30/21 09:08 Primary Reason for Your Visit: Acute opioid withdrawal syndrome Attending Provider: Mauricio Rodriguez Primary Care Provider: Sofia Armstrong Discharge Orders/Prescriptions Prescriptions: Continued amitriptyline 150 mg Tablet 150 mg PO BID RF: 0 Referrals / Follow Up: Sofia Armstrong MD [Primary Care Provider] - In 1 Week Keyon Mckenzie DO [STAFF PHYSICIAN] - Within 1 Month (Hepatitis C) Disposition Disposition (needs filled in before D/C Order can be placed): Home, Self Care
[2021-05-03] MEDS: Gabapentin 300 MG Capsule PO (09:57)
[2021-05-03 10:00] VITALS: BP 114/73; PULSE 107; RESP 18; TEMP 36.8; O2SAT 99
--- NOTE | 2021-05-03 10:35 | DS.PCM_ITS ---
Providers Date of Admission: 04/30/21 Date of Discharge: 05/03/21 Primary Care Physician: Dr. Sofia Armstrong MD Reason For Visit: OPIATE DETOX Diagnosis Discharge Diagnosis (1) Opiate withdrawal: Status: Acute Code(s): F11.23 - Opioid dependence with withdrawal (2) Opiate abuse, continuous: Status: Acute Code(s): F11.10 - Opioid abuse, uncomplicated Medications at Discharge Home Medications amitriptyline 150 mg PO BID 04/30/21 Hospital Course Summary of Care Provided Hospital Course: This 42-year-old gentleman with history of chronic substance use opioids was admitted and was found unconsciousness found by EMS in the car. Patient was administered Narcan in an unresponsive, unconscious state with agonal respiration. 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 Chest x-ray showed no acute cardiopulmonary process. CT head showed no acute intracranial acute process. ABG found normal. Patient did not require CPR.Patient was admitted after resuscitation on [facility]. I saw him in the morning. Seen and examined today. Complains of right upper quadrant pain which is chronic in nature. He denies any previous history of gallbladder or liver disease. Has history of remote IV needle use with history of hepatitis C. Patient symptoms were controlled. I advised outpatient right upper quadrant sonogram to further elucidate right upper quadrant pain. Patient has a scheduled discharge for inpatient rehab about 10:30 AM therefore right upper quadrant sonogram I did not order as it wi ll not get done or reported. I talked to the patient and explained different differential diagnosis. Currently does not seem to have acute cholecystitis. Patient does not have fever. Hospital course and management as for Acute opiate withdrawal -Last use was at 3 AM 1 day before admission On buprenorphine schedule and taper medication as per his schedule. Patient other adjunctive supportive medication to control symptoms. Symptoms got better when going for inpatient rehab. History of hepatitis C -Chronic infection -Recommend outpatient follow-up once patient able to maintain sobriety for consideration of treatment -Recommend GI follow-up after discharge Tobacco abuse -Recommend cessation -Nicotine patch Anxiety/depression -Continue amitriptyline DVT prophylaxis -Low risk -Early ambulation protocol CODE STATUS Discharge medication reconciliation done. Discharge follow-up instructions completed. Discharge process discussed with the patient and all questions were answered to patient's satisfaction. Total time spent, exact 35 minutes on discharge meds reconciliation, examination, coordination of care with nurses and ancillary staff, review of imaging and blood test and discussion with the patient on follow-up instructions Physical Exam Narrative Patient is anxious, restless, diffuse muscle aches. Loose bowel movement. Generalized aches and pain. Denies delusion, hallucination suicidal ideation. Physical exam General: Alert, Oriented x3, Cooperative HEENT: Atraumatic, PERRLA, EOMI, Normocephalic. No jaundice Oral: No Gingival or Mucosal Lesions/ Ulcerations Neck: Supple, No JVD, Negative Carotid Bruits Lungs: Air entry diminished in bilateral lung bases. No crepitation/rhonchi Cardiovascular: Regular rate, Regular Rhythm, Normal S1, Normal S2, No murmurs Abdomen: Mild right upper quadrant tenderness. No palpable gallbladder/hepatomegaly. Bowel Sounds Present, Soft, Non-Distended : No renal angle tenderness. No suprapubic tenderness. Extremities: No edema, Capillary Refill Less than 3 Seconds Skin: No rashes, No breakdown Musculoskeletal: No Tenderness to Palpation of Joints or Extremities Neurological: Cranial nerves II-XII grossly intact, DTR 2+/4 and Symmetrical, Neuro grossly intact Psych/Mental Status: Hyperactive. restless and anxiety Weight / BMI Weight Weight: 195 lb 12.328 oz Body Mass Index (BMI) 24.5 D/C Instructions Discharge Diet: No restrictions Call your doctor if you observe: Fever of 101 or Higher, Coldness, Increased Pain, Numbness or Tingling, Change in Color, Inability to urinate, Inability to have a bowel movement, Shortness of breath, Dizziness, Fainting spells, Swelling in the ankles, Chest pain, Prolonged hiccupping, Increased palpitations (irregular heartbeat), Calf discomfort and Uncontrolled pain Meaningful Use Info Meaningful Use Diagnoses (Choose all that apply): None applicable Discharge Plan Admission Admit Date/Time: 04/30/21 09:08 Primary Reason for Your Visit: Acute opioid withdrawal syndrome Attending Provider: Mauricio Rodriguez Primary Care Provider: Sofia Armstrong Discharge Orders/Prescriptions Prescriptions: Continued amitriptyline 150 mg Tablet 150 mg PO BID RF: 0 Referrals / Follow Up: Sofia Armstrong MD [Primary Care Provider] - In 1 Week Friend,DO Keyon [STAFF PHYSICIAN] - Within 1 Month (Hepatitis C) Disposition Disposition (needs filled in before D/C Order can be placed): Home, Self Care Charges/Coding Visit Charges Inpatient E&M: 65980 Disch Hosp
== END 2021-05-03 10:35 | disposition home or self-care (01) | DRG 896 ==
PROVIDERS: Admitting Provider Internal Medicine; PCP Internal Medicine; Referring Provider Internal Medicine; Visit Provider Internal Medicine
DX: F11.23 Opioid dependence with withdrawal (principal); E43 Unspecified severe protein-calorie malnutrition; B19.20 Unspecified viral hepatitis C without hepatic coma; F41.9 Anxiety disorder, unspecified; F17.210 Nicotine dependence, cigarettes, uncomplicated; F32.A Depression, unspecified; R10.11 Right upper quadrant pain; Z68.24 Body mass index [BMI] 24.0-24.9, adult; Z79.899 Other long term (current) drug therapy
CPT/HCPCS: 97802; 99251; 99406; G0463

== ENCOUNTER 2021-05-27 18:18 | Emergency (ER) | payer MEDICAID, SELFPAY ==
[2021-05-27 18:20] VITALS: BP 147/90; PULSE 107; RESP 10; TEMP 37.4; O2SAT 98; BMI 26.7
[2021-05-27 18:28] VITALS: BP 147/90; PULSE 113; PULSE 115; RESP 13; RESP 17; TEMP 37.3; O2SAT 98; O2SAT 99
--- NOTE | 2021-05-27 18:44 | EDS_ITS ---
HPI History of Present Illness Chief Complaint: Other, Pain/Inj Informant: patient and spouse/S.O. Narrative Narrative: Patient presents with pain to his lower thoracic upper lumbar back. Going on for about 3 weeks. He went to [place] originally. A CAT scan showed what they thought might be infection. He was transferred up to [facility] on [facility]. He had an MRI that showed he did not have an infection. He states that they did a biopsy through his lungs that showed what he was told was lymphoma. One doctor told him was cancer one doctor said he does not think it is cancer. He was given some methadone. He went to his outpatient visit today. They plan to do either another biopsy or a surgery to remove this area. He is not certain which. He told them he is just having a lot of pain in the area. They referred him to pain management but stated he should go to the ER to get pain meds until he can get into pain management. Patient is not having any radicular symptoms. He is eating drinking. He is not having trouble breathing. This is the same pain he has been having for weeks it is just not easy to manage. He has Flexeril but no other meds at this time. I also did online prescribing report. Per his report, he only has 1 prescription for narcotics and it would have run out yesterday. This is consistent with his story. It sounds like he does have history of narcotic abuse in the past. However, he also has an acute painful condition that may also be cancer and I think it is reasonable to manage his pain. [facility] Medical History Abscess of right hand including fingers Anxiety Back pain Cellulitis, face Chronic radicular low back pain Depression Hepatitis C Opiate abuse, continuous Paresthesias in right hand Seasonal allergies Substance abuse Tobacco abuse Home Medications amitriptyline 150 mg PO BID 04/30/21 [History Last Taken 04/29/21] oxycodone-acetaminophen [Percocet] 1 tab PO Q6H PRN 3 Days #12 tab 05/27/21 [Rx Last Taken Unknown] Allergy/AdvReac Type Severity Reaction Status Date / Time amoxicillin [Amoxicillin] Allergy Rash Verified 02/09/21 16:29 Penicillins Allergy Rash Verified 02/09/21 16:29 Family History Brother Cystic fibrosis Sister Thyroid disorder Mother Hypertension Thyroid disorder Diabetes Father Anxiety Thyroid disorder Heart disease Alcoholism Grandmother Breast cancer Heart disease Grandfather Cancer lung Surgical History H/O right knee surgery Social History Smoking Status: Current every day smoker tobacco type: cigarettes second hand exposure: No alcohol intake: never what type of physical activity do you participate in: other details: cardio frequency: 1-2 times per week duration: 30-45 minutes/day ROS ROS ED Constitutional Constitutional ED: Denies chills or fever(s) Eyes Eyes: Denies blurry vision ENT ENT ED: Denies sore throat Cardiovascular Cardiovascular: Denies chest pain, palpitations or racing heartbeat Respiratory/Chest Respiratory/Chest: Denies cough or dyspnea Gastrointestinal Gastrointestinal: Denies abdominal pain, nausea or vomiting Genitourinary Genitourinary ED: Denies dysuria or hematuria Musculoskeletal Musculoskeletal: Reports back pain Integumentary Denies rash Neurologic Neurologic: Denies headache(s), paresthesias or weakness Psychiatric Psychiatric: Denies anxiety or depression Endocrine Endocrinology: Denies polydipsia or polyuria Allergic/Immunologic Allergic/Immunologic ED: Denies urticaria EXAM Physical Exam Const Vital Signs: 05/27/21 18:20 05/27/21 18:28 Temperature 99.4 F H 99.2 F H Temperature Source Temporal Temporal Pulse Rate 107 H 113 H Respiratory Rate 10 L 17 Blood Pressure 147/90 H 147/90 H Blood Pressure Mean 109 109 Pulse Ox 98 98 Oxygen Delivery Method Room Air Room Air Positive well nourished and well developed General Appearance ED: well developed and NAD; Negative for cyanotic or diaphoretic HEENT Reports moist mucous membranes Eyes General Eye ED: Negative for pale conjunctiva or scleral icterus Neck no JVD Chest Wall inspection of chest normal and palpation of chest normal Resp normal respiratory effort and clear to auscultation bilaterally Resp Narrative: Patient has some pain sitting up to listen to his lungs but no pain with deep breath. Effort and Inspection: Negative for pain with movement Auscultation: Negative for rales, rhonchi or wheezes Cardio regular rhythm and no murmurs Rate: tachycardic GI normal to inspection, nondistended, normoactive bowel sounds, non-tender and non-distended GI Narrative: Abdomen is quite benign Palpation: soft Back/Spine Back/Spine Narrative: Patient does have some diffuse mild tenderness around the upper lumbar lower thoracic area. I do not see any skin changes in the area. Extremity normal to inspection General Extremety ED: Negative for edema or tenderness General Extremity: Negative for edema Neuro oriented x3 Neuro Narrative: No sign of weakness numbness or tingling. He has no radicular symptoms. He denies bowel or bladder dysfunction. Sensorium / Orientation: alert Psych mental status grossly normal Skin no rashes or lesions noted MDM MDM MDM Narrative Medical decision making narrative: I did do online searching of some records. It takes quite some time and is difficult. However I do verify his story. He does have a new mediastinal area mass that is being worked up. Considering this information I think it is reasonable to try to manage his pain. I think this would be best done through the primary providers that he is seen. However they are not writing for meds and this is verified through the prescription monitoring program. I will write for several days. I will also refer him to local pain management to give him some options. Discharge Plan Triage Chief Complaint: Other, Pain/Inj ED Provider: Luciano Russell Dx/Rx/DC Orders Clinical Impression: Mediastinal mass, Back pain Instructions: ED Chronic Pain Prescriptions: New oxycodone-acetaminophen [Percocet] 5-325 mg tablet 1 tab PO Q6H PRN (Reason: pain) 3 Days Qty: 12 RF: 0 No Action amitriptyline 150 mg Tablet 150 mg PO BID RF: 0 Primary Care Provider: Sofia Armstrong Referrals: Tarah Viera MD [STAFF PHYSICIAN] - As soon as possible Sofia Armstrong MD [Primary Care Provider] - Disposition Disposition: Home, Self Care
[2021-05-27] MEDS: HYDROmorphone 1 MG/ML Syringe SC (19:04)
[2021-05-27 19:08] VITALS: BP 150/82; PULSE 112; RESP 12; O2SAT 99
== END 2021-05-27 19:09 | disposition home or self-care (01) ==
PROVIDERS: Emergency Provider Emergency Medicine; PCP Internal Medicine; Visit Provider Emergency Medicine
DX: J98.59 Other diseases of mediastinum, not elsewhere classified (principal); M54.6 Pain in thoracic spine; M54.50 Low back pain, unspecified; F17.210 Nicotine dependence, cigarettes, uncomplicated
CPT/HCPCS: 96372; 99283

== ENCOUNTER 2022-12-10 13:38 | Emergency (ER) | payer MEDICAID, SELFPAY ==
[2022-12-10 13:39] VITALS: BP 153/106; PULSE 113; RESP 12; TEMP 36.8; O2SAT 94; BMI 23.9
--- NOTE | 2022-12-10 14:06 | CT_ITS ---
STUDY: CT BRAIN WITHOUT CONTRAST REASON FOR EXAM: Male, 42 years old. Headache, overdose RADIATION DOSAGE (If Supplied By Facility): CTDIvol = ( 44.99 ) mGy, DLP = ( 796.11 ) mGycm TECHNIQUE: Transaxial CT imaging of the brain was performed without administration of intravenous contrast material. Individualized dose optimization techniques were used for this CT. COMPARISON: No relevant priors. FINDINGS: Normal soft tissue structures. Normal calvarium. Normal size ventricles and extra-axial spaces for the patient''s age. Normal white matter tracts of the cerebral hemispheres. Normal basal ganglia and thalami. Normal brainstem. Normal cerebellum. There is no intracranial hemorrhage. There are no findings of an acute ischemic infarction. The left maxillary sinus is opacified CT/Brain/Head without Contrast IMPRESSION: No acute hemorrhage, midline shift or mass effect Opacified left maxillary sinus Electronically Signed: Stanford Guallpa MD at 14:45 EDT ,
--- NOTE | 2022-12-10 14:15 | EX.ED.DYSGE1 ---
HPI <Dr. Luciano Russell MD - Last Filed: 12/10/22 17:29> History of Present Illness Chief Complaint: Overdose Informant: patient Narrative Narrative: After overdose and was given Narcan prior to arrival. Patient admits to fentanyl and meth use. He states mostly he uses to kneel. He smokes that he does not inject it. He denies ever injecting. He feels okay now. I did go over review of systems on him. He states that he had a head injury back in August. He remembers going to a store to get Mountain Dew and cigarettes. He then does not have any memory other than that. He was told it look like somebody hit his head with a ball being a hammer. Since then he has been having a lot of problems. He has been having headaches. He has memory problems. He has been having visual problems. He states that for about 5 days he feels like he cannot see out of his right eye at all. But he has been having visual problems for a while. He thinks it was 5 days ago that the decreased vision also started. No repeat or new trauma. No numbness tingling weakness or discoordination of his extremities. No fevers. PFSH <Dr. Luciano Russell MD - Last Filed: 12/10/22 17:29> [facility] Medical History Abscess of right hand including fingers Anxiety Back pain Cellulitis, face Chronic radicular low back pain Depression Hepatitis C Opiate abuse, continuous Paresthesias in right hand Seasonal allergies Substance abuse Tobacco abuse Home Medications amitriptyline 150 mg tablet 150 mg PO BID 04/30/21 [History Last Taken 04/29/21] oxycodone-acetaminophen 5 mg-325 mg tablet (Percocet) 1 tab PO Q6H PRN pain 3 days #12 tabs 05/27/21 [Rx Last Taken Unknown] Allergy/AdvReac Type Severity Reaction Status Date / Time amoxicillin [Amoxicillin] Allergy Rash Verified 12/10/22 13:43 Penicillins Allergy Rash Verified 12/10/22 13:43 Family History Brother Cystic fibrosis Sister Thyroid disorder Mother Hypertension Thyroid disorder Diabetes Father Anxiety Thyroid disorder Heart disease Alcoholism Grandmother Breast cancer Heart disease Grandfather Cancer lung Surgical History H/O right knee surgery Social History Smoking Status: Current every day smoker tobacco type: cigarettes second hand exposure: No alcohol intake: never what type of physical activity do you participate in: other details: cardio frequency: 1-2 times per week duration: 30-45 minutes/day ROS <Dr. Luciano Russell MD - Last Filed: 12/10/22 17:29> ROS ED Constitutional Constitutional ED: Denies chills or fever(s) Eyes Eyes: Reports change in vision and other Details: History of present illness. ENT ENT ED: Denies rhinorrhea Cardiovascular Cardiovascular: Denies chest pain Respiratory/Chest Respiratory/Chest: Denies cough Gastrointestinal Gastrointestinal: Denies nausea or vomiting Musculoskeletal Musculoskeletal: Denies myalgias Integumentary Denies rash Neurologic Neurologic: Reports headache(s) Hematologic/Lymphatic Hematologic/Lymphatic: Denies easy bleeding or easy bruising Allergic/Immunologic Allergic/Immunologic ED: Denies urticaria EXAM <Dr. Luciano Russell MD - Last Filed: 12/10/22 17:29> Physical Exam Narrative Exam Narrative: General: Patient is awake and alert. Pleasant. Not sleepy or lethargic. HEENT: There is some scarring the forehead. No sign of acute injury. Mucous membranes are moist. No sinus tenderness. Eyes: Patient does have a right eye that is deviated out. It does not appear to be deviated directly down and out. Yet he can still look left right up and down in each corner with both eyes. He does have a little bit of weakness of the right eye when looking up. But he is able to do it. It is just not as high as his left. He seems to not have any real vision out of that eye. The pupil is about 3 mm and not really reactive. The left pupil is much smaller about 1-1/2. But patient also recently had opioids and was given Narcan. But he clearly has decreased function of the pupil and range of motion mostly 3rd nerve. Neck is supple no bruit. Lungs are clear bilaterally. Heart is regular. It is tachycardic about 105. No murmur gallop or rub. Abdomen is soft and nontender Extremities show no traumas. Neurologically he is awake alert and appropriate. See eye exam above for further details. Const Vital Signs: 12/10/22 13:39 Temperature 98.3 F Temperature Source Temporal Pulse Rate 113 H Respiratory Rate 12 Blood Pressure 153/106 H Blood Pressure Mean 121 Pulse Ox 94 Oxygen Delivery Method Room Air <Dr. Lacy Ibrahim MD - Last Filed: 12/10/22 18:22> Physical Exam Const Vital Signs: 12/10/22 13:39 Temperature 98.3 F Temperature Source Temporal Pulse Rate 113 H Respiratory Rate 12 Blood Pressure 153/106 H Blood Pressure Mean 121 Pulse Ox 94 Oxygen Delivery Method Room Air MDM <Dr. Luciano Russell MD - Last Filed: 12/10/22 17:29> [facility] MDM Narrative Medical decision making narrative: Discussed options. I was able to convince person to get a CAT scan here to at least evaluate that. It sounds like his visual decrease is at least 5 days old and he has been having some visual problems headaches and memory problems for months now. We have not seen him since his head injury. We will initiate his work-up with a CAT scan at this time. This is pending. My independent interpretation of the patient's CAT scan shows no mass or bleeding. Final showed no acute process. There was opacification of the left maxillary sinus but he is not having really symptoms of this. Patient's CBC showed no marked abnormalities. Patient's kidney function showed some mild elevation of BUN and creatinine. Patient's liver function tests are normal. Patient's alcohol level is normal. I discussed case with neurologist who saw this patient by video interview. He has concerns also with neurologic deficit. He states with the patient primarily needs ophthalmology evaluation. He would recommend MRI also. I discussed the case then with vessel traffic officer, . Commend getting a CTA to make sure we do not see sign of significant aneurysm as the source of his orbital apex syndrome. He states that MRI certainly would be worse part of this work-up. But were not exactly sure the onset of symptoms. They are at least 5 to 7 days and may be from back in August. He can follow the patient up closely as an outpatient as long as the CTA shows no acute process. Patient is up walking around. He is eating and drinking here. He is denying any eye pain to me. He does state he gets headaches but this is not eye pain. Headaches have been there since August since his injury. I explained this to the patient. We are pending the CTA at this time. As long as this looks good we will get him discharged with close follow-up. Lab Data Labs: Laboratory Results - last 24 hr 12/10/22 15:46 WBC 9.3 RBC 4.89 Hgb 13.8 Hct 42.0 MCV 85.9 MCH 28.2 MCHC 32.9 RDW Std Deviation 42.5 RDW Coeff of [place] 13.6 Plt Count 317 MPV 9.4 Immature Gran % (Auto) 0.300 Neut % (Auto) 58.3 Lymph % (Auto) 31.9 [place] % (Auto) 8.4 Eos % (Auto) 0.6 Baso % (Auto) 0.5 Absolute Neuts (auto) 5.4 Absolute Lymphs (auto) 2.95 Nucleated RBC % 0 Sodium 139 Potassium 3.9 Chloride 110 H Carbon Dioxide 24.0 Anion Gap 5 BUN 22 H Creatinine 1.38 H Estim Creat Clear Calc 83.34 Est GFR (MDRD) Af Amer 73 Est GFR (MDRD) Non-Af 60 BUN/Creatinine Ratio 15.9 Glucose 96 Calcium 8.8 Total Bilirubin 0.50 AST 17 ALT 22 Alkaline Phosphatase 117 Total Protein 7.3 Albumin 3.7 Globulin 3.6 Albumin/Globulin Ratio 1.0 Ethyl Alcohol 3.0 Radiography Diagnostic Testing: Clinical Impression(s) from Imaging Studies Brain CT 12/10/22 14:06 IMPRESSION: No acute hemorrhage, midline shift or mass effect Opacified left maxillary sinus Electronically Signed: Stanford Guallpa MD at 14:45 EDT , Head/Neck CTA 12/10/22 16:57 IMPRESSION: CT angiogram neck: No stenosis, occlusion or dissection involving the bilateral carotid and vertebral arteries. CT angiogram head: No stenosis, occlusion or aneurysm involving the [place]. Hypoattenuated right thyroid lobe nodule measuring 7 mm which may be further assessed with ultrasound in nonacute setting. Electronically Signed: Bre Leonardo MD at 18:18 EDT , <Dr. Lacy Ibrahim MD - Last Filed: 12/10/22 18:22> [facility] Lab Data Labs: Laboratory Results - last 24 hr 12/10/22 15:46 WBC 9.3 RBC 4.89 Hgb 13.8 Hct 42.0 MCV 85.9 MCH 28.2 MCHC 32.9 RDW Std Deviation 42.5 RDW Coeff of [place] 13.6 Plt Count 317 MPV 9.4 Immature Gran % (Auto) 0.300 Neut % (Auto) 58.3 Lymph % (Auto) 31.9 [place] % (Auto) 8.4 Eos % (Auto) 0.6 Baso % (Auto) 0.5 Absolute Neuts (auto) 5.4 Absolute Lymphs (auto) 2.95 Nucleated RBC % 0 Sodium 139 Potassium 3.9 Chloride 110 H Carbon Dioxide 24.0 Anion Gap 5 BUN 22 H Creatinine 1.38 H Estim Creat Clear Calc 83.34 Est GFR (MDRD) Af Amer 73 Est GFR (MDRD) Non-Af 60 BUN/Creatinine Ratio 15.9 Glucose 96 Calcium 8.8 Total Bilirubin 0.50 AST 17 ALT 22 Alkaline Phosphatase 117 Total Protein 7.3 Albumin 3.7 Globulin 3.6 Albumin/Globulin Ratio 1.0 Ethyl Alcohol 3.0 Radiography Diagnostic Testing: Clinical Impression(s) from Imaging Studies Brain CT 12/10/22 14:06 IMPRESSION: No acute hemorrhage, midline shift or mass effect Opacified left maxillary sinus Electronically Signed: Stanford Guallpa MD at 14:45 EDT , Head/Neck CTA 12/10/22 16:57 IMPRESSION: CT angiogram neck: No stenosis, occlusion or dissection involving the bilateral carotid and vertebral arteries. CT angiogram head: No stenosis, occlusion or aneurysm involving the [place]. Hypoattenuated right thyroid lobe nodule measuring 7 mm which may be further assessed with ultrasound in nonacute setting. Electronically Signed: Bre Leonardo MD at 18:18 EDT , Treatment and Re-Evaluation :: Patient signed out to me pending CTA of the head and neck. CTA reveals no evidence of stenosis or aneurysm. There is a thyroid nodule noted that will need follow-up as an outpatient. Test results are discussed with the patient. He is given follow-up information for both ophthalmology as well as his primary care physician. Discharge Plan Triage Chief Complaint: Overdose ED Provider: Luciano Russell Dx/Rx/DC Orders Clinical Impression: Orbital apex-sphenoid syndrome, History of traumatic head injury, Opioid overdose, Thyroid nodule Instructions: Common Thyroid Problems, ED Overdose, Opiate Prescriptions: No Action amitriptyline 150 mg Tablet 150 mg PO BID oxycodone-acetaminophen [Percocet] 5-325 mg tablet 1 tab PO Q6H PRN (Reason: pain) 3 Days Qty: 12 0RF Primary Care Provider: Sofia Armstrong Referrals: Konrad Guzman MD [Med Staff - Active Staff] - As soon as possible (On Monday for an appointment. I did speak with him and he is expecting your call.) Sofia Armstrong MD [Primary Care Provider] - Disposition Disposition: Home, Self Care
[2022-12-10 15:55] LABS: Absolute Lymphocyte Count 2.95 X10^3/uL (0.83-4.51); Absolute Neutrophil Count 5.4 X10^3/uL (2.0-7.7); Basophil# 0.05 X10^3/uL; Basophil% 0.5 % (0-1); Eosinophil# 0.06 X10^3/uL; Eosinophils% 0.6 % (0-5); Hemoglobin 13.8 g/dL (13.0-16.5); Lymphocyte # 2.95 X10^3/ul (0.83-4.51); Lymphocyte % 31.9 % (19-41); Mean Corp Hgb Conc 32.9 g/dL (32-36); Mean Corpuscular Hgb 28.2 pg (27.0-32.0); Mean Corpuscular Volume 85.9 fL (80-94); Mean Platelet Vol. 9.4 fl (6.2-12.0); Monocyte# 0.78 X10^3/uL; Monocyte% 8.4 % (0-10); NRBC Flagged by Analyzer 0 % (0-5); Neutrophil # 5.38 X10^3/uL (2.7-7.7); Neutrophil % 58.3 % (47-70); Platelet Count 317 K/mm3 (150-450); RBC Distribution Width CV 13.6 % (11.6-14.6); RBC Distribution Width SD 42.5 fl (35.1-43.9); Red Blood Count 4.89 M/mm3 (4.6-6.2); White Blood Count 9.3 K/mm3 (4.4-11.0)
--- NOTE | 2022-12-10 16:17 | ED.RN ---
neuology soc beamed in and evaluated pt. to call and vincent with er
[2022-12-10 16:18] LABS: AST(SGOT) 17 U/L (15-37); Alanine Aminotransfer ALT/SGPT 22 U/L (16-61); Albumin, Serum 3.7 g/dL (3.2-5.0); Alkaline Phosphatase 117 U/L (45-117); Anion Gap 5 (5-15); BUN 22 mg/dL (7-18); BUN/Creat Ratio 15.9 RATIO (10-20); Calcium,Total 8.8 mg/dL (8.5-10.1); Chloride 110 mmol/L (98-107); Creatinine, Serum 1.38 mg/dL (0.70-1.30); EST Glomerular Filtration Rate 60 mL/min (>60); Est Glom Filt Rate - Afr Amer 73 mL/min (>60); Estimated Creatinine Clearance 83.34 ml/min; Globulin 3.6 g/dL (2.2-4.2); Glucose 96 mg/dL (74-106); Potassium 3.9 mmol/L (3.5-5.1); Protein, Total 7.3 g/dL (6.4-8.2); Sodium Level 139 mmol/L (136-145)
--- NOTE | 2022-12-10 16:57 | CT_ITS ---
STUDY: CTA HEAD AND NECK WITH CONTRAST REASON FOR EXAM: Male, 42 years old. visual changes, ?aneurysm RADIATION DOSAGE (If Supplied By Facility): CTDIvol = ( 22.37 ) mGy, DLP = ( 874.34 ) mGycm TECHNIQUE: CT angiography was performed with a multi-detector CT scanner. Data acquisition was obtained from the skull base through the vertex following intravenous administration of IV 100mL [id number]-[id number]. MIP images were reconstructed from the axial data set. Post-processing of the angiographic images was performed, with multiplanar reformation and 3D reconstruction. Individualized dose optimization techniques were used for this CT. COMPARISON: No relevant priors. FINDINGS: Normal bilateral petrous carotid arteries. Normal right cavernous carotid artery with a normal supraclinoid bifurcation. Normal left cavernous carotid artery with a normal supraclinoid bifurcation. Normal right A1 segments of the anterior cerebral artery. Normal left A1 segments of the anterior cerebral artery. Normal intact anterior communicating artery (ACOM). Normal bilateral A2 segments of the anterior cerebral arteries. Normal right M1 and M2 segments of the middle cerebral arteries, with a normal M1 bifurcation. Normal left M1 and M2 segments of the middle cerebral arteries, with a normal M1 bifurcation. Normal right posterior communicating artery (PCOM). Normal left posterior communicating artery (PCOM). Normal bilateral vertebral arteries. Normal basilar artery with a normal basilar bifurcation. The visualized bilateral superior cerebellar (SCA) arteries are normal. Normal bilateral P1, P2 and visualized P3 segments of the posterior cerebral arteries. There is no demonstrated aneurysm of the [place] of [place]. There is no demonstrated abnormality of the visualized brain. AORTIC ARCH: Hypoattenuated thyroid nodule noted on the right measuring 7 mm. Normal visualized aortic arch. Normal origins of the brachiocephalic, left common carotid, and left subclavian arteries. RIGHT CAROTID ARTERIES: Normal right common carotid artery (CCA). Normal right common carotid bulb. Normal origin of the right internal carotid (ICA) artery without a hemodynamically significant stenosis. Normal visualized cervical portion of the right internal carotid artery. Normal origin of the right external carotid artery (ECA). LEFT CAROTID ARTERIES: Normal left common carotid artery (CCA). Normal left common carotid bulb. Normal origin of the left internal carotid (ICA) artery without a hemodynamically significant stenosis. Normal visualized cervical portion of the left internal carotid artery. Normal origin of the left external carotid artery (ECA). VERTEBRAL ARTERIES: Normal bilateral vertebral arteries. CT/CTA Head AND Neck W/ Contrast IMPRESSION: CT angiogram neck: No stenosis, occlusion or dissection involving the bilateral carotid and vertebral arteries. CT angiogram head: No stenosis, occlusion or aneurysm involving the [place]. Hypoattenuated right thyroid lobe nodule measuring 7 mm which may be further assessed with ultrasound in nonacute setting. Electronically Signed: Bre Leonardo MD at 18:18 EDT ,
[2022-12-10 18:43] VITALS: BP 138/77; PULSE 72; RESP 16; O2SAT 98
== END 2022-12-10 18:44 | disposition home or self-care (01) ==
PROVIDERS: Emergency Provider Emergency Medicine; PCP Internal Medicine; Visit Provider Emergency Medicine
DX: T40.2X1A Poisoning by other opioids, accidental (unintentional), initial encounter (principal); F11.10 Opioid abuse, uncomplicated; F17.210 Nicotine dependence, cigarettes, uncomplicated; F15.90 Other stimulant use, unspecified, uncomplicated; E04.1 Nontoxic single thyroid nodule; Z79.899 Other long term (current) drug therapy
CPT/HCPCS: 36415; 70450; 70496; 70498; 80053; 82077; 85025; 99283; Q9967; A4216

== ENCOUNTER 2023-06-01 21:26 | Observation (INO) | payer MEDICAID, SELFPAY ==
[2023-06-01 21:27] VITALS: BP 127/94; PULSE 129; RESP 16; TEMP 36.6; O2SAT 99; BMI 29.2
--- NOTE | 2023-06-01 21:44 | HP.PCM.HOS_ITS ---
HPI - General General Date of Admission: 06/01/23 Date of Service: 06/01/23 Chief Complaint: Opiate detoxification request. HPI Narrative The patient is a 42 y/o M w/ PMHx: Obesity, Anxiety and Depression, Chronic paresthesias R Hand, Allergic rhinitis, Tobacco use, Hx Hepatitis C, Former opiate abuse with heroin as well as fentanyl transitioned to Suboxone who presents to the [facility] ED on 06/01/23 with history of interest in transitioning off Suboxone therapy as he notes he was given this in skilled nursing secondary to his usage of fentanyl and heroin in order to assist with withdrawal symptoms reporting that he has not used any drugs for the last 6 months prompting discussions with 180 who referred him to the [facility] for withdrawal treatment. Workup in the ED included T98, heart rate 129, BP 127/94, respiratory rate 16, 9 9% on room air, pending UDS, ethyl alcohol level, CBC and CMP upon evaluation. [facility] Medical History (Updated 06/01/23 @ 21:[address] Mayr Lobato MD) Anxiety and depression Back pain Chronic radicular low back pain Hepatitis C Opiate abuse, continuous Paresthesias in right hand Seasonal allergies Substance abuse Tobacco abuse Home Medications amitriptyline 150 mg tablet 150 mg PO BID 04/30/21 [History Last Taken 04/29/21] oxycodone-acetaminophen 5 mg-325 mg tablet (Percocet) 1 tab PO Q6H PRN pain 3 days #12 tabs 05/27/21 [Rx Last Taken Unknown] Allergy/AdvReac Type Severity Reaction Status Date / Time amoxicillin [Amoxicillin] Allergy Rash Verified 06/01/23 21:30 Penicillins Allergy Rash Verified 06/01/23 21:30 Family History Brother Cystic fibrosis Sister Thyroid disorder Mother Hypertension Thyroid disorder Diabetes Father Anxiety Thyroid disorder Heart disease Alcoholism Grandmother Breast cancer Heart disease Grandfather Cancer lung Surgical History H/O right knee surgery Social History (Updated 06/01/23 @ 21:[address] Mary Lobato MD) Smoking Status: Current every day smoker tobacco type: cigarettes second hand exposure: No alcohol intake: never substance use type: former substance user Date of last use: Clean for 6 months, prior heroin/fentanyl->transitioned to suboxone. what type of physical activity do you participate in: other details: cardio frequency: 1-2 times per week duration: 30-45 minutes/day Vital Signs Vital Signs Vital Signs: 06/01/23 21:27 Temperature 98 F Temperature Source Temporal Pulse Rate 129 H Respiratory Rate 16 Blood Pressure 127/94 H Blood Pressure Mean 105 Pulse Ox 99 Oxygen Delivery Method Room Air Weight Weight: 233 lb 7 oz Body Mass Index (BMI) 29.2 Assessment & Plan Assessment/Plan (1) Desire for detoxification: PLAN: Plan The patient is a 42 y/o M w/ PMHx: Obesity, Anxiety and Depression, Chronic paresthesias R Hand, Allergic rhinitis, Tobacco use, Hx Hepatitis C, Former opiate abuse with heroin as well as fentanyl transitioned to Suboxone who presents to the [facility] ED on 06/01/23 with history of interest in transitioning off Suboxone therapy as he notes he was given this in skilled nursing secondary to his usage of fentanyl and heroin in order to assist with withdrawal symptoms reporting that he has not used any drugs for the last 6 months prompting discussions with 180 who referred him to the [facility] for withdrawal treatment. #1. Chronic Suboxone therapy with history of previous opiate abuse specifically fentanyl and heroin transition to Suboxone with requested detoxification with impending acute Opiate Withdrawal: Will admit to MS, routine labs including CBC, CMP, urine for drug screen obtained in the ED pending upon evaluation, will initiate and continue on protocol with tapering course of Subutex, as needed tylenol, ibuprofen, bowel regimen, gabapentin, Bentyl, Vistaril, methocarbamol, clonidine, PRN nightly trazodone for insomnia, IV fluids, IV antiemetics. Once patient clinically improved and completion of taper nearing will plan consultation with case management for transition to next level of rehabilitation care. #2. Polysubstance Abuse, IVDA Hx, History of Hepatitis C, Chronic: Patient currently not candidate for hep C treatment currently as needs to be clean, sober x 6 months, documented attendance NA or AA meetings, counseling and ongoing negative drug screens. Although patient denies any substance abuse for the last 6 months to be cautious we will obtain syphilis, HIV, hepatitis panel to assess for co-infection pending. Encouraged PCP establishment and follow-up. #3. Anxiety and depression: We will continue patient home chronic amitriptyline regimen. #4. Allergic rhinitis: Per current list not on regimen, if necessary may give as needed cetirizine. #5. Tobacco Abuse: Encouraged cessation, inpatient consultation per RT, NR if desired. #6. DVT prophylaxis: Low risk for type of admission.
--- NOTE | 2023-06-01 21:44 | PCM.HP.STD ---
HPI - General General Date of Admission: 06/01/23 Date of Service: 06/01/23 Chief Complaint: Opiate detoxification request. HPI Narrative The patient is a 42 y/o M w/ PMHx: Anxiety and Depression, Chronic paresthesias R Hand, Allergic rhinitis, Tobacco use, Hx Hepatitis C, Former opiate abuse with heroin as well as fentanyl transitioned to Suboxone who presents to the [facility] ED on 06/01/23 with history of interest in transitioning off Suboxone therapy as he notes he was given this in snf secondary to his usage of fentanyl and heroin in order to assist with withdrawal symptoms reporting that he has not used any drugs for the last 6 months prompting discussions with 180 who referred him to the [facility] for withdrawal treatment. He stopped taking his Suboxone 2 days prior to current presentation with associated abdominal cramping and discomfort, body aches, fatigue and restlessness as well as diaphoresis. Patient interested in obtaining clean status he notes and wants to transition off of Suboxone. Workup in the ED included T98, heart rate 129, BP 127/94, respiratory rate 16, 99% on room air, CBC with WC 9.6, hemoglobin 13.8, platelet 286 without marked shift, CMP with chloride 111, BUN/creatinine 17/1.37, glucose 142, hepatic profile unremarkable, UDS with positive cannabis, ethyl alcohol less than 3. [facility] Medical History Anxiety and depression Back pain Chronic radicular low back pain Hepatitis C Opiate abuse, continuous Paresthesias in right hand Seasonal allergies Substance abuse Tobacco abuse Home Medications NK 06/01/23 [History Last Taken Unknown] Allergy/AdvReac Type Severity Reaction Status Date / Time amoxicillin [Amoxicillin] Allergy Rash Verified 06/01/23 21:30 Penicillins Allergy Rash Verified 06/01/23 21:30 Family History Brother Cystic fibrosis Sister Thyroid disorder Mother Hypertension Thyroid disorder Diabetes Father Anxiety Thyroid disorder Heart disease Alcoholism Grandmother Breast cancer Heart disease Grandfather Cancer lung Surgical History H/O right knee surgery Social History Smoking Status: Former smoker second hand exposure: No alcohol intake: never substance use type: former substance user Date of last use: Clean for 6 months, prior heroin/fentanyl->transitioned to suboxone. what type of physical activity do you participate in: other details: cardio frequency: 1-2 times per week duration: 30-45 minutes/day ROS ROS Narrative Admission Review of Systems: CONSTITUTIONAL: No weight loss, fever, chills, + weakness or fatigue. HEENT: Eyes: No visual loss, blurred vision, double vision or yellow sclerae. Ears, Nose, Throat: No hearing loss, sneezing, congestion, runny nose or sore throat. SKIN: No rash or itching, lesions, wounds. CARDIOVASCULAR: No chest pain, chest pressure or chest discomfort, palpitations, edema, orthopnea, syncopal events. RESPIRATORY: No shortness of breath, cough or sputum, wheezing, hemoptysis. GASTROINTESTINAL: + anorexia, nausea, abdominal cramping. No vomiting, melena, BRBPR. GENITOURINARY: No dysuria, frequency, urgency or retention. NEUROLOGICAL: No headache, dizziness, syncope, paralysis, ataxia, numbness or tingling in the extremities, focal weakness, change in bowel or bladder control, seizure. MUSCULOSKELETAL: + muscle, back pain, joint pain or stiffness. HEMATOLOGIC: No anemia, bleeding or bruising. LYMPHATICS: No enlarged nodes. No history of splenectomy. PSYCHIATRIC: + History of anxiety and depression. ENDOCRINOLOGIC: + reports of sweating, cold or heat intolerance. No polyuria or polydipsia. ALLERGIES: + History of allergic rhinitis. Vital Signs Vital Signs Vital Signs: 06/01/23 21:27 Temperature 98 F Temperature Source Temporal Pulse Rate 129 H Respiratory Rate 16 Blood Pressure 127/94 H Blood Pressure Mean 105 Pulse Ox 99 Oxygen Delivery Method Room Air Weight Weight: 233 lb 7 oz Body Mass Index (BMI) 29.2 Physical Exam Narrative Physical Examination: General: Awake, alert, oriented x 3 and cooperative, seated upright in the ED bed, mildly diaphoretic, flushed, appears to be in withdrawal. Skin: Mildly flushed color, normal turgor, no icterus, no cyanosis. HEENT: AT/NC, EOMI, PERRLA, moderately dry MM, no carotid bruits or JVD noted. Lungs: Mildly diminished, greater bases, appropriate effort, no rales, ronchi or wheezing. Heart: Tachycardic with regular rhythm; no gallop, rub audible. Abdomen: Soft, mild generalized discomfort with palpation but no rebound or guarding, ND, hyperactive BS, no markedly appreciated HSM. Extremities: No cyanosis, clubbing, or edema. Neurological: Patient awake, alert, oriented as noted, cognitive function intact; pupils equally reactive to light and accommodation, cranial nerves II-XII grossly normal, moving all 4 extremities, no focal deficits, strength mildly to moderately globally decreased secondary to acute withdrawal presentation. Psychiatric: Affect appears fatigued, yawning, restless, no acute evidence of depressive or anxiety feelings but does have underlying history. Results Lab / Micro Data 06/01/23 21:50 06/01/23 21:50 Assessment & Plan Assessment/Plan (1) Desire for detoxification: PLAN: Plan The patient is a 42 y/o M w/ PMHx: Anxiety and Depression, Chronic paresthesias R Hand, Allergic rhinitis, Tobacco use, Hx Hepatitis C, Former opiate abuse with heroin as well as fentanyl transitioned to Suboxone who presents to the [facility] ED on 06/01/23 with history of interest in transitioning off Suboxone therapy as he notes he was given this in snf secondary to his usage of fentanyl and heroin in order to assist with withdrawal symptoms reporting that he has not used any drugs for the last 6 months prompting discussions with 180 who referred him to the [facility] for withdrawal treatment. #1. Acute Opiate Withdrawal: Will admit to MS, routine labs including CBC, CMP, urine for drug screen obtained in the ED and not marked appearing as noted, will initiate and continue on protocol with tapering course of Subutex, as needed tylenol, ibuprofen, bowel regimen, gabapentin, Bentyl, Vistaril, methocarbamol, clonidine, PRN nightly trazodone for insomnia, IV fluids, IV antiemetics. Once patient clinically improved and completion of taper nearing will plan consultation with case management for transition to next level of rehabilitation care. #2. Suspected mild acute renal insufficiency likely secondary to opiate withdrawal as noted #1: Admission BUN/creatinine 17/1.37, GFR 60, baseline creatinine appears primarily 0.9-1.0 but had actually been elevated 12/10/22 to 1.38, will judiciously hydrate but this should be followed outpatient. #3. Hyperglycemia, mild: Admission glucose mildly elevated 142, suspect stress response however if concerns arise may obtain hemoglobin A1c to be cautious #4. Polysubstance Abuse, IVDA Hx, History of Hepatitis C, Chronic: Patient currently not candidate for hep C treatment currently as needs to be clean, sober x 6 months, documented attendance NA or AA meetings, counseling and ongoing negative drug screens. He notes that he has never been treated. Discussed with patient and will obtain HIV, hepatitis panel to assess for co-infection as well as syphilis. #5. Tobacco Abuse: Encouraged cessation, inpatient consultation per RT, NR if desired. #6. Anxiety and depression: Not on regimen, likely contributes greatly to substance abuse, encourage counseling and potentially consider medication outpatient. #7. DVT prophylaxis: Low risk for type of admission. Charges/Coding Visit Charges Inpatient E&M: 41281 Init Hosp L2
[2023-06-01 22:06] LABS: Absolute Lymphocyte Count 2.48 X10^3/uL (0.83-4.51); Absolute Neutrophil Count 6.2 X10^3/uL (2.0-7.7); Basophil# 0.07 X10^3/uL; Basophil% 0.7 % (0-1); Eosinophil# 0.28 X10^3/uL; Eosinophils% 2.9 % (0-5); Hematocrit 41.8 % (40-54); Hemoglobin 13.8 g/dL (13.0-16.5); Lymphocyte # 2.48 X10^3/ul (0.83-4.51); Lymphocyte % 25.9 % (19-41); Mean Corpuscular Hgb 27.8 pg (27.0-32.0); Mean Corpuscular Volume 84.3 fL (80-94); Mean Platelet Vol. 9.7 fl (6.2-12.0); Monocyte# 0.58 X10^3/uL; NRBC Flagged by Analyzer 0 % (0-5); Neutrophil # 6.16 X10^3/uL (2.7-7.7); Neutrophil % 64.3 % (47-70); Platelet Count 286 K/mm3 (150-450); RBC Distribution Width CV 13.6 % (11.6-14.6); RBC Distribution Width SD 41.8 fl (35.1-43.9); Red Blood Count 4.96 M/mm3 (4.6-6.2); White Blood Count 9.6 K/mm3 (4.4-11.0)
[2023-06-01 22:21] LABS: Alcohol, Blood (Medical)-Serum < 3.0 mg/dL
[2023-06-01 22:27] LABS: ALB/GLOB Ratio 0.9 RATIO (0.9-2.4); AST(SGOT) 29 U/L (15-37); Alanine Aminotransfer ALT/SGPT 26 U/L (16-61); Albumin, Serum 3.7 g/dL (3.2-5.0); Alkaline Phosphatase 89 U/L (45-117); Anion Gap 8 (5-15); BUN 17 mg/dL (7-18); BUN/Creat Ratio 12.4 RATIO (10-20); Calcium,Total 9.1 mg/dL (8.5-10.1); Chloride 111 mmol/L (98-107); Creatinine, Serum 1.37 mg/dL (0.70-1.30); EST Glomerular Filtration Rate 60 mL/min (>60); Est Glom Filt Rate - Afr Amer 73 mL/min (>60); Estimated Creatinine Clearance 92.45 ml/min; Globulin 4.1 g/dL (2.2-4.2); Glucose 142 mg/dL (74-106); Potassium 3.8 mmol/L (3.5-5.1); Protein, Total 7.8 g/dL (6.4-8.2); Sodium Level 141 mmol/L (136-145)
--- NOTE | 2023-06-01 22:32 | EDS_ITS ---
HPI History of Present Illness Chief Complaint: Substance Abuse Informant: patient Narrative Narrative: Presents to ED requesting detox off of Suboxone. He was started on this while incarcerated 4 months ago. He was in there for 6 months. He has been taking it daily. Released 2 days ago. Previous history of fentanyl and heroin use. He denies taking heroin or fentanyl since being released. Yesterday intermittent nausea legs felt weird and he did not like the feeling. He is requesting to be off of this after speaking with 180. He was referred here. Denies abdominal cramping denies vomiting denies fevers or chills or sweats. He denies any alcohol use. Prior similar symptoms: No PFSH PFSH Medical History Anxiety and depression Back pain Chronic radicular low back pain Hepatitis C Opiate abuse, continuous Paresthesias in right hand Seasonal allergies Substance abuse Tobacco abuse Home Medications NK 06/01/23 [History Last Taken Unknown] Allergy/AdvReac Type Severity Reaction Status Date / Time amoxicillin [Amoxicillin] Allergy Rash Verified 06/01/23 21:30 Penicillins Allergy Rash Verified 06/01/23 21:30 Family History Brother Cystic fibrosis Sister Thyroid disorder Mother Hypertension Thyroid disorder Diabetes Father Anxiety Thyroid disorder Heart disease Alcoholism Grandmother Breast cancer Heart disease Grandfather Cancer lung Surgical History H/O right knee surgery Social History Smoking Status: Former smoker second hand exposure: No alcohol intake: never substance use type: former substance user Date of last use: Clean for 6 months, prior heroin/fentanyl->transitioned to suboxone. what type of physical activity do you participate in: other details: cardio frequency: 1-2 times per week duration: 30-45 minutes/day ROS ROS ED Constitutional Constitutional ED: Denies chills, fever(s) or sweats Eyes Eyes: Denies change in vision ENT ENT ED: Denies dysphagia or sore throat Cardiovascular Cardiovascular: Denies chest pain, leg edema, palpitations or racing heartbeat Respiratory/Chest Respiratory/Chest: Denies cough, dyspnea or dyspnea on exertion Gastrointestinal Gastrointestinal: Reports nausea; Denies abdominal pain, diarrhea or vomiting Genitourinary Genitourinary ED: Denies dysuria, hematuria or urinary frequency Musculoskeletal Musculoskeletal: Denies back pain, extremity pain or neck pain Integumentary Denies rash or wounds Neurologic Neurologic: Denies headache(s), paresthesias or weakness EXAM Physical Exam Const Vital Signs: 06/01/23 21:27 Temperature 98 F Temperature Source Temporal Pulse Rate 129 H Respiratory Rate 16 Blood Pressure 127/94 H Blood Pressure Mean 105 Pulse Ox 99 Oxygen Delivery Method Room Air Positive well nourished and well developed General Appearance ED: well developed and NAD HEENT Reports moist mucous membranes normocephalic and atraumatic Eyes PERRL, EOMs intact bilaterally and conjunctivae normal General Eye ED: Yes normal appearance of both eyes Neck no lymphadenopathy and supple General: Negative for tenderness Chest Wall Chest: Negative for tenderness Resp normal respiratory effort and normal air movement Effort and Inspection: symmetric chest movement; Negative for respiratory distress Cardio regular rate, regular rhythm and no murmurs Cardio Narrative: Heart rate 90 during my examination. Peripheral Pulses: pulses 2+ throughout GI normal to inspection, nondistended, normoactive bowel sounds and non-tender Palpation: Negative for guarding or rebound tenderness present Back/Spine no CVA tenderness and no thoracic nor lumbar tenderness Extremity normal to inspection General Extremety ED: Negative for edema or tenderness General Extremity: Negative for edema Neuro oriented x3 and no sensory deficits noted Sensorium / Orientation: awake and alert Skin no rashes or lesions noted and no wounds MDM MDM MDM Narrative Medical decision making narrative: Interventions / MDM: Differential diagnosis: Opioid dependence Diagnosis considered but do not suspect: N/A My EKG interpretation: N/A Imaging independently reviewed and interpreted by myself: N/A External documents reviewed: N/A Test considered but not ordered:N/A ED course: Presenting wanting to be dog from Suboxone. Tachycardic in triage however normal during my exam. Currently not nauseated. Labs are drawn alcohol and toxicology screen. Discussed with hospitalist Dr. Lobato will admit to detox. Alcohol negative. Toxicology with THC. Re-evaluation: stable Disposition discussed with patient/family/significant other: Patient Case discussed with consulting clinician: Hospitalist This note was generated with [employer]ation software. It may contain incorrect words, spelling, and punctuation that were not noted in checking the note before signing. Discharge Plan Dx/Rx/DC Orders Clinical Impression: Desire for detoxification, Opioid dependence Disposition Disposition: Acute Care Hospital [facility] Discharge Date/Time: 06/01/23 22:52
[2023-06-01 22:47] VITALS: BP 109/75; PULSE 103; RESP 18; TEMP 36.6; O2SAT 94
[2023-06-01 23:08] VITALS: BMI 28.2
[2023-06-01 23:20] VITALS: BP 120/66; PULSE 96; RESP 16; TEMP 36.1; O2SAT 93
[2023-06-01 23:28] LABS: Amphetamine Urine VISTA NEGATIVE (<1000 ng/mL); Barbiturate Urine VISTA NEGATIVE (< 200 ng/mL); Benzodiazepine Urine VISTA NEGATIVE (< 200 ng/mL); Cocaine Urine VISTA NEGATIVE (< 300 ng/mL); Ecstacy Urine VISTA NEGATIVE (< 500 ng/mL); Methadone Urine VISTA NEGATIVE (< 300 ng/mL); PCP Urine VISTA NEGATIVE (< 25 ng/mL); THC Urine VISTA POSITIVE (< 50 ng/mL); Vista UDS pH Range 5
[2023-06-01 23:45] LABS: HIV - WCH Non-Reactive (Nonreactive); Syphilis Antibodies Non-reactive
[2023-06-01] MEDS: 0.9% Saline Lock 10 ML Syringe IV (23:57)
[2023-06-01] MEDS: Lactated Ringers 1,000 ML 125 ML IV (23:57)
[2023-06-02 00:28] VITALS: O2SAT 95
[2023-06-02 05:27] VITALS: BP 101/67; PULSE 78; RESP 16; TEMP 36.5; O2SAT 96
[2023-06-02 07:10] VITALS: O2SAT 96
[2023-06-02 08:47] VITALS: BP 119/73; PULSE 80; RESP 18; TEMP 36.5; O2SAT 97
[2023-06-02] MEDS: Ondansetron 8 MG Tablet PO (08:47)
[2023-06-02] MEDS: Gabapentin 300 MG Capsule PO (08:47)
[2023-06-02] MEDS: Buprenorphine HCl 2 MG TAB.SUBL SL ×2 (09:16→17:25)
[2023-06-02 11:21] LABS: Hepatitis B Surface Antibody Reactive; Hepatitis B Surface Antigen Non-Reactive (Nonreactive); Hepatitis C Antibody Preliminary Reactive (Nonreactive)
--- NOTE | 2023-06-02 14:25 | CHAPLAIN ---
Type of Pastoral Visit _x__ Initial Visit ___ Follow-up Visit ___ On-call Visit ___ General Patient Visit ___ Spiritual Assessment ___ Family Conference ___ Bereavement ___ Rapid Response ___ Code Blue ___ Other (describe below) Pastoral Care Referral From _x__ Patient ___ Family ___ Nurse ___ Physician ___ Integrated Marketing Intern ___ Wedding Day Coordinator ___ Other (describe below) Sacrament/Intervention _x__ Active listening ___ Anointing ___ Yazidi ___ Bereavement ___ Communion ___ Wendie exploration ___ _x__ Life review _x__ Prayer ___ Reconciliation ___ Sacrament of Sick _x__ Supportive presence ___ Wedding ___ Other (describe below) Pastoral Comments patient has been seen before; 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
[2023-06-02 15:19] VITALS: BP 113/70; PULSE 84; RESP 18; TEMP 37.1; O2SAT 97
[2023-06-02] MEDS: Dicyclomine 10 MG Capsule 20 MG PO (15:30)
[2023-06-02] MEDS: Acetaminophen 325 MG Tablet 650 MG PO (15:30)
[2023-06-02] MEDS: hydrOXYzine PAM 25 MG Capsule 50 MG PO (15:30)
--- NOTE | 2023-06-02 17:05 | PCM.PN.HOSP ---
Subjective Subjective Patient was seen and examined today, he does not complain of any nervousness or tremor. Patient was admitted for opiate withdrawal yesterday. Patient's creatinine was slightly elevated, unfortunately we do not have a recent creatinine to compare it with. Objective Data Objective Data Vital Signs: Vital Signs Temp Pulse Resp BP Pulse Ox O2 Del Method 98.8 F 84 18 113/70 97 Room Air 06/02/23 15:19 06/02/23 15:19 06/02/23 15:19 06/02/23 15:19 06/02/23 15:19 06/02/23 15:19 Oxygen Delivery Method Room Air Weight: 102.512 kg Body Mass Index (BMI) 28.2 Intake & Output: Intake and Output for Last 24 Hours 05/31/23 06/01/23 06/02/23 23:59 23:59 23:59 Intake Total 935.42 / 935.42 Balance 935.42 / 935.42 Lab / Micro Data 06/01/23 21:50 06/01/23 21:50 Labs: Laboratory Results - last 24 hr 06/01/23 21:50: WBC 9.6, RBC 4.96, Hgb 13.8, Hct 41.8, MCV 84.3, MCH 27.8, MCHC 33.0, RDW Std Deviation 41.8, RDW Coeff of Toshia 13.6, Plt Count 286, MPV 9.7, Immature Gran % (Auto) 0.200, Neut % (Auto) 64.3, Lymph % (Auto) 25.9, [place] % (Auto) 6.0, Eos % (Auto) 2.9, Baso % (Auto) 0.7, Absolute Neuts (auto) 6.2, Absolute Lymphs (auto) 2.48, Nucleated RBC % 0, Sodium 141, Potassium 3.8, Chloride 111 H, Carbon Dioxide 22.0, Anion Gap 8, BUN 17, Creatinine 1.37 H, Estim Creat Clear Calc 92.45, Est GFR (MDRD) Af Amer 73, Est GFR (MDRD) Non-Af 60, BUN/Creatinine Ratio 12.4, Glucose 142 H, Calcium 9.1, Total Bilirubin 0.30, AST 29, ALT 26, Alkaline Phosphatase 89, Total Protein 7.8, Albumin 3.7, Globulin 4.1, Albumin/Globulin Ratio 0.9, Ethyl Alcohol < 3.0 06/01/23 22:50: Urine Opiates Screen NEGATIVE, Urine Methadone Screen NEGATIVE, Ur Barbiturates Screen NEGATIVE, Ur Phencyclidine Scrn NEGATIVE, Ur Amphetamines Screen NEGATIVE, MDMA (Ecstasy) Screen NEGATIVE, U Benzodiazepines Scrn NEGATIVE, Urine Cocaine Screen NEGATIVE, U Cannabinoids Screen POSITIVE H, Ur Drug Screen Comment , Syphilis Total Ab Non-reactive, Hep Bs Antigen Non-Reactive, Hep Bs Antibody Reactive, Hepatitis C Antibody Preliminary Reactive, HIV 1&2 Antibody Non-Reactive Physical Exam Const alert, oriented x3, no apparent distress, average body habitus and healthy appearing General Appearance: cooperative, well kempt and well developed Orientation / Consciousness: awake, oriented to person, oriented to place and oriented to time HEENT normocephalic, head/scalp atraumatic and moist oral mucous membranes Eyes PERRL, EOMs intact bilaterally and conjunctivae normal Neck supple, no JVD, thyroid normal and no carotid bruits General: trachea midline Resp normal respiratory effort, no retractions, no use of accessory muscles and clear to auscultation bilaterally Auscultation: Negative for rales, rhonchi or wheezes Cardio regular rate, regular rhythm, S1 normal heart sound, S2 normal heart sound, no murmurs, no rub and no gallops GI normal to inspection, nondistended, normoactive bowel sounds, soft to palpation, non-tender and non-distended Extremity no clubbing, cyanosis or edema Skin no rashes or lesions noted General Skin Exam: no breakdown Neuro oriented x3, CN's II-XII intact bilaterally, moves all extremities, no focal motor deficits and no sensory deficits noted Sensorium / Orientation: awake, alert, oriented to person, oriented to place and oriented to time Speech: speech normal Psych affect normal Assessment & Plan Assessment/Plan (1) Opioid dependence: PLAN: Plan 1. Acute opioid withdrawal-patient will continue on his present medications #2 acute opioid dependence-complicates care, medical course, recovery, and prognosis #3 elevated creatinine-I do not feel the patient has acute kidney injury, it is hard to determine what his normal baseline is, patient's BMP will be repeated tomorrow. Total clinical time spent by myself addressing the patient's medical issues, reviewing all of his data, and collaborating with patient's care team: 25 minutes Charges/Coding Visit Charges Inpatient E&M: 57061 Subs Hosp L1
[2023-06-02 19:47] VITALS: BP 133/74; PULSE 79; RESP 18; TEMP 36.5; O2SAT 99
[2023-06-02] MEDS: cloNIDine HCl 0.1 MG Tablet PO (20:01)
[2023-06-03 01:20] VITALS: BP 124/74; PULSE 85; RESP 16; TEMP 36.7; O2SAT 95
[2023-06-03] MEDS: Buprenorphine HCl 2 MG TAB.SUBL SL ×3 (01:20→16:24)
[2023-06-03 06:32] VITALS: BP 126/76; PULSE 62; RESP 18; TEMP 36.8; O2SAT 97
[2023-06-03] MEDS: hydrOXYzine PAM 25 MG Capsule 50 MG PO ×2 (06:38→16:13)
[2023-06-03 06:56] LABS: Anion Gap 4 (5-15); BUN 20 mg/dL (7-18); BUN/Creat Ratio 22.8 RATIO (10-20); Calcium,Total 8.3 mg/dL (8.5-10.1); Chloride 115 mmol/L (98-107); Creatinine, Serum 0.88 mg/dL (0.70-1.30); EST Glomerular Filtration Rate 101 mL/min (>60); Est Glom Filt Rate - Afr Amer 122 mL/min (>60); Estimated Creatinine Clearance 141.84 ml/min; Glucose 118 mg/dL (74-106); Sodium Level 144 mmol/L (136-145)
--- NOTE | 2023-06-03 08:38 | NURSING ---
buprenorphine pulled for pt but he is in shower, will check back shortly
[2023-06-03 09:00] VITALS: BP 130/77; PULSE 80; RESP 15; TEMP 36.5; O2SAT 98
[2023-06-03] MEDS: Ondansetron 8 MG Tablet PO (09:06)
[2023-06-03] MEDS: Methocarbamol 750 MG Tablet PO ×2 (09:06→16:13)
[2023-06-03] MEDS: Dicyclomine 10 MG Capsule 20 MG PO (09:07)
[2023-06-03] MEDS: Gabapentin 300 MG Capsule PO ×2 (09:07→16:27)
[2023-06-03] MEDS: Loperamide 2 MG Capsule PO ×2 (09:07→16:13)
--- NOTE | 2023-06-03 10:20 | PCM.PN.HOSP ---
Reason for Visit Reason for Visit: Diagnoses Opioid dependence, uncomplicated (06/01/23) Subjective Subjective Patient was seen and examined today, he does not complain of any tremor or nervousness. He states that addiction social group worker does not talk to him yet. Objective Data Objective Data Vital Signs: Vital Signs Temp Pulse Resp BP Pulse Ox O2 Del Method 97.7 F L 80 15 130/77 H 98 Room Air 06/03/23 09:00 06/03/23 09:00 06/03/23 09:00 06/03/23 09:00 06/03/23 09:00 06/03/23 09:00 Oxygen Delivery Method Room Air Weight: 102.512 kg Body Mass Index (BMI) 28.2 Intake & Output: Intake and Output for Last 24 Hours 06/01/23 06/02/23 06/03/23 23:59 23:59 23:59 Intake Total 935.42 / 935.42 Balance 935.42 / 935.42 Lab / Micro Data 06/01/23 21:50 06/03/23 06:25 Labs: Laboratory Results - last 24 hr 06/01/23 22:50: Hep Bs Antigen Non-Reactive, Hep Bs Antibody Reactive, Hepatitis C Antibody Preliminary Reactive 06/03/23 06:25: Sodium 144, Potassium 4.0, Chloride 115 H, Carbon Dioxide 25.0, Anion Gap 4 L, BUN 20 H, Creatinine 0.88, Estim Creat Clear Calc 141.84, Est GFR (MDRD) Af Amer 122, Est GFR (MDRD) Non-Af 101, BUN/Creatinine Ratio 22.8 H, Glucose 118 H, Calcium 8.3 L Physical Exam Const alert, oriented x3, no apparent distress and healthy appearing General Appearance: cooperative, well kempt and well developed Orientation / Consciousness: awake, oriented to person, oriented to place and oriented to time HEENT normocephalic and moist oral mucous membranes Eyes PERRL, EOMs intact bilaterally and conjunctivae normal Neck supple, no JVD, thyroid normal and no carotid bruits General: trachea midline Resp normal respiratory effort and clear to auscultation bilaterally Auscultation: Negative for rales, rhonchi or wheezes Cardio regular rate, regular rhythm, no murmurs, no rub and no gallops GI normal to inspection, nondistended, normoactive bowel sounds, soft to palpation, non-tender and non-distended Extremity no clubbing, cyanosis or edema Skin no rashes or lesions noted General Skin Exam: no breakdown Neuro oriented x3, CN's II-XII intact bilaterally, no focal motor deficits and no sensory deficits noted Sensorium / Orientation: awake and alert Speech: speech normal Psych affect normal Assessment & Plan Assessment/Plan (1) Opioid dependence: PLAN: Plan 1. Acute opioid withdrawal-patient will continue on his present medications #2 acute opioid dependence-complicates care, medical course, recovery, and prognosis #3 elevated creatinine-resolved at this time, patient's creatinine was normal this morning, BUN remains slightly elevated Total clinical time spent by myself addressing the patient's medical issues, reviewing all of his data, and collaborating with patient's care team: 25 minutes Charges/Coding Visit Charges Inpatient E&M: [address] [facility] Hosp L1
[2023-06-03 10:45] VITALS: O2SAT 98
--- NOTE | 2023-06-03 13:38 | ADDICTION ---
This technical document writer met with PT to conduct ASAM, MSE, and DUDIT assessments and to plan for d/c. PT A+Ox4 and participated actively. All assessments completed and placed in PT's chart. No AUDIT completed due to pt denying use in past five years. PT plans to f/u with Outpatient/MAT Services at [facility] for follow-up services on 06/07/2023. Cl was provided resources for local emergency jail, [facility] services, and 12 Step meetings.
[2023-06-03 16:00] VITALS: BP 135/81; PULSE 76; RESP 14; TEMP 36.4; O2SAT 98
[2023-06-03] MEDS: cloNIDine HCl 0.1 MG Tablet PO (16:13)
[2023-06-03 19:08] LABS: HCV Quant. RNA PCR HCV Not Detected IU/mL (.)
[2023-06-03 22:00] VITALS: BP 124/61; PULSE 77; RESP 16; TEMP 36.7; O2SAT 97
[2023-06-04] MEDS: Ibuprofen 600 MG Tablet PO ×2 (00:07→20:12)
[2023-06-04] MEDS: hydrOXYzine PAM 25 MG Capsule 50 MG PO ×3 (00:07→15:16)
[2023-06-04] MEDS: Buprenorphine HCl 2 MG TAB.SUBL SL ×3 (00:08→20:12)
[2023-06-04 04:00] VITALS: BP 117/66; PULSE 68; RESP 16; TEMP 36.4; O2SAT 97
[2023-06-04 08:45] VITALS: BP 132/84; PULSE 75; RESP 15; TEMP 36.4; O2SAT 100
[2023-06-04] MEDS: Gabapentin 300 MG Capsule PO ×2 (08:49→17:50)
[2023-06-04 14:00] VITALS: BP 144/90; PULSE 75; RESP 14; TEMP 36.7; O2SAT 98
[2023-06-04] MEDS: Methocarbamol 750 MG Tablet PO (15:16)
[2023-06-04] MEDS: cloNIDine HCl 0.1 MG Tablet PO (15:16)
--- NOTE | 2023-06-04 15:45 | PN.HOSP_ITS ---
Reason for Visit Reason for Visit: Diagnoses Opioid dependence, uncomplicated (06/01/23) Subjective Subjective Patient was seen and examined today, he states he has an appointment with 180 tomorrow, I have elected to continue treatment for now and he most probably will be stable for discharge in the morning. Patient has no complaints of any tremor or nervousness. Objective Data Objective Data Vital Signs: Vital Signs Temp Pulse Resp BP Pulse Ox O2 Del Method 97.6 F L 75 15 132/84 H 100 Room Air 06/04/23 08:45 06/04/23 08:45 06/04/23 08:45 06/04/23 08:45 06/04/23 08:45 06/04/23 08:45 Oxygen Delivery Method Room Air Weight: 102.512 kg Body Mass Index (BMI) 28.2 Intake & Output: Intake and Output for Last 24 Hours 06/02/23 06/03/23 06/04/23 23:59 23:59 23:59 Intake Total 935.42 / 935.42 Balance 935.42 / 935.42 Lab / Micro Data 06/01/23 21:50 06/03/23 06:25 Labs: Laboratory Results - last 24 hr 06/01/23 11:21: HCV RNA Quant (PCR) HCV Not Detected, HCV RNA (PCR) IU log10 TNP, HCV RNA PCR Test Info Comment 06/01/23 22:50: Miscellaneous Test Physical Exam Const alert, oriented x3, no apparent distress, average body habitus and healthy appearing General Appearance: cooperative, well kempt and well developed Orientation / Consciousness: awake, oriented to person, oriented to place and oriented to time HEENT normocephalic, head/scalp atraumatic and moist oral mucous membranes Eyes PERRL, EOMs intact bilaterally and conjunctivae normal Neck supple, no JVD, thyroid normal and no carotid bruits General: trachea midline Resp normal respiratory effort, no retractions, no use of accessory muscles and clear to auscultation bilaterally Auscultation: Negative for rales, rhonchi or wheezes Cardio regular rate, regular rhythm, S1 normal heart sound, S2 normal heart sound, no murmurs, no rub and no gallops GI normal to inspection, nondistended, normoactive bowel sounds, soft to palpation, non-tender and non-distended Extremity no clubbing, cyanosis or edema Skin no rashes or lesions noted General Skin Exam: no breakdown Neuro oriented x3, CN's II-XII intact bilaterally, moves all extremities, no focal motor deficits and no sensory deficits noted Sensorium / Orientation: awake and alert Speech: speech normal Psych affect normal Assessment & Plan Assessment/Plan (1) Opioid dependence: PLAN: Plan 1. Acute opioid withdrawal-patient will continue on his present medications #2 acute opioid dependence-complicates care, medical course, recovery, and progn osis #3 elevated creatinine-resolved at this time Total clinical time spent by myself addressing the patient's medical issues, reviewing all of his data, and collaborating with patient's care team: 25 minutes Charges/Coding Visit Charges Inpatient E&M: 51776 [facility] Hosp L1
[2023-06-04 20:00] VITALS: BP 124/91; PULSE 84; RESP 16; TEMP 36.6; O2SAT 97
[2023-06-04] MEDS: Loperamide 2 MG Capsule PO (20:12)
[2023-06-04] MEDS: traZODone 100 MG Tablet PO (20:12)
[2023-06-04] MEDS: Dicyclomine 10 MG Capsule 20 MG PO (20:12)
[2023-06-05 02:30] VITALS: BP 115/58; PULSE 62; RESP 16; TEMP 36.4; O2SAT 97
[2023-06-05 08:33] VITALS: BP 131/95; PULSE 71; RESP 18; TEMP 36.7; O2SAT 99
[2023-06-05] MEDS: Ibuprofen 600 MG Tablet PO (08:42)
[2023-06-05] MEDS: Dicyclomine 10 MG Capsule 20 MG PO (08:42)
[2023-06-05] MEDS: Gabapentin 300 MG Capsule PO (08:42)
[2023-06-05] MEDS: Methocarbamol 750 MG Tablet PO (08:42)
[2023-06-05] MEDS: Ondansetron 8 MG Tablet PO (08:42)
[2023-06-05] MEDS: cloNIDine HCl 0.1 MG Tablet PO (08:42)
--- NOTE | 2023-06-05 11:45 | DCINST_ITS ---
Discharge Instructions Diet Discharge Diet: No restrictions Activity Discharge Activity: No Restrictions Weight Bearing Status: Full weight bearing Follow Up Care Test Results: Test results from this visit will be discussed in further detail at your follow- up appointment, if applicable. Discharge Plan Admission Admit Date/Time: 06/01/23 21:45 Primary Reason for Your Visit: opiate detox Attending Provider: Emile Montenegro Primary Care Provider: Sofia Armstrong Consulting Providers: Mary Lobato; Bruno Dodge Instructions Additional Instructions / Restrictions: Please go to your follow-up appointment with [facility] on Monday on scheduled. Discharge Orders/Prescriptions Prescriptions: No Action NK Referrals / Follow Up: Sofia Armstrong MD [Primary Care Provider] - Disposition Disposition (needs filled in before D/C Order can be placed): Home, Self Care
--- NOTE | 2023-06-05 11:49 | PCM.DC.SUM ---
Providers Date of Admission: 06/01/23 Date of Discharge: 06/05/23 Primary Care Physician: Dr. Sofia Armstrong MD Reason For Visit: OPIATE DETOXIFICATION Diagnosis Discharge Diagnosis (1) Opioid dependence: Status: Acute Code(s): F11.20 - Opioid dependence, uncomplicated Medications at Discharge Home Medications NK 06/01/23 Hospital Course Operations None Procedures None Summary of Care Provided Minutes Spent on Discharge: 25 Hospital Course: Patient is a 42-year-old male who presented to [facility] ED on 06/01/2023 for opiate detoxification. Hospital course as noted below. Patient discharged home in stable condition on 06/04. 1. Opiate abuse with acute opiate withdrawal and desire for detoxification Patient with previous history of IV heroin and fentanyl use, was transitioned to Suboxone therapy and was requesting detox from Suboxone. Had discontinued Suboxone 2 days prior to admission and had withdrawal symptoms of abdominal cramping, discomfort, body aches, fatigue and restlessness. ? Addiction medicine followed. Patient treated with Subutex taper and as needed medications per opiate withdrawal order set while inpatient. Scheduled for outpatient appointment with [facility] 2 days after discharge. 2. KAYLIN, resolved ? Creatinine 1.37 on admit, improved to 0.88 on hospital day 2. Presumed secondary to mild dehydration. Total clinical time spent by myself addressing the patient's medical issues, reviewing all the data, and collaborating with patient's care team: 25 minutes. Physical Exam Const alert, oriented x3, no apparent distress and average body habitus General Appearance: cooperative and comfortable HEENT normocephalic, head/scalp atraumatic, hearing grossly normal bilaterally, nasal mucous membranes and turbinates normal and moist oral mucous membranes Eyes PERRL, EOMs intact bilaterally and conjunctivae normal Neck full ROM Chest inspection of chest normal Resp normal respiratory effort, normal air movement, no use of accessory muscles and clear to auscultation bilaterally Cardio regular rate, regular rhythm, no murmurs and peripheral pulses 2+ throughout GI normal to inspection, nondistended, normoactive bowel sounds, soft to palpation, non-tender and non-distended Back/Spine normal ROM Extremity normal to inspection, full ROM and no pedal edema Skin no rashes or lesions noted Neuro moves all extremities and no focal motor deficits Speech: speech normal Psych mental status grossly normal Weight / BMI Weight Weight: 102.512 kg Body Mass Index (BMI) 28.2 ABG / Lab / Microbiology Data 06/01/23 21:50 06/03/23 06:25 D/C Instructions Discharge Diet: No restrictions Weight Bearing Status: Full weight bearing Meaningful Use Info Meaningful Use Diagnoses (Choose all that apply): None applicable Discharge Plan Admission Admit Date/Time: 06/01/23 21:45 Attending Provider: Emile Montenegro Primary Care Provider: Sofia Armstrong Consulting Providers: Mary Lobato; Bruno Dodge Instructions Additional Instructions / Restrictions: Please go to your follow-up appointment with [facility] on Monday on scheduled. Discharge Orders/Prescriptions Prescriptions: No Action NK Referrals / Follow Up: Sofia Armstrong MD [Primary Care Provider] - Disposition Disposition (needs filled in before D/C Order can be placed): Home, Self Care Charges/Coding Visit Charges Inpatient E&M: 86242 Disch Hosp
[2023-06-05] MEDS: Buprenorphine HCl 2 MG TAB.SUBL SL (12:14)
== END 2023-06-05 12:18 | disposition home or self-care (01) | DRG 773 ==
LOC: ED 21:54 → MS3 22:35
PROVIDERS: Internal Medicine; Admitting Provider Family Medicine; Emergency Provider Emergency Medicine; PCP Internal Medicine; Visit Provider Hospitalist
DX: F11.23 Opioid dependence with withdrawal (principal); B18.2 Chronic viral hepatitis C; Z87.891 Personal history of nicotine dependence; R73.9 Hyperglycemia, unspecified; N17.9 Acute kidney failure, unspecified
CPT/HCPCS: 36415; 80048; 80053; 80307; 82077; 85025; 86703; 86706; 86780; 86803; 87340; 87522; 96360; 96361; 99221; 99283; J7120; A4216; G0378